=== PATIENT | female | born 1960 | race Caucasian/White ===

== ENCOUNTER 2019-06-04 21:20 | Emergency (ER) | payer MEDICAID, SELFPAY | END 2019-06-05 02:00 | disposition admitted as inpatient to this hospital (09) | LOC: ER 06-16 10:02 | PROVIDERS: Emergency Provider Emergency Medicine; Family Provider Family Medicine; PCP Family Medicine | DX: E13.01 Other specified diabetes mellitus with hyperosmolarity with coma (principal); I51.7 Cardiomegaly; I25.10 Atherosclerotic heart disease of native coronary artery without angina pectoris; E78.5 Hyperlipidemia, unspecified; K21.9 Gastro-esophageal reflux disease without esophagitis; I10 Essential (primary) hypertension; I25.5 Ischemic cardiomyopathy; I50.41 Acute combined systolic (congestive) and diastolic (congestive) heart failure; Z87.891 Personal history of nicotine dependence | CPT/HCPCS: 71045; 71275; 80053; 82009; 83690; 83735; 83880; 84484; 85025; 85378; 93005; 96365; 96366; 96367; 96372; 96374; 96375; 96376; 99284; 99291; J2405; J3490; Q9967 ==

== ENCOUNTER 2019-06-04 21:20 | Inpatient (IN) | payer MEDICAID, SELFPAY ==
[2019-06-04] VITALS (20 sets, daily range): BP systolic 176–217; BP diastolic 112–136; PULSE 99; RESP 18; TEMP 36.8; O2SAT 87–96; BMI 47.2
--- NOTE | 2019-06-04 21:34 | XR_ITS ---
WS: [id number] PORTABLE CHEST HISTORY: cough COMPARISON: 08/08/2018 Mild interstitial thickening bilaterally, greatest in the RIGHT lower lung field. New since the prior study. No pleural effusion or pneumothorax. Cardiac size: Mildly enlarged cardiac silhouette. Mediastinum/Aorta: Mildly ectatic aorta. No osseous abnormality seen. XR/XR chest 1V portable [id number] IMPRESSION: 1. Development of mild thickened interstitium suggesting pneumonitis or acute episode of bronchitis. 2. Mild cardiomegaly.
--- NOTE | 2019-06-04 21:34 | ECG_ITS ---
Measurements Intervals [place] Rate: 92 P: 46 NM: 159 QRS: -44 QRSD: 131 T: 118 QT: 377 QTc: 467 SINUS RHYTHM POSSIBLE LEFT ATRIAL ENLARGEMENT LEFT AXIS DEVIATION INTRAVENTRICULAR CONDUCTION DELAY LEFT VENTRICULAR HYPERTROPHY AND ST-T CHANGE ANTERIOR MYOCARDIAL INFARCTION , OF INDETERMINATE AGE Compared to ECG 08/09/2018 00:08:47 Left-axis deviation now present Intraventricular conduction delay now present ST (T wave) deviation still present Myocardial infarct finding still present Electronically Signed On 06-05-2019 17:41:59 CDT by Joyce Olvera M.D. [email or web address]
--- NOTE | 2019-06-04 21:38 | W.ED.CHESTPA ---
HPI - Chest Pain General: Chief Complaint: Chest Pain Stated Complaint: SOB Time Seen by Provider: 06/04/19 21:28 History of Present Illness: HPI narrative: Ms. Barraza is a 58-year-old female who comes in complaining of shortness of breath and chest pain. She states the chest pain is been intermittent all day. It is been sharp and stabbing in nature. She denies any aggravating or alleviating causes. She denies any fever, denies any cough or fever. Patient states that the pain does not feel like when she had her RI in the past. Patient also admits to frequent urination. She denies any belly pain or back pain or fever. She states she is just urinating very frequently. Associated symptoms: Reports dyspnea; Deny abdominal pain, diaphoresis, fever(s), nausea, palpitations, syncope or vomiting Review of Systems General: Reports: other (negative unless marked) Const: Denies: fever, chills, body aches, fatigue, malaise or diaphoresis Eyes: Denies: change in vision or blurry vision ENMT: Denies: throat pain, painful swallowing, hoarseness, ear pain, ear discharge, Change in hearing or nasal discharge Card: Reports: chest pain; Denies: palpitations, irregular heart rhythm, syncope, pre-syncope, shortness of breath on exertion or shortness of breath when lying down Resp: Reports: shortness of breath; Denies: productive cough, non-productive cough, wheezing, coughing up blood or chest congestion GI: Denies: abdominal pain, nausea, vomiting, vomiting blood, coffee grounds in vomit, diarrhea, constipation, cramping, blood in stool or black tarry stool : Reports: urinary frequency and urinary urgency; Denies: flank pain, painful urination, decreased urine ouput, urinary incontinence or blood in urine Musc: Denies: neck pain, back pain, extremity pain, extremity swelling, joint pain, joint swelling, joint warmth or joint stiffness Skin/Breast: Denies: rash, skin tenderness or yellow skin Neuro: Denies: headache, numbness in extremities, weakness in extremities, changes in sensation, lack of coordination, difficulty walking, dizziness, vertigo or confusion Endo: Denies: excessive thirst, tired all the time, cold intolerance, excessive sweating, flushing or hot flashes Blaze/Lymph: Denies: easy bruising, easy bleeding, petechiae or enlarged lymph nodes All/Imm: Denies: hives, throat swelling, tongue swelling, facial swelling or acute wheezing PFSH ED PFSH: Medical History (Updated 06/05/19 @ 00:35 by Gilbert Serna MD) Cholelithiasis Coronary artery disease Diabetes Dyslipidemia Enteritis Gastroenteritis GERD (gastroesophageal reflux disease) Hypertension Ischemic cardiomyopathy Stenosis of coronary stent EF 40% grade 2 diastolic dysfunction, LVH, Systolic and diastolic CHF, acute Surgical History H/O cardiac catheterization 1 vessel disease [address] segment elevation RI 3 stents were placed, with subsequent stent thrombosis with balloon angioplasty Family History Other CAD (coronary artery disease) Hypertension Social History Smoking and tobacco status: former smoker Alcohol intake: never Substance/Drug Use: never Housing: House Physical Exam Const: COMMON NORMALS: no apparent distress, oriented x3, no limitations, healthy appearing and well nourished EXAM LIMITATIONS: no altered mental status GENERAL APPEARANCE: cooperative, well kempt and well developed ORIENTATION/CONSCIOUSNESS: Yes awake HENMT: COMMON NORMALS: normocephalic, head/scalp atraumatic, hearing grossly normal bilaterally, external ears normal, EAC's normal, external nose normal and moist oral mucous membranes HEAD & SCALP: normal to inspection, normocephalic and atraumatic FACE & SINUS: normal facial exam and face symmetric NOSE: external nose normal and nares normal EXTERNAL EAR: Yes external ears normal EXTERNAL AUDITORY CANAL: EAC's normal MOUTH: oral and palatal mucosa normal and tongue normal Eye: COMMON NORMALS: PERRL, EOMs intact bilaterally, conjunctivae normal and no scleral icterus GENERAL EYE: normal appearance of both eyes and normal light reflex CONJUNCTIVA: Yes conjunctivae normal SCLERA: sclerae normal CORNEA: Yes corneas normal PUPIL: Yes PERRL DIRECT OPHTHALMOSCOPY: Yes normal light reflex Neck/C-Spine: COMMON NORMALS: full ROM, no lymphadenopathy, supple, no meningeal signs and no JVD GENERAL: Yes normal visual inspection and Yes trachea midline CERVICAL SPINE: Yes cervical ROM normal Chest: COMMONS NORMALS: inspection of chest normal and palpation of chest normal Resp: COMMON NORMALS: normal respiratory effort, no retractions, no use of accessory muscles and clear to auscultation bilaterally EFFORT & INSPECTION: Yes able to speak in complete sentences AUSCULTATION: clear to auscultation bilaterally Cardio: COMMON NORMALS: no JVD, regular rate, regular rhythm, S1 normal heart sound, S2 normal heart sound, no gallops, no clicks, no murmurs and no rub JUGULAR VENOUS DISTENTION: no JVD RATE: regular rate RHYTHM: regular rhythm HEART SOUNDS: S1 normal and S2 normal GI: COMMON NORMALS: soft to palpation, non-tender, no hepatosplenomegaly and no masses INSPECTION: Yes normal to inspection PALPATION: Yes soft and Yes no hepatosplenomegaly : COMMON NORMALS: Yes no CVA tenderness BLADDER/KIDNEY EXAM: Yes no CVA tenderness Back/Pelvis: COMMON NORMALS: no CVA tenderness, thoracic and lumbar spine normal to inspection, no thoracic nor lumbar tenderness and thoraco-lumbar ROM normal Extremity: COMMON NORMALS: normal to inspection, full ROM, normal capillary refill, no joint enlargement, no clubbing, cyanosis or edema and no calf tenderness Neuro: COMMON NORMALS: oriented x3, CN's II-XII intact bilaterally, moves all extremities, no focal motor deficits and no sensory deficits noted MENINGEAL SIGNS: Yes no meningeal signs Psych: COMMON NORMALS: mental status grossly normal, thought process normal, cooperative, affect normal, speech normal and activity/motor behavior normal APPEARANCE: Yes well kempt SPEECH: Yes normal speech THOUGHT PROCESS: normal thought process Skin: COMMON NORMALS: no rashes or lesions noted, skin turgor normal, no jaundice, no petechiae and no mottling GENERAL SKIN EXAM: no rashes or lesions noted and turgor normal Course Vital Signs: Vital signs: Vital Signs Temperature 98.3 F 06/04/19 21:28 Pulse Rate 98 06/05/19 01:00 Respiratory Rate 15 06/05/19 01:00 Blood Pressure 192/119 06/05/19 01:00 Pulse Oximetry 95 06/05/19 00:55 MDM - Chest Pain MDM Narrative: Medical decision making narrative: The case was reviewed with Dr. Serna, he agrees to admit and wants the insulin drip continued. He will follow-up on the patient second troponin is. He will place orders. Patient's pain is currently gone with 3 sublingual nitros and morphine. Patient presents with a chest pain syndrome that does not appear classically cardiac. It is sharp in nature with no radiation. EKG was reviewed with Dr. Olvera she agrees no acute RI at this time. Patient's blood sugar is also extremely high. She is continually asking for water to drink and states she has to urinate. Think this is likely to osmotic diuresis. This should be handled with insulin drip further by Dr. Serna on the floor. Lab Data: Attestation: I reviewed the patient's lab results. Labs: Lab Results 06/04/19 06/04/19 06/04/19 Range/Units 00:00 00:12 21:42 WBC (4.0-10.0) 10^3/ uL RBC (4.1-5.3) 10^6/u L Hgb (11.5-15.3) g/dL Hct (37.0-47.0) % MCV (81-99) fL MCH (28.0-34.0) pg MCHC (30.0-36.0) g/dL RDW (12.1-15.1) % Plt Count (130-400) 10^3/c mm MPV (7.4-10.4) fL Neut % (Auto) % Lymph % (Auto) % [place] % (Auto) % Eos % (Auto) % Baso % (Auto) % Neut # (Auto) (1.8-7.7) 10^3/u L Lymph # (Auto) (0.8-4.8) 10^3/u L [place] # (Auto) (0.2-0.9) 10^3/u L Eos # (Auto) (0.0-0.8) 10^3/u L Baso # (Auto) (0.0-0.1) 10^3/u L Nucleated RBC % (a uto) % Nucleated RBCs # /100WBC D-Dimer 0.82 H (0-0.59) ug/mIFE U Specimen Type Arterial Sample Site Radial, left ABG pH 7.39 (7.35-7.45) ABG pCO2 44.7 (35-45) mmHg ABG pO2 66.1 L (80.0-100.0) mmH g ABG HCO3 27.0 H (22-26) mmol/L ABG Base Excess 1.6 (-2.0-2.0) mmol/ L Preet Test Pos Hematocrit 35.6 L (37-47) % O2 Delivery Device Room air Chemical Technician ID shai Sodium (136-145) mmol/L Potassium (3.5-5.1) mmol/L Chloride (98-107) mmol/L Carbon Dioxide (22-29) mmol/L Anion Gap (5-19) BUN (8-23) mg/dL Creatinine (0.5-0.9) mg/dL GFR Calculation (90-130) mL/min Glucose (65-115) mg/dL POC Glucose (70-110) mg/dL Calculated Osmolal ity (285-295) mOsm/k g Calcium (8.5-10.5) mg/dL Magnesium (1.7-2.3) mg/dL Total Bilirubin (0.15-1.2) mg/dL AST (0-32) U/L ALT (0-33) U/L Alkaline Phosphata se (35-105) IU/L Troponin T Baselin e (0-10) ng/mL Troponin T [address] [place] 52.42 H (0-10) ng/mL NT-Pro-B Natriuret Pep (0-125) pg/mL Total Protein (6.6-8.7) g/dL Albumin (3.5-5.2) g/dL Globulin (1.3-4.6) g/dL Lipase (13-60) U/L Serum Ketones (Negative) 06/04/19 06/04/19 06/04/19 Range/Units 21:42 21:42 21:42 WBC 7.4 (4.0-10.0) 10^3/ uL RBC 4.77 (4.1-5.3) 10^6/u L Hgb 13.4 (11.5-15.3) g/dL Hct 43.5 (37.0-47.0) % MCV 91.2 (81-99) fL MCH 28.1 (28.0-34.0) pg MCHC 30.8 (30.0-36.0) g/dL RDW 13.6 (12.1-15.1) % Plt Count 173 (130-400) 10^3/c mm MPV 12.3 H (7.4-10.4) fL Neut % (Auto) 72.4 % Lymph % (Auto) 19.9 % [place] % (Auto) 5.3 % Eos % (Auto) 1.6 % Baso % (Auto) 0.5 % Neut # (Auto) 5.4 (1.8-7.7) 10^3/u L Lymph # (Auto) 1.5 (0.8-4.8) 10^3/u L [place] # (Auto) 0.4 (0.2-0.9) 10^3/u L Eos # (Auto) 0.1 (0.0-0.8) 10^3/u L Baso # (Auto) 0.0 (0.0-0.1) 10^3/u L Nucleated RBC % (a uto) 0 % Nucleated RBCs # 0.0 /100WBC D-Dimer (0-0.59) ug/mIFE U Specimen Type Sample Site ABG pH (7.35-7.45) ABG pCO2 (35-45) mmHg ABG pO2 (80.0-100.0) mmH g ABG HCO3 (22-26) mmol/L ABG Base Excess (-2.0-2.0) mmol/ L Preet Test Hematocrit (37-47) % O2 Delivery Device Chemical Technician ID Sodium 124 L (136-145) mmol/L Potassium 4.2 (3.5-5.1) mmol/L Chloride 87 L (98-107) mmol/L Carbon Dioxide 24 (22-29) mmol/L Anion Gap 17.2 (5-19) BUN 15 (8-23) mg/dL Creatinine 1.3 H (0.5-0.9) mg/dL GFR Calculation 41.8 L (90-130) mL/min Glucose 1008 H* (65-115) mg/dL POC Glucose (70-110) mg/dL Calculated Osmolal ity 305 H (285-295) mOsm/k g Calcium 9.5 (8.5-10.5) mg/dL Magnesium 2.1 (1.7-2.3) mg/dL Total Bilirubin 0.4 (0.15-1.2) mg/dL AST 27 (0-32) U/L ALT 26 (0-33) U/L Alkaline Phosphata se 163 H (35-105) IU/L Troponin T Baselin e 38 H (0-10) ng/mL Troponin T [address] [place] (0-10) ng/mL NT-Pro-B Natriuret Pep 1390 H (0-125) pg/mL Total Protein 7.2 (6.6-8.7) g/dL Albumin 3.6 (3.5-5.2) g/dL Globulin 3.6 (1.3-4.6) g/dL Lipase 34 (13-60) U/L Serum Ketones (Negative) 06/04/19 06/05/19 Range/Units 21:42 00:23 WBC (4.0-10.0) 10^3/ uL RBC (4.1-5.3) 10^6/u L Hgb (11.5-15.3) g/dL Hct (37.0-47.0) % MCV (81-99) fL MCH (28.0-34.0) pg MCHC (30.0-36.0) g/dL RDW (12.1-15.1) % Plt Count (130-400) 10^3/c mm MPV (7.4-10.4) fL Neut % (Auto) % Lymph % (Auto) % [place] % (Auto) % Eos % (Auto) % Baso % (Auto) % Neut # (Auto) (1.8-7.7) 10^3/u L Lymph # (Auto) (0.8-4.8) 10^3/u L [place] # (Auto) (0.2-0.9) 10^3/u L Eos # (Auto) (0.0-0.8) 10^3/u L Baso # (Auto) (0.0-0.1) 10^3/u L Nucleated RBC % (a uto) % Nucleated RBCs # /100WBC D-Dimer (0-0.59) ug/mIFE U Specimen Type Sample Site ABG pH (7.35-7.45) ABG pCO2 (35-45) mmHg ABG pO2 (80.0-100.0) mmH g ABG HCO3 (22-26) mmol/L ABG Base Excess (-2.0-2.0) mmol/ L Preet Test Hematocrit (37-47) % O2 Delivery Device Chemical Technician ID Sodium (136-145) mmol/L Potassium (3.5-5.1) mmol/L Chloride (98-107) mmol/L Carbon Dioxide (22-29) mmol/L Anion Gap (5-19) BUN (8-23) mg/dL Creatinine (0.5-0.9) mg/dL GFR Calculation (90-130) mL/min Glucose (65-115) mg/dL POC Glucose > 600 (70-110) mg/dL Calculated Osmolal ity (285-295) mOsm/k g Calcium (8.5-10.5) mg/dL Magnesium (1.7-2.3) mg/dL Total Bilirubin (0.15-1.2) mg/dL AST (0-32) U/L ALT (0-33) U/L Alkaline Phosphata se (35-105) IU/L Troponin T Baselin e (0-10) ng/mL Troponin T [address] [place] (0-10) ng/mL NT-Pro-B Natriuret Pep (0-125) pg/mL Total Protein (6.6-8.7) g/dL Albumin (3.5-5.2) g/dL Globulin (1.3-4.6) g/dL Lipase (13-60) U/L Serum Ketones Negative (Negative) Imaging Data^: CXR: My impression: Cardiomegaly, questionable right lower lobe infiltrate. EKG Data^: EKG 1: Attestation: I personally reviewed and interpreted this EKG as follows: EKG interpretation date: 06/05/19 EKG interpretation time: 21:37 Interpretation: Normal sinus rhythm at 92 beats a minute, LVH, evidence of previous anterior RI with Q waves. No acute ST or T wave changes. Reviewed and agreed upon with Dr. Olvera. EKG 2: Attestation: I personally reviewed and interpreted this EKG as follows: EKG interpretation date: 06/05/19 EKG interpretation time: 00:14 Interpretation: Normal sinus rhythm at 79 beats a minute, LVH with strain, evidence of previous Q wave anterior RI. No changes from previous. Discharge Plan Discharge Patient Disposition: Admitted As Inpatient Admit Provider: Gilbert Serna Clinical Impression: Secondary diabetes mellitus with HHNC (hyperglycemia hyperosmolar non-ketotic coma) Chest pain Qualifiers: Chest pain type: unspecified Qualified Code(s): R07.9 - Chest pain, unspecified Condition: Stable Coding Level of Care Code ED Supervisor Fertilizer for Chg Fwd Exam Comprehensive
[2019-06-04 21:54] LABS: Basophils % 0.5 %; Eosinophils # 0.1 10^3/uL (0.0-0.8); Eosinophils % 1.6 %; Hematocrit 43.5 % (37.0-47.0); Hemoglobin 13.4 g/dL (11.5-15.3); Lymphocytes # 1.5 10^3/uL (0.8-4.8); Lymphocytes % 19.9 %; Mean Corpuscular HGB Conc 30.8 g/dL (30.0-36.0); Mean Corpuscular Hemoglobin 28.1 pg (28.0-34.0); Mean Corpuscular Volume 91.2 fL (81-99); Mean Platelet Volume 12.3 fL (7.4-10.4); Monocytes # 0.4 10^3/uL (0.2-0.9); Monocytes % 5.3 %; Neutrophils # 5.4 10^3/uL (1.8-7.7); Neutrophils % 72.4 %; Nucleated Red Blood Cells % 0 %; Platelet Count 173 10^3/cmm (130-400); Red Blood Count 4.77 10^6/uL (4.1-5.3); Red Cell Distribution Width 13.6 % (12.1-15.1); White Blood Count 7.4 10^3/uL (4.0-10.0)
[2019-06-04 22:13] LABS: Troponin(5th) Baseline 38 ng/mL (0-10)
[2019-06-04 22:23] LABS: Alanine Aminotransferase 26 U/L (0-33); Albumin Level 3.6 g/dL (3.5-5.2); Alkaline Phosphatase 163 IU/L (35-105); Anion Gap 17.2 (5-19); Aspartate Amino Transferase 27 U/L (0-32); Blood Urea Nitrogen 15 mg/dL (8-23); Calcium 9.5 mg/dL (8.5-10.5); Carbon Dioxide 24 mmol/L (22-29); Chloride 87 mmol/L (98-107); Globulin 3.6 g/dL (1.3-4.6); Glomerular Filtration Rate 41.8 mL/min (90-130); Lipase 34 U/L (13-60); Magnesium 2.1 mg/dL (1.7-2.3); NT Pro B Type Natriuretic Pept 1390 pg/mL (0-125); Potassium 4.2 mmol/L (3.5-5.1); Sodium 124 mmol/L (136-145); Total Bilirubin 0.4 mg/dL (0.15-1.2); Total Protein 7.2 g/dL (6.6-8.7)
[2019-06-04] MEDS: aspirin 81 mg Chew Tablet 324 MG PO (22:24)
[2019-06-04] MEDS: ondansetron 2 mg/ML SDV 2 mL 4 MG IVP ×2 (22:24→23:05)
[2019-06-04] MEDS: nitroglycerin 0.4 mg sublingual Tablet SUBLINGUAL ×2 (22:24→22:38)
[2019-06-04 22:31] LABS: Osmolality Calculated 305 mOsm/kg (285-295)
[2019-06-04 22:35] LABS: Glucose 1008 mg/dL (65-115)
[2019-06-04] MEDS: labetalol 5 mg/mL SDV 20mL 10 MG IVP (23:07)
[2019-06-04] MEDS: nitroglycerin 1 gm/inch oint Pkt 1 INCH TOPICAL (23:09)
--- NOTE | 2019-06-04 23:12 | CTR_ITS ---
PROCEDURE INFORMATION: Exam: CT Angiography Chest With Contrast Exam date and time: 06/04/2019 11:28 PM Age: 58 years old Clinical indication: Chest pain; Additional info: Chest pain, pleuritc TECHNIQUE: Imaging protocol: Computed tomographic angiography of the chest with intravenous contrast. Axial, coronal and sagittal reformatted images were created and reviewed. 3D rendering: MIP and/or 3D reconstructed images were created by the technologist. Total DLP: 653.13 mGy-cm Radiation optimization: All CT scans at this facility use at least one of these dose optimization techniques: automated exposure control; mA and/or kV adjustment per patient size (includes targeted exams where dose is matched to clinical indication); or iterative reconstruction. Contrast material: JEWELL; Contrast volume: 80 ml; Contrast route: 20G; COMPARISON: CTA Chest-Pulmonary Emb [id number] 07/18/2018 11:40 PM FINDINGS: Pulmonary arteries: Contrast opacification satisfactory. No intraluminal filling defect. Aorta: Unremarkable. No aneurysm or dissection. Lungs: Mild central peribronchial thickening, suggestive of airway inflammation. Mild linear stranding and groundglass, likely due to atelectasis and/or scarring. No focal consolidation. Pleural space: Unremarkable. No pneumothorax. No pleural effusion. Heart: Mild cardiomegaly. No pericardial effusion. Gallbladder and bile ducts: Cholelithiasis and marked gallbladder distention, similar to prior. Kidneys and ureters: 2.5 cm right renal cyst. Nonobstructing bilateral renal calculi. Lymph nodes: Multiple small mediastinal and hilar lymph nodes, likely reactive. No pathologically enlarged lymph nodes. Bones/joints: No acute osseous abnormality. Osteopenia. Degenerative changes. Soft tissues: Unremarkable. CT/CT angio chest PE protcl [id number] IMPRESSION: 1. No CT evidence of pulmonary embolism. 2. Mild cardiomegaly. 3. Mild central peribronchial thickening, suggestive of airway inflammation. 4. Cholelithiasis and marked gallbladder distention, similar to prior. If clinically indicated, ultrasound or HIDA scan would provide a more sensitive evaluation for acute gallbladder pathology. 5. Additional findings, as above. Radiation Dose CTDIVOL = (mGy): DLP = 653.13 (mGy-cm)
[2019-06-04 23:19] LABS: Ketone (Acetest) Serum Negative (Negative)
--- NOTE | 2019-06-04 23:34 | ECG_ITS ---
Measurements Intervals [place] Rate: 75 P: 51 NH: 162 QRS: -29 QRSD: 123 T: 92 QT: 403 QTc: 451 SINUS RHYTHM POSSIBLE LEFT ATRIAL ENLARGEMENT [-0.1mV P WAVE IN V1/V2] LEFT VENTRICULAR HYPERTROPHY AND ST-T CHANGE [VOLTAGE CRITERIA PLUS ST/T ABNOR ABNORMALITY] POSSIBLE SEPTAL MYOCARDIAL INFARCTION [30 ms Q WAVE IN V1/V2], POSSIBLY ACUTE ACUTE IA Compared to ECG 08/09/2018 00:08:47 No significant changes Electronically Signed On 06-05-2019 17:50:14 CDT by Joyce Olvera M.D. [email or web address]
[2019-06-04] MEDS: iodixanol 320 mg/mL 100mL Btl IV (23:49)
[2019-06-05] VITALS (51 sets, daily range): BP systolic 80–198; BP diastolic 54–136; PULSE 70–100; RESP 12–27; TEMP 36.2; O2SAT 91–99
--- NOTE | 2019-06-05 00:14 | P.HP_ITS ---
Providers/Chief Complaint Primary Care Provider: Lito Keating MD Chief Complaint: SOB History of Present Illness Roxana Barraza is a 58 year old female who carries diagnosis of diabetes, established coronary disease with 3 stents in LAD single-vessel coronary disease status, in-stent restenosis with successful balloon angioplasty came in with chief complaint of chest pain. Her cardiac catheterization was done 2019 July, since then patient has not been taking her medications at all, she is stating that she forgets what she ate in her breakfast and taking medication is a very big challenge for her, she has not been taking anything for her diabetes high blood pressure or coronary disease. She lives with her friend, she has chicken on her property and enjoys taking care of them. Patient is stating that she sleeps in the bathtub because that is how she gets 6 hours sleep most of the time, she has been suffering from polyuria and not able to get up from the couch and decided to sleep in the bathtub. Patient is stating that her chest pain started few days ago, it mostly happens on exertion when she is outside taking care of her chicken. Gets better with rest, it associated shortness of breath, orthopnea and PND, sometimes when she is taking care of her chicken she falls on the ground and then drags herself back in her home. She has not noticed any fever, nausea, vomiting, cold sweats, she is struggling for her daily activities, memory impairment is making her daily life very difficult, she thinks someone is stealing money from her as well. Overall she feels very lethargic, tired and has been suffering from muscle cramps. Diagnostics in ER revealed hypertensive emergency, hyperglycemia without ketosis, abnormal troponins without ischemic changes on EKG, CTA chest ruled out PE, baseline creatinine, Currently she is on nitroglycerin drip for hypertensive emergency, chest pain- free Review of Systems Const: Reports: chills, body aches, change in appetite, fatigue, malaise and change in sleep pattern; Denies: fever Eyes: Denies: change in vision ENMT: Denies: throat pain Card: Reports: chest pain, edema, swelling of feet/ankles, shortness of breath on exertion, shortness of breath when lying down and leg pain with exertion; Denies: palpitations, syncope or pre-syncope Resp: Reports: shortness of breath; Denies: productive cough or non-productive cough GI: Denies: abdominal pain, nausea or vomiting : Denies: flank pain or difficulty urinating Musc: Reports: muscle cramps and muscle weakness Skin/Breast: Reports: rash, itching and redness (Perineal area and legs) Neuro: Denies: headache Psych: Reports: depression and sleeping more; Denies: anxiety Endo: Reports: excessive urination and excessive thirst Blaze/Lymph: Denies: easy bruising All/Imm: Denies: hives Medications/Allergies Allergies Allergy/AdvReac Type Severity Reaction Status Date / Time nalbuphine [From Nubain] Allergy Unknown Verified 06/04/19 21:35 PFSH Acute PFSH: Medical History Cholelithiasis Coronary artery disease Diabetes Dyslipidemia Enteritis Gastroenteritis GERD (gastroesophageal reflux disease) Hypertension Ischemic cardiomyopathy Stenosis of coronary stent EF 40% grade 2 diastolic dysfunction, LVH, Systolic and diastolic CHF, acute Surgical History H/O cardiac catheterization 1 vessel disease [address] segment elevation PR 3 stents were placed, with subsequent stent thrombosis with balloon angioplasty Family History Other CAD (coronary artery disease) Hypertension Social History Smoking and tobacco status: former smoker Alcohol intake: never Substance/Drug Use: never Housing: House Vitals/I&O/Wt Last Vital Signs Temp 98.3 F 06/04/19 21:28 Pulse 99 06/04/19 21:28 Resp 18 06/04/19 21:28 BP 217/116 06/04/19 21:28 Pulse Ox 96 06/04/19 21:28 Weight last 48 hrs Weight 113.398 kg Physical Exam Narrative: EXAM NARRATIVE: Morbidly obese female Currently in distress because of muscle cramps in her right leg Able to give me all the details S1, S2, bilateral lower extremity edema 1+, hard to assess her JVD, crackles at base of her lungs, saturating well on room air Abdomen soft, nontender, nondistended, with obesity positive, bloated, nontender Neurologically nonfocal exam Hyperemic skin rash around medial side of her thighs and lower legs without active sign of cellulitis Excessively dry skin EOMI, PERRLA Irritable mood Lack of insight to her medical conditions Data : 06/04/19 21:42 06/04/19 21:42 A&P Assessment and plan (1) Angina pectoris syndrome: Status: Acute (2) Poorly controlled diabetes mellitus: Status: Acute (3) Secondary diabetes mellitus with HHNC (hyperglycemia hyperosmolar non- ketotic coma): Status: Acute (4) Hypertensive emergency: Status: Acute (5) Systolic and diastolic CHF, acute: Status: Acute (6) Non-compliant patient: Status: Acute (7) Morbid obesity: Status: Acute Additional A&P Information Unstable angina Established coronary disease, history of 3 stents with in-stent restenosis Patient is noncompliant, since her previous admission to the hospital she has not been taking dual antiplatelet therapy, or recommended medications for her heart failure Considering significant delta troponin I would load her with aspirin and Plavix give her full dose therapeutic dose of Lovenox x1, currently she is chest pain- free, Lexiscan stress test in the morning EKG is not showing any ischemic or infarctive changes, left ventricular hypertrophy evidence positive along left axis deviation, kindly reevaluate if patient would need heparin drip after 12 hours as her troponin could very well be secondary to hypertensive emergency Avoid using beta-jian at this point Echo in the morning High risk for in-stent occlusion Hypertensive emergency with abnormal troponin level Currently on nitroglycerin drip Target mean arterial pressure reduction 25% in next 8 to 10 hours, on arrival diastolic blood pressure was 120 and systolic 192 I would continue lisinopril low-dose along amlodipine, avoid hydrochlorothiazide at this point because of polyuria due to hyperglycemia Poorly controlled type 2 diabetes due to noncompliance She has been suffering from polyuria, polydipsia, lethargy Did not meet DKA criteria Currently on insulin drip N.p.o. Anticipating rapid decline in blood sugar, would add D5 after blood sugar is below 250 mg/dL We will check A1c panel, her A1c level was 11 in 2019 and she has not been taking anything for her diabetes Combined systolic diastolic congestive heart failure active exacerbation with clinical signs Ischemic cardiomyopathy EF 40% Grade 2 diastolic We will follow-up with echo Gentle diuresis as she has been not taking any diuretics at home Chronic kidney disease: Baseline creatinine 1.3 no active exacerbation, N.p.o. 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
[2019-06-05 00:23] LABS: ABG PCO2 44.7 mmHg (35-45); ABG PH Result 7.39 (7.35-7.45); Arterial Blood Gas Hematocrit 35.6 % (37-47); Base Excess ABG 1.6 mmol/L (-2.0-2.0); Blood Gas Allen Test Pos; Blood Gas Sample Site Radial, left; Blood Gas Sample Type Arterial; Oxygen Device ROOM AIR; PO2 ABG 66.1 mmHg (80.0-100.0)
[2019-06-05] MEDS: insulin regular-human 250 UNIT in sodium chloride 0.9% 250 ML IV (00:24)
--- NOTE | 2019-06-05 00:24 | PC.NURSE ---
INformed doctor and nurse who was at bedside that patient's bllod glucose is too high to read on glucometer
[2019-06-05 00:27] LABS: Glucose Point of Care > 600 mg/dL (70-110)
[2019-06-05 00:28] LABS: D Dimer 0.82 ug/mIFEU (0-0.59)
[2019-06-05 00:34] LABS: Troponin 5 2HR 52.42 ng/mL (0-10)
[2019-06-05] MEDS: nitroglycerin drip 50 MG/250 ML PREMIX IV (00:43)
--- NOTE | 2019-06-05 00:52 | PC.NURSE ---
Patient's nurse and I assisted patient in changing her bedding and briefs.
[2019-06-05 01:16] LABS: Troponin 5 2HR Delta 14.42 ABS# (0-10)
--- NOTE | 2019-06-05 01:36 | USCV_ITS ---
Roxana Barraza Age: 58 Gender: F : 1960 Exam Date: 06/05/2019 11:39 Ordering Phys: Gilbert Serna MD Technologist: Santo Conde [place]am [place] [facility] [place]ication: HX OR BP: / HR: 71 Rhythm: Sinus Technical Quality: Poor MEASUREMENTS (Male / Female) Normal Values 2D ECHO LV Diastolic Diameter PLAX 4.0 cm 4.2 - 5.9 / 3.9 - 5.3 cm LV Systolic Diameter PLAX 2.0 cm IVS Diastolic Thickness 1.2 cm 0.6 - 1.0 / 0.6 - 0.9 cm IVS Systolic Thickness 1.6 cm LVPW Diastolic Thickness 1.2 cm 0.6 - 1.0 / 0.6 - 0.9 cm LVPW Systolic Thickness 1.4 cm LVOT Diameter 2.1 cm LV Ejection Fraction 2D Teich 81.0 % LV Ejection Fraction MOD 2C 21.9 % LV Ejection Fraction 2C AL 24.7 % LA Diameter 3.6 cm LA Width 4.9 cm LA Height 5.2 cm RA Width 3.9 cm RA Height 4.9 cm Aorta at Sinotubular Diameter 2.6 cm M-MODE LV Diastolic Diameter MM 4.2 cm 4.2 - 5.9 / 3.9 - 5.3 cm LV Systolic Diameter MM 3.2 cm LV Ejection Fraction MM Teich 49.4 % IVS Diastolic Thickness MM 1.1 cm 0.6 - 1.0 / 0.6 - 0.9 cm IVS Systolic Thickness MM 1.6 cm LVPW Diastolic Thickness MM 1.5 cm 0.6 - 1.0 / 0.6 - 0.9 cm LVPW Systolic Thickness MM 1.8 cm RV Diastolic Diameter MM 1.2 cm Aortic Annulus Diameter 3.1 cm LA Ao Ratio MM 1.2 MV E Point Septal Separation 0.9 cm DOPPLER AV Peak Velocity 162.0 cm/s LVOT Peak Velocity 92.0 cm/s AV Area Cont Eq vti 2.6 cm squared AV Area Cont Eq pk 2.0 cm squared MV Area PHT 5.0 cm squared Mitral E to A Ratio 1.2 MV E' Velocity 5.0 cm/s Mitral E to MV E' Ratio 21.4 Mitral E to LV E' Lateral Ratio 21.8 Mitral E to LV E' Septal Ratio 21.4 TR Peak Velocity 168.0 cm/s TR Peak Gradient 11.3 mmHg TV Peak E Velocity 66.0 cm/s Right Atrial Pressure 3.0 mmHg Pulmonary Artery Systolic Pressu 14.3 mmHg FINDINGS Left Ventricle Mildly increased left ventricular cavity size. Moderately decreased left ventricular systolic function. There appeared to be anterior mid to distal septal and apical akinesis.Grade II/IV diastolic dysfunction, moderately elevated filling pressures. Right Ventricle The right ventricle is normal in size and function. Right Atrium The right atrium is normal in size. Left Atrium The left atrium is normal in size. Mitral Valve Moderately thickened mitral valve. No mitral valve stenosis. No mitral valve regurgitation. Aortic Valve Mild aortic valve calcification. No aortic valve stenosis. No aortic valve regurgitation. Tricuspid Valve Structurally normal tricuspid valve without significant stenosis or regurgitation. Pulmonary artery systolic pressure is normal. Pulmonic Valve Structurally normal pulmonic valve without significant stenosis. There is no pulmonic regurgitation. Pericardium Normal pericardium without effusion. Aorta Normal ascending aorta dimension. CONCLUSIONS 1-Mildly increased left ventricular cavity size. Moderately decreased left ventricular systolic function. There appeared to be anterior mid to distal septal and apical akinesis.Grade II/IV diastolic dysfunction, moderately elevated filling pressures. 2-There is no pericardial effusion. 3-Pulmonary artery systolic pressure is within normal limits. 4-No significant valve abnormalities. 5-There is no pericardial effusion. 6-No significant change since the prior echocardiogram study of 07/30/2018. Gilbert Torres MD (Electronically Signed) Final Date: 05 June 2019 14:18 S
--- NOTE | 2019-06-05 01:36 | NMCV_ITS ---
NM xena perf SPECT r/s* [id number] Roxana Barraza Age: 58 Gender: F : 1960 Exam Date: 06/05/2019 07:27 Ordering Phys: Gilbert Serna MD Technologist: SUMAYA Ennis Exam Location: [facility] Indications: SOB, CAD STRESS TEST Please see separate stress test report in [facility] for full findings IMAGE PROTOCOL Rest/Stress 1 Lexiscan Day Radiopharmaceutical Dose (mCi) Administration Site Administered by Rest: Tc-99m 10.9 IV SUMAYA Ennis Sestamibi Stress:Tc-99m 33.0 IV SUMAYA Ennis Sestamibi Rest: 05-Jun-2019 60 Discovery 630 Stress: 05-Jun-2019 45 Discovery 630 0.4mg Lexiscan. Supine position only as patient was unable to lay prone. SPECT RESULTS Technical Quality: Good Raw Data Analysis: Breast attenuation Image Corrections: No attenuation or motion correction applied Summed Stress Score: 26 Summed Rest Score: 26 Summed Difference Score: 2 PERFUSION FINDINGS Large area of fixed perfusion defect noted in mid to distal anterior and inferolateral apical wall suggestive of old myocardial infarction versus scarring in LAD territory. Medium-size area of mild to moderate reversibility noted in basal to distal inferolateral region suggestive of possible ischemia in distal circumflex or RCA. Please note that patient was not able to perform the prone images therefore cannot rule out artifact. FUNCTIONAL RESULTS (calculated via Gated SPECT) Stress Image LV EF (%): 19 Stress EDV (mL):219 TID: 1.04 Stress ESV (mL):178 Rest Image LV EF (%): 19 FUNCTIONAL FINDINGS: It appeared to be mid to distal anterior anteroseptal apical and inferoseptal akinesis. There appeared to be mid to distal inferior akinesis. IMPRESSIONS Large area of fixed perfusion defect noted in mid to distal anterior and inferolateral apical wall suggestive of old myocardial infarction versus scarring in LAD territory. Medium-size area of mild to moderate reversibility noted in basal to distal inferolateral region suggestive of possible ischemia in distal circumflex or RCA. Please note that patient was not able to perform the prone images therefore cannot rule out artifact. EKG segment will be documented separately. Gilbert Torres MD (Electronically Signed) Final Date: 05 June 2019 12:16 S
[2019-06-05 01:40] LABS: Glucose Point of Care 539 mg/dL (70-110)
[2019-06-05] MEDS: amlodipine 10 mg Tablet PO ×2 (02:23→10:36)
[2019-06-05] MEDS: enoxaparin 100 mg/mL Syringe 110 MG SUBCUT (02:23)
[2019-06-05] MEDS: hyDRALAzine 20 mg/mL INJ 1 mL 5 MG IVP (02:23)
[2019-06-05] MEDS: clopidogrel 300 mg Tablet PO (02:23)
[2019-06-05] MEDS: heparin 5,000 unit/mL INJ 1 mL 5000 UNIT SUBCUT ×2 (02:24→10:37)
[2019-06-05] MEDS: sodium chlor 0.45% +KCl 20 mEq 20 MEQ/1,000 ML BAG 150 MEQ IV (02:34)
[2019-06-05 02:42] LABS: Basophils % 0.3 %; Eosinophils # 0.1 10^3/uL (0.0-0.8); Eosinophils % 1.5 %; Hematocrit 37.7 % (37.0-47.0); Hemoglobin 12.3 g/dL (11.5-15.3); Lymphocytes # 2.2 10^3/uL (0.8-4.8); Lymphocytes % 23.2 %; Mean Corpuscular HGB Conc 32.6 g/dL (30.0-36.0); Mean Corpuscular Hemoglobin 28.3 pg (28.0-34.0); Mean Corpuscular Volume 86.9 fL (81-99); Mean Platelet Volume 12.3 fL (7.4-10.4); Monocytes # 0.7 10^3/uL (0.2-0.9); Monocytes % 6.9 %; Neutrophils # 6.5 10^3/uL (1.8-7.7); Neutrophils % 67.8 %; Nucleated Red Blood Cells % 0 %; Platelet Count 168 10^3/cmm (130-400); Red Blood Count 4.34 10^6/uL (4.1-5.3); Red Cell Distribution Width 13.4 % (12.1-15.1); White Blood Count 9.6 10^3/uL (4.0-10.0)
[2019-06-05 02:48] LABS: Anion Gap 17.8 (5-19); Blood Urea Nitrogen 13 mg/dL (8-23); Calcium 9.3 mg/dL (8.5-10.5); Carbon Dioxide 25 mmol/L (22-29); Chloride 96 mmol/L (98-107); Glomerular Filtration Rate 45.8 mL/min (90-130); Osmolality Calculated 302 mOsm/kg (285-295); Potassium 3.8 mmol/L (3.5-5.1); Sodium 135 mmol/L (136-145)
[2019-06-05 03:00] LABS: Glucose 560 mg/dL (65-115)
[2019-06-05 03:27] LABS: Troponin 5 6HR 75.53 ng/mL (0-10)
[2019-06-05 03:32] LABS: Troponin 5 6HR Delta 37.53 ng/L (0-12)
--- NOTE | 2019-06-05 03:34 | ECG_ITS ---
Measurements Intervals [place] Rate: 79 P: 46 ME: 161 QRS: -44 QRSD: 138 T: 114 QT: 402 QTc: 461 SINUS RHYTHM LEFT AXIS DEVIATION [QRS AXIS < -30] INTRAVENTRICULAR CONDUCTION DELAY LEFT VENTRICULAR HYPERTROPHY AND ST-T CHANGE [VOLTAGE CRITERIA PLUS ST/T ABNORMALITY] POSSIBLE SEPTAL MYOCARDIAL INFARCTION , POSSIBLY ACUTE Compared to ECG 08/09/2018 00:08:47 Left-axis deviation now present Intraventricular conduction delay now present ST (T wave) deviation still present Myocardial infarct finding still present Electronically Signed On 06-05-2019 17:50:52 CDT by Joyce Olvera M.D. [email or web address]
[2019-06-05 03:50] LABS: Estmated Average Glucose 395; Hemoglobin A1C 15.4 % (4.0-6.0)
[2019-06-05] MEDS: D5-NS 0.45% + KCL 20 mEq 20 MEQ/1,000 ML BAG 150 MEQ IV (06:02)
--- NOTE | 2019-06-05 06:07 | PC.NURSE ---
Patient has complained off and on of leg cramps throughout night. THis RN attempted to educated patient we are slowly correcting her sugar and potassium, as well as treating her to prevent DVT. Patient refused to listen to this nurse stating YOu are refusing to do anything to help me. Attempted to provide education again when patient stated just leave me alone .
--- NOTE | 2019-06-05 06:22 | PC.NURSE ---
Patient stated she will do stress test, Santo notified in [facility]
[2019-06-05] MEDS: regadenoson 0.4 Mg/5 ml Syringe IVP (09:26)
[2019-06-05] MEDS: aspirin 81 mg EC Tablet PO (10:36)
[2019-06-05] MEDS: atorvastatin 40 mg Tablet PO (10:36)
[2019-06-05] MEDS: pantoprazole DR 40 mg Tablet 20 MG PO (10:36)
[2019-06-05] MEDS: clopidogrel 75 mg Tablet PO (10:37)
[2019-06-05] MEDS: lisinopril 5 mg Tablet PO (10:37)
[2019-06-05] MEDS: bisacodyl 10 mg Supp PR (12:17)
--- NOTE | 2019-06-05 13:24 | PC.NURSE ---
Called [facility] Per pharmacy and friend Barbara, patient has not been taking her home meds since last September 2018. [place] [facility] [place] but she is still not taking them or filled them. Pt re-educated and reinforced regarding importance of adhering to her prescribed meds. Dr. Mckinnon.
--- NOTE | 2019-06-05 16:40 | P.PN_ITS ---
Subjective Subjective: Interval history: She states that she is better at rest. She gets chest discomfort with even minimal exertion. Says sometimes she gets so worn out that she collapses. Says has been sleeping in the bathtub with warm water due to needing to frequently urinate and fatigue. Says has not been taking her medications as previously could not afford them. Now has medicaid. Discussed with her regarding concern of non-STEMI, as well as concerned that if she is not taking medications is at risk of severe life-threatening additional PA. Discussed with her very poorly controlled diabetes with A1c of 15, and that this again increase her loose risk of life-threatening PA, as well as other complications including nephropathy, retinopathy, poor wound healing, especially if she is sleeping on hard surfaces like bathtub, in addition to wound infections related to moisture, and other wounds, as well as other diabetes complications, as well as poorly controlled hypertension with risk of PA, CVA, etc. Discussed with her discharge to group home facility to help establish better control of her conditions, as well as restorative therapy, however, she declines at this time, but when asked to do so does say she will think more on it. She understands that her conditions are life-threatening, and if she continues to wear she has been without controlling them she is running a very high risk of complication and . She states that we were meant to be independently and at home , and states that she has friends who will help her at home. She understands that she is running a high risk of mortality, but is not willing to have higher level of care. She is willing to continue treatment in the hospital including for her PA, as well as discuss options for having her medications filled. When asked about depression she denies and denies any suicidal ideation. Vitals/I&O/Wt Last Vital Signs Temp 98.3 F 06/04/19 21:28 Pulse 92 06/05/19 12:00 Resp 16 06/05/19 12:00 BP 154/78 06/05/19 12:00 Pulse Ox 97 06/05/19 12:00 06/05/19 06/05/19 06/05/19 06:59 14:59 22:59 Intake Total 582.833 / 582.833 200 / 200 Balance 582.833 / 582.833 200 / 200 Weight last 48 hrs Weight 113.398 kg Physical Exam Const: COMMON NORMALS: no apparent distress and oriented x3 HENMT: COMMON NORMALS: oropharynx normal Neck/C-Spine: COMMON NORMALS: no JVD Resp: COMMON NORMALS: normal respiratory effort and clear to auscultation bilaterally AUSCULTATION: clear to auscultation bilaterally Cardio: COMMON NORMALS: no JVD, regular rhythm, S1 normal heart sound, S2 normal heart sound and no murmurs RHYTHM: regular rhythm HEART SOUNDS: S1 normal and S2 normal GI: COMMON NORMALS: normal to inspection, nondistended, normoactive bowel sounds, soft to palpation and non-tender PALPATION: Yes soft Extremity: COMMON NORMALS: no joint enlargement and no pedal edema Neuro: COMMON NORMALS: oriented x3 and moves all extremities Skin: COMMON NORMALS: no rashes or lesions noted GENERAL SKIN EXAM: no rashes or lesions noted Data : 06/05/19 02:30 06/05/19 02:30 A&P Assessment and plan (1) Angina pectoris syndrome: Non-STEMI, with history of CAD, nonadherence with medical therapy. Abnormal stress test with fixed perfusion defect, as well as mild to moderate reversible perfusion defect. At this time continue medical therapy with antiplatelets, anticoagulation, statin. Beta-jian was held. Lisinopril. Appreciate additional cardiology recommendations once they are able to safely see her. Discussed with her and she is agreeable with plan. Per friend stopped taking her medications 3 weeks after stenting. Status: Acute (2) Poorly controlled diabetes mellitus: A1c of 15. Discussed with her that metformin and glipizide or not working, if she is taking them, with A1c of 15 she is at this stage beyond what medical therapy is capable of improving. Discussed with her she will require insulin, and she states understanding and agreement. Discussed this also with her friend who states herself has diabetes. Per friend states she did not like taking the medicines. Status: Acute (3) Secondary diabetes mellitus with HHNC (hyperglycemia hyperosmolar non- ketotic coma): Reported HHS on presentation. Currently she is awake and alert, lucid. If present this is currently resolved. She is off insulin drip. Start her on Lantus. Continue aggressive sliding scale. Consistent carbohydrate diet. Status: Acute (4) Hypertensive emergency: Blood pressures improved. Status: Acute (5) Systolic and diastolic CHF, acute: Status: Acute (6) Non-compliant patient: She has not been adherent with her medications, with polyuria, fatigue, dyspnea on exertion, sometimes getting so exhausted that she collapses. Sleeping in the bathtub filled with water. Discussed with her that in current condition she is at very high risk of mortality. Discussed with her that these practices will lead to high risk of complication including risk of drowning, r isk of severe injury from fall, risk of pressure injury, nonhealing wounds, UTI, as well as if nonadherent with medications risk of cardiovascular complication including severe PA, . She declines higher level of care. 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 Asked her to give it more thought, and she says she will. She is agreeable to try to work up with options to get her her medications. Will ask discharge planning for additional help as well. She currently has Medicaid. She is alert and oriented x3. She perfectly understands her conditions, and is able to summarize our discussion. She denies depression or suicidal ideation being the cause of her noncompliance. In the current state with very poorly controlled chronic conditions she is at very high risk of untoward event and premature mortality. She understands this. Discussed also with her friend. They live in the same house. Patient has mentioned that her friend and her friend's Slim. Her friend states that they have been trying to help her, she has diabetes and hypertension herself, and has been trying to help her to manage her conditions. She states that after taking medications for a while she then stops. Discussed also with her friend that patient needs to start managing her conditions and making healthy choices otherwise she is at extremely high risk of poor outcome. Status: Acute (7) Morbid obesity: Status: Acute (8) Abnormal CT scan, gallbladder: She does not have abdominal pain, but does have tenderness with palpation in right upper quadrant. Incidentally noted distended gallbladder on CT scan. Alk phos 163 on presentation. Requested right upper quadrant ultrasound. Monitor liver parameters. Status: Acute Additional A&P Information Combined systolic diastolic congestive heart failure active exacerbation with clinical signs. Ischemic cardiomyopathy EF 40%. Grade 2 diastolic. Possible bronchitis: Noted on CT of the chest. She reports dyspnea on exertion. At rest is not short of breath and not coughing. Afebrile. Has been having fa tigue. Overall with functional decline, suspected due to coronary disease, non- STEMI, very poorly controlled diabetes, episodic severe hypertension. At the same time with coronavirus pandemic and consideration of placement to SNF will assess her for COVID-19. Albuterol inhaler as needed. Chronic kidney disease: Baseline creatinine 1.3 Attestations Medical Necessity Statement*: Continue admission for assessment of management of non-STEMI, poorly controlled diabetes, poorly controlled hypertension with hypertensive urgency on presentation, possible bronchitis, gallbladder abnormality. 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
[2019-06-05] MEDS: enoxaparin 120 mg/0.8 mL Syringe 110 MG SUBCUT (16:46)
[2019-06-05] MEDS: insulin glargine 100 units/1 mL 20 UNIT SUBCUT (16:47)
[2019-06-05 16:49] LABS: Creatine Phosphokinase 70 U/L (26-192); Thyroid Stimulating Hormone 4.08 uIU/mL (0.27-4.20)
[2019-06-05] MEDS: albuterol 8 gm MDI 2 PUFF INHALATION (16:49)
--- NOTE | 2019-06-05 17:19 | PM.CONSULT ---
Providers/Reason For Consult Consulting Physican/Specialty*: Cardiology Reason for Consult*: Abnormal stress test Shortness of breath Decompensated heart failure Attending Physician: Sai Nazario Primary Care Provider: Lito Keating MD History of Present Illness History of Present Illness Please note that since patient's COVID result is pending and it has already been seen by our hospitalist team I have not examined the patient myself, history physical examination is as per Dr Lebron's conversation with me and data available in the chart. Roxana Barraza is a 58 year old female Known to me through her previous visit who is noncompliant with history of uncontrolled diabetes, CHF, hypertension not taking antiplatelet medicine for multiple LAD stents which she had last year for acute coronary syndrome. she presented to the hospital with worsening of shortness of breath hypertensive urgency and angina-like picture. She underwent stress test today which was suggestive of old anterior wall myocardial infarction in mid to distal segment of the left ventricle, there was mild to moderate ischemia noted in basal to distal inferolateral wall, since patient was not able to perform the prone images therefore artifact cannot be ruled out. It was also noted that patient had elevated BNP and blood sugar level in the range of 500. She is complaining of shortness of breath on mild exertion. She also has bronchitis. She admits to orthopnea. CT scan rule out pulmonary embolism x-ray chest is suspicious for pulmonary edema. Review of Systems General: Reports: other (negative unless marked) Const: Reports: chills, body aches, change in appetite, fatigue, malaise and change in sleep pattern; Denies: fever or diaphoresis Eyes: Denies: change in vision or blurry vision ENMT: Denies: throat pain, painful swallowing, hoarseness, ear pain, ear discharge, change in hearing or nasal discharge Card: Reports: chest pain, edema, swelling of feet/ankles, shortness of breath on exertion, shortness of breath when lying down and leg pain with exertion; Denies: palpitations, irregular heart rhythm, syncope or pre-syncope Resp: Reports: shortness of breath; Denies: productive cough, non-productive cough, wheezing, coughing up blood or chest congestion GI: Denies: abdominal pain, nausea, vomiting, vomiting blood, coffee grounds in vomit, diarrhea, constipation, cramping, blood in stool or black tarry stool : Reports: urinary frequency and urinary urgency; Denies: flank pain, difficulty urinating, painful urination, decreased urine ouput, urinary incontinence or blood in urine Musc: Reports: muscle cramps and muscle weakness; Denies: neck pain, back pain, extremity pain, extremity swelling, joint pain, joint swelling, joint warmth or joint stiffness Skin/Breast: Reports: rash, itching and redness (Perineal area and legs); Denies: skin tenderness or yellow skin Neuro: Denies: headache, numbness in extremities, weakness in extremities, changes in sensation, lack of coordination, difficulty walking, dizziness, vertigo or confusion Psych: Reports: depression and sleeping more; Denies: anxiety Endo: Reports: excessive urination and excessive thirst; Denies: tired all the time, cold intolerance, excessive sweating, flushing or hot flashes Blaze/Lymph: Denies: easy bruising, easy bleeding, petechiae or enlarged lymph nodes All/Imm: Denies: hives, throat swelling, tongue swelling, facial swelling or acute wheezing Meds/Allergies Home Medications and Allergies Home Medications Medication Instructions Recorded Confirmed Type Brilinta 90 mg PO BID 06/05/19 06/05/19 History amlodipine [Norvasc] 5 - 10 mg PO DAILY PRN 06/05/19 06/05/19 History carvedilol 6.25 mg PO BID 06/05/19 06/05/19 History dicyclomine 20 mg PO Q6H PRN 06/05/19 06/05/19 History furosemide [Lasix] 40 mg PO DAILY PRN 06/05/19 06/05/19 History glipizide 5 mg PO BID 06/05/19 06/05/19 History hydrocodone-acetaminophen 1 tab PO BID PRN 06/05/19 06/05/19 History lisinopril 5 mg PO DAILY 06/05/19 06/05/19 History metformin 500 mg PO BID 06/05/19 06/05/19 History ondansetron HCl [Zofran] 4 mg PO Q6H PRN 06/05/19 06/05/19 History pantoprazole [Protonix] 40 mg PO DAILY 06/05/19 06/05/19 History rosuvastatin [Crestor] 40 mg PO DAILY 06/05/19 06/05/19 History Allergies Allergy/AdvReac Type Severity Reaction Status Date / Time nalbuphine [From Nubain] Allergy Unknown Verified 06/04/19 21:35 Current Medications Current Medications Generic Name Dose Route Start Last Admin Trade Name Freq PRN Reason Stop Dose Admin Albuterol Sulfate 2 puff 06/05/19 16:00 06/05/19 16:49 Ventolin INHALATION 2 puff Q4H.RESPIRATORY PRN Administration SHORTNESS OF BREATH Amlodipine Besylate 10 mg 06/05/19 01:36 06/05/19 10:36 Norvasc PO 10 mg DAILY PRINCESS Administration Aspirin 81 mg 06/05/19 09:00 06/05/19 10:36 Aspirin Ec PO 81 mg DAILY PRINCESS Administration Atorvastatin Calcium 40 mg 06/05/19 09:00 06/05/19 10:36 Lipitor PO 40 mg DAILY PRINCESS Administration Clopidogrel Bisulfate 75 mg 06/05/19 09:00 06/05/19 10:37 Plavix PO 75 mg DAILY PRINCESS Administration Enoxaparin Sodium 110 mg 06/05/19 15:00 06/05/19 16:46 Lovenox SUBCUT 110 mg Q12H PRINCESS Administration Insulin Aspart 0 unit 06/05/19 08:00 06/05/19 16:47 Novolog SUBCUT 14 unit WM&BEDTIME PRINCESS Administration Protocol Insulin Glargine 20 unit 06/05/19 14:45 06/05/19 16:47 Lantus SUBCUT 20 unit DAILY PRINCESS Administration Lisinopril 5 mg 06/05/19 09:00 06/05/19 10:37 Prinivil PO 5 mg DAILY PRINCESS Administration Pantoprazole Sodium 20 mg 06/05/19 09:00 06/05/19 10:36 Protonix PO 20 mg DAILY PRINCESS Administration PFSH Acute PFSH: Medical History Cholelithiasis Coronary artery disease Diabetes Dyslipidemia Enteritis Gastroenteritis GERD (gastroesophageal reflux disease) Hypertension Ischemic cardiomyopathy Stenosis of coronary stent EF 40% grade 2 diastolic dysfunction, LVH, Systolic and diastolic CHF, acute Surgical History H/O cardiac catheterization 1 vessel disease [address] segment elevation CA 3 stents were placed, with subsequent stent thrombosis with balloon angioplasty Family History Other CAD (coronary artery disease) Hypertension Social History Smoking and tobacco status: former smoker Alcohol intake: never Substance/Drug Use: never Housing: House Vitals/I&O/Wt Last Vital Signs Temp 98.3 F 06/04/19 21:28 Pulse 75 06/05/19 16:53 Resp 18 06/05/19 16:50 BP 129/82 06/05/19 16:00 Pulse Ox 98 06/05/19 16:50 06/05/19 06/05/19 06/05/19 06:59 14:59 22:59 Intake Total 582.833 / 582.833 200 / 200 Output Total 500 / 500 Balance 582.833 / 582.833 200 / 200 -500 / -300 Weight last 48 hrs Weight 250 lb Physical Exam Narrative: EXAM NARRATIVE: Please note that I have not examined patient physically. My examination source is note from our hospitalist colleague. A&P Assessment and plan (1) Non-compliant patient: Patient remains noncompliant the past with DAPT, she has been discussed through hospitalist team that she requires to being compliant with it. Status: Acute (2) Systolic and diastolic CHF, acute: She also appeared to be in decompensated systolic heart failure. We recommend diuresis with IV Lasix but cautiously since patient has hyperglycemia Status: Acute (3) Hypertensive urgency: Blood pressure is under control continue current regimen Status: Acute (4) Poorly controlled diabetes mellitus: As per medicine Status: Acute (5) Angina pectoris syndrome: At this point we will Stay with medical management first including optimal control of blood sugar blood pressure. Beta jian MAURI inhibitor and isosorbide mononitrate will be continued. Left ventricular end-diastolic pressure will be reduced with diuretics if needed. Once blood sugar is under control and Covid test is available further plan will be advised. Status: Acute Consult Attestations Medical Necessity Statement: Patient requires continuation of hospitalization for above defined care. Coding Level of Care Code New Pt Acute Program Administrator for [facility] F[facility] Patient Type New History Expanded Problem Focused Exam Expanded Problem Focused Medical Decision Making Moderate Complexity Diagnoses Non-compliant patient Z91.19 Systolic and diastolic CHF, acute I50.41 Hypertensive urgency I16.0 Poorly controlled diabetes mellitus E11.65 Angina pectoris syndrome I20.9
[2019-06-05 20:25] LABS: Glucose Point of Care 394 mg/dL (70-110)
[2019-06-05 20:25] LABS: Glucose Point of Care 170 mg/dL (70-110)
[2019-06-05 20:25] LABS: Glucose Point of Care 301 mg/dL (70-110)
[2019-06-05 20:25] LABS: Glucose Point of Care 327 mg/dL (70-110)
[2019-06-05 20:25] LABS: Glucose Point of Care 359 mg/dL (70-110)
[2019-06-05 20:25] LABS: Glucose Point of Care > 600 mg/dL (70-110)
[2019-06-05 20:25] LABS: Glucose Point of Care 329 mg/dL (70-110)
[2019-06-06] VITALS (20 sets, daily range): BP systolic 120–166; BP diastolic 68–92; PULSE 69–84; RESP 18–24; TEMP 36.2–37.2; O2SAT 94–97
[2019-06-06] MEDS: enoxaparin 120 mg/0.8 mL Syringe 110 MG SUBCUT ×2 (02:34→14:14)
[2019-06-06 05:22] LABS: Basophils % 0.3 %; Eosinophils # 0.3 10^3/uL (0.0-0.8); Eosinophils % 2.5 %; Hematocrit 39.1 % (37.0-47.0); Hemoglobin 12.2 g/dL (11.5-15.3); Lymphocytes # 2.6 10^3/uL (0.8-4.8); Lymphocytes % 25.8 %; Mean Corpuscular HGB Conc 31.2 g/dL (30.0-36.0); Mean Corpuscular Hemoglobin 28.4 pg (28.0-34.0); Mean Corpuscular Volume 90.9 fL (81-99); Mean Platelet Volume 12.3 fL (7.4-10.4); Monocytes # 0.6 10^3/uL (0.2-0.9); Monocytes % 5.5 %; Neutrophils # 6.7 10^3/uL (1.8-7.7); Neutrophils % 65.6 %; Nucleated Red Blood Cells % 0 %; Platelet Count 180 10^3/cmm (130-400); Red Cell Distribution Width 14.1 % (12.1-15.1); White Blood Count 10.1 10^3/uL (4.0-10.0)
[2019-06-06 05:43] LABS: Alanine Aminotransferase 22 U/L (0-33); Albumin Level 2.9 g/dL (3.5-5.2); Alkaline Phosphatase 98 IU/L (35-105); Aspartate Amino Transferase 31 U/L (0-32); Blood Urea Nitrogen 14 mg/dL (8-23); Carbon Dioxide 25 mmol/L (22-29); Chloride 103 mmol/L (98-107); Globulin 3.4 g/dL (1.3-4.6); Glomerular Filtration Rate 45.8 mL/min (90-130); Glucose 249 mg/dL (65-115); Osmolality Calculated 289 mOsm/kg (285-295); Sodium 137 mmol/L (136-145); Total Bilirubin 0.4 mg/dL (0.15-1.2); Total Protein 6.3 g/dL (6.6-8.7)
--- NOTE | 2019-06-06 06:38 | PC.NURSE ---
SHIFT SUMMARY PT HAS REMAINED ALERT AND ORIENTATED. PT HAS NOT COMPLAINED OF ANYTHING THROUGHOUT THE NIGHT. PT SAID CHEST MINIMALLY HURT AT TIMES BUT DID NOT LAST LONG. PT ABLE TO USE BEDSIDE COMMODE WITH MINIMAL ASSISTANCE. PT HAS BEEN NPO SINCE MIDNIGHT. PT BLOOD SUGAR WAS SPOT CHECKED IN THE NIGHT. PT HAS BEEN AFEBRILE THROUGHOUT THE NIGHT.
--- NOTE | 2019-06-06 07:50 | PC.NURSE ---
BG check performed a this time 237 mg/dl noted
--- NOTE | 2019-06-06 08:16 | PC.NURSE ---
notified dr mcdermott that abd ultrasound could not be performed until covid 19 results was in instructions given to go ahead and feed patient if she would like to eat patient reports that she would rather sleep at this time and not eat
[2019-06-06] MEDS: atorvastatin 40 mg Tablet PO (09:13)
[2019-06-06] MEDS: clopidogrel 75 mg Tablet PO (09:13)
[2019-06-06] MEDS: aspirin 81 mg EC Tablet PO (09:13)
[2019-06-06] MEDS: pantoprazole DR 40 mg Tablet 20 MG PO (09:13)
[2019-06-06] MEDS: amlodipine 10 mg Tablet PO (09:13)
[2019-06-06] MEDS: lisinopril 5 mg Tablet PO (09:13)
[2019-06-06] MEDS: insulin glargine 100 units/1 mL 25 UNIT SUBCUT (09:14)
--- NOTE | 2019-06-06 10:51 | PM.PN ---
Subjective Subjective: Interval history: She is fatigued. Today reporting mild cough. Sore throat has resolved. Denies pain. Vitals/I&O/Wt Last Vital Signs Temp 97.2 F L 06/06/19 10:00 Pulse 77 06/06/19 09:52 Resp 20 H 06/06/19 09:52 BP 156/92 06/06/19 09:52 Pulse Ox 95 06/06/19 09:52 06/05/19 06/06/19 06/06/19 22:59 06:59 14:59 Intake Total 118 / 318 120 / 438 Output Total 700 / 700 200 / 900 Balance -582 / -382 -80 / -462 Weight last 48 hrs Weight 113.398 kg Physical Exam Const: COMMON NORMALS: no apparent distress and oriented x3 HENMT: COMMON NORMALS: oropharynx normal Neck/C-Spine: COMMON NORMALS: no JVD Resp: COMMON NORMALS: normal respiratory effort and clear to auscultation bilaterally AUSCULTATION: clear to auscultation bilaterally Cardio: COMMON NORMALS: no JVD, regular rhythm, S1 normal heart sound, S2 normal heart sound and no murmurs RHYTHM: regular rhythm HEART SOUNDS: S1 normal and S2 normal GI: COMMON NORMALS: normal to inspection, nondistended, normoactive bowel sounds, soft to palpation and non-tender PALPATION: Yes soft Extremity: COMMON NORMALS: no joint enlargement and no pedal edema Neuro: COMMON NORMALS: oriented x3 and moves all extremities Skin: COMMON NORMALS: no rashes or lesions noted GENERAL SKIN EXAM: no rashes or lesions noted Data : 06/06/19 05:05 06/06/19 05:05 A&P Assessment and plan (1) Angina pectoris syndrome: No chest pain. At this time continue medications. Monitor. Discussed with cardiology. Non-STEMI, with history of CAD, nonadherence with medical therapy. Abnormal stress test with fixed perfusion defect, as well as mild to moderate reversible perfusion defect. At this time continue medical therapy with antiplatelets, anticoagulation, statin. Beta-jian was held. Lisinopril. Appreciate additional cardiology recommendations once they are able to safely see her. Discussed with her and she is agreeable with plan. Per friend stopped taking her medications 3 weeks after stenting. Status: Acute (2) Poorly controlled diabetes mellitus: A1c of 15. Increase Lantus dose to 25 units. Discussed with her she will require insulin, and she states understanding and agreement. Continue to encourage adherence with medications. Status: Acute (3) Secondary diabetes mellitus with HHNC (hyperglycemia hyperosmolar non-ketotic coma): Reported [facility] on presentation. Currently she is awake and alert, lucid. Status: Acute (4) Hypertensive emergency: Blood pressures improved. Status: Acute (5) Systolic and diastolic CHF, acute: Status: Acute (6) Abnormal CT scan, gallbladder: Pending right upper quadrant ultrasound. She does not have abdominal pain, but does have tenderness with palpation in right upper quadrant. Incidentally noted distended gallbladder on CT scan. Alk phos 163 on presentation. Monitor liver parameters. Status: Acute (7) Non-compliant patient: She has not been adherent with her medications, with polyuria, fatigue, dyspnea on exertion, sometimes getting so exhausted that she collapses. Sleeping in the bathtub filled with water. Discussed with her that in current condition she is at very high risk of mortality. Discussed with her that these practices will lead to high risk of complication including risk of drowning, risk of severe injury from fall, risk of pressure injury, nonhealing wounds, UTI, as well as if nonadherent with medications risk of cardiovascular complication including severe RI, . She declines higher level of care. 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 Asked her to give it more thought, and she says she will. She is agreeable to try to work up with options to get her her medications. Will ask discharge planning for additional help as well. She currently has Medicaid. She is alert and oriented x3. She perfectly understands her conditions, and is able to summarize our discussion. She denies depression or suicidal ideation being the cause of her noncompliance. In the current state with very poorly controlled chronic conditions she is at very high risk of untoward event and premature mortality. She understands this. Discussed also with her friend. They live in the same house. Patient has mentioned that her friend and her friend's Slim. Her friend states that they have been trying to help her, she has diabetes and hypertension herself, and has been trying to help her to manage her conditions. She states that after taking medications for a while she then stops. Discussed also with her friend that patient needs to start managing her conditions and making healthy choices otherwise she is at extremely high risk of poor outcome. Status: Acute (8) Morbid obesity: Status: Acute Additional A&P Information Combined systolic diastolic congestive heart failure active exacerbation with clinical signs. Ischemic cardiomyopathy EF 40%. Grade 2 diastolic. Possible bronchitis: Noted on CT of the chest. She reports dyspnea on exertion. At rest is not short of breath. Mild cough today. Sore throat resolved. Afebrile. Has been having fatigue. Overall with functional decline, suspected due to coronary disease, non-STEMI, very poorly controlled diabetes, episodic severe hypertension. At the same time with coronavirus pandemic and consideration of placement to SNF being assessed for COVID-19. Albuterol inhaler as needed. Chronic kidney disease: Baseline creatinine 1.3 Attestations Medical Necessity Statement*: Continue admission for assessment bronchitis, testing for COVID-19, optimization of medical management for non-STEMI, poorly controlled diabetes, hypertension, investigation of gallbladder abnormality, disposition planning. 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
--- NOTE | 2019-06-06 11:32 | PC.NURSE ---
BG checked not docked due to covid rule out precautions BG 305 at this time 14 units novolog given per protocol
[2019-06-06 14:23] LABS: Coronavirus Lab Test PTC NOT DETECTED
--- NOTE | 2019-06-06 15:47 | P.PN_ITS ---
Subjective Subjective: Interval history: Except fatigue no more complain. Vitals/I&O/Wt Last Vital Signs Temp 99.0 F 06/06/19 14:00 Pulse 72 06/06/19 14:00 Resp 19 H 06/06/19 14:00 BP 121/75 06/06/19 14:00 Pulse Ox 94 06/06/19 14:00 06/06/19 06/06/19 06/06/19 06:59 14:59 22:59 Intake Total 120 / 438 120 / 120 Output Total 200 / 900 150 / 150 Balance -80 / -462 -30 / -30 Weight last 48 hrs Weight 250 lb Physical Exam Narrative: EXAM NARRATIVE: Please note that I have not examined patient physically. My examination source is note from our hospitalist colleague. Data : 06/06/19 05:05 06/06/19 05:05 A&P Assessment and plan (1) Non-compliant patient: Patient remains noncompliant the past with DAPT, she has been discussed through hospitalist team that she requires to being compliant with it.Currently she is stable. We will continue current regimen. We will maximize optimal medical management Status: Acute (2) Systolic and diastolic CHF, acute: I will diurese her Status: Acute (3) Hypertensive urgency: Well controlled continue current regimen Status: Acute (4) Poorly controlled diabetes mellitus: As per medicine Status: Acute (5) Angina pectoris syndrome: At this point we will Stay with medical management first including optimal control of blood sugar blood pressure. Beta jian MAURI inhibitor and isosorbide mononitrate will be continued. Left ventricular end-diastolic pressure will be reduced with diuretics if needed. Once blood sugar is under control and Covid test is available further plan will be advised. Status: Acute Attestations Medical Necessity Statement*: Requires continuation of hospitalization for above defined Care. 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
[2019-06-06 16:05] LABS: Glucose Point of Care 208 mg/dL (70-110)
[2019-06-06 16:06] LABS: Glucose Point of Care 271 mg/dL (70-110)
[2019-06-06 16:06] LABS: Glucose Point of Care 305 mg/dL (70-110)
[2019-06-06 16:06] LABS: Glucose Point of Care 231 mg/dL (70-110)
[2019-06-06 16:42] LABS: Glucose Point of Care 288 mg/dL (70-110)
[2019-06-06 21:16] LABS: Glucose Point of Care 482 mg/dL (70-110)
[2019-06-06 23:17] LABS: Glucose Point of Care 103 mg/dL (70-110)
[2019-06-07] VITALS (10 sets, daily range): BP systolic 122–153; BP diastolic 64–96; PULSE 70–84; RESP 16–20; TEMP 36.8–37.1; O2SAT 93–97
[2019-06-07] MEDS: enoxaparin 120 mg/0.8 mL Syringe 110 MG SUBCUT ×2 (04:03→14:25)
[2019-06-07 05:22] LABS: Alanine Aminotransferase 20 U/L (0-33); Albumin Level 3.1 g/dL (3.5-5.2); Alkaline Phosphatase 94 IU/L (35-105); Anion Gap 14.6 (5-19); Aspartate Amino Transferase 27 U/L (0-32); Blood Urea Nitrogen 13 mg/dL (8-23); Calcium 9.1 mg/dL (8.5-10.5); Carbon Dioxide 26 mmol/L (22-29); Chloride 105 mmol/L (98-107); Globulin 3.3 g/dL (1.3-4.6); Glomerular Filtration Rate 45.8 mL/min (90-130); Glucose 131 mg/dL (65-115); Osmolality Calculated 292 mOsm/kg (285-295); Potassium 3.6 mmol/L (3.5-5.1); Sodium 142 mmol/L (136-145); Total Bilirubin 0.3 mg/dL (0.15-1.2); Total Protein 6.4 g/dL (6.6-8.7)
[2019-06-07 05:38] LABS: Basophils % 0.4 %; Eosinophils # 0.2 10^3/uL (0.0-0.8); Hematocrit 43.5 % (37.0-47.0); Hemoglobin 13.9 g/dL (11.5-15.3); Lymphocytes % 24.2 %; Mean Corpuscular Hemoglobin 28.8 pg (28.0-34.0); Mean Corpuscular Volume 90.2 fL (81-99); Mean Platelet Volume 12.2 fL (7.4-10.4); Monocytes # 0.5 10^3/uL (0.2-0.9); Monocytes % 6.4 %; Neutrophils # 5.3 10^3/uL (1.8-7.7); Neutrophils % 65.8 %; Nucleated Red Blood Cells % 0 %; Platelet Count 191 10^3/cmm (130-400); Red Blood Count 4.82 10^6/uL (4.1-5.3); Red Cell Distribution Width 14.1 % (12.1-15.1); White Blood Count 8.1 10^3/uL (4.0-10.0)
[2019-06-07 05:50] LABS: Glucose Point of Care 137 mg/dL (70-110)
--- NOTE | 2019-06-07 07:00 | USR_ITS ---
PROCEDURE INFORMATION: Exam: US Abdomen Limited, Right Upper Quadrant Exam date and time: 06/07/2019 7:35 AM Age: 58 years old Clinical indication: Abnormal findings; Abnormal radiologic finding of the abdomen; Radiologic exam and body structure: CT abdomen/pelvis; Additional info: Ruq - gb distention TECHNIQUE: Imaging protocol: Real-time ultrasound of the abdomen with image documentation. Examination was focused on the right upper quadrant. COMPARISON: No relevant prior studies available. FINDINGS: Liver: The liver measures 14.3 cm in the midclavicular plane. The liver demonstrates increased echogenicity with decreased visualization of periportal fat with mild sound attenuation. Gallbladder: A 2.7-3.1 cm non mobile gallstone is impacted in the gallbladder neck. Additional mobile gallstones in the gallbladder measuring up to at least 3.9 cm. The gallbladder transverse lumen measures 7.9 cm. Borderline gallbladder wall thickening. The gallbladder wall measures 3.0 mm. No gallstones. No pericholecystic fluid identified. Sonographic Pike sign not evaluated. Common bile duct: The common bile duct measures 6.8-7.4 mm. No ductal calculi as visualized. Pancreas: The pancreas is obscured by bowel gas. Right kidney: The right kidney measures 11.0 x 5.3 x 4.9 cm. Right renal lower pole 18 mm calyceal calculus. No hydronephrosis. Exophytic right renal cyst laterally measuring 3.2 cm. A brief color Doppler examination of the right kidney was performed showing normal color shifts. Aorta: The proximal abdominal aorta measures 2.0 cm. Portal venous: A brief color and pulsed Doppler examination of the portal vein was performed showing normal hepatopedal flow. Inferior vena cava: The intrahepatic IVC measures 1.4 cm. US/US abdomen limited [id number] IMPRESSION: 1. Fatty infiltration of the liver. 2. Cholelithiasis with gallbladder luminal distension and borderline gallbladder wall thickening. Acute cholecystitis is not excluded. Clinical correlation with the patient's specific symptomatology is recommended. 3. Mild extrahepatic biliary ductal dilatation for patient age. No ductal calculus as visualized. MRCP may be helpful if indicated. 4. Right renal calyceal lithiasis. 5. Right renal simple cyst. No specific followup required/recommended. .
[2019-06-07] MEDS: insulin glargine 100 units/1 mL 25 UNIT SUBCUT (09:42)
[2019-06-07] MEDS: atorvastatin 40 mg Tablet PO (09:42)
[2019-06-07] MEDS: lisinopril 5 mg Tablet PO (09:42)
[2019-06-07] MEDS: aspirin 81 mg EC Tablet PO (09:42)
[2019-06-07] MEDS: amlodipine 10 mg Tablet PO (09:42)
[2019-06-07] MEDS: clopidogrel 75 mg Tablet PO (09:42)
[2019-06-07] MEDS: pantoprazole DR 40 mg Tablet 20 MG PO (09:42)
--- NOTE | 2019-06-07 10:00 | PC.NURSE ---
Chest pain episode/anxiety Pt started to get upset when we informed her that we are going to move her in med-surg. At first she refused to be moved so we notified mix house operator. She then develop chest pain short time. Nitro SL given which relieve her pain immediately. She is anxious. I reassured her and she calm down and agreed to be moved in med surg. Doctors has been notified of pt's chest pain/anxiety.
--- NOTE | 2019-06-07 10:13 | ECG_ITS ---
Measurements Intervals [place] Rate: 77 P: 44 SD: 157 QRS: -41 QRSD: 128 T: 119 QT: 407 QTc: 461 SINUS RHYTHM MARKED LEFT AXIS DEVIATION [QRS AXIS < -30] LEFT VENTRICULAR HYPERTROPHY AND ST-T CHANGE [VOLTAGE CRITERIA PLUS ST/T ABNORMALITY] POSSIBLE ANTERIOR MYOCARDIAL INFARCTION [30 ms Q WAVE IN V3/V4, OR R < 0.2 mV IN V4], OF INDETERMINATE AGE Compared to ECG 06/05/2019 04:30:56 Left-axis deviation now present ST (T wave) deviation still present Myocardial infarct finding still present Electronically Signed On 06-07-2019 21:11:29 CDT by Gilbert Torres M.D. [email or web address]
[2019-06-07] MEDS: nitroglycerin 0.4 mg sublingual Tablet SUBLINGUAL (10:33)
[2019-06-07] MEDS: polyethylene glycol 3350 Pkt 17 gm PO (10:33)
[2019-06-07 10:41] LABS: Glucose Point of Care 337 mg/dL (70-110)
[2019-06-07 11:15] LABS: Troponin(5th) Baseline 80 ng/mL (0-10)
--- NOTE | 2019-06-07 12:22 | ECG_ITS ---
Measurements Intervals [place] Rate: 74 P: 36 PA: 160 QRS: -41 QRSD: 132 T: 117 QT: 404 QTc: 451 SINUS RHYTHM MARKED LEFT AXIS DEVIATION [QRS AXIS < -30] INTRAVENTRICULAR CONDUCTION DELAY [130+ ms QRS DURATION] LEFT VENTRICULAR HYPERTROPHY AND ST-T CHANGE [VOLTAGE CRITERIA PLUS ST/T ABNORMALITY] POSSIBLE ANTERIOR MYOCARDIAL INFARCTION [30 ms Q WAVE IN V3/V4, OR R < 0.2 mV IN V4], OF INDETERMINATE AGE Compared to ECG 06/05/2019 04:30:56 Left-axis deviation now present Intraventricular conduction delay now present ST (T wave) deviation still present Myocardial infarct finding still present Electronically Signed On 06-07-2019 21:14:14 CDT by Gilbert Torres M.D. [email or web address]
[2019-06-07 13:38] LABS: Troponin 5 2HR 78.22 ng/mL (0-10)
--- NOTE | 2019-06-07 13:38 | PC.NURSE ---
Up to bathroom independently Up in chair right now.
[2019-06-07 13:39] LABS: Troponin 5 2HR Delta -1.78 ABS# (0-10)
--- NOTE | 2019-06-07 16:00 | P.PN_ITS ---
Subjective Subjective: Interval history: This morning she was doing okay, later in the afternoon having episode of chest pain. This resolved. Vitals/I&O/Wt Last Vital Signs Temp 98.2 F 06/07/19 15:43 Pulse 79 06/07/19 15:43 Resp 18 06/07/19 15:43 BP 147/87 06/07/19 15:43 Pulse Ox 97 06/07/19 15:43 06/07/19 06/07/19 06/07/19 06:59 14:59 22:59 Intake Total 120 / 720 560 / 560 Output Total 150 / 450 Balance -30 / 270 560 / 560 Physical Exam Const: COMMON NORMALS: no apparent distress and oriented x3 HENMT: COMMON NORMALS: oropharynx normal Neck/C-Spine: COMMON NORMALS: no JVD Resp: COMMON NORMALS: normal respiratory effort and clear to auscultation bilaterally AUSCULTATION: clear to auscultation bilaterally Cardio: COMMON NORMALS: no JVD, regular rhythm, S1 normal heart sound, S2 normal heart sound and no murmurs RHYTHM: regular rhythm HEART SOUNDS: S1 normal and S2 normal GI: COMMON NORMALS: normal to inspection, nondistended, normoactive bowel sounds, soft to palpation and non-tender PALPATION: Yes soft Extremity: COMMON NORMALS: no joint enlargement and no pedal edema Neuro: COMMON NORMALS: oriented x3 and moves all extremities Skin: COMMON NORMALS: no rashes or lesions noted GENERAL SKIN EXAM: no rashes or lesions noted Data : 06/07/19 04:49 06/07/19 04:49 A&P Assessment and plan (1) Angina pectoris syndrome: This morning episode of chest pain. Assessed with EKG, without significant change from prior. Troponin mildly elevated, without peak. Discussed with cardiology. They will consider additional work-up by stress testing versus angiography. She also has cholelithiasis, gallbladder wall thickening, however, has absolutely no tenderness on very deep palpation, afebrile, no leukocytosis or other suggestion of cholecystitis. On brief discussion of surgery for now this should be monitored with outpatient follow-up. Non-STEMI, with history of CAD, nonadherence with medical therapy. Abnormal stress test with fixed perfusion defect, as well as mild to moderate reversible perfusion defect. Discussed with her again, encouraging compliance with medications. We will try to send the employee pharmacy so she can pick, prior to return home. Pharmacy is closed today. Status: Acute (2) Poorly controlled diabetes mellitus: A1c of 15. Increase Lantus dose to 25 units. Glucose improved. We will keep current dose. She will need insulin prescription on discharge. Continue to encourage adherence with medications. Status: Acute (3) Secondary diabetes mellitus with HHNC (hyperglycemia hyperosmolar non- ketotic coma): Reported HHS on presentation. Currently she is awake and alert, lucid. Status: Acute (4) Hypertensive emergency: Blood pressures improved. Status: Acute (5) Systolic and diastolic CHF, acute: Status: Acute (6) Abnormal CT scan, gallbladder: Cholelithiasis, no prior dilation, some thickening of the wall. Mild extrahepatic bile duct dilation. She has absolutely no pain, or tenderness. She is eating well. She has no fever, no leukocytosis. There is no sign of infection. On brief discussion of surgery this will be monitored, with referral for outpatient follow-up. For now does not have complete indication for morteza gical intervention. Status: Acute (7) Non-compliant patient: She has not been adherent with her medications, with polyuria, fatigue, dyspnea on exertion, sometimes getting so exhausted that she collapses. Sleeping in the bathtub filled with water. Discussed with her that in current condition she is at very high risk of mortality. Discussed with her that these practices will lead to high risk of complication including risk of drowning, risk of severe injury from fall, risk of pressure injury, nonhealing wounds, UTI, as well as if nonadherent with medications risk of cardiovascular complication including severe [place], . She declines higher level of care. 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 Asked her to give it more thought, and she says she will. She is agreeable to try to work up with options to get her her medications. Will ask discharge planning for additional help as well. She currently has Medicaid. She is alert and oriented x3. She perfectly understands her conditions, and is able to summarize our discussion. She denies depression or suicidal ideation being the cause of her noncompliance. In the current state with very poorly controlled chronic conditions she is at very high risk of untoward event and premature mortality. She understands this. Discussed also with her friend. They live in the same house. Patient has mentioned that her friend and her friend's Slim. Her friend states that they have been trying to help her, she has diabetes and hypertension herself, and has been trying to help her to manage her conditions. She states that after taking medications for a while she then stops. Discussed also with her friend that patient needs to start managing her conditions and making healthy choices otherwise she is at extremely high risk of poor outcome. Status: Acute (8) Morbid obesity: Status: Acute (9) Abnormal gallbladder ultrasound: Status: Acute Additional A&P Information Combined systolic diastolic congestive heart failure active exacerbation with clinical signs. Ischemic cardiomyopathy EF 40%. Grade 2 diastolic. Possible bronchitis: Noted on CT of the chest. She reports dyspnea on exertion. At rest is not short of breath. Mild cough today. Sore throat resolved. Afebrile. Has been having fatigue. Overall with functional decline, suspected due to coronary disease, non-STEMI, very poorly controlled diabetes, episodic severe hypertension. At the same time with coronavirus pandemic and consideration of placement to SNF being assessed for COVID-19. Albuterol inhaler as needed. Chronic kidney disease: Baseline creatinine 1.3 Attestations Medical Necessity Statement*: Continue assessment of coronary disease, non- STEMI, chest pain, poorly controlled diabetes, hypertension. Coding Level of Care Code Acute Absence Management Consultant for [facility] Fwd Diagnoses Angina pectoris syndrome I20.9 Poorly controlled diabetes mellitus E11.65 Secondary diabetes mellitus with HHNC (hyperglycemia hyperosmolar non-ketotic coma) E13.01 Hypertensive emergency I16.1 Systolic and diastolic CHF, acute I50.[address] scan, gallbladder R93.2 Non-compliant patient Z91.19 Morbid obesity E66.01 Abnormal gallbladder ultrasound R93.2
--- NOTE | 2019-06-07 16:22 | ECG_ITS ---
Measurements Intervals [place] Rate: 77 P: 45 IL: 157 QRS: -39 QRSD: 129 T: 119 QT: 401 QTc: 455 SINUS RHYTHM MARKED LEFT AXIS DEVIATION [QRS AXIS < -30] LEFT VENTRICULAR HYPERTROPHY AND ST-T CHANGE [VOLTAGE CRITERIA PLUS ST/T ABNORMALITY] POSSIBLE SEPTAL MYOCARDIAL INFARCTION [30 ms Q WAVE IN V1/V2], POSSIBLY old Compared to ECG 06/05/2019 04:30:56 Left-axis deviation now present ST (T wave) deviation still present Myocardial infarct finding still present Electronically Signed On 06-07-2019 21:14:44 CDT by Gilbert Torres M.D. [email or web address]
[2019-06-07 16:45] LABS: Glucose Point of Care 264 mg/dL (70-110)
[2019-06-07 17:32] LABS: Troponin 5 6HR 76.18 ng/mL (0-10)
[2019-06-07 17:36] LABS: Troponin 5 6HR Delta -3.82 ng/L (0-12)
--- NOTE | 2019-06-07 18:46 | P.PN_ITS ---
Subjective Subjective: Interval history: Patient is Upset as she has to move from the floor, Patient had chest pain briefly treated with a nitroglycerin this morning when she was upset. She would like to go home Vitals/I&O/Wt Last Vital Signs Temp 98.2 F 06/07/19 15:43 Pulse 79 06/07/19 15:43 Resp 18 06/07/19 15:43 BP 147/87 06/07/19 15:43 Pulse Ox 97 06/07/19 15:43 06/07/19 06/07/19 06/07/19 06:59 14:59 22:59 Intake Total 120 / 720 560 / 560 240 / 800 Output Total 150 / 450 Balance -30 / 270 560 / 560 240 / 800 Physical Exam Narrative: EXAM NARRATIVE: Please note that I have not examined patient physically. My examination source is note from our hospitalist colleague. Data : 06/07/19 04:49 06/07/19 04:49 A&P Assessment and plan (1) Non-compliant patient: Patient remains noncompliant the past with DAPT , She has history of thrombosed LAD stents. Stress test showed old anterior myocardial infarction while mild inferolateral ischemia noted however due to absence of prone images couldn't rule out artifact. We decided to continue to treat her medically. If he continues to do fine we may will discharge her and follow her up in the clinic Status: Acute (2) Systolic and diastolic CHF, acute: Appeared to be compensated we will continue 40 mg of Lasix daily Status: Acute (3) Hypertensive urgency: Well controlled. Continue medicine Status: Acute (4) Poorly controlled diabetes mellitus: As per medicine Status: Acute (5) Angina pectoris syndrome: At this point we will Stay with medical management first including optimal control of blood sugar blood pressure. Beta jian MAURI inhibitor and isosorbide mononitrate will be continued. Left ventricular end-diastolic press ure will be reduced with diuretics if needed. Once blood sugar is under control and Covid test is available further plan will be advised. Status: Acute Attestations Medical Necessity Statement*: Patient requires continuation hospitalization for above defined Most likely discharge tomorrow Coding Level of Care Code Established Pt Acute Security Specialist for [facility] Fwd Patient Type Established History Expanded Problem Focused Exam Expanded Problem Focused Medical Decision Making Moderate Complexity Diagnoses Non-compliant patient Z91.19 Systolic and diastolic CHF, acute I50.41 Hypertensive urgency I16.0 Poorly controlled diabetes mellitus E11.65 Angina pectoris syndrome I20.9
[2019-06-07 20:44] LABS: Glucose Point of Care 401 mg/dL (70-110)
[2019-06-08 00:23] VITALS: BP 131/83; PULSE 70; RESP 18; TEMP 36.6; O2SAT 96
[2019-06-08] MEDS: enoxaparin 120 mg/0.8 mL Syringe 110 MG SUBCUT (03:09)
[2019-06-08 03:57] VITALS: BP 151/93; PULSE 72; RESP 18; TEMP 36.9; O2SAT 98
[2019-06-08 05:10] LABS: Basophils % 0.5 %; Eosinophils # 0.2 10^3/uL (0.0-0.8); Eosinophils % 2.7 %; Hematocrit 45.6 % (37.0-47.0); Hemoglobin 14.1 g/dL (11.5-15.3); Lymphocytes % 25.9 %; Mean Corpuscular HGB Conc 30.9 g/dL (30.0-36.0); Mean Corpuscular Hemoglobin 27.9 pg (28.0-34.0); Mean Corpuscular Volume 90.1 fL (81-99); Mean Platelet Volume 12.5 fL (7.4-10.4); Monocytes # 0.5 10^3/uL (0.2-0.9); Monocytes % 6.9 %; Neutrophils # 4.9 10^3/uL (1.8-7.7); Neutrophils % 63.7 %; Nucleated Red Blood Cells % 0 %; Platelet Count 198 10^3/cmm (130-400); Red Blood Count 5.06 10^6/uL (4.1-5.3); White Blood Count 7.7 10^3/uL (4.0-10.0)
[2019-06-08 05:21] LABS: Alanine Aminotransferase 24 U/L (0-33); Albumin Level 3.6 g/dL (3.5-5.2); Alkaline Phosphatase 107 IU/L (35-105); Anion Gap 16.8 (5-19); Aspartate Amino Transferase 32 U/L (0-32); Blood Urea Nitrogen 12 mg/dL (8-23); Calcium 9.8 mg/dL (8.5-10.5); Carbon Dioxide 27 mmol/L (22-29); Chloride 103 mmol/L (98-107); Globulin 3.8 g/dL (1.3-4.6); Glomerular Filtration Rate 56.6 mL/min (90-130); Glucose 109 mg/dL (65-115); Osmolality Calculated 293 mOsm/kg (285-295); Potassium 3.8 mmol/L (3.5-5.1); Sodium 143 mmol/L (136-145); Total Bilirubin 0.3 mg/dL (0.15-1.2); Total Protein 7.4 g/dL (6.6-8.7)
--- NOTE | 2019-06-08 06:10 | PC.NURSE ---
Patient requests a sliding scale sheet detailing insulin at discharge.
[2019-06-08 06:37] LABS: Glucose Point of Care 131 mg/dL (70-110)
[2019-06-08 07:23] VITALS: BP 158/90; PULSE 72; RESP 18; TEMP 37.1; O2SAT 98
[2019-06-08] MEDS: pantoprazole DR 40 mg Tablet 20 MG PO (09:25)
[2019-06-08] MEDS: clopidogrel 75 mg Tablet PO (09:25)
[2019-06-08] MEDS: amlodipine 10 mg Tablet PO (09:25)
[2019-06-08] MEDS: aspirin 81 mg EC Tablet PO (09:25)
[2019-06-08] MEDS: lisinopril 5 mg Tablet PO (09:25)
[2019-06-08] MEDS: atorvastatin 40 mg Tablet PO (09:25)
[2019-06-08] MEDS: ondansetron 2 mg/ML SDV 2 mL 4 MG IVP (09:32)
[2019-06-08 09:46] VITALS: PULSE 75; RESP 18; O2SAT 95
[2019-06-08] MEDS: insulin glargine 100 units/1 mL 25 UNIT SUBCUT (10:03)
[2019-06-08 10:44] VITALS: BP 151/89; PULSE 72; RESP 20; TEMP 36.4; O2SAT 99
[2019-06-08 11:12] LABS: Glucose Point of Care 301 mg/dL (70-110)
--- NOTE | 2019-06-08 14:15 | P.DS_ITS ---
Discharge Providers Date of Admission: 06/05/19 00:45 Date of Discharge: June 08, 2019 Attending Provider at Admission: Gilbert Serna MD Attending Provider at Discharge: Sai Nazario Primary Care Provider: Lito Keating MD Diagnoses at Discharge Discharge Diagnosis (1) Non-compliant patient: Status: Acute (2) Systolic and diastolic CHF, acute: Status: Acute (3) Hypertensive urgency: Status: Acute (4) Poorly controlled diabetes mellitus: Status: Acute (5) Angina pectoris syndrome: Status: Acute (6) Abnormal gallbladder ultrasound: Status: Acute (7) Secondary diabetes mellitus with HHNC (hyperglycemia hyperosmolar non- ketotic coma): Status: Acute (8) Acute bronchitis: Status: Acute Reason for Visit Reason for Visit: Reason For Visit: SOB Hospital Course Hospital Course: 58-year-old pleasant lady with history of diabetes, coronary disease status post stenting, with in-stent restenosis requiring repeat intervention, hypertension, HLD, GERD, ischemic cardiomyopathy with combined systolic and diastolic congestive heart failure which is chronic, unfortunately with very poor compliance with medication therapy, and recently with functional decline was admitted due to shortness of breath, easy fatigability with exertion, and admission fatigue at rest as well, with finding of hypertensive emergency on admission, troponin elevation, angina symptoms, but also with noted very poorly controlled diabetes with A1c of 15, with suspected HHS on presentation. Her blood pressure improved with IV blood pressure medication, initially she was on insulin drip, subsequently transitioned to subcutaneous insulin with improvement in mental status. Due to finding of bronchitis-like changes on imaging was tested for COVID-19, and found to be negative. Initially on treatment regimen for non-STEMI, with troponin abnormality, was assessed by cardiology, and again with concern that she does not take her medications. At home she lives with 2 of her friends were renting rooms in her house. Per discussion with them she had stopped taking medications after her last admission about several weeks afterward including her Brilinta. She rarely if ever takes diabetes medications, as she describes she does not like them. She herself describes that she sleeps in a bathtub with water, and also reports has been getting so fatigable recently that she may collapse sometimes and crawl for some distance before getting back up. Discussed in great detail the concerns that her poorly managed conditions including diabetes, coronary artery disease, hypertension, as well as her unsafe practices of sleeping, and disregard to her conditions is very concerning, with very high likelihood of a poor outcome. She herself has very good insight into her conditions, and is able to list and describe the concerns that are brought up to her. She understands that she needs to take her medications. She understands that she is at high risk of poor outcome including if she does not begin to actively manage her conditions and seek help when she is not doing well. She denies having depression contributing to this and denies suicidal ideation. Described my concerns to her friend as well who says they have been trying to help her, and she intermittently accepts help. She has been agreeable for us to send medications to complete pharmacy, and says will take them from now on. She says she had difficulties with financial situation insurance previously, although this is not entirely corroborated by her friend as the reason for why she had stopped taking her medications in the first place. Her friend who also has diabetes will continue to assist her with achieving control her chronic conditions placement to long term facility was discussed with her several times and highly encouraged as she would benefit from closer supervision of adherence with therapy and progress, however, she has adamantly declined this each time this is brought up. Per discussion with cardiology at this time she will continue on medical therapy with Plavix, beta-jian, statin, isosorbide mononitrate and MAURI inhibitor. We will set up follow-up for her in office. Please continue to optimize her chronic conditions and encourage as possible adherence to therapy. Please also follow-up on findings of cholelithiasis, gallbladder distention and wall thickening. This was briefly discussed with surgery here, and at this time does not qualify for surgical intervention. She does not have symptoms in right upper quadrant, has been afebrile, without leukocytosis, or other signs of acute infection. But in case this becomes symptomatic will need additional surgical attention. Physical Exam Const: COMMON NORMALS: no apparent distress and oriented x3 HENMT: COMMON NORMALS: oropharynx normal Neck/C-Spine: COMMON NORMALS: no JVD Resp: COMMON NORMALS: normal respiratory effort and clear to auscultation bilaterally AUSCULTATION: clear to auscultation bilaterally Cardio: COMMON NORMALS: no JVD, regular rhythm, S1 normal heart sound, S2 normal heart sound and no murmurs RHYTHM: regular rhythm HEART SOUNDS: S1 normal and S2 normal GI: COMMON NORMALS: normal to inspection, nondistended, normoactive bowel sounds, soft to palpation and non-tender PALPATION: Yes soft Extremity: COMMON NORMALS: no joint enlargement and no pedal edema Neuro: COMMON NORMALS: oriented x3 and moves all extremities Skin: COMMON NORMALS: no rashes or lesions noted GENERAL SKIN EXAM: no rashes or lesions noted Discharge Data Data Completed and Pending: Completed Studies During Hospitalization Category Date Time Status CT angio chest PE protcl [id number] Stat Cat Scan 06/04/19 23:12 Completed XR chest 1V juliano ble [id number] Stat Exams 06/04/19 21:34 Completed NM xena perf SPECT r/s* [id number] Routin e Nuc Med 06/05/19 01:36 Completed CV echo complete* [id number] Routine Ultrasound 06/05/19 01:36 Completed US abdomen limite d [id number] Routine Ultrasound 06/07/19 07:00 Completed Pending at discharge Category Date Time Status Sestamibi Stress Test Request Routi ne Exams 06/06/19 06:00 Ordered Labs from last 24 hours 06/08/19 06/08/19 06/08/19 10:42 06:32 04:26 WBC RBC Hgb Hct MCV MCH MCHC RDW Plt Count MPV Neut % (Auto) Lymph % (Auto) [place] % (Auto) Eos % (Auto) Baso % (Auto) Neut # (Auto) Lymph # (Auto) [place] # (Auto) Eos # (Auto) Baso # (Auto) Nucleated RBC % (a uto) Nucleated RBCs # Sodium 143 Potassium 3.8 Chloride 103 Carbon Dioxide 27 Anion Gap 16.8 BUN 12 Creatinine 1.0 H GFR Calculation 56.6 L Glucose 109 POC Glucose 301 131 Calculated Osmolal ity 293 Calcium 9.8 Total Bilirubin 0.3 AST 32 ALT 24 Alkaline Phosphata se 107 H Troponin I 6 Hour Troponin I Hi Sens Del Total Protein 7.4 Albumin 3.6 Globulin 3.8 06/08/19 06/07/19 06/07/19 04:26 20:30 16:40 WBC 7.7 RBC 5.06 Hgb 14.1 Hct 45.6 MCV 90.1 MCH 27.9 L MCHC 30.9 RDW 14.0 Plt Count 198 MPV 12.5 H Neut % (Auto) 63.7 Lymph % (Auto) 25.9 [place] % (Auto) 6.9 Eos % (Auto) 2.7 Baso % (Auto) 0.5 Neut # (Auto) 4.9 Lymph # (Auto) 2.0 [place] # (Auto) 0.5 Eos # (Auto) 0.2 Baso # (Auto) 0.0 Nucleated RBC % (a uto) 0 Nucleated RBCs # 0.0 Sodium Potassium Chloride Carbon Dioxide Anion Gap BUN Creatinine GFR Calculation Glucose POC Glucose 401 Calculated Osmolal ity Calcium Total Bilirubin AST ALT Alkaline Phosphata se Troponin I 6 Hour 76.18 H Troponin I Hi Sens Del -3.82 L Total Protein Albumin Globulin 06/07/19 16:35 WBC RBC Hgb Hct MCV MCH MCHC RDW Plt Count MPV Neut % (Auto) Lymph % (Auto) [place] % (Auto) Eos % (Auto) Baso % (Auto) Neut # (Auto) Lymph # (Auto) [place] # (Auto) Eos # (Auto) Baso # (Auto) Nucleated RBC % (a uto) Nucleated RBCs # Sodium Potassium Chloride Carbon Dioxide Anion Gap BUN Creatinine GFR Calculation Glucose POC Glucose 264 Calculated Osmolal ity Calcium Total Bilirubin AST ALT Alkaline Phosphata se Troponin I 6 Hour Troponin I Hi Sens Del Total Protein Albumin Globulin Vitals: Last Vital Signs Temp 97.6 F 06/08/19 10:44 Pulse 72 06/08/19 10:44 Resp 20 H 06/08/19 10:44 BP 151/89 06/08/19 10:44 Pulse Ox 99 06/08/19 10:44 Discharge Plan Discharge Patient Disposition: Home Health Service Condition: Stable Prescriptions: New insulin glargine 100 unit/mL (3 mL) insulin pen 25 unit SUBCUT DAILY Qty: 15 RF: 0 clopidogrel 75 mg Tablet 75 mg PO DAILY Qty: 30 RF: 0 polyethylene glycol 3350 [Miralax] 17 gram Powder In Packet 17 g PO DAILY Qty: 30 RF: 0 isosorbide mononitrate 30 mg tablet extended release 24 hr 30 mg PO DAILY Qty: 30 RF: 0 insulin lispro [Humalog KwikPen Insulin] 100 unit/mL insulin pen See Rx Instructions .ROUTE .COMPLEX Qty: 15 RF: 0 Continued dicyclomine 20 mg Tablet 20 mg PO Q6H PRN (Reason: Gastrointestinal Spasms Or Cramping) RF: 0 Norvasc 5 mg Tablet 5 - 10 mg PO DAILY PRN (Reason: Blood Pressure) RF: 0 hydrocodone-acetaminophen 5-325 mg Tablet 1 tab PO BID PRN (Reason: Pain, Severe) RF: 0 carvedilol 6.25 mg Tablet 6.25 mg PO BID Qty: 60 RF: 0 Protonix 40 mg Tablet,Delayed Release (Dr/Ec) 40 mg PO DAILY Qty: 30 RF: 0 lisinopril 5 mg Tablet 5 mg PO DAILY Qty: 30 RF: 0 Crestor 40 mg Tablet 40 mg PO DAILY Qty: 30 RF: 0 Zofran 4 mg Tablet 4 mg PO Q6H PRN (Reason: Nausea And Vomiting) Qty: 20 RF: 0 metformin 500 mg Tablet 500 mg PO BID Qty: 60 RF: 0 Changed Lasix 40 mg Tablet 40 mg PO DAILY Qty: 30 RF: 0 Discontinued Brilinta 90 mg PO BID RF: 0 glipizide 5 mg Tablet 5 mg PO BID RF: 0 Discharge Orders: Discharge Order (Routine); Ordered 06/08/19 Ordered By: Sai Nazario Referrals: Lito Keating MD [Primary Care Provider] - 06/10/19 9:00 am Gilbert Torres MD [Physician] - 06/15/19 1:30 pm Luis Armando García MD [Physician] - 1 month (Abnormal gallbladder ) Discharge Diet: Cardiac, Diabetic and Low Cholesterol Discharge Activity: Increase activity as tolerated Activity Restrictions/Additional Instructions: Please make sure to take your medications as discussed. Do not miss any doses as you may be risking heart attack, stroke, complications of diabetes including coma, or even . Please monitor your blood glucose 3 times daily, record values to bring to your appointment. Take insulin glargine once a day, and rapid acting insulin with 2 of the largest meals per day. This may be increased to 3 times a day by her primary care provider once he become comfortable with the regimen. Please make sure to monitor your blood pressure 3 times a day, record values. If your blood pressure is extremely high (190/100 or higher) and persists like that despite treatment, seek medical attention without delay to avoid risk of stroke, heart attack and other complications. Please avoid any NSAIDs like ibuprofen, naproxen, etc. Please maintain low-fat, low-cholesterol diet due to gallbladder stones. Please follow-up with your primary care provider to set up reassessment for this as well as due to thickening of the gallbladder wall. Discharge Attestations Time Spent in Discharge Care*: greater than 30 min Quality Metrics Clinical Quality Measures During this hospital stay, did patient experience: None Coding Level of Care Code Acute Dope Pourer for [facility] Fwd Diagnoses Non-compliant patient Z91.19 Systolic and diastolic CHF, acute I50.41 Hypertensive urgency I16.0 Poorly controlled diabetes mellitus E11.65 Angina pectoris syndrome I20.9 Abnormal gallbladder ultrasound R93.2 Secondary diabetes mellitus with HHNC (hyperglycemia hyperosmolar non-ketotic coma) E13.01 Acute bronchitis J20.9
[2019-06-08 14:49] VITALS: BP 151/89; PULSE 72; RESP 20; TEMP 36.4; O2SAT 99
--- NOTE | 2019-06-08 15:22 | PC.NURSE ---
Medication teaching Discuss to pt the importance of adherence to her ordered meds. Pt verbalizes understanding. Needed reinforcement. She agreed to have home health nurse come in and help her with medication set-up and continued teaching. Demonstrate to her how to give insulin shots. She teaches back and she verbalizes that her friend who lives with her helped her.
--- NOTE | 2019-06-08 15:29 | PC.NURSE ---
Discharge to home with home health services Instructed pt on her ff-up appointments, medication adherence, vital signs check, diet. reinforcement needed. ushered via wheelchair to [facility]
--- NOTE | 2019-06-08 18:01 | P.PN_ITS ---
Subjective Subjective: Interval history: Denies any more chest pain. Would like to go home denies shortness of breath. Vitals/I&O/Wt Last Vital Signs Temp 97.6 F 06/08/19 14:49 Pulse 72 06/08/19 14:49 Resp 20 H 06/08/19 14:49 BP 151/89 06/08/19 14:49 Pulse Ox 99 06/08/19 14:49 06/08/19 06/08/19 06/08/19 06:59 14:59 22:59 Intake Total 60 / 920 240 / 240 Balance 60 / 920 240 / 240 Physical Exam 2 Narrative: EXAM NARRATIVE: GENERAL: Patient is alert, awake and oriented x3. NECK: No jugular vein distension. HEENT: No cyanosis. No icterus. No pallor. HEART: Regular S1 and S2. No murmur, rub or gallop. LUNGS: Clear to auscultate bilaterally. ABDOMEN: Soft, nontender and nondistended. Positive bowel sounds. No guarding, rebound or tenderness. CENTRAL NERVOUS SYSTEM: Grossly nonfocal. EXTREMITIES: Lower extremities without edema bilaterally. Data : 06/08/19 04:26 06/08/19 04:26 A&P Assessment and plan (1) Non-compliant patient: Patient remains noncompliant the past with DAPT , She has history of thrombosed LAD stents. Stress test showed old anterior myocardial infarction while mild inferolateral ischemia noted however due to absence of prone images couldn't rule out artifact. We decided to continue to treat her medically. If he continues to do fine we may will discharge her and follow her up in the clinic Patient is stable, she is chest pain-free she is feeling fine from a cardiac perspective. Continue current regimen. We can discharge her home and follow with cardiology as an outpatient. Status: Acute (2) Systolic and diastolic CHF, acute: Well compensated. Continue medicine Status: Acute (3) Hypertensive urgency: Well controlled. Continue medicine Status: Acute (4) Poorly controlled diabetes mellitus: As per medicine Status: Acute (5) Angina pectoris syndrome: At this point we will Stay with medical management first including optimal control of blood sugar blood pressure. Beta jian MAURI inhibitor and isosorbide mononitrate will be continued. Left ventricular end-diastolic pressure will be reduced with diuretics if needed. Once blood sugar is under control and Covid test is available further plan will be advised. Status: Acute Attestations Medical Necessity Statement*: Patient can be discharged home from a car diovascular perspective.Follow-up with Dr. Torres in 2 weeks Coding Level of Care Code Established Pt Acute Equipment Services Associate for Chg Fwd Patient Type Established History Expanded Problem Focused Exam Expanded Problem Focused Medical Decision Making Moderate Complexity Diagnoses Non-compliant patient Z91.19 Systolic and diastolic CHF, acute I50.41 Hypertensive urgency I16.0 Poorly controlled diabetes mellitus E11.65 Angina pectoris syndrome I20.9
== END 2019-06-08 15:15 | disposition home health service (06) | DRG 637 ==
LOC: ER 06-05 00:18 → ICU 06-05 01:07 → CSU 06-06 15:42 → MEDSURG 06-07 11:48
PROVIDERS: Admitting Provider Internal Medicine; Emergency Provider Emergency Medicine; Family Provider Family Medicine; PCP Family Medicine; Visit Provider Internal Medicine
DX: E13.01 Other specified diabetes mellitus with hyperosmolarity with coma (principal); I50.43 Acute on chronic combined systolic (congestive) and diastolic (congestive) heart failure; I13.0 Hypertensive heart and chronic kidney disease with heart failure and stage 1 through stage 4 chronic kidney disease, or unspecified chronic kidney disease; I16.1 Hypertensive emergency; Z68.42 Body mass index [BMI] 45.0-49.9, adult; I25.5 Ischemic cardiomyopathy; J20.9 Acute bronchitis, unspecified; I25.709 Atherosclerosis of coronary artery bypass graft(s), unspecified, with unspecified angina pectoris; Z91.19 Patient's noncompliance with other medical treatment and regimen; Z95.5 Presence of coronary angioplasty implant and graft; E78.5 Hyperlipidemia, unspecified; K21.9 Gastro-esophageal reflux disease without esophagitis; Z79.84 Long term (current) use of oral hypoglycemic drugs; Z87.891 Personal history of nicotine dependence; E66.01 Morbid (severe) obesity due to excess calories; N18.9 Chronic kidney disease, unspecified
CPT/HCPCS: 12345; 36415; 36416; 71045; 71275; 76705; 78452; 80048; 80053; 82009; 82550; 82803; 82962; 83036; 83690; 83735; 83880; 84443; 84484; 85025; 85378; 87635; 93005; 93017; 93306; 94640; 96372; 96374; 96375; 99284; A9500; J0360; J1644; J1650; J1815; J2405; J2785; J3490; J3535; J7050; Q9967

== ENCOUNTER 2019-06-27 23:29 | Emergency (ER) | payer MEDICAID, SELFPAY ==
[2019-06-27 23:51] VITALS: BP 155/86; PULSE 90; RESP 18; TEMP 37.9; O2SAT 97; BMI 43.9
--- NOTE | 2019-06-27 23:56 | ECG_ITS ---
Measurements Intervals [place] Rate: 86 P: 50 SD: 170 QRS: -46 QRSD: 130 T: 113 QT: 368 QTc: 442 SINUS RHYTHM LEFT ANTERIOR FASCICULAR BLOCK [QRS AXIS <= -45, QR IN I, RS IN II] LEFT VENTRICULAR HYPERTROPHY AND ST-T CHANGE [VOLTAGE CRITERIA PLUS ST/T ABNORMALITY] POSSIBLE SEPTAL MYOCARDIAL INFARCTION [30 ms Q WAVE IN V1/V2], PROBABLY RECENT ACUTE SC Compared to ECG 06/07/2019 17:55:29 Left anterior fascicular block now present ST (T wave) deviation still present Myocardial infarct finding still present Electronically Signed On 06-28-2019 20:22:47 CDT by Sam Mckeon M.D. [email or web address]
--- NOTE | 2019-06-27 23:56 | XRR_ITS ---
PROCEDURE INFORMATION: Exam: XR Chest, 1 View Exam date and time: 06/28/2019 12:09 AM Age: 58 years old Clinical indication: Chest pain; Type not specified; Additional info: Cp TECHNIQUE: Imaging protocol: XR of the chest Views: 1 view. COMPARISON: CR XR chest 1V portable [id number] 06/04/2019 10:04 PM FINDINGS: Lungs: Lungs are clear bilaterally. Pleural space: No pleural effusion. No pneumothorax. Heart/Mediastinum: Stable moderate enlargement of the cardiac silhouette. Mediastinal contours are unremarkable. Vasculature: Stable vascular calcifications in the aorta. Bones/joints: Stable degenerative changes in the spine and shoulders. XR/XR chest 1V portable [id number] IMPRESSION: 1. No acute cardiopulmonary process. 2. Incidental/nonacute findings are listed in the report.
--- NOTE | 2019-06-28 01:07 | W.ED.CHESTPA ---
HPI - Chest Pain General: Chief Complaint: Chest Pain Stated Complaint: cp Time Seen by Provider: 06/27/19 23:59 History of Present Illness: MD complaint: chest pain Pertinent past history: coronary artery disease Onset (ago): hour(s) Timing of current episode: episodic Prior episodes: Yes Onset: during rest and during exertion Pain location: substernal Pain radiation: none Quality: tightness and aching Exacerbating factors: nothing Context: recent illness Associated symptoms: Reports dyspnea and palpitations; Deny abdominal pain, fever(s), nausea or vomiting Review of Systems Const: Denies: fever or chills Eyes: Denies: change in vision or blurry vision ENMT: Denies: painful swallowing or swelling of lips/tongue Card: Reports: chest pain, palpitations, irregular heart rhythm and edema Resp: Reports: shortness of breath; Denies: productive cough, non-productive cough or wheezing GI: Denies: abdominal pain, nausea or vomiting : Denies: painful urination or blood in urine Musc: Denies: neck pain, back pain, redness or joint warmth Skin/Breast: Denies: rash, itching or redness Neuro: Reports: confusion; Denies: headache, dizziness, vertigo or seizure-like activity Psych: Reports: anxiety PFSH ED PFSH: Social History Smoking and tobacco status: former smoker Alcohol intake: never Housing: House Physical Exam Const: GENERAL APPEARANCE: well developed ORIENTATION/CONSCIOUSNESS: Yes oriented to person, Yes oriented to place and Yes oriented to time HENMT: COMMON NORMALS: normocephalic HEAD & SCALP: normocephalic Eye: COMMON NORMALS: PERRL, EOMs intact bilaterally and conjunctivae normal EYELID: eyelids normal CONJUNCTIVA: Yes conjunctivae normal PUPIL: Yes PERRL Neck/C-Spine: COMMON NORMALS: full ROM GENERAL: No tracheal deviation Chest: COMMONS NORMALS: inspection of chest normal CHEST: No tenderness Resp: COMMON NORMALS: clear to auscultation bilaterally EFFORT & INSPECTION: No tachypneic, No respiratory distress, No retractions, No uses accessory muscles and No tracheal deviation AUSCULTATION: clear to auscultation bilaterally, no rhonchi, no wheezes and lung sounds not diminished Cardio: COMMON NORMALS: regular rate and regular rhythm RATE: regular rate RHYTHM: regular rhythm HEART SOUNDS: no murmurs PERIPHERAL PULSES: radial pulses present GI: INSPECTION: No abdominal distension AUSCULTATION: No hyperactive bowel sounds and No hypoactive bowel sounds PALPATION: No guarding and No rigid PERCUSSION: no dullness to percussion and no tympanic to percussion Neuro: SENSORIUM/ORIENTATION: Yes oriented to person, Yes oriented to place and Yes oriented to time Psych: COMMON NORMALS: mental status grossly normal Skin: COMMON NORMALS: no rashes or lesions noted GENERAL SKIN EXAM: no rashes or lesions noted Course Vital Signs: Vital signs: Vital Signs Temperature 100.2 F H 06/27/19 23:51 Pulse Rate 90 06/27/19 23:51 Respiratory Rate 18 06/27/19 23:51 Blood Pressure 155/86 06/27/19 23:51 Pulse Oximetry 97 06/27/19 23:51 MDM - Chest Pain MDM Narrative: Medical decision making narrative: 58-year-old female who is chronically noncompliant with treatment for diabetes and coronary artery disease. She presents with chest pain that started in the evening. She states there is some mild shortness of breath. No cough, no chills, no fever. She states that she took a hot bath, which did not relieve her pain. It is likely the source of her temperature on arrival. Her first troponin was 43. Her second troponin is 43. Her EKG, which shows some intraventricular conduction delay and ST elevation is similar to her prior EKGs from her last visit 3 weeks ago. It did not change at 2 hours either. She has a mild leukocytosis. Her hemoglobin is 13. Her other laboratory is benign. She is pain-free after 1 nitroglycerin and 4 morphine. When asked if she took any thing before she came to the emergency room, she states that she does not have any nitroglycerin at home. In light of her recent work-up, no change in her markers, and medical treatment for her prior condition in the hospital 3 weeks ago, I think medical treatment is a good option. I discussed briefly with the hospitalist, whether or not to observe, and they agreed with medical treatment at home. She will be discharged home as needed sublingual nitroglycerin. Lab Data: Labs: Lab Results 06/28/19 06/28/19 06/28/19 Range/Units 01:20 01:20 01:20 WBC 13.9 H (4.0-10.0) 10^3/ uL RBC 4.49 (4.1-5.3) 10^6/u L Hgb 13.0 (11.5-15.3) g/dL Hct 40.6 (37.0-47.0) % MCV 90.4 (81-99) fL MCH 29.0 (28.0-34.0) pg MCHC 32.0 (30.0-36.0) g/dL RDW 13.3 (12.1-15.1) % Plt Count 224 (130-400) 10^3/c mm MPV 12.1 H (7.4-10.4) fL Neut % (Auto) 80.4 % Lymph % (Auto) 13.5 % Wilkinson % (Auto) 3.5 % Eos % (Auto) 2.1 % Baso % (Auto) 0.1 % Neut # (Auto) 11.2 H (1.8-7.7) 10^3/u L Lymph # (Auto) 1.9 (0.8-4.8) 10^3/u L Wilkinson # (Auto) 0.5 (0.2-0.9) 10^3/u L Eos # (Auto) 0.3 (0.0-0.8) 10^3/u L Baso # (Auto) 0.0 (0.0-0.1) 10^3/u L Nucleated RBC % (a uto) 0 % Nucleated RBCs # 0.0 /100WBC Sodium 139 (136-145) mmol/L Potassium 4.5 (3.5-5.1) mmol/L Chloride 98 (98-107) mmol/L Carbon Dioxide 26 (22-29) mmol/L Anion Gap 19.5 H (5-19) BUN 18 (8-23) mg/dL Creatinine 1.3 H (0.5-0.9) mg/dL GFR Calculation 41.8 L (90-130) mL/min Glucose 343 H (65-115) mg/dL Calculated Osmolal ity 298 H (285-295) mOsm/k g Calcium 10.4 (8.5-10.5) mg/dL Magnesium 1.9 (1.7-2.3) mg/dL Total Bilirubin 0.3 (0.15-1.2) mg/dL AST 28 (0-32) U/L ALT 26 (0-33) U/L Alkaline Phosphata se 114 H (35-105) IU/L Troponin T Baselin e 43 H (0-10) ng/mL Troponin T 120 Min mohegan (0-10) ng/mL Delta Troponin T (0-10) ABS# Total Protein 8.7 (6.6-8.7) g/dL Albumin 4.4 (3.5-5.2) g/dL Globulin 4.3 (1.3-4.6) g/dL TSH 2.69 (0.27-4.20) uIU/ mL 06/28/19 Range/Units 03:15 WBC (4.0-10.0) 10^3/ uL RBC (4.1-5.3) 10^6/u L Hgb (11.5-15.3) g/dL Hct (37.0-47.0) % MCV (81-99) fL MCH (28.0-34.0) pg MCHC (30.0-36.0) g/dL RDW (12.1-15.1) % Plt Count (130-400) 10^3/c mm MPV (7.4-10.4) fL Neut % (Auto) % Lymph % (Auto) % Wilkinson % (Auto) % Eos % (Auto) % Baso % (Auto) % Neut # (Auto) (1.8-7.7) 10^3/u L Lymph # (Auto) (0.8-4.8) 10^3/u L Wilkinson # (Auto) (0.2-0.9) 10^3/u L Eos # (Auto) (0.0-0.8) 10^3/u L Baso # (Auto) (0.0-0.1) 10^3/u L Nucleated RBC % (a uto) % Nucleated RBCs # /100WBC Sodium (136-145) mmol/L Potassium (3.5-5.1) mmol/L Chloride (98-107) mmol/L Carbon Dioxide (22-29) mmol/L Anion Gap (5-19) BUN (8-23) mg/dL Creatinine (0.5-0.9) mg/dL GFR Calculation (90-130) mL/min Glucose (65-115) mg/dL Calculated Osmolal ity (285-295) mOsm/k g Calcium (8.5-10.5) mg/dL Magnesium (1.7-2.3) mg/dL Total Bilirubin (0.15-1.2) mg/dL AST (0-32) U/L ALT (0-33) U/L Alkaline Phosphata se (35-105) IU/L Troponin T Baselin e (0-10) ng/mL Troponin T 120 Min mohegan 42.95 H (0-10) ng/mL Delta Troponin T -0.05 L (0-10) ABS# Total Protein (6.6-8.7) g/dL Albumin (3.5-5.2) g/dL Globulin (1.3-4.6) g/dL TSH (0.27-4.20) uIU/ mL Discharge Plan Discharge Patient Disposition: Home, Self-Care Clinical Impression: Angina pectoris syndrome Condition: Stable Prescriptions: New nitroglycerin 0.4 mg tablet, sublingual 0.4 mg SUBLINGUAL Q5M PRN (Reason: chest pain) Qty: 20 RF: 0 No Action dicyclomine 20 mg tablet 20 mg PO Q6H PRN (Reason: Gastrointestinal Spasms Or Cramping) Qty: 60 RF: 5 Zofran 4 mg tablet 4 mg PO Q6H PRN (Reason: Nausea And Vomiting) Qty: 20 RF: 5 metformin 500 mg tablet 500 mg PO BID Qty: 60 RF: 5 Protonix 40 mg tablet,delayed release (DR/EC) 40 mg PO DAILY Qty: 30 RF: 3 hydrocodone-acetaminophen 5-325 mg Tablet 1 tab PO BID PRN (Reason: Pain, Severe) RF: 0 Miralax 17 gram Powder In Packet 17 g PO DAILY Qty: 30 RF: 0 clopidogrel 75 mg Tablet 75 mg PO DAILY Qty: 30 RF: 0 isosorbide mononitrate 30 mg tablet extended release 24 hr 30 mg PO DAILY Qty: 30 RF: 0 Lasix 40 mg Tablet 40 mg PO DAILY Qty: 30 RF: 0 carvedilol 6.25 mg Tablet 6.25 mg PO BID Qty: 60 RF: 0 lisinopril 5 mg Tablet 5 mg PO DAILY Qty: 30 RF: 0 Crestor 40 mg Tablet 40 mg PO DAILY Qty: 30 RF: 0 insulin glargine 100 unit/mL (3 mL) insulin pen 25 unit SUBCUT DAILY Qty: 15 RF: 0 Humalog KwikPen Insulin 100 unit/mL insulin pen See Rx Instructions .ROUTE .COMPLEX Qty: 15 RF: 0 Norvasc 5 mg Tablet 5 - 10 mg PO DAILY PRN (Reason: Blood Pressure) Qty: 30 RF: 0 Discharge Orders: Discharge Order (Routine); Ordered 06/28/19 Ordered By: Moris Frey Referrals: Lito Keating MD [Primary Care Provider] - Patient Instructions: Angina (ED) Activity Restrictions/Additional Instructions: Return for repeated or worsening episodes of chest discomfort, fever, cough, shortness of breath, other concerning symptoms. Coding Level of Care Code ED Assistant Dean for Roberto Fwd Exam Comprehensive
[2019-06-28 01:39] LABS: Basophils % 0.1 %; Eosinophils # 0.3 10^3/uL (0.0-0.8); Eosinophils % 2.1 %; Hematocrit 40.6 % (37.0-47.0); Lymphocytes # 1.9 10^3/uL (0.8-4.8); Lymphocytes % 13.5 %; Mean Corpuscular Volume 90.4 fL (81-99); Mean Platelet Volume 12.1 fL (7.4-10.4); Monocytes # 0.5 10^3/uL (0.2-0.9); Monocytes % 3.5 %; Neutrophils # 11.2 10^3/uL (1.8-7.7); Neutrophils % 80.4 %; Nucleated Red Blood Cells % 0 %; Platelet Count 224 10^3/cmm (130-400); Red Blood Count 4.49 10^6/uL (4.1-5.3); Red Cell Distribution Width 13.3 % (12.1-15.1); White Blood Count 13.9 10^3/uL (4.0-10.0)
[2019-06-28 01:56] LABS: Troponin(5th) Baseline 43 ng/mL (0-10)
[2019-06-28 02:01] LABS: Alanine Aminotransferase 26 U/L (0-33); Albumin Level 4.4 g/dL (3.5-5.2); Alkaline Phosphatase 114 IU/L (35-105); Anion Gap 19.5 (5-19); Aspartate Amino Transferase 28 U/L (0-32); Blood Urea Nitrogen 18 mg/dL (8-23); Calcium 10.4 mg/dL (8.5-10.5); Carbon Dioxide 26 mmol/L (22-29); Chloride 98 mmol/L (98-107); Globulin 4.3 g/dL (1.3-4.6); Glomerular Filtration Rate 41.8 mL/min (90-130); Glucose 343 mg/dL (65-115); Magnesium 1.9 mg/dL (1.7-2.3); Osmolality Calculated 298 mOsm/kg (285-295); Potassium 4.5 mmol/L (3.5-5.1); Sodium 139 mmol/L (136-145); Thyroid Stimulating Hormone 2.69 uIU/mL (0.27-4.20); Total Bilirubin 0.3 mg/dL (0.15-1.2); Total Protein 8.7 g/dL (6.6-8.7)
[2019-06-28] MEDS: morphine 4 mg/mL SDV 1 mL IVP (02:59)
[2019-06-28] MEDS: ondansetron 2 mg/ML SDV 2 mL 4 MG IVP (02:59)
[2019-06-28 03:34] LABS: Troponin 5 2HR 42.95 ng/mL (0-10)
[2019-06-28 03:40] LABS: Troponin 5 2HR Delta -0.05 ABS# (0-10)
[2019-06-28] MEDS: nitroglycerin 0.4 mg sublingual Tablet SUBLINGUAL (04:20)
[2019-06-28 06:17] VITALS: BP 128/68; PULSE 88; RESP 17; O2SAT 97
== END 2019-06-28 06:19 | disposition home or self-care (01) ==
PROVIDERS: Nurse Practitioner Family; Emergency Provider Emergency Medicine; Family Provider Family Medicine; PCP Family Medicine
DX: I20.9 Angina pectoris, unspecified (principal); Z79.02 Long term (current) use of antithrombotics/antiplatelets; Z79.4 Long term (current) use of insulin; Z87.891 Personal history of nicotine dependence
CPT/HCPCS: 12345; 71045; 80053; 83735; 84443; 84484; 85025; 93005; 96374; 96375; 99281; J2270; J2405

== ENCOUNTER 2019-07-08 13:26 | Observation (INO) | payer MEDICAID, SELFPAY ==
[2019-07-07 13:33] VITALS: BMI 46.5
[2019-07-08] VITALS (20 sets, daily range): BP systolic 111–168; BP diastolic 63–91; PULSE 54–82; RESP 15–20; TEMP 36.1–37.4; O2SAT 93–100
--- NOTE | 2019-07-08 06:54 | W.PM.OPSUD ---
Surgery/Procedure H&P Update DATE OF PROCEDURE: July 08, 2019 DATE H&P PERFORMED: 06/29/19 H&P UPDATE INFORMATION: I have reviewed H&P completed within last 30 days, I have examined patient prior to procedure and No changes to prior documentation PREOP DIAGNOSIS: Cholelithiasis PLANNED PROCEDURE: Operation Date: 07/08/19 08:40 Proposed Procedures p Laparoscopic [place] [address]28 K80.20(Not Applicable) - Luis Armando García MD
[2019-07-08] MEDS: sodium chloride 0.9% 1,000 ML 30 ML IV (07:09)
[2019-07-08 07:11] LABS: Glucose Point of Care 285 mg/dL (70-110)
--- NOTE | 2019-07-08 07:15 | ANES.PREANE2 ---
Pre-Anesthetic Assessment Pre-Anesthetic Assessment: Height/Weight: Height 1.52 m Weight 107.955 kg Temp Pulse Resp BP Pulse Ox 97.6 F 65 18 162/83 98 07/08/19 06:58 07/08/19 06:58 07/08/19 06:58 07/08/19 06:58 07/08/19 06:58 Preop Diagnosis: Cholelithiasis Proposed Procedure: Operation Date: 07/08/19 08:40 Proposed Procedures p Laparoscopic [place] 48134 K80.20(Not Applicable) - Luis Armando García MD Familial anesthetic complications: none last took plavix 1 week ago - most recent stent last july Was Beta Concha taken within 24 hours: Yes Last intake: Intake Last Liquid Date 07/08/19 Last Liquid Time 05:30 Last Solid Date 07/07/19 Last Solid Time 21:00 Social: Social History: No alcohol and No tobacco Exam: Pre-Anes Outpt Exam: alert, oriented x 3, clear to auscultation bilaterally and regular rate & rhythm Airway: Cervical ROM: WNL MP: 2 Additional comments: edentulous Pulmonary: Pulmonary: COPD CV/HEM: CV/HEM: CAD, HTN and KS (MIX3 - apparently had heart attack june 02- has received cardiac clearance from [facility]) : : None reported Hepatic: Hepatic: None reported GI: GI: None reported Metabolic: Metabolic: DM, Hyperlipidemia and Morbid obesity Musc/skel: Musc/skel: None reported Neuropsych: Neuropsych: None reported Anesthetic Plan: ASA status: 4 Anesthesia: General Risk of > 500 ml blood loss (7ml/kg in children): No Meds/Allergies Current Medications: Current Medications Generic Name Dose Route Start Last Admin Trade Name Freq PRN Reason Stop Dose Admin Sodium Chloride 1,000 mls @ 30 ml s/hr 07/08/19 06:45 07/08/19 07:09 Sodium Chloride 0.9% IV 30 mls/hr .Q24H PRINCESS Administration PFSH Anesthesia PFSH: Social History Smoking and tobacco status: former smoker Alcohol intake: never Adopted: Yes Caregiver/support person: Yes Lives independently: Yes Household members: family Housing: House Data Anesthesia Other Labs: Laboratory Results - last 48 hr 07/08/19 07:06 POC Glucose 285 Cardiac Studies: No Data to Display
[2019-07-08] MEDS: insulin regular-human 100 units/1 mL 5 UNIT IVP ×2 (07:30→10:56)
[2019-07-08 10:53] LABS: Glucose Point of Care 224 mg/dL (70-110)
--- NOTE | 2019-07-08 12:24 | SUR.PHASEII ---
Patient awaiting for bed on med surg,pt arousable but drowsy 02 -3l-NC,V/S stable
--- NOTE | 2019-07-08 13:17 | SUR.PHASEII ---
[id number] PATIENT STILL AWAITING ROOM TO GO TO MED SURG ROOM 258-1,REPORT GIVEN TO JENNIFER OCONNOR RN AND GONE TO SUPERUSER MEETING AT 1PM
--- NOTE | 2019-07-08 13:57 | P.OP_ITS ---
Operative Report Date of procedure: July 08, 2019 Pre-op Diagnosis: Cholelithiasis Post-op diagnosis: same Post-op Diagnosis: Gallbladder was chronically inflamed with hydrops. Procedure Done: Laparoscopic cholecystectomy Specimens removed/disposition: Gallbladder Surgeon: Luis Armando García Anesthesia: General Estimated blood loss (mL): 50 Condition: stable Disposition: PACU Procedure: The patient was taken to the operating room and was intubated under general anesthesia. After the antibiotic had been administered, the abdomen was prepped and draped in a sterile manner. Using a #15 blade, a 1 centimeter infraumbilical curvilinear incision was made and using an open Rosaura technique the peritoneal cavity was entered. A 10 millimeter port was placed and 15 millimeters of pneumoperitoneum was created. A 10 millimeter, 30 degrees scope was then introduced. Three 5 millimeter ports were placed in the epigastric, midclavicular and the anterior axillary line two fingerbreadths below the costal margin on the right side under the direct visualization. The gallbladder was chronically inflamed and distended and was decompressed using a suction digital x ray service engineer after an opening was made in the fundus of the gallbladder. Ratcheted forceps were introduced into the lateral most port and was used to retract the fundus of the gallbladder cephalad and using forceps the infundibulum of the gallbladder was retracted laterally. There was some bleeding from the posterior branch of the cystic artery which was controlled with 5 mm clips. Using L-hook cautery the peritoneum overlying the Calot's triangle was opened medially and laterally until the cystic duct and the cystic artery were skeletonized. Dissection was carried along the body of the gallbladder and after ensuring c ritical view of safety, 4 clips applied on the cystic duct and 3 clips applied on the cystic artery and cut leaving, 3 clips on the remaining portion of the duct and 2 clips on the remaining portion of the artery. The rest of the gallbladder was dissected off the liver using L-hook cautery. There was no bleeding or bile leaking noted from the gallbladder fossa and the clips appeared to be in place. An EndoCatch bag was introduced to remove the gallbladder. All the ports were removed under direct visualization and there was no bleeding noted from the port sites. The fascia of the umbilicus was closed using [id number] 0 Vicryl sutures and the subcutaneous tissue was approximated using 3-0 Vicryl sutures. The skin at all four ports were closed using 4-0 Monocryl and Dermabond. A total of 10 millimeters of 0.5% Marcaine was infiltrated around the port sites. The patient was stable throughout the procedure.
[2019-07-08 14:02] LABS: Glucose Point of Care 300 mg/dL (70-110)
[2019-07-08] MEDS: sodium chloride 0.9% 1,000 ML 50 ML IV (15:42)
[2019-07-08] MEDS: famotidine 20 mg/2 mL INJ IVP (15:42)
[2019-07-08] MEDS: amlodipine 5 mg Tablet PO (15:49)
[2019-07-08 17:38] LABS: Glucose Point of Care 402 mg/dL (70-110)
[2019-07-08] MEDS: metformin 500 mg Tablet PO (17:39)
[2019-07-08] MEDS: carvedilol 6.25 mg Tablet PO (17:39)
[2019-07-08] MEDS: atorvastatin 40 mg Tablet 80 MG PO (20:06)
[2019-07-08] MEDS: ondansetron 4 MG Tablet PO (20:07)
[2019-07-08] MEDS: HYDROcodone-acetaminophen 5-325 mg Tablet 1 TAB PO (20:07)
[2019-07-08 21:13] LABS: Glucose Point of Care 194 mg/dL (70-110)
[2019-07-09 04:00] VITALS: BP 133/82; PULSE 68; RESP 14; TEMP 36.9; O2SAT 96
[2019-07-09] MEDS: famotidine 20 mg/2 mL INJ IVP ×2 (05:31→13:53)
[2019-07-09] MEDS: HYDROcodone-acetaminophen 5-325 mg Tablet 1 TAB PO (06:39)
[2019-07-09 06:40] LABS: Glucose Point of Care 260 mg/dL (70-110)
[2019-07-09 07:25] VITALS: BP 126/74; PULSE 73; RESP 18; TEMP 36.8; O2SAT 97
[2019-07-09 07:51] VITALS: PULSE 72; O2SAT 98
[2019-07-09] MEDS: metformin 500 mg Tablet PO (08:54)
[2019-07-09] MEDS: FUROsemide 40 mg Tablet PO (08:54)
[2019-07-09] MEDS: isosorbide mononitrate ER 30 mg Tablet PO (08:54)
[2019-07-09] MEDS: lisinopril 5 mg Tablet PO (08:54)
[2019-07-09] MEDS: carvedilol 6.25 mg Tablet PO (08:54)
[2019-07-09] MEDS: pantoprazole DR 40 mg Tablet PO (08:54)
[2019-07-09] MEDS: polyethylene glycol 3350 Pkt 17 gm PO (08:55)
[2019-07-09 10:55] LABS: Glucose Point of Care 279 mg/dL (70-110)
[2019-07-09 11:04] VITALS: BP 123/79; PULSE 71; RESP 18; TEMP 36.7; O2SAT 93
--- NOTE | 2019-07-09 11:13 | PC.CHAP ---
Pastoral Care Encounter/Spiritual Assessment Type of Contact [] Declined conservation or heritage architect visit [] Patient/Family/Request visit [] Outpatient visit [] Follow-up visit [] Physician referral [] Code/Alert [x] Routine visit [] Staff referral [] Actively dying [] Patient sleeping [] Family support [] [] Out of room [] Palliative care [] [] Receiving care in room [] Pre-surgical visit [] Trauma [] Long length of stay [] ICU visit [] Other: Relational/Emotional Strength [x] Patient feels connected with others/family/visitors/staff [] Distress [] Loneliness/isolation [] Abandonment Spirituality of Patient [x] Person of Opal [] Attends Sikh of their [place] [] Believes in Prayer [] Reads Bible or Latter-Day materials [x] There are Spiritual issues to be addressed Drawing Kiln Operator Interventions [x] Prayer [x] Active listening [x] Non-anxious presence x[] Spiritual/emotional support [] Crisis/trauma care [x] Spiritual counseling [] Bereavement support [] Provided bereavement packet [] Provided Bible/devotional materials [] Provided toy/stuffed animal, coloring book to patient or family member [] Provided Communion [] Anointing/[place] [] Salvation [x] Completed spiritual assessment [] Other: Impact on Illness or Injury [] Angry [] Fearful [] Anxious [] Often cries [] Exhaustion [] Unable to work [] Unable to attend religious [] Unable to walk/stand [] Unable to read [] Unable to drive [] Unable to eat/drink [] Unable to sleep [] Unable to be with family [] Patient intubated [x] Other: Summary Patient is weak in understanding of the [place]. The Gospel was proclaimed. Time spent with patient 10 minutes
[2019-07-09] MEDS: sodium chloride 0.9% 1,000 ML 50 ML IV (14:02)
[2019-07-09 15:40] VITALS: BP 139/78; PULSE 71; RESP 18; TEMP 37.2; O2SAT 95
[2019-07-09 16:32] VITALS: BP 139/78; PULSE 71; RESP 18; TEMP 37.2; O2SAT 95
--- NOTE | 2019-07-13 09:42 | PM.DCS ---
Discharge Providers Date of Admission: 07/08/19 13:26 Date of Discharge: July 09, 2019 Attending Provider at Admission: Luis Armando Gracía MD Attending Provider at Discharge: Luis Armando García MD Primary Care Provider: Lito Keating MD Diagnoses at Discharge Discharge Diagnosis (1) Status post laparoscopic cholecystectomy: Status: Acute Reason for Visit Reason for Visit: Reason For Visit: Calculas of gallbladder without choleystitis Hospital Course Discharge Summary: This is a 58-year-old female with significant cardiac history who was admitted after she underwent uneventful laparoscopic cholecystectomy. By following morning she was tolerating a diet, her vital signs are stable and she was ambulating without difficulty. Discharge Data Data Completed and Pending: Completed Studies During Hospitalization Category Date Time Status Pathology: Surgic al [PTH] Routine Pth 07/08/19 09:41 Completed Vitals: Last Vital Signs Temp 98.9 F 07/09/19 16:32 Pulse 71 07/09/19 16:32 Resp 18 07/09/19 16:32 BP 139/78 07/09/19 16:32 Pulse Ox 95 07/09/19 16:32 Discharge Plan Discharge Patient Disposition: Home, Self-Care Condition: Stable Prescriptions: [place] 5-325 mg tablet 1 tab PO Q6H 7 Days Qty: 20 RF: 0 Zofran 4 mg tablet 4 mg PO Q6H PRN (Reason: nausea and vomiting) Qty: 20 RF: 0 Colace 100 mg capsule 100 mg PO BID Qty: 30 RF: 0 Continued dicyclomine 20 mg tablet 20 mg PO Q6H PRN (Reason: Gastrointestinal Spasms Or Cramping) Qty: 60 RF: 5 Zofran 4 mg tablet 4 mg PO Q6H PRN (Reason: Nausea And Vomiting) Qty: 20 RF: 5 metformin 500 mg tablet 500 mg PO BID Qty: 60 RF: 5 Protonix 40 mg tablet,delayed release (DR/EC) 40 mg PO DAILY Qty: 30 RF: 3 clopidogrel 75 mg tablet 75 mg PO DAILY Qty: 30 RF: 3 insulin glargine 100 unit/mL (3 mL) insulin pen 25 unit SUBCUT DAILY Qty: 15 RF: 3 insulin lispro [Humalog KwikPen Insulin] 100 unit/mL insulin pen See Rx Instructions .ROUTE .COMPLEX Qty: 15 RF: 3 isosorbide mononitrate 30 mg tablet extended release 24 hr 30 mg PO DAILY Qty: 30 RF: 3 hydrocodone-acetaminophen 5-325 mg Tablet 1 tab PO BID PRN (Reason: Pain, Severe) RF: 0 polyethylene glycol 3350 [Miralax] 17 gram Powder In Packet 17 g PO DAILY Qty: 30 RF: 0 furosemide [Lasix] 40 mg Tablet 40 mg PO DAILY Qty: 30 RF: 0 carvedilol 6.25 mg Tablet 6.25 mg PO BID Qty: 60 RF: 0 lisinopril 5 mg Tablet 5 mg PO DAILY Qty: 30 RF: 0 rosuvastatin [Crestor] 40 mg Tablet 40 mg PO DAILY Qty: 30 RF: 0 amlodipine [Norvasc] 5 mg Tablet 5 - 10 mg PO DAILY PRN (Reason: Blood Pressure) Qty: 30 RF: 0 nitroglycerin 0.4 mg tablet, sublingual 0.4 mg SUBLINGUAL Q5M PRN (Reason: chest pain) Qty: 20 RF: 0 Discharge Orders: Discharge Order (Routine); Ordered 07/09/19 Ordered By: Luis Armando García Referrals: Lito Keating MD [Primary Care Provider] - 01/04/20 9:00 am () Luis Armando García MD [Physician] - 07/21/19 1:15 pm Patient Instructions: Hydrocodone/Acetaminophen (By mouth), Laxative, Stool Softeners (By mouth), Ondansetron (By mouth), Low Fat Diet (DC), Laparoscopic Cholecystectomy (DC), Post Anesthesia Care Activity Restrictions/Additional Instructions: 1. Up and walking as tolerated. 2. Ok to shower in 48 hours after surgery. 3. Remove Dermabond dressing in 7-10 days. 4. Do not lift more than 10 pounds. 5. Do not operate heavy machinery or drive while using pain medications. 6. Advised to return to ER or contact my office if there are any signs of infection like, increasing pain, fevers, chills, redness or drainage of pus. Discharge Date/Time: 07/09/19 16:33 Discharge Attestations Time Spent in Discharge Care*: less than 30 min Quality Metrics Clinical Quality Measures During this hospital stay, did patient experience: None Coding Level of Care Code Acute Finishing Room Operator for Roberto Viramontes Diagnoses Status post laparoscopic cholecystectomy Z90.49
== END 2019-07-09 16:33 | disposition home or self-care (01) ==
LOC: MEDSURG 13:27
PROVIDERS: Admitting Provider Surgery; Family Provider Family Medicine; PCP Family Medicine; Visit Provider Surgery
PROC: 0FT44ZZ Resection of Gallbladder, Percutaneous Endoscopic Approach (ICD-10-PCS; CPT 47562; principal; 2019-07-08 08:40)
DX: K80.10 Calculus of gallbladder with chronic cholecystitis without obstruction (principal); I25.10 Atherosclerotic heart disease of native coronary artery without angina pectoris; E11.9 Type 2 diabetes mellitus without complications; Z79.84 Long term (current) use of oral hypoglycemic drugs; K21.9 Gastro-esophageal reflux disease without esophagitis; E78.5 Hyperlipidemia, unspecified; I11.0 Hypertensive heart disease with heart failure; I50.41 Acute combined systolic (congestive) and diastolic (congestive) heart failure; Z95.5 Presence of coronary angioplasty implant and graft; Z82.49 Family history of ischemic heart disease and other diseases of the circulatory system; Z87.891 Personal history of nicotine dependence
CPT/HCPCS: 47562; 12345; 36416; 82962; 88304; 96361; 96365; 96372; 96374; 96375; G0378; J0690; J1815; J2370; J2405; J2704; J2710; J3010; J3490; J7030; Q0162

== ENCOUNTER → 2019-11-04 09:44 | Outpatient (BNVA) | payer MEDICAID, SELFPAY | PROVIDERS: Family Provider Family Medicine; PCP Family Medicine; Visit Provider Family Medicine | DX: E11.65 Type 2 diabetes mellitus with hyperglycemia (principal); K64.9 Unspecified hemorrhoids; E66.01 Morbid (severe) obesity due to excess calories; Z91.19 Patient's noncompliance with other medical treatment and regimen; I20.9 Angina pectoris, unspecified; Z90.49 Acquired absence of other specified parts of digestive tract; I10 Essential (primary) hypertension; R07.9 Chest pain, unspecified; G89.4 Chronic pain syndrome; H53.131 Sudden visual loss, right eye | CPT/HCPCS: 80048; 83036 ==

== ENCOUNTER → 2020-01-14 12:17 | Outpatient (BNVA) | payer MEDICAID, SELFPAY | PROVIDERS: Family Provider Family Medicine; PCP Family Medicine; Visit Provider Family Medicine | DX: Q84.5 Enlarged and hypertrophic nails (principal); K59.01 Slow transit constipation; G89.4 Chronic pain syndrome; Z91.19 Patient's noncompliance with other medical treatment and regimen; E11.65 Type 2 diabetes mellitus with hyperglycemia; I11.0 Hypertensive heart disease with heart failure; I50.42 Chronic combined systolic (congestive) and diastolic (congestive) heart failure; F41.1 Generalized anxiety disorder; Z68.42 Body mass index [BMI] 45.0-49.9, adult; F17.211 Nicotine dependence, cigarettes, in remission; Z71.89 Other specified counseling | CPT/HCPCS: 36416; 82962 ==

== ENCOUNTER → 2020-05-11 10:43 | Outpatient (BNVA) | payer MEDICAID, SELFPAY | PROVIDERS: Family Provider Family Medicine; PCP Family Medicine; Visit Provider Family Medicine | DX: E11.65 Type 2 diabetes mellitus with hyperglycemia (principal); Z79.4 Long term (current) use of insulin; K29.00 Acute gastritis without bleeding; B37.9 Candidiasis, unspecified; F41.1 Generalized anxiety disorder; Z91.19 Patient's noncompliance with other medical treatment and regimen; Z68.41 Body mass index [BMI] 40.0-44.9, adult; F17.211 Nicotine dependence, cigarettes, in remission | CPT/HCPCS: 36416; 81000; 82962 ==

== ENCOUNTER 2020-07-04 08:48 | Emergency (ER) | payer MEDICAID, SELFPAY ==
[2020-07-04 08:48] VITALS: BP 174/77; PULSE 77; RESP 20; TEMP 36.1; O2SAT 96; BMI 49.1
--- NOTE | 2020-07-04 08:51 | ED_ITS ---
HPI - Abdominal Pain General: Chief Complaint: Nausea/Vomiting/Diarrhea Stated Complaint: DIARRHEA SINCE LAST NIGHT Time Seen by Provider: 07/04/20 08:50 Source: patient Mode of arrival: ambulatory Limitations: no limitations History of Present Illness: HPI narrative: 59-year-old female comes in today with some generalized abdominal pain and diarrhea starting last night. Patient has a history of diabetes, hypertension, anxiety disorder, CHF, coronary artery disease, obesity. Patient states that last night she started having several episodes of diarrhea that persisted throughout the night and into the morning. Patient called for EMS due to the persistent discomfort and the diarrhea episodes. Patient reports previous episode in the past that was similar and she was diagnosed at that time with a colitis. Patient denies any vomiting or blood in the stool. MD elicited complaint: abdominal pain Pertinent past history: none Onset (ago): hour(s) Pain Consistency: intermittent Location: Diffuse Severity: moderate Quality: cramping Radiation: epigastric Migration to: no migration Exacerbating factors: nothing Relieving factors: nothing Associated Symptoms: Reports diarrhea Review of Systems General: Reports: 10 or more systems reviewed and unremarkable except in HPI and below GI: Reports: diarrhea PFSH ED PFSH: Medical History Cholelithiasis Chronic combined systolic (congestive) and diastolic (congestive) heart failure moderate systolic dysfunction and grade 2 diastolic dysfunction Chronic pain syndrome Coronary artery disease Diabetes Dyslipidemia Generalized anxiety disorder GERD (gastroesophageal reflux disease) Hypertension Ischemic cardiomyopathy Stenosis of coronary stent EF 40% grade 2 diastolic dysfunction, LVH, Systolic and diastolic CHF, acute Surgical History H/O cardiac catheterization 1 vessel disease [address] segment elevation DE 3 stents were placed, with subsequent stent thrombosis with balloon angioplasty History of appendectomy History of lithotripsy Status post laparoscopic cholecystectomy (07/08/19) Family History Other CAD (coronary artery disease) Hypertension Denies family history of Anesthesia complication Bleeding disorder Social History Smoking and tobacco status: former smoker Alcohol intake: never Adopted: Yes Caregiver/support person: Yes Lives independently: Yes Household members: family Housing: House Physical Exam Const: COMMON NORMALS: no acute distress and patient oriented x3 GENERAL APPEARANCE: cooperative HENMT: COMMON NORMALS: normocephalic and Normal external nose present HEAD & SCALP: normal to inspection and normocephalic NOSE: Normal external nose present MOUTH: Abnormal oral and palatal mucosa present (dry mucosa) THROAT: posterior oropharynx normal Eye: GENERAL EYE: appearance normal, both eyes and all related structures Neck/C-Spine: COMMON NORMALS: full ROM Lymph: LYMPHATIC: no lymphadenopathy noted Chest: COMMONS NORMALS: normal inspection of the chest Resp: COMMON NORMALS: normal respiratory effort EFFORT & INSPECTION: Yes able to speak in complete sentences Cardio: COMMON NORMALS: regular rate and regular rhythm RATE: regular rate RHYTHM: regular rhythm GI: COMMON NORMALS: Soft to palpation PALPATION: Yes Soft to palpation, Yes Tenderness to palpation present (GI) and No Guarding due to palpation present (GI) Back/Pelvis: COMMON NORMALS: thoracic and lumbar spine normal to inspection Extremity: COMMON NORMALS: normal to inspection Neuro: COMMON NORMALS: patient oriented x3 and moves all extremities Psych: COMMON NORMALS: mental status grossly normal and cooperative Skin: COMMON NORMALS: no rashes or lesions noted GENERAL SKIN EXAM: no rashes or lesions noted Course Vital Signs: Vital signs: Vital Signs Temperature 97.0 F L 07/04/20 08:48 Pulse Rate 77 07/04/20 08:48 Respiratory Rate 20 H 07/04/20 08:48 Blood Pressure 174/77 07/04/20 08:48 Pulse Oximetry 96 07/04/20 08:48 MDM - Abdominal Pain MDM Narrative: Medical decision making narrative: Patient comes in with some abdominal pain and diarrhea starting last night. Patient reports very similar to previous episode of infection in her colon. Patient denies any high fever, any blood in the stool, or significant uncomfortable pain. On exam bowel sounds are hyperactive, and patient has some mild generalized abdominal tenderness. Vital signs are normal. Differential diagnosis includes not limited to diverticulitis, abscess of the diverticula, colitis, gastroenteritis. Laboratory values noted a slight increase in the leukocytes at 13.2. Creatinine was 1.1 which is near her baseline. Glucose was a little bit elevated at 354 which is probably her baseline as when compared to previous labs. CT scan was performed and noted inflammation of the colon which was similar to prior episode in 2019. Patient be placed on Cipro and Flagyl to cover for infectious colitis for the next 7 days. Patient reported understanding of care plan and agreed to plan and wished to go home. Patient was discharged home. Lab Data: Labs: Lab Results 07/04/20 07/04/20 Range/Units 09:23 09:23 WBC 13.2 H (4.0-10.0) 10^3/ uL RBC 4.65 (4.1-5.3) 10^6/u L Hgb 13.4 (11.5-15.3) g/dL Hct 41.9 (37.0-47.0) % MCV 90.1 (81-99) fL MCH 28.8 (28.0-34.0) pg MCHC 32.0 (30.0-36.0) g/dL RDW 13.2 (12.1-15.1) % Plt Count 208 (130-400) 10^3/c mm MPV 11.5 H (7.4-10.4) fL Neut % (Auto) 79.2 % Lymph % (Auto) 14.3 % [place] % (Auto) 4.7 % Eos % (Auto) 1.4 % Baso % (Auto) 0.2 % Neut # (Auto) 10.49 H (1.8-7.7) 10^3/u L Lymph # (Auto) 1.9 (0.8-4.8) 10^3/u L [place] # (Auto) 0.6 (0.2-0.9) 10^3/u L Eos # (Auto) 0.2 (0.0-0.8) 10^3/u L Baso # (Auto) 0.0 (0.0-0.1) 10^3/u L Nucleated RBC % (a uto) 0 % Nucleated RBCs # 0.0 /100WBC Sodium 140 (136-145) mmol/L Potassium 3.9 (3.5-5.1) mmol/L Chloride 103 (98-107) mmol/L Carbon Dioxide 25 (22-29) mmol/L Anion Gap 15.9 (5-19) BUN 16 (8-23) mg/dL Creatinine 1.1 H (0.5-0.9) mg/dL GFR Calculation 50.5 L (90-130) mL/min Glucose 354 H (65-115) mg/dL Calculated Osmolal ity 305 H (285-295) mOsm/k g Calcium 8.8 (8.5-10.5) mg/dL Total Bilirubin 0.4 (0.15-1.2) mg/dL AST 21 (0-32) U/L ALT 16 (0-33) U/L Alkaline Phosphata se 100 (35-105) IU/L Total Protein 6.9 (6.6-8.7) g/dL Albumin 3.7 (3.5-5.2) g/dL Globulin 3.2 (1.3-4.6) g/dL Lipase 24 (13-60) U/L Discharge Plan Discharge Patient Disposition: Home Clinical Impression: Colitis, acute Condition: Stable Prescriptions: New Cipro 500 mg tablet 500 mg PO BID Qty: 14 RF: 0 metronidazole 500 mg tablet 500 mg PO BID 7 Days Qty: 14 RF: 0 No Action omeprazole magnesium [Prilosec OTC] 20 mg tablet,delayed release (DR/EC) 20 mg PO DAILY Qty: 30 RF: 0 dicyclomine 20 mg tablet 20 mg PO Q6H PRN (Reason: Gastrointestinal Spasms Or Cramping) Qty: 60 RF: 5 furosemide [Lasix] 40 mg tablet 40 mg PO DAILY Qty: 30 RF: 2 magnesium citrate Solution 150 ml PO DAILY Qty: 600 RF: 1 lorazepam 1 mg tablet 1 mg PO DAILY PRN (Reason: anxiety) 14 Days Qty: 14 RF: 0 lisinopril 5 mg tablet 5 mg PO BID Qty: 180 RF: 3 rosuvastatin [Crestor] 40 mg tablet 40 mg PO DAILY Qty: 90 RF: 3 carvedilol 6.25 mg tablet 6.25 mg PO BID Qty: 60 RF: 6 Colace 100 mg capsule 100 mg PO BID Qty: 180 RF: 3 amlodipine [Norvasc] 5 mg tablet 5 - 10 mg PO DAILY PRN (Reason: Blood Pressure) Qty: 30 RF: 4 isosorbide mononitrate 30 mg tablet extended release 24 hr 30 mg PO DAILY Qty: 30 RF: 5 clopidogrel 75 mg tablet 75 mg PO DAILY Qty: 90 RF: 1 insulin lispro [Humalog KwikPen Insulin] 100 unit/mL insulin pen See Rx Instructions .ROUTE .COMPLEX Qty: 15 RF: 3 loratadine [Claritin] 10 mg tablet 10 mg PO DAILY PRN (Reason: allergy symptoms) Qty: 20 RF: 1 insulin glargine 100 unit/mL (3 mL) insulin pen 60 unit SUBCUT DAILY 30 Days Qty: 15 RF: 5 hydrocodone-acetaminophen 5-325 mg tablet 1 tab PO Q8H PRN (Reason: pain) 10 Days Qty: 30 RF: 0 polyethylene glycol 3350 [Miralax] 17 gram Powder In Packet 17 g PO DAILY Qty: 30 RF: 0 nitroglycerin 0.4 mg tablet, sublingual 0.4 mg SUBLINGUAL Q5M PRN (Reason: chest pain) Qty: 20 RF: 0 Discharge Orders: Discharge ED (Routine); Ordered 07/04/20 Ordered By: Serafin Cannon Referrals: Lito Keating MD [Primary Care Provider] - Discharge Diet: Usual diet Discharge Activity: Increase activity as tolerated Patient Instructions: Acute Diarrhea (ED), Opioid Safety Activity Restrictions/Additional Instructions: Take antibiotics as directed. Drink plenty of water. Light diet for the next 5 days. Avoid spicy and greasy foods. Follow-up with primary care for further recommendations. Return to the ER for new concerns. Coding Level of Care Code ED System Designer for Chg Fwd Exam Comprehensive
--- NOTE | 2020-07-04 09:06 | CT_ITS ---
WS: [id number] CT ABDOMEN PELVIS TECHNIQUE: Contrast-enhanced CT of the abdomen and pelvis with coronal and sagittal reformatted image s. CLINICAL INFORMATION: diffuse abd pain, r/o diveriticulitis, abscess COMPARISON: CT 2018 DLP: 1803.[address] scans at [facility] use at least one of these dose optimization techniques: automat ed exposure control; mA and/or kV adjustment per patient size (includes targeted exams where dose is matched to clinical indication); or iterative reconstruction. FINDINGS: Prior postoperative changes cholecystectomy and hysterectomy. Diffuse fatty infiltration of the liver . Small amount of free fluid in the pelvis. A few sigmoid diverticuli. No definite evidence of acute sigmoid diverticulitis. Moderate diffuse thickening of small bowel loops in the midabdomen and pelvis similar to 2018 and s uspicious for infectious or inflammatory enteritis. This extends to the distal ileum and ileocecal va lve with mild inflammatory changes involving the cecum. Lung bases are well aerated. Normal portal vein and splenic vein. Cholecystectomy clips. Fat-containi ng umbilical hernia. Adrenal glands are normal. Normal renal parenchymal enhancement. Left renal avinash ical atrophy. Bilateral renal cysts. Nonobstructing renal parenchymal calculi. Normal caliber abdomin al aorta. No abdominal lymphadenopathy. Heterogeneous uterine enhancement with small dorsal enhancing fibroid. CT/CT abdomen pelvis w con* [id number] IMPRESSION: 1. Findings compatible with infectious or inflammatory enteritis extending to the ileocecal valve and colitis involving the cecum. This is similar in appeara nce to CT . 2. No definite evidence of sigmoid diverticulitis. A few diverticuli. 3. Small amount of free fluid in the abdomen or pelvis. 4. Diffuse fatty infiltration the liver. 5. Prior cholecystectomy. 6. [place] fat-containing umbilical hernia.
[2020-07-04 09:32] LABS: Basophils % 0.2 %; Eosinophils # 0.2 10^3/uL (0.0-0.8); Eosinophils % 1.4 %; Hematocrit 41.9 % (37.0-47.0); Hemoglobin 13.4 g/dL (11.5-15.3); Lymphocytes # 1.9 10^3/uL (0.8-4.8); Lymphocytes % 14.3 %; Mean Corpuscular Hemoglobin 28.8 pg (28.0-34.0); Mean Corpuscular Volume 90.1 fL (81-99); Mean Platelet Volume 11.5 fL (7.4-10.4); Monocytes # 0.6 10^3/uL (0.2-0.9); Monocytes % 4.7 %; Neutrophils # 10.49 10^3/uL (1.8-7.7); Neutrophils % 79.2 %; Nucleated Red Blood Cells % 0 %; Platelet Count 208 10^3/cmm (130-400); Red Blood Count 4.65 10^6/uL (4.1-5.3); Red Cell Distribution Width 13.2 % (12.1-15.1); White Blood Count 13.2 10^3/uL (4.0-10.0)
[2020-07-04 09:52] LABS: Alanine Aminotransferase 16 U/L (0-33); Albumin Level 3.7 g/dL (3.5-5.2); Alkaline Phosphatase 100 IU/L (35-105); Anion Gap 15.9 (5-19); Aspartate Amino Transferase 21 U/L (0-32); Blood Urea Nitrogen 16 mg/dL (8-23); Calcium 8.8 mg/dL (8.5-10.5); Carbon Dioxide 25 mmol/L (22-29); Chloride 103 mmol/L (98-107); Globulin 3.2 g/dL (1.3-4.6); Glomerular Filtration Rate 50.5 mL/min (90-130); Glucose 354 mg/dL (65-115); Lipase 24 U/L (13-60); Osmolality Calculated 305 mOsm/kg (285-295); Potassium 3.9 mmol/L (3.5-5.1); Sodium 140 mmol/L (136-145); Total Bilirubin 0.4 mg/dL (0.15-1.2); Total Protein 6.9 g/dL (6.6-8.7)
[2020-07-04] MEDS: loperamide 2 mg Capsule 4 MG PO (10:14)
[2020-07-04] MEDS: ondansetron 2 mg/ML SDV 2 mL 4 MG IVP (10:15)
[2020-07-04] MEDS: sodium chloride 0.9% 500 ML 999 ML IV (10:15)
[2020-07-04] MEDS: iodixanol 320 mg/mL 100mL Btl IV (10:35)
[2020-07-04] MEDS: metroNIDAZOLE 500 MG Tablet PO (12:01)
[2020-07-04] MEDS: ciprofloxacin 500 mg Tablet PO (12:01)
[2020-07-04 12:09] VITALS: BP 174/77; PULSE 77; RESP 20; O2SAT 96
[2020-07-04 12:49] LABS: Glucose Urine UA 4+ (Normal); Protein Urine Trace (Negative); Specific Gravity, Urine 1.015 (1.005-1.030); Urine Appearance Hazy (CLEAR); Urine Color Yellow (Yellow); pH Urine 5 (5-7)
[2020-07-04 12:50] LABS: Add Urine Microscopic? YES; Bacteria Urine 1+ /hpf; Bilirubin Urine Neg (Negative); Blood Urine 2+ (Negative); Ketones Urine Negative (Negative); Leukocyte Esterase Urine Negative (Negative); Nitrate Urine Negative (Negative); RBC Urine 0-4 /hpf (0-2); Urobilinogen Urine 1 mg/dL (Negative)
[2020-07-04 12:51] LABS: Add Urine Culture? No; Squamous Epithelial Cell Urine 15-25 /hpf (0-5)
== END 2020-07-04 12:10 | disposition home or self-care (01) ==
PROVIDERS: Emergency Provider Nurse Practitioner Family; PCP Family Medicine
DX: K52.9 Noninfective gastroenteritis and colitis, unspecified (principal); Z79.02 Long term (current) use of antithrombotics/antiplatelets; Z79.4 Long term (current) use of insulin; I11.0 Hypertensive heart disease with heart failure; I50.42 Chronic combined systolic (congestive) and diastolic (congestive) heart failure; I25.10 Atherosclerotic heart disease of native coronary artery without angina pectoris; E11.9 Type 2 diabetes mellitus without complications; E78.5 Hyperlipidemia, unspecified; Z87.891 Personal history of nicotine dependence
CPT/HCPCS: 36415; 74177; 80053; 81001; 83690; 85025; 96374; 99283; 99291; J2405; J7040; Q9967

== ENCOUNTER → 2021-06-28 10:06 | Outpatient (BNVA) | payer MEDICARE, MEDICAID, SELFPAY | PROVIDERS: PCP Family Medicine; Visit Provider Family Medicine | DX: E11.9 Type 2 diabetes mellitus without complications; I10 Essential (primary) hypertension; G89.4 Chronic pain syndrome; F41.1 Generalized anxiety disorder; Z79.4 Long term (current) use of insulin | CPT/HCPCS: 82962 ==

== ENCOUNTER 2021-08-19 06:17 | Inpatient (IN) | payer MEDICARE, MEDICAID, SELFPAY ==
[2021-08-19] VITALS (55 sets, daily range): BP systolic 104–139; BP diastolic 57–95; PULSE 60–90; RESP 16–20; TEMP 36.6–36.8; O2SAT 95–99; BMI 45.3
--- NOTE | 2021-08-19 06:52 | ECG_ITS ---
[facility] Test Date: 2021-08-19 Pat Name: Roxana Barraza Department: Room: Gender: Female Management Specialist: : 1960 Requested By: Otto Sow Order Number: [id number] Kirby MD: Joyce Olvera M.D. Measurements Intervals [place] Rate: 70 P: 58 GA: 168 QRS: -62 QRSD: 138 T: 113 QT: 413 QTc: 446 Interpretive Statements SINUS RHYTHM INTRAVENTRICULAR CONDUCTION DELAY [130+ ms QRS DURATION] LEFT VENTRICULAR HYPERTROPHY AND ST-T CHANGE POSSIBLE SEPTAL MYOCARDIAL INFARCTION , OF INDETERMINATE AGE Compared to ECG 06/28/2019 00:15:46 Intraventricular conduction delay now present Left anterior fascicular block no longer present ST (T wave) deviation still present Myocardial infarct finding still present Electronically Signed On 08-20-2021 13:04:45 CDT by Joyce Olvera M.D. [email or web address]
--- NOTE | 2021-08-19 06:58 | ED_ITS ---
HPI - General Adult General: Chief complaint: General Medical Stated complaint: Flu like symptoms Time Seen by Provider: 08/19/21 06:18 Source: patient Mode of arrival: EMS Limitations: no limitations History of Present Illness: 60-year-old female who presents to the emergency room with complaint of generalized flulike symptoms myalgias and shortness of breath that began in the last 24 hours. She denies any fever or diarrhea. She has previously been vaccinated for COVID but has not had COVID that she is aware of. On arrival here she is mildly hypoxic her biggest complaint is she is demanding a pain pill or she will leave. She does not have productive cough she denies any abdominal pain or chest pain. No dysuria urgency or frequency pain in her back is her usual chronic low back pain. She is hypertensive as well she has not taken any of her medications EMS had a blood sugar at 400 in the field. Onset (ago): minute(s) Severity: moderate Pain Consistency: constant Relieving factors: none Associated symptoms: Reports dyspnea; Deny chest pain, confusion, cough, diaphoresis, decreased appetite, fevers/chills, headache(s), malaise, nausea, rash, palpitations, seizures, short of breath, syncope, vomiting or weakness Treatments prior to arrival: none Review of Systems 2 Const: Reports: fever(s), chills, body aches and fatigue; Denies: malaise or diaphoresis ENMT: Denies: throat pain, ear or mastoid pain, nasal discharge or nasal congestion Card: Denies: chest pain, palpitations or syncope Resp: Reports: dyspnea, non-productive cough and wheezing GI: Reports: constipation; Denies: abdominal pain, nausea, vomiting or GI cramping : Denies: flank pain, difficulty voiding, dysuria, urinary frequency or urinary urgency Skin/Breast: Denies: rash Neuro: Denies: headache(s) or confusion PFSH ED PFSH: Medical History Cholelithiasis Chronic combined systolic (congestive) and diastolic (congestive) heart failure moderate systolic dysfunction and grade 2 diastolic dysfunction Chronic pain syndrome Coronary artery disease Diabetes Dyslipidemia Generalized anxiety disorder GERD (gastroesophageal reflux disease) Hypertension Ischemic cardiomyopathy Stenosis of coronary stent EF 40% grade 2 diastolic dysfunction, LVH, Systolic and diastolic CHF, acute Surgical History H/O cardiac catheterization 1 vessel disease [address] segment elevation [place] 3 stents were placed, with subsequent stent thrombosis with balloon angioplasty History of appendectomy History of lithotripsy Status post laparoscopic cholecystectomy (07/08/19) Family History Other CAD (coronary artery disease) Hypertension Denies family history of Anesthesia complication Bleeding disorder Social History Smoking and tobacco status: former smoker Alcohol intake: never Adopted: Yes Caregiver/support person: Yes Lives independently: Yes Household members: family Housing: House Physical Exam Const: GENERAL APPEARANCE: cooperative and comfortable ORIENTATION/CONSCIOUSNESS: Yes awake, Yes oriented to person, Yes oriented to place and Yes oriented to time HENMT: COMMON NORMALS: normocephalic, atraumatic and hearing grossly normal bilaterally HEAD & SCALP: normocephalic and atraumatic Resp: COMMON NORMALS: normal respiratory effort, No retractions, No use of accessory muscles and clear to auscultation bilaterally AUSCULTATION: clear to auscultation bilaterally and wheezes Cardio: COMMON NORMALS: regular rate, regular rhythm and No murmurs present (Cardio) RATE: regular rate RHYTHM: regular rhythm GI: COMMON NORMALS: Soft to palpation and No hepatosplenomegaly present AUSCULTATION: Yes normoactive bowel sounds PALPATION: Yes Soft to palpation, No Tenderness to palpation present (GI), No Guarding due to palpation present (GI) and Yes No hepatosplenomegaly present Extremity: COMMON NORMALS: normal to inspection, capillary refill normal, no clubbing, cyanosis or edema, no calf tenderness and no pedal edema Neuro: SENSORIUM/ORIENTATION: Yes oriented to person, Yes oriented to place and Yes oriented to time Skin: COMMON NORMALS: no rashes or lesions noted GENERAL SKIN EXAM: no rashes or lesions noted Course Vital Signs: Vital signs: Vital Signs Temperature 98.3 F 08/19/21 06:18 Pulse Rate 83 08/19/21 12:47 Respiratory Rate 18 08/19/21 12:47 Blood Pressure 134/72 08/19/21 12:47 Pulse Oximetry 98 08/19/21 12:47 [facility] - General Adult Medical Decision Making Patient markedly elevated blood pressure on arrival we gave her regular morning medicines in addition to some IV push medications her blood pressure is improved. We will give her a small amount of fluid because her blood pressure was elevated we did increase that I forgot some of her labs back her lactate was slightly elevated initially but then actually went cultures been done we started Levaquin. Her troponin also elevated. She has an abnormal looking EKG with a left bundle branch block but is unchanged from previous EKG she is not currently having any significant chest pain right now her EKG from [address] elevation with her bundle branch block but now she has inverted T waves that were not present on the earlier EKG. Discussed with Dr. Serna and we are admitting her to the ICU. I have forwarded it most recent EKG [place] [address] Yu for review. Patient has been given aspirin we also gave her regular clopidogrel gave her Lovenox and Nitropaste as well. Forwarded all [address] Crowell. He recommends repeating a troponin now due to the lateral ST changes. Patient still is stating she has no chest pain at all. He recommends continuing with the current treatment since she is not having any chest pain is not had any complaints of chest pain while she was here today. Medical Records I reviewed the patient's medical records. Lab Data I reviewed the patient's lab results. : 08/19/21 06:30 08/19/21 06:30 Radiology Impressions Chest X-Ray 08/19/21 07:19 IMPRESSION: Low lung volumes versus mild pulmonary congestion. Chest CTA 08/19/21 08:46 IMPRESSION: No evidence of pulmonary embolus or other acute pathology in the chest. Laboratory Results WBC 13.5 10^3/uL (4.0-10.0) H 08/19/21 06:30 RBC 4.52 10^6/uL (4.1-5.3) 08/19/21 06:30 Hgb 12.9 g/dL (11.5-15.3) 08/19/21 06:30 Hct 37.0 % (37.0-47.0) 08/19/21 06:30 MCV 81.9 fl (81-99) 08/19/21 06:30 MCH 28.5 pg (28.0-34.0) 08/19/21 06:30 MCHC 34.9 g/dL (30.0-36.0) 08/19/21 06:30 RDW 12.8 % (12.1-15.1) 08/19/21 06:30 Plt Count 217 10^3/cmm (130-400) 08/19/21 06:30 MPV 12.3 fL (7.4-10.4) H 08/19/21 06:30 Neut % (Auto) 82.6 % 08/19/21 06:30 Lymph % (Auto) 11.5 % 08/19/21 06:30 Smyth % (Auto) 4.3 % 08/19/21 06:30 Eos % (Auto) 0.8 % 08/19/21 06:30 Baso % (Auto) 0.3 % 08/19/21 06:30 Neut # (Auto) 11.16 10^3/uL (1.8-7.7) H 08/19/21 06:30 Lymph # (Auto) 1.6 10^3/uL (0.8-4.8) 08/19/21 06:30 Smyth # (Auto) 0.6 10^3/uL (0.2-0.9) 08/19/21 06:30 Eos # (Auto) 0.1 10^3/uL (0.0-0.8) 08/19/21 06:30 Baso # (Auto) 0.0 10^3/uL (0.0-0.1) 08/19/21 06:30 Nucleated RBC % (auto) 0 % 08/19/21 06:30 Nucleated RBCs # 0.0 /100WBC 08/19/21 06:30 D-Dimer 0.98 ug/mIFEU (0-0.59) H 08/19/21 08:00 Specimen Type Arterial 08/19/21 08:00 Sample Site Radial, left 08/19/21 08:00 ABG pH 7.36 (7.35-7.45) 08/19/21 08:00 ABG pCO2 36.4 mmHg (35-45) 08/19/21 08:00 ABG pO2 94.1 mmHg (80.0-100.0) 08/19/21 08:00 ABG HCO3 20.7 mmol/L (22-26) L 08/19/21 08:00 ABG O2 Saturation 97.9 08/19/21 08:00 ABG Base Excess -4.1 mmol/L (-2.0-2.0) L 08/19/21 08:00 Preet Test Pos 08/19/21 08:00 A-a O2 Gradient 1.3 mmHg (5-10) L 08/19/21 08:00 Hematocrit 42.6 % (37-47) 08/19/21 08:00 Hgb O2 Saturation 96.9 % (95-100) 08/19/21 08:00 Carboxyhemoglobin 0.7 %THgb (0.4-20.1) 08/19/21 08:00 Methemoglobin 0.3 % (0.4-1.5) L 08/19/21 08:00 Total Hemoglobin 13.9 g/dL (12-16) 08/19/21 08:00 Sodium 138.0 mmol/L (131-143) 08/19/21 08:00 Potassium 3.5 mmol/L (3.5-5.0) 08/19/21 08:00 Glucose 445.0 mg/dL (70-115) H 08/19/21 08:00 Ionized Calcium 1.3 mmol/L (1.1-1.4) 08/19/21 08:00 O2 Delivery Device Nc 08/19/21 08:00 O2 Liters/Min 2.5 % 08/19/21 08:00 Spray Gun Repairer ID Gd 08/19/21 08:00 Sodium 135 mmol/L (136-145) L 08/19/21 06:30 Potassium 4.5 mmol/L (3.5-5.1) 08/19/21 06:30 Chloride 101 mmol/L (98-107) 08/19/21 06:30 Carbon Dioxide 18 mmol/L (22-29) L 08/19/21 06:30 Anion Gap 20.5 (5-19) H 08/19/21 06:30 BUN 26 mg/dL (8-23) H 08/19/21 06:30 Creatinine 1.5 mg/dL (0.5-0.9) H 08/19/21 06:30 GFR Calculation 35.2 mL/min (90-130) L 08/19/21 06:30 Glucose 449 mg/dL (65-115) H 08/19/21 06:30 POC Glucose 393 mg/dL (70-110) H 08/19/21 09:34 Calculated Osmolality 304 mOsm/kg (285-295) H 08/19/21 06:30 Lactic Acid 2.3 mmol/L (0.5-2.2) H 08/19/21 06:30 Lactic Acid (Sepsis) 4.3 mmol/L (0.5-2.2) H* 08/19/21 09:30 Calcium 9.3 mg/dL (8.5-10.5) 08/19/21 06:30 Total Bilirubin 0.3 mg/dL (0.15-1.2) 08/19/21 06:30 AST 21 U/L (0-32) 08/19/21 06:30 ALT 22 U/L (0-33) 08/19/21 06:30 Alkaline Phosphatase 116 IU/L (35-105) H 08/19/21 06:30 Troponin T Baseline 18 ng/L (0-10) H 08/19/21 06:30 Troponin T 120 Minute 28.76 ng/L (0-10) H 08/19/21 09:45 Delta Troponin T 10.76 ABS# (0-10) H* 08/19/21 09:45 Total Protein 7.6 g/dL (6.6-8.7) 08/19/21 06:30 Albumin 3.8 g/dL (3.5-5.2) 08/19/21 06:30 Globulin 3.8 g/dL (1.3-4.6) 08/19/21 06:30 Urine Color Straw (Yellow) 08/19/21 09:00 Urine Appearance Clear (CLEAR) 08/19/21 09:00 Urine pH 5 (5-7) 08/19/21 09:00 Ur Specific [place] 1.010 (1.005-1.030) 08/19/21 09:00 Urine Protein Neg (Negative) 08/19/21 09:00 Urine Glucose (UA) 4+ (Normal) H 08/19/21 09:00 Urine Ketones Negative (Negative) 08/19/21 09:00 Urine Blood 2+ (Negative) H 08/19/21 09:00 Urine Nitrate Negative (Negative) 08/19/21 09:00 Urine Bilirubin Neg (Negative) 08/19/21 09:00 Urine Urobilinogen Norm mg/dL (Negative) 08/19/21 09:00 Ur Leukocyte Esterase Negative (Negative) 08/19/21 09:00 Urine RBC 0-4 /hpf (0-2) H 08/19/21 09:00 Urine WBC None /hpf (0-5) 08/19/21 09:00 Ur Squamous Epith Cells 5-10 /hpf (0-5) H 08/19/21 09:00 Amorphous Sediment Not Reportable 08/19/21 09:00 Urine Bacteria Trace /hpf (NONE) 08/19/21 09:00 Urine Mucus Trace /hpf 08/19/21 09:00 Serum Ketones Negative (Negative) 08/19/21 10:00 Coronavirus 229E (PCR) Not detected (NOT DETECT) 08/19/21 06:30 SARS-CoV-2 (PCR) Not detected (NOT DETECT) 08/19/21 06:30 Discharge Plan Discharge Patient Disposition: Admitted As Inpatient Admit Provider: Gilbert Serna Clinical Impression: Elevated troponin, Sepsis, Acute kidney injury, Accelerated hypertension, History of coronary artery disease Condition: Stable Coding Level of Care Code ED Fur Matcher for Chg Fwd Exam Detailed
[2021-08-19 07:06] LABS: Basophils % 0.3 %; Eosinophils # 0.1 10^3/uL (0.0-0.8); Eosinophils % 0.8 %; Hemoglobin 12.9 g/dL (11.5-15.3); Lymphocytes # 1.6 10^3/uL (0.8-4.8); Lymphocytes % 11.5 %; Mean Corpuscular HGB Conc 34.9 g/dL (30.0-36.0); Mean Corpuscular Hemoglobin 28.5 pg (28.0-34.0); Mean Corpuscular Volume 81.9 fl (81-99); Mean Platelet Volume 12.3 fL (7.4-10.4); Monocytes # 0.6 10^3/uL (0.2-0.9); Monocytes % 4.3 %; Neutrophils # 11.16 10^3/uL (1.8-7.7); Neutrophils % 82.6 %; Nucleated Red Blood Cells % 0 %; Platelet Count 217 10^3/cmm (130-400); Red Blood Count 4.52 10^6/uL (4.1-5.3); Red Cell Distribution Width 12.8 % (12.1-15.1); White Blood Count 13.5 10^3/uL (4.0-10.0)
--- NOTE | 2021-08-19 07:19 | XRR_ITS ---
PROCEDURE INFORMATION: Exam: XR Chest Exam date and time: 08/19/2021 7:33 AM Age: 60 years old Clinical indication: Pain; Chest pressure; Prior surgery; Surgery date: 6+ months; Surgery type: Stents; Additional info: Dyspnea/cough TECHNIQUE: Imaging protocol: Radiologic exam of the chest. Views: 1 view. COMPARISON: CR XR chest 1V portable [id number] 06/27/2019 11:56 PM FINDINGS: Lungs: Mildly increased lung markings, which may be accentuated by low lung volumes or represent mild pulmonary congestion. No consolidation. Pleural spaces: Unremarkable. No pleural effusion. No pneumothorax. Heart/Mediastinum: Stable cardiomediastinal silhouette. Bones/joints: Degenerative changes of the spine seen. XR/XR chest 1V portable [id number] IMPRESSION: Low lung volumes versus mild pulmonary congestion.
[2021-08-19] MEDS: HYDROcodone-acetaminophen 5-325 mg Tablet 1 TAB PO (07:20)
[2021-08-19] MEDS: clopidogrel 75 mg Tablet PO (07:20)
[2021-08-19] MEDS: amlodipine 5 mg Tablet PO (07:20)
[2021-08-19] MEDS: isosorbide mononitrate ER 30 mg Tablet PO (07:20)
[2021-08-19] MEDS: lisinopril 10 mg Tablet PO ×2 (07:20→17:37)
[2021-08-19] MEDS: acetaminophen 325 mg Tablet PO (07:20)
[2021-08-19 07:31] LABS: Lactic Sepsis W/Reflex 2.3 mmol/L (0.5-2.2)
[2021-08-19 07:32] LABS: Alanine Aminotransferase 22 U/L (0-33); Albumin Level 3.8 g/dL (3.5-5.2); Alkaline Phosphatase 116 IU/L (35-105); Anion Gap 20.5 (5-19); Aspartate Amino Transferase 21 U/L (0-32); Blood Urea Nitrogen 26 mg/dL (8-23); Calcium 9.3 mg/dL (8.5-10.5); Carbon Dioxide 18 mmol/L (22-29); Chloride 101 mmol/L (98-107); Globulin 3.8 g/dL (1.3-4.6); Glomerular Filtration Rate 35.2 mL/min (90-130); Glucose 449 mg/dL (65-115); Osmolality Calculated 304 mOsm/kg (285-295); Potassium 4.5 mmol/L (3.5-5.1); Sodium 135 mmol/L (136-145); Total Bilirubin 0.3 mg/dL (0.15-1.2); Total Protein 7.6 g/dL (6.6-8.7)
[2021-08-19] MEDS: insulin regular-human 100 units/1 mL 15 UNIT IVP (07:55)
[2021-08-19] MEDS: labetalol 5 mg/mL SDV 20mL 10 MG IVP (07:58)
[2021-08-19] MEDS: enalaprilat 1.25 mg/mL Inj IVP (08:00)
[2021-08-19 08:07] LABS: Reflex Lactate Order REFLEX LACTIC ORDERD
[2021-08-19 08:17] LABS: ABG PCO2 36.4 mmHg (35-45); ABG PH Result 7.36 (7.35-7.45); Alveolar-Arterial Oxygen Gradi 1.3 mmHg (5-10); Arterial Blood Gas Hematocrit 42.6 % (37-47); Base Excess ABG -4.1 mmol/L (-2.0-2.0); Blood Gas Allen Test Pos; Blood Gas LPM 2.5 %; Blood Gas Operator Identificat GD; Blood Gas Sample Site Radial, left; Blood Gas Sample Type Arterial; Carboxyhemoglobin 0.7 %THgb (0.4-20.1); HCO3 ABG 20.7 mmol/L (22-26); HGB O2 Sat 96.9 % (95-100); Ionized Calcium Level - ABG 1.3 mmol/L (1.1-1.4); Methemoglobin 0.3 % (0.4-1.5); Oxygen Device NC; Oxygen Saturation ABG 97.9; PO2 ABG 94.1 mmHg (80.0-100.0); Potassium Level - ABG 3.5 mmol/L (3.5-5.0); Total Hemoglobin 13.9 g/dL (12-16)
[2021-08-19 08:19] LABS: D Dimer 0.98 ug/mIFEU (0-0.59)
--- NOTE | 2021-08-19 08:46 | CTR_ITS ---
PROCEDURE INFORMATION: Exam: CTA Chest With Contrast Exam date and time: 08/19/2021 9:16 AM Age: 60 years old Clinical indication: Dyspnea and fever and hyperventilation; Prior surgery; Surgery date: 6+ months; Surgery type: Stents; Additional info: Hypoxia, dyspnea, elevated d dimer TECHNIQUE: Imaging protocol: Computed tomographic angiography of the chest with contrast. 3D rendering (Not supervised by radiologist): MIP and/or 3D reconstructed images were created by the technologist. Radiation optimization: All CT scans at this facility use at least one of these dose optimization techniques: automated exposure control; mA and/or kV adjustment per patient size (includes targeted exams where dose is matched to clinical indication); or iterative reconstruction. Contrast material: VISIPAQUE 320; Contrast volume: 78 ml; Contrast route: INTRAVENOUS (IV); COMPARISON: CT angio chest PE protcl [id number] 06/04/2019 11:44 PM RADIATION DOSE METRICS: Total DLP (mGy-cm): 443.94 FINDINGS: Pulmonary arteries: Normal. No pulmonary emboli. Aorta: Unremarkable. No aortic aneurysm. No aortic dissection. Lungs: Unremarkable. No consolidation. No masses. Pleural spaces: Unremarkable. No pneumothorax. No pleural effusion. Heart: Mildly enlarged heart. Coronary atherosclerotic calcifications and stent noted. No pericardial effusion. Lymph nodes: Unremarkable. No enlarged lymph nodes. Gallbladder and bile ducts: The gallbladder has been surgically removed. Bones/joints: Degenerative changes of the spine seen. Soft tissues: Unremarkable. CT/CT angio chest PE protcl [id number] IMPRESSION: No evidence of pulmonary embolus or other acute pathology in the chest.
[2021-08-19] MEDS: sodium chloride 0.9% 500 ML 999 ML IV (08:50)
[2021-08-19] MEDS: hyDRALAzine 20 mg/mL INJ 1 mL IVP (08:50)
[2021-08-19 08:51] LABS: Adenovirus Not Detected (NOT DETECT); Chlamydia Pneumoniae Not Detected (NOT DETECT); Coronavirus 229E,HKU1,NL63,OC4 Not Detected (NOT DETECT); Human Metapneumovirus Not Detected (NOT DETECT); Human Rhinovirus/Enterovirus Not Detected (NOT DETECT); Influenza A Not Detected (NOT DETECT); Influenza A H1 Not Detected (NOT DETECT); Influenza A H1-2009 Not Detected (NOT DETECT); Influenza A H3 Not Detected (NOT DETECT); Influenza B Not Detected (NOT DETECT); Mycoplasma Pneumoniae Not Detected (NOT DETECT); Parainfluenza Virus Type 1 Not Detected (NOT DETECT); Parainfluenza Virus Type 2 Not Detected (NOT DETECT); Parainfluenza Virus Type 3 Not Detected (NOT DETECT); Parainfluenza Virus Type 4 Not Detected (NOT DETECT); Respiratory Syncytial Virus A Not Detected (NOT DETECT); Respiratory Syncytial Virus B Not Detected (NOT DETECT); SARS-COV-2 Not Detected (NOT DETECT)
--- NOTE | 2021-08-19 09:22 | ECG_ITS ---
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 Measurements Intervals [place] Rate: 79 P: 34 CT: 162 QRS: -47 QRSD: 138 T: -53 QT: 432 QTc: 498 Interpretive Statements SINUS RHYTHM INTRAVENTRICULAR CONDUCTION DELAY [130+ ms QRS DURATION] LEFT VENTRICULAR HYPERTROPHY AND ST-T CHANGE ANTERIOR MYOCARDIAL INFARCTION , PROBABLY RECENT ACUTE NC Compared to ECG 08/19/2021 06:27:46 No significant changes Electronically Signed On 08-20-2021 13:03:44 CDT by Joyce Olvera M.D. [email or web address]
[2021-08-19] MEDS: iodixanol 320 mg/mL 100mL Btl IV (09:23)
[2021-08-19 09:29] LABS: Blood Urine 2+ (Negative); Glucose Urine UA 4+ (Normal); Ketones Urine Negative (Negative); Nitrate Urine Negative (Negative); Protein Urine Neg (Negative); Urine Appearance Clear (CLEAR); Urine Color Straw (Yellow); pH Urine 5 (5-7)
[2021-08-19 09:30] LABS: Add Urine Microscopic? YES; Bilirubin Urine Neg (Negative); Leukocyte Esterase Urine Negative (Negative); Urobilinogen Urine Norm (Negative)
[2021-08-19 09:31] LABS: Add Urine Culture? No; Bacteria Urine TRACE /hpf; Mucus Urine TRACE /hpf; RBC Urine 0-4 /hpf (0-2)
[2021-08-19 09:39] LABS: Glucose Point of Care 393 mg/dL (70-110)
[2021-08-19 09:45] LABS: Troponin(5th) Baseline 18 ng/L (0-10)
[2021-08-19] MEDS: insulin regular-human 100 units/1 mL 20 UNIT IVP (10:09)
[2021-08-19 10:20] LABS: Ketone (Acetest) Serum Negative (Negative)
[2021-08-19 10:24] LABS: Lactic Acid level (Lactate) 4.3 mmol/L (0.5-2.2)
[2021-08-19 10:28] LABS: Troponin 5 2HR 28.76 ng/L (0-10)
[2021-08-19 10:54] LABS: Troponin 5 2HR Delta 10.76 ABS# (0-10)
[2021-08-19] MEDS: enoxaparin 120 mg/0.8 mL Syringe 110 MG SUBCUT (11:14)
[2021-08-19] MEDS: sodium chloride 0.9% 1,000 ML 999 ML IV (11:14)
[2021-08-19] MEDS: nitroglycerin 1 gm/inch oint Pkt 1 INCH TOPICAL (11:14)
--- NOTE | 2021-08-19 11:22 | ECG_ITS ---
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 Measurements Intervals [place] Rate: 78 P: 40 [place]: 175 QRS: -45 QRSD: 142 T: 99 QT: 382 QTc: 435 Interpretive Statements SINUS RHYTHM POSSIBLE LEFT ATRIAL ENLARGEMENT [-0.1mV P-WAVE IN V1/V2] LEFT AXIS DEVIATION [QRS AXIS < -30] INTRAVENTRICULAR CONDUCTION DELAY LEFT VENTRICULAR HYPERTROPHY AND ST-T CHANGE POSSIBLE SEPTAL MYOCARDIAL INFARCTION, OF INDETERMINATE AGE Compared to ECG 08/19/2021 06:27:46 Left-axis deviation now present Myocardial infarct finding no longer present Electronically Signed On 08-20-2021 13:11:56 CDT by Joyce Olvera M.D. [email or web address]
[2021-08-19] MEDS: aspirin 81 mg Chew Tablet 324 MG PO (12:01)
[2021-08-19 12:19] LABS: Glucose Point of Care 255 mg/dL (70-110)
[2021-08-19] MEDS: levofloxacin-dextrose 5 % 750 MG/150 ML PREMIX 100 MG IV (12:24)
--- NOTE | 2021-08-19 13:02 | PM.HP ---
Providers/Chief Complaint Admitting Physician: Gilbert Serna MD Primary Care Provider: Lito Keating MD Chief Complaint: Flu like symptoms History of Present Illness Roxana Barraza is a 60 year old female who carries history of type 2 diabetes, present to the hospital for recurrent nausea and vomiting. Patient is stating that for last few weeks she has been sleeping outside in the backyard in between her 2 gardens to take care of her chickens at night. In the daytime she will stay inside her home however at night she will sleep outside in her sleeping bag. She is currently living with a friend and going through some difficult social circumstances. She did not experience any chest pain, nausea or vomiting however she is endorsing exertional shortness of breath, she can hardly take 10-20 steps without needing to stop to catch her breath. She has been abdominal pain, dysuria. In the ER she was diagnosed with left bundle branch block which seems to be chronic, downtrending troponin, patient is chest pain-free, Dr. Yu was reviewing her EKG, because of downtrending troponin he recommended general cardiology consultation first She received therapeutic dose of Lovenox in the ER I have started her on heparin drip considering the fact she had in-stent restenosis of LAD in the past She is chest pain-free Hemodynamically stable She has been diagnosed with hyperglycemia without DKA Started on insulin drip repeat BMP at 4 PM Review of Systems Const: Reports: chills, body aches and fatigue Eyes: Denies: change in vision ENMT: Denies: throat pain Card: Denies: chest pain Resp: Reports: dyspnea and non-productive cough GI: Denies: abdominal pain : Denies: flank pain Musc: Denies: neck pain Skin/Breast: Reports: lesions Neuro: Denies: headache(s) Psych: Reports: anxiety and depression Endo: Denies: polyuria Blaze/Lymph: Denies: easy bruising All/Imm: Denies: urticaria Medications/Allergies Home Medications Medication Instructions Recorded Confirmed Last Taken Type omeprazole magnesium 20 mg 20 mg PO DAILY #30 tab 05/11/20 08/19/21 Unknown Rx tablet,delayed release (Prilosec OTC) amlodipine 5 mg tablet (Norvasc) 5 mg PO DAILY #90 tab 03/30/21 08/19/21 Unknown Rx carvedilol 6.25 mg tablet 6.25 mg PO BID #180 tab 03/30/21 08/19/21 Unknown Rx clopidogrel 75 mg tablet 75 mg PO DAILY #90 tab 03/30/21 08/19/21 Unknown Rx furosemide 40 mg tablet (Lasix) 40 mg PO DAILY PRN #90 tab 03/30/21 08/19/21 Unknown Rx isosorbide mononitrate 30 mg 30 mg PO DAILY #90 tab 03/30/21 08/19/21 Unknown Rx tablet,extended release 24 hr lisinopril 10 mg tablet 10 mg PO BID #180 tab 03/30/21 08/19/21 Unknown Rx nitroglycerin 0.4 mg sublingual 0.4 mg SUBLINGUAL Q5M PRN #25 tab 03/30/21 08/19/21 Unknown Rx tablet insulin glargine 100 unit/mL (3 See Rx Instructions .ROUTE 04/05/21 08/19/21 Unknown Rx mL) subcutaneous pen (Lantus .COMPLEX #15 ml Solostar U-100 Insulin) gabapentin 300 mg capsule 300 mg PO BID #60 cap 04/14/21 08/19/21 Unknown Rx hydrocodone 5 mg-acetaminophen 325 1 tab PO Q6H PRN 7 Days #28 tab 06/28/21 08/19/21 Unknown Rx mg tablet dicyclomine 20 mg tablet 20 mg PO Q6H PRN #60 tab 07/12/21 08/19/21 Unknown Rx Novolog Flexpen U-100 Insulin 100 See Rx Instructions .ROUTE 07/26/21 08/19/21 Unknown Rx unit/mL (3 mL) subcutaneous .COMPLEX #15 ml NS (insulin aspart U-100) docusate sodium 100 mg capsule 100 mg PO BID 08/19/21 08/19/21 Unknown History Allergies Allergy/AdvReac Type Severity Reaction Status Date / Time nalbuphine [From Nubain] Allergy Unknown Verified 08/19/21 07:44 PFSH Acute PFSH: Medical History Cholelithiasis Chronic combined systolic (congestive) and diastolic (congestive) heart failure moderate systolic dysfunction and grade 2 diastolic dysfunction Chronic pain syndrome Coronary artery disease Diabetes Dyslipidemia Generalized anxiety disorder GERD (gastroesophageal reflux disease) Hypertension Ischemic cardiomyopathy Stenosis of coronary stent EF 40% grade 2 diastolic dysfunction, LVH, Systolic and diastolic CHF, acute Surgical History H/O cardiac catheterization 1 vessel disease [address] segment elevation CT 3 stents were placed, with subsequent stent thrombosis with balloon angioplasty History of appendectomy History of lithotripsy Status post laparoscopic cholecystectomy (07/08/19) Family History Other CAD (coronary artery disease) Hypertension Denies family history of Anesthesia complication Bleeding disorder Social History Smoking and tobacco status: former smoker Alcohol intake: never Adopted: Yes Caregiver/support person: Yes Lives independently: Yes Household members: family Housing: House Vitals/I&O/Wt Last Vital Signs Temp 98.3 F 08/19/21 06:18 Pulse 83 08/19/21 12:47 Resp 18 08/19/21 12:47 BP 134/72 08/19/21 12:47 Pulse Ox 98 08/19/21 12:47 Weight last 48 hrs Weight 108.862 kg Physical Exam Narrative: Patient is chest pain-free Morbid obese Laying in her bed Pleasant and cooperative Currently doing well on room air No active shortness of breath or chest pain Abdomen is soft Morbidly obese Does not look dehydrated Scratch bobo on her legs No active signs of cellulitis Currently she is on insulin and heparin drip Data : 08/19/21 06:30 08/19/21 16:03 A&P Assessment and plan (1) Elevated troponin: Status: Acute (2) Acute kidney injury: Status: Acute (3) History of coronary artery disease: Status: Acute (4) Generalized anxiety disorder: Status: Acute (5) Chronic combined systolic (congestive) and diastolic (congestive) heart failure: Status: Acute (6) Coronary artery disease: Status: Acute Qualifiers: Coronary Disease-Associated Artery/Lesion type: [place] artery [place] vs. transplanted heart: [place] heart Associated angina: without angina Qualified Code(s): I25.10 - Atherosclerotic heart disease of [place] coronary artery without angina pectoris (7) Left bundle branch block: Status: Acute (8) Hypovolemia: Status: Acute Plan Chronic left bundle branch block Downtrending troponin Started on on heparin drip considering significant coronary disease Chest pain-free Patient is endorsing shortness of breath on exertion Check echo Check TSH D-dimer not high for her age STEMI was not called Dr. Crowell did review her EKGs, Will consult general cardiology, Dr. Olvera Metabolic acidosis due to high lactic acid Lactic acidemia secondary to hypovolemia Patient has been experiencing multiple emesis at home I do not agree with sepsis She is afebrile, lactic acidemia seems secondary to hypovolemia in my opinion I will give her another 1 L bolus She has been sleeping outside as well in hot weather Acute on chronic kidney disease secondary to dehydration, anticipate improvement with IV fluids Hyperglycemia without DKA Insulin drip as anion gap is high at I will let her eat and stop insulin once gap closes Check hemoglobin A1c Leukemoid reaction to stress and hyperglycemia Full code Cardiac consistent carb diet Currently on heparin drip Attestations Medical Necessity Statement*: Anticipating more than 2 midnights for management of DKA and exertional shortness of breath Time Spent in Patient Care: 40 Coding Level of Care Code Acute Supervisor [employer] for Chg Fwd Diagnoses Elevated troponin R77.8 Acute kidney injury N17.9 History of coronary artery disease Z86.79 Generalized anxiety disorder F41.1 Chronic combined systolic (congestive) and diastolic (congestive) heart failure I50.42 Coronary artery disease I25.10 Coronary Disease-Associated Artery/Lesion type: [place] artery [place] vs. transplanted heart: [place] heart Associated angina: without angina Left bundle branch block I44.7 Hypovolemia E86.1
--- NOTE | 2021-08-19 13:29 | USCV_ITS ---
Roxana Barraza Age: 60 Gender: F : 1960 Exam Date: 08/19/2021 13:56 Ordering Phys: Gilbert Serna MD Technologist: Santo Conde Exam Location: [facility] [place] Indication: Left bundle branch block BP: 135 / 74 HR: 71 Rhythm: Sinus Technical Quality: Technically difficult study MEASUREMENTS (Male / Female) Normal Values 2D ECHO LVOT Diameter 2.0 cm LV Ejection Fraction MOD 2C 52.1 % LV Ejection Fraction 2C AL 52.1 % LA Diameter 3.5 cm DOPPLER AV Peak Velocity 171.0 cm/s LVOT Peak Velocity 128.0 cm/s AV Area Cont Eq vti 2.5 cm squared AV Area Cont Eq pk 2.5 cm squared MV Area PHT 5.0 cm squared Mitral E to A Ratio 0.8 MV E' Velocity 32.5 cm/s Mitral E to MV E' Ratio 17.5 Mitral E to LV E' Lateral Ratio 17.5 Mitral E to LV E' Septal Ratio 18.0 TR Peak Velocity 113.0 cm/s TR Peak Gradient 5.1 mmHg TV Peak E Velocity 69.0 cm/s Right Atrial Pressure 3.0 mmHg Pulmonary Artery Systolic Pressu 8.1 mmHg FINDINGS Left Ventricle Normal left ventricular cavity size. Mildly decreased left ventricular systolic function. Left ventricular ejection fraction is estimated at 45 %. There is moderate septal hypokinesis and akinesis of apical septal, apical anterior, apical inferior, lateral and apical wan. Right Ventricle Right ventricle not well visualized. Probably normal right vebtricular systolic function. Right Atrium Normal right atrial size. Left Atrium Mildly increased left atrial size. Mitral Valve Structurally normal mitral valve. Trace mitral valve regurgitation. Aortic Valve Aortic valve not well visualized. No aortic valve stenosis. Tricuspid Valve Tricuspid valve not well visualized. Pulmonic Valve Pulmonic valve not well visualized. Pericardium No pericardial effusion. Aorta Aorta not well visualized. IVC Inferior vena cava not visualized. CONCLUSIONS 1. This is a technically difficult study. Optison was used per protocol. 2. Normal left ventricular cavity size. Mildly decreased left ventricular systolic function. Left ventricular ejection fraction is estimated at 45 %. There is moderate septal hypokinesis and akinesis of apical septal, apical anterior, apical inferior, lateral and apical wan. 3. There may not be any significant change when compared to study dated 06/05/2019. Joyce Olvera MD (Electronically Signed) Final Date: 20 August 2021 07:07 S
[2021-08-19 14:00] LABS: Glucose Point of Care 354 mg/dL (70-110)
[2021-08-19] MEDS: perflutren protein-a microsphr 0.22 mg/mL SDV 3 mL IV (14:22)
[2021-08-19 14:24] LABS: Estmated Average Glucose 280; Hemoglobin A1C 11.4 % (4.0-6.0)
[2021-08-19] MEDS: heparin 5,000 unit/mL INJ 1 mL IV (14:54)
[2021-08-19] MEDS: heparin drip 25,000 UNIT/500 ML PREMIX 30.48 UNIT IV (14:55)
[2021-08-19 14:57] LABS: Troponin 5 6HR 25.85 ng/L (0-10)
[2021-08-19] MEDS: sodium chloride 0.9% 1,000 ML 100 ML IV ×2 (14:57→17:37)
[2021-08-19 14:59] LABS: Troponin 5 6HR Delta 7.85 ng/L (0-12)
[2021-08-19 15:12] LABS: Creatine Phosphokinase 63 U/L (26-192); Lactate Dehydrogenase 478 U/L (135-214); Thyroid Stimulating Hormone 2.28 uIU/mL (0.27-4.20)
--- NOTE | 2021-08-19 15:22 | ECG_ITS ---
[facility] Test Date: 2021-08-19 Pat Name: Roxana Barraza Department: Room: ICU05 Gender: Female Director Of Strategic Communications: : 1960 Requested By: Otto Sow Order Number: [id number] Kirby MD: Joyce Olvera M.D. Measurements Intervals [place] Rate: 70 P: 43 MA: 177 QRS: -43 QRSD: 135 T: -40 QT: 473 QTc: 514 Interpretive Statements SINUS RHYTHM WITH OCCASIONAL SUPRAVENTRICULAR PREMATURE COMPLEXES LEFT AXIS DEVIATION [QRS AXIS < -30] INTRAVENTRICULAR CONDUCTION DELAY [130+ ms QRS DURATION] LEFT VENTRICULAR HYPERTROPHY AND ST-T CHANGE [VOLTAGE CRITERIA PLUS ST/T ABNORMALITY] POSSIBLE SEPTAL MYOCARDIAL INFARCTION , PROBABLY RECENT [30 ms Q WAVE IN V1/V2] ACUTE WI Compared to ECG 08/19/2021 12:06:29 Left-axis deviation now present ST (T wave) deviation still present Myocardial infarct finding still present Electronically Signed On 08-20-2021 13:07:48 CDT by Joyce Olvera M.D. [id number]
[2021-08-19] MEDS: insulin regular-human 250 UNIT in sodium chloride 0.9% 250 ML 8.08 UNIT IV (15:25)
[2021-08-19 16:06] LABS: Glucose Point of Care 308 mg/dL (70-110)
--- NOTE | 2021-08-19 16:19 | PC.NURSE ---
lab called to remind that blood cultures need to be drawn lab had reach stick limits.. explained they need to be drawn
[2021-08-19 16:33] LABS: Blood Urea Nitrogen 27 mg/dL (8-23); Calcium 8.8 mg/dL (8.5-10.5); Carbon Dioxide 19 mmol/L (22-29); Chloride 104 mmol/L (98-107); Glomerular Filtration Rate 32.7 mL/min (90-130); Glucose 298 mg/dL (65-115); Osmolality Calculated 300 mOsm/kg (285-295); Sodium 137 mmol/L (136-145)
[2021-08-19 16:40] LABS: Anion Gap 17.9 (5-19); Potassium 3.9 mmol/L (3.5-5.1)
[2021-08-19 17:15] LABS: Glucose Point of Care 303 mg/dL (70-110)
[2021-08-19] MEDS: insulin glargine 100 units/1 mL 60 UNIT SUBCUT (17:27)
[2021-08-19] MEDS: docusate sodium 100 mg Capsule PO (17:37)
[2021-08-19] MEDS: gabapentin 300 mg Capsule PO (17:38)
[2021-08-19 18:10] LABS: Glucose Point of Care 172 mg/dL (70-110)
[2021-08-19 18:35] LABS: Lactate (Lactic Acid level) 2.3 mmol/L (0.5-2.2)
[2021-08-19] MEDS: atorvastatin 40 mg Tablet 80 MG PO (20:20)
[2021-08-19 20:36] LABS: Glucose Point of Care 188 mg/dL (70-110)
[2021-08-19 23:32] LABS: Partial Thromboplastin Time 199.5 SECONDS (23.9-36.7)
[2021-08-20] VITALS (53 sets, daily range): BP systolic 92–130; BP diastolic 51–68; PULSE 63–75; RESP 0–19; TEMP 36.5; O2SAT 80–99
--- NOTE | 2021-08-20 00:02 | PC.NURSE ---
Heparin Drip PTT results critical, informed hospitalist and received orders to hold heparin gtt and redraw PTT at 0400 this morning. Hospitalist then asked nurse to call with morning PTT results.
[2021-08-20] MEDS: sodium chloride 0.9% 1,000 ML 100 ML IV (04:24)
[2021-08-20 05:59] LABS: Basophils % 0.3 %; Eosinophils # 0.2 10^3/uL (0.0-0.8); Eosinophils % 1.8 %; Hematocrit 32.2 % (37.0-47.0); Lymphocytes # 2.4 10^3/uL (0.8-4.8); Mean Corpuscular HGB Conc 34.2 g/dL (30.0-36.0); Mean Corpuscular Hemoglobin 29.1 pg (28.0-34.0); Mean Corpuscular Volume 85.2 fl (81-99); Mean Platelet Volume 12.1 fL (7.4-10.4); Monocytes # 0.5 10^3/uL (0.2-0.9); Monocytes % 4.9 %; Neutrophils # 6.39 10^3/uL (1.8-7.7); Neutrophils % 67.6 %; Nucleated Red Blood Cells % 0 %; Platelet Count 190 10^3/cmm (130-400); Red Blood Count 3.78 10^6/uL (4.1-5.3); Red Cell Distribution Width 13.3 % (12.1-15.1); White Blood Count 9.5 10^3/uL (4.0-10.0)
[2021-08-20 06:01] LABS: Glucose Point of Care 163 mg/dL (70-110)
--- NOTE | 2021-08-20 06:03 | P.CONIM_ITS ---
Providers/Reason For Consult Consulting Physician/Specialty*: Dr. Olvera, cardiology Reason for Consult*: Abnormal EKG and shortness of breath Attending Physician: Gilbert Serna MD Primary Care Provider: Lito Keating MD History of Present Illness History of Present Illness Roxana Barraza is a 60 year old female with past medical history of coronary artery disease , s/p CUCO x 3 in LAD, with h/o mid LAD stent throbosis s/p balloon angioplasty 07/2018, congestive heart failure, hypertension, poorly controlled type 2 diabetes mellitus and dyslipidemia. She presented with nausea/vomiting and exertional SOB and was admitted with hyperglycemia and was started on insulin gtt. She was also noted to have ST-T wave changes in anterior leads suggestive of Wellen's. She has not been able to walk much w/o getting short of breath lately. She also complains of some chest pain this morning. She got ASA, plavix and was started on heparin gtt. CHLOE on admission that has improved this morning. Review of Systems Const: Reports: chills, body aches and fatigue Eyes: Denies: change in vision ENMT: Denies: throat pain Card: Denies: chest pain Resp: Reports: dyspnea and non-productive cough GI: Denies: abdominal pain or hematochezia : Denies: flank pain or hematuria Musc: Denies: neck pain Skin/Breast: Reports: lesions Neuro: Denies: headache(s) Psych: Reports: anxiety and depression; Denies: panic attacks Endo: Denies: polyuria Blaze/Lymph: Denies: easy bruising, petechiae or purpura All/Imm: Denies: urticaria Medications/Allergies Home Medications Medication Instructions Recorded Confirmed Last Taken Type omeprazole magnesium 20 mg 20 mg PO DAILY #30 tab 05/11/20 08/19/21 Unknown Rx tablet,delayed release (Prilosec OTC) amlodipine 5 mg tablet (Norvasc) 5 mg PO DAILY #90 tab 03/30/21 08/19/21 Unknown Rx carvedilol 6.25 mg tablet 6.25 mg PO BID #180 tab 03/30/21 08/19/21 Unknown Rx clopidogrel 75 mg tablet 75 mg PO DAILY #90 tab 03/30/21 08/19/21 Unknown Rx furosemide 40 mg tablet (Lasix) 40 mg PO DAILY PRN #90 tab 03/30/21 08/19/21 Unknown Rx isosorbide mononitrate 30 mg 30 mg PO DAILY #90 tab 03/30/21 08/19/21 Unknown Rx tablet,extended release 24 hr lisinopril 10 mg tablet 10 mg PO BID #180 tab 03/30/21 08/19/21 Unknown Rx nitroglycerin 0.4 mg sublingual 0.4 mg SUBLINGUAL Q5M PRN #25 tab 03/30/21 08/19/21 Unknown Rx tablet insulin glargine 100 unit/mL (3 See Rx Instructions .ROUTE 04/05/21 08/19/21 Unknown Rx mL) subcutaneous pen (Lantus .COMPLEX #15 ml Solostar U-100 Insulin) gabapentin 300 mg capsule 300 mg PO BID #60 cap 04/14/21 08/19/21 Unknown Rx hydrocodone 5 mg-acetaminophen 325 1 tab PO Q6H PRN 7 Days #28 tab 06/28/21 08/19/21 Unknown Rx mg tablet dicyclomine 20 mg tablet 20 mg PO Q6H PRN #60 tab 07/12/21 08/19/21 Unknown Rx Novolog Flexpen U-100 Insulin 100 See Rx Instructions .ROUTE 07/26/21 08/19/21 Unknown Rx unit/mL (3 mL) subcutaneous .COMPLEX #15 ml NS (insulin aspart U-100) docusate sodium 100 mg capsule 100 mg PO BID 08/19/21 08/19/21 Unknown History Allergies Allergy/AdvReac Type Severity Reaction Status Date / Time nalbuphine [From Nubain] Allergy Unknown Verified 08/19/21 07:44 Current Medications Generic Name Dose Route Start Last Admin Trade Name Freq PRN Reason Stop Dose Admin Atorvastatin Calcium 80 mg 08/19/21 21:00 08/19/21 20:20 Atorvastatin 40 Mg Tablet PO 80 mg BEDTIME PRINCESS Administration Docusate Sodium 100 mg 08/19/21 18:00 08/19/21 17:37 Docusate Sodium 100 Mg Capsule PO 100 mg BID PRINCESS Administration Gabapentin 300 mg 08/19/21 18:00 08/19/21 17:38 Gabapentin 300 Mg Capsule PO 300 mg BID PRINCESS Administration Heparin Sodium (Porcine) 0 unit 08/19/21 13:29 08/19/21 14:54 Heparin 5,000 Unit/Ml Inj 1 Ml IV 5,500 unit PRN PRN Administration Heparin weight-base protocol Protocol Heparin Sodium/Sodium Chloride 25,000 unit in 500 mls @ 0 mls/hr 08/19/21 13:29 08/19/21 23:57 Heparin Drip IV 0 unit/kg/hr .Q0M PRINCESS 0 mls/hr Titration Protocol Per Protocol Sodium Chloride 1,000 mls @ 100 mls/hr 08/19/21 14:30 08/20/21 04:24 Sodium Chloride 0.9% IV 100 mls/hr .Q10H PRINCESS Administration Insulin Human Regular 250 unit 252.5 mls @ 0 mls/hr 08/19/21 14:30 08/19/21 18:08 / Sodium Chloride IV 0 unit/h .Q0M PRINCESS 0 mls/hr Titration Protocol Per Protocol Insulin Glargine 60 unit 08/19/21 17:30 08/19/21 17:27 Insulin Glargine 100 Units/1 Ml SUBCUT 60 unit BEDTIME PRINCESS Administration Insulin Human Lispro 0 unit 08/19/21 18:00 08/19/21 17:42 Insulin Lispro 100 Unit/1 Ml SUBCUT Not Given TIDWM PRINCESS Protocol Lisinopril 10 mg 08/19/21 18:00 08/19/21 17:37 Lisinopril 10 Mg Tablet PO 10 mg BID PRINCESS Administration PFSH Acute PFSH: Medical History Cholelithiasis Chronic combined systolic (congestive) and diastolic (congestive) heart failure moderate systolic dysfunction and grade 2 diastolic dysfunction Chronic pain syndrome Coronary artery disease Diabetes Dyslipidemia Generalized anxiety disorder GERD (gastroesophageal reflux disease) Hypertension Ischemic cardiomyopathy Stenosis of coronary stent EF 40% grade 2 diastolic dysfunction, LVH, Systolic and diastolic CHF, acute Surgical History H/O cardiac catheterization 1 vessel disease [address] segment elevation [place] 3 stents were placed, with subsequent stent thrombosis with balloon angioplasty History of appendectomy History of lithotripsy Status post laparoscopic cholecystectomy (07/08/19) Family History Other CAD (coronary artery disease) Hypertension Denies family history of Anesthesia complication Bleeding disorder Social History Smoking and tobacco status: former smoker Alcohol intake: never Adopted: Yes Caregiver/support person: Yes Lives independently: Yes Household members: family Housing: House Vitals/I&O/Wt Last Vital Signs Temp 97.7 F 08/20/21 04:00 Pulse 65 08/20/21 04:25 Resp 11 L 08/20/21 04:25 BP 111/55 08/20/21 04:25 Pulse Ox 99 08/20/21 04:25 08/19/21 08/19/21 08/20/21 14:59 22:59 06:59 Intake Total 1650 / 1650 772.925 / 2422.925 1275.336 / 3698.261 Balance 1650 / 1650 772.925 / 2422.925 1275.336 / 3698.261 Weight last 48 hrs Weight 240 lb Physical Exam Narrative: GENERAL: obese woman in no acute distress HEENT: Extraocular movement intact. No pallor or icterus. NECK: central trachea,No JVD, No carotid bruit. CARDIOVASCULAR SYSTEM: S1-S2 regular. No S3 or S4 present. No murmur rubs or gallops. RESPIRATORY SYSTEM: Chest clear to auscultation. No wheezes rhonchi or rubs he reagan. ABDOMEN: Soft, nontender and nondistended. Normal bowel sounds present. EXTREMITIES: No cyanosis or edema. No signs of chronic venous insufficiency. CERTIFICATION AND SELECTION SPECIALIST: Patient is alert oriented ?3. No focal neurological deficits. SKIN: Normal turgor and temperature. PSYCH: Normal insight and judgment. Data : 08/20/21 05:50 08/20/21 05:50 Micro: Microbiology 08/19/21 16:39 Blood Culture - Preliminary Blood SPECIMEN COLLECTED 08/19/21 16:39 Blood Culture - Preliminary Blood SPECIMEN COLLECTED Other data: TTE (08/19/21) CONCLUSIONS ?1. This is a technically difficult study. Optison was used per ?protocol. ?2. Normal left ventricular cavity size. Mildly decreased left ?ventricular systolic function. Left ventricular ejection ?fraction is estimated at 45 %.? There is moderate septal ?hypokinesis and? akinesis of apical septal, apical anterior, ?apical inferior, lateral and apical wan. ?3. There may not be any significant change when compared to ?study dated 06/05/2019. Stress test in 06/2019 with large area of fixed perfusion defect noted in mid to distal anterior and ?inferolateral apical wall suggestive of old myocardial infarction versus?scarring in LAD territory.? Medium-size area of mild to moderate reversibility?noted in basal to distal inferolateral region suggestive of possible ischemia in distal circumflex or RCA. A&P Assessment and plan (1) Chest pain: Chest pain with abnormal EKG -Plan for C once renal function normalizes -Risks and benefits were discussed with the patients. Alternate management opt ions were discussed with the patient as well. Possible complications including risk of heart attack stroke and , coronary perforation, arrhythmia, cardiac tamponade in urgent CABG were discussed with the patient as well. Plan is to proceed for the procedure at the earliest. Status: Acute Qualifiers: Chest pain type: unspecified Qualified Code(s): R07.9 - Chest pain, unspecified (2) Elevated troponin: Status: Acute (3) Poorly controlled diabetes mellitus: Status: Acute (4) Chronic combined systolic (congestive) and diastolic (congestive) heart failure: Status: Acute (5) Dyslipidemia: Status: Acute (6) Morbid obesity: Status: Acute (7) Acute kidney injury: Status: Acute Coding Level of Care Code Acute Dermatopathologist for [facility] Fwd Diagnoses Morbid obesity E66.01 Poorly controlled diabetes mellitus E11.65 Chest pain R07.9 Chest pain type: unspecified Elevated troponin R77.8 Acute kidney injury N17.9 Chronic combined systolic (congestive) and diastolic (congestive) heart failure I50.42 Dyslipidemia E78.5
[2021-08-20 06:15] LABS: Anion Gap 14.7 (5-19); Blood Urea Nitrogen 22 mg/dL (8-23); Calcium 8.4 mg/dL (8.5-10.5); Carbon Dioxide 20 mmol/L (22-29); Chloride 108 mmol/L (98-107); Glomerular Filtration Rate 41.5 mL/min (90-130); Glucose 169 mg/dL (65-115); Osmolality Calculated 295 mOsm/kg (285-295); Potassium 3.7 mmol/L (3.5-5.1); Sodium 139 mmol/L (136-145)
[2021-08-20 06:16] LABS: Creatinine Clr Calc Pharmacy 51.1592
--- NOTE | 2021-08-20 06:37 | PC.NURSE ---
Shift Summary Patient had an uneventful night. Heparin and insulin gtts remain off at this time, please see MAR for details. IVF are infusing per protocol. Scratches noted to whole body, no other skin issues noted at this time. Patient alert/oriented x4 and uses BSC with assistance from nurse.
[2021-08-20 06:38] LABS: Partial Thromboplastin Time 37.5 SECONDS (23.9-36.7)
--- NOTE | 2021-08-20 06:54 | PC.NURSE ---
Restart Heparin Drip Notified Dr. Joiner of new PTT result, she gave orders to restart heparin gtt.
[2021-08-20 08:48] LABS: Glucose Point of Care 195 mg/dL (70-110)
[2021-08-20] MEDS: insulin lispro 100 unit/1 mL SUBCUT ×3 (09:10→17:50)
[2021-08-20] MEDS: metoprolol succinate ER (24 HR) 25 mg Tablet 12.5 MG PO (09:10)
[2021-08-20] MEDS: aspirin 81 mg EC Tablet PO (09:11)
[2021-08-20] MEDS: amlodipine 5 mg Tablet PO (09:11)
[2021-08-20] MEDS: lisinopril 10 mg Tablet PO (09:11)
[2021-08-20] MEDS: docusate sodium 100 mg Capsule PO ×2 (09:12→17:50)
[2021-08-20] MEDS: clopidogrel 75 mg Tablet PO (09:12)
[2021-08-20] MEDS: gabapentin 300 mg Capsule PO ×2 (09:12→17:50)
[2021-08-20] MEDS: isosorbide mononitrate ER 30 mg Tablet PO (09:12)
[2021-08-20 11:49] LABS: Glucose Point of Care 217 mg/dL (70-110)
--- NOTE | 2021-08-20 12:33 | PM.PN ---
Subjective Subjective: Patient is n.p.o. for midnight I will cut back on her Lantus Plan for angiogram tomorrow as per Dr. Olvera Continue heparin 48 hours No active chest pain Patient is endorsing feeling lethargic and fatigued No active shortness of breath Hyperglycemia has improved Vitals/I&O/Wt Last Vital Signs Temp 97.7 F 08/20/21 04:00 Pulse 66 08/20/21 06:00 Resp 11 L 08/20/21 04:25 BP 111/55 08/20/21 04:25 Pulse Ox 99 08/20/21 04:25 08/19/21 08/20/21 08/20/21 22:59 06:59 14:59 Intake Total 772.925 / 2422.925 1375.336 / 3798.261 1300 / 1300 Output Total 780 / 780 250 / 250 Balance 772.925 / 2422.925 595.336 / 3018.261 1050 / 1050 Weight last 48 hrs Weight 108.862 kg Physical Exam Narrative: Patient is not endorsing any active chest pain Currently euvolemic No active abdominal pain Endorsing fatigue and lethargy NIH 0 Awake and alert Answer my questions appropriately Saturating well on room air Abdomen is soft No signs of edema Data : 08/20/21 05:50 08/20/21 05:50 Micro: Microbiology 08/19/21 16:39 Blood Culture - Preliminary Blood SPECIMEN COLLECTED 08/19/21 16:39 Blood Culture - Preliminary Blood SPECIMEN COLLECTED A&P Assessment and plan (1) Hypovolemia: Status: Acute (2) Left bundle branch block: Status: Acute (3) Elevated troponin: Status: Acute (4) Acute kidney injury: Status: Acute (5) Accelerated hypertension: Status: Acute (6) History of coronary artery disease: Status: Acute (7) Generalized anxiety disorder: Status: Acute (8) Dyslipidemia: Status: Acute Plan Patient is going for angiogram tomorrow Does not meet Brugada signs for left bundle branch block STEMI No active chest pain or shortness of breath Troponin trending down, finished 48 hours of heparin Appreciate cardiology recommendations She remained hemodynamically stable No active chest pain Metabolic acidosis: Improved This was secondary to dehydration, sepsis ruled out Acute on chronic kidney disease: Creatinine seems around baseline now, it did improve with IV fluid hydration Hyperglycemia: Improved Cut back on Lantus because she will be n.p.o. after midnight Leukemoid reaction has improved She is full code Cardiac diet She will be n.p.o. after midnight Attestations Medical Necessity Statement*: N.p.o. after midnight, angiogram tomorrow Time Spent in Patient Care: 30 Coding Level of Care Code Acute Certified Medical Technician Assistant for [facility] Fwd Diagnoses Hypovolemia E86.1 Left bundle branch block I44.7 Elevated troponin R77.8 Acute kidney injury N17.9 Accelerated hypertension I10 History of coronary artery disease Z86.79 Generalized anxiety disorder F41.1 Dyslipidemia E78.5
--- NOTE | 2021-08-20 13:09 | PC.NURSE ---
no distress at this time monitor vital and blood sugar . c/o being very weak at this time..
[2021-08-20] MEDS: heparin drip 25,000 UNIT/500 ML PREMIX 20 UNIT IV (15:41)
--- NOTE | 2021-08-20 15:52 | PC.NURSE ---
ptt at 1507 ordered stat for heparin lab called and related at this time that there was a 1600 ordered so they were cancelling 1500 as past time explained that we need it stat
--- NOTE | 2021-08-20 16:23 | PC.NURSE ---
blood drawn for lab for above ptt
[2021-08-20 17:03] LABS: Partial Thromboplastin Time 45.1 SECONDS (23.9-36.7)
[2021-08-20 17:44] LABS: Glucose Point of Care 241 mg/dL (70-110)
[2021-08-20 19:49] LABS: Glucose Point of Care 281 mg/dL (70-110)
[2021-08-20] MEDS: atorvastatin 40 mg Tablet 80 MG PO (20:13)
[2021-08-20] MEDS: insulin glargine 100 units/1 mL 40 UNIT SUBCUT (20:16)
[2021-08-21] VITALS (53 sets, daily range): BP systolic 127–174; BP diastolic 72–98; PULSE 59–84; RESP 13–26; O2SAT 91–99
[2021-08-21 00:10] LABS: Glucose Point of Care 201 mg/dL (70-110)
[2021-08-21 00:40] LABS: Partial Thromboplastin Time 75.1 SECONDS (23.9-36.7)
[2021-08-21] MEDS: diphenhydrAMINE 50 mg Capsule PO (05:02)
[2021-08-21 05:25] LABS: Glucose Point of Care 181 mg/dL (70-110)
[2021-08-21 05:30] LABS: Basophils % 0.6 %; Eosinophils # 0.2 10^3/uL (0.0-0.8); Eosinophils % 3.4 %; Hemoglobin 10.9 g/dL (11.5-15.3); Lymphocytes # 1.9 10^3/uL (0.8-4.8); Lymphocytes % 26.1 %; Mean Corpuscular Hemoglobin 28.4 pg (28.0-34.0); Mean Corpuscular Volume 85.9 fl (81-99); Mean Platelet Volume 11.9 fL (7.4-10.4); Monocytes # 0.4 10^3/uL (0.2-0.9); Monocytes % 5.6 %; Neutrophils # 4.56 10^3/uL (1.8-7.7); Nucleated Red Blood Cells % 0 %; Platelet Count 176 10^3/cmm (130-400); Red Blood Count 3.84 10^6/uL (4.1-5.3); Red Cell Distribution Width 13.5 % (12.1-15.1); White Blood Count 7.1 10^3/uL (4.0-10.0)
[2021-08-21 05:47] LABS: Anion Gap 12.9 (5-19); Blood Urea Nitrogen 19 mg/dL (8-23); Calcium 8.2 mg/dL (8.5-10.5); Carbon Dioxide 21 mmol/L (22-29); Chloride 111 mmol/L (98-107); Glomerular Filtration Rate 50.3 mL/min (90-130); Glucose 181 mg/dL (65-115); Osmolality Calculated 299 mOsm/kg (285-295); Potassium 3.9 mmol/L (3.5-5.1); Sodium 141 mmol/L (136-145)
--- NOTE | 2021-08-21 06:00 | XACV_ITS ---
Exam Room: 2 Ht: 155 cm Wt: 109 kg BSA: 2.23 m2 Gender: Female : 1960 Any Known Allergies: Other Exam Priority: Routine Procedure(s): Procedure Description: Diagnostic procedure Procedure Description: PCI procedure Procedure Description: Left Heart Catheterization Procedure Description: Drug Eluting Coronary Stent Procedure Description: PTCA Procedure Description: Coronary Angiography Diagnostic Cath Status: Elective Diagnostic Findings * Coronary angiography shows right dominance. * Left Main has no disease. * Proximal Left Anterior Descending: obstructive 80% stenosis, MONET: 3 flow. Proximal segment of first diagonal with 50% stenosis. Patent mid LAD stents. Mid LAD distal to previous stents shows mild narrowing. * Small circumflex artery with high obtuse marginal artery. Mid Circumflex: obstructive 90% stenosis, MONET: 3 flow. * Right Coronary Artery has no disease. PCI Status: Elective Interventional Findings * Procedure detail: Patient is left main artery with XB 3.5 guide catheter. IV heparin was administered to maintain ACT above 250 yes. 0.014 run-through guidewire was used to cross circumflex artery stenosis. We predilated the stenosis with 2.5 x 12 mm semi-compliant balloon. This was followed by placement of 2.5 x 15 mm resolute Collette drug-eluting stent. At this time angiogram showed excellent stent expansion, no residual stenosis and MONET-3 flow. We then turned our attention to proximal LAD stenosis. Run-through guidewire was used to cross of the stenosis and was put in distal vessel. We predilated the stenosis with 2.5 x 12 mm noncompliant balloon. This was followed by placement of 3.0 x 22 mm resolute Toyah drug-eluting stent. We then postdilated the proximal part of the stent with 3.5 x 8 mm NC balloon. At this time final angiogram was performed that showed excellent stent expansion, MONET-3 flow and no residual stenosis. Guidewire and guide catheter were removed. 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 * Proximal Left Anterior Descendin% stenosis treated with a AB TREK 2.50X12 RX BALLOON, MDT R COLLETTE 3.0X22 CUCO, and MDT NC EUPHORA RX 3.68P90IO BALLOON. * Mid Circumflex: 70% stenosis treated with a AB TREK 2.50X12 RX BALLOON, and MDT R COLLETTE 2.5X15 CUCO. Conclusions 1. Severe 2. proximal LAD and 3. left circumflex artery stenosis 4. s/p successful revascularization with CUCO x2.. 5. Proximal Left Anterior Descending was treated with a Balloon, Drug Eluting Stent, and Balloon. 6. Mid Circumflex was treated with a Balloon, and Drug Eluting Stent. Recommendations * Aspirin and Plavix for at least 1 year. * High * intensity statin therapy. * Aggressive risk factor modification. * Outpatient cardiology follow-up in 4-week. Interventional RX Recommendation: PCI w/o planned CABG Diagnostic RX Recommendation: PCI w/o planned CABG Anticoagulation: Heparin Pressures Phase:Rest AO : 163 / 92 ( 122 ) @ 7:38:00 AM 163 / 43 ( 96 ) @ 7:49:00 AM 176 / 98 ( 130 ) @ 7:54:00 AM 172 / 90 ( 122 ) @ 8:14:00 AM 182 / 91 ( 126 ) @ 8:20:00 AM 198 / 92 ( 131 ) @ 8:40:00 AM 175 / 94 ( 127 ) @ 8:49:00 AM Clinical Evaluation EBL: 5mL-10mL Procedural Details Procedure Consent Obtained. Pre-Procedure Time Out. Identified patient by full name and date of as verbalized by the patient/guarantor. Does the consent match the physician's order: Yes. Accurate & Complete Informed Consent: Yes. Inpatient/Outpatient History & Physical on Chart: Yes. If H&P is completed, is and addenduem needed: Yes; If yes, is the addendum complete: N/A. Visualize and Verify Site with Patient/Guarantor: N/A. Relevant Radiology Images available: Yes. The risks, benefits, and alternatives of sedation and/or procedure were discussed by physician. The patient agrees to continue. Procedure started. [facility] Clinical Fraility Score: 4: Vulnerable. Airport Operations Duty Manager Indications: New Onset Angina. Chest Pain Symptom Assessment: Typical Angina Symptoms. Cardiovascular Instability: No. Correct patient, site and procedure confirmed by cath team. PERRLA. Strong, equal hand tire maker bilaterally. Lungs clear x 5 lobes. IV Site on Arrival: 20 gauge in the right anticubital. IV Site on Arrival: 20 gauge in the left anticubital. IV Fluids: 0.9% NaCl at KVO. 500 mL infused prior to laboratory chief. Pre Procedural Pulses: bilateral posterior tibial was Doppled. Pre Procedural Pulses: bilateral dorsalis pedis was Doppled. Pre Procedural Pulses: bilateral radial was 2+. Oxygen started at 2liters/min via nasal canula. right groin was prepped with chloroprep then draped in the usual sterile fashion. right radial was prepped with chloroprep then draped in the usual sterile fashion. Physician notified. Baseline sample Acquired. HR: 61 BPM. Physician arrived. Physician scrubbed in. Immediate Pre-Procedure Time Out. Correct Patient: Yes; Correct Procedure: Yes; Correct Site: Yes; Correct Patient Position: Yes; Correct Supplies: Yes; Dried Flammable Prep: Yes; Blood Products Available: N/A;. Lidocaine 1% infiltrated to the right radial. Arterial access obtained. Blood drawn and sent to lab for lactic acid. A 6 macedonian TIG catheter in over wire. Multiple views taken of left coronary artery. Catheter redirected to the RCA, unable to cannulate. Catheter removed over the standard wire. A 5 macedonian JR4 catheter in over wire. Multiple views taken of left coronary artery. Dr. Yu here to view cineography. Pullback taken: LV Off; AO Off; Mean: , Peak to Peak: , SEP: ; HR: 39 BPM; SpO2: 98%. Catheter redirected to the LV. Catheter removed over the standard wire. Dr. Yu scrubbed in to perform intervention. 6 macedonian XB 3 guide catheter was inserted over the wire, unable to advance. Catheter out. 6 macedonian XB 3 guide catheter was inserted over the wire, unable to advance. Catheter out. Will abort radial access and move to femoral. TR band placed. Hemostasis obtained. A TR Band was successful obtaining hemostatsis at the Right Radial artery insertion site. Lidocaine 1% infiltrated to the right groin. Arterial access obtained. 6 macedonian XB 3 guide catheter was inserted over the wire. Runthrough guidewire was advanced through the guide catheter to lesion in the mid Circ. Inflation number : 1 A AB TREK 2.50X12 RX BALLOON was prepped and advanced across the Mid CX , then inflated to 12 CIERA for 0:18 seconds. Inflation number: 2 The AB TREK 2.50X12 RX BALLOON was reinflated across the Mid CX, to 12 CIERA for 0:18 seconds. Balloon out. Inflation Number : 3 A MDT R COLLETTE 2.5X15 CUCO -Lot Number# [id number] was prepped and advanced across the Mid CX. The stent was deployed at 12 CIERA for 0:19 seconds. Exp. 2024-05-11. Stent balloon out over wire. Runthrough guidewire was advanced through the guide catheter to lesion in the prox LAD. Inflation number : 1 A AB TREK 2.50X12 RX BALLOON was prepped and advanced across the Prox LAD , then inflated to 14 CIERA for 20 seconds. Balloon out. Wire out. Guide catheter out. Fluoro went down, Service rep on the phone. ACT drawn. Results 261 seconds. Therapeutic limits - pre-heparin administration 90-150 seconds and monitoring heparin during a vascular procedure >250 seconds. System re booted and now working. 6 macedonian XB 3 guide catheter was inserted over the wire. Runthrough guidewire was advanced through the guide catheter to lesion in the prox LAD. Inflation Number : 2 A MDT R COLLETTE 3.0X22 CUCO -Lot Number# [id number] was prepped and advanced across the Prox LAD. The stent was deployed at 12 CIERA for 0:27 seconds. Exp. 2024-02-02. Stent balloon out over wire. Inflation number : 3 A MDT NC EUPHORA RX [id number] BALLOON was prepped and advanced across the Prox LAD , then inflated to 12 CIERA for 0:13 seconds. Inflation number: 4 The MDT NC EUPHORA RX [id number] BALLOON was reinflated across the Prox LAD, to 12 CIERA for 0:19 seconds. Balloon out. Results checked. Wire out. Guide catheter out. A Right femoral angiogram was performed to determine safe placement of closure device. ACT drawn. Results 231 seconds. Therapeutic limits - pre-heparin administration 90-150 seconds and monitoring heparin during a vascular procedure >250 seconds. Sheath(s) sutured into position with 2-0 silk and sterile 4x4's and Op-site applied over the site. No oozing or signs and symptoms of hematoma noted. Arterial sheath flushed and connected to tranducer and pressure bag with heparinized saline. Post Procedure: Pulses reassessed and unchanged. PERRLA. Strong, equal hand tire maker bilaterally. No VTE prophylaxis required. Medication's Wasted: Lidocaine 1% = 3 mL. Medication's Wasted: Nitro = 49.4 mg. Total IV fluids: 86.8 mL. Medication's Wasted: Hydralizine = 10 mg. Medication's Wasted: Heparin = 4000 mL. Post-op diagnosis: PCI of the Mid CX and Prox LAD. Complications: none. Estimated blood loss: 5mL-10mL. Responsiveness - Normal response to verbal stimuli; alert and oriented, PERRLA. Airway - Unaffected, no intervention required; spontaneous ventilation. Circulation: W/N/L, pulses unchanged. Nausea/Vomiting: No. Procedure completed. Patient transferred by bed to ICU. Vital chart was stopped. Access Site Site: Right Radial artery Sheath Size: 6 Fr Hemostasis Method: TR Band Hemostasis Success: Successful Site: Right Femoral artery Sheath Size: 6 Fr Hemostasis Success: Unsuccessful Procedure Medications Start: 6:25 AM Stop: 6:25 AM Medication: Versed Amount: 1 mg Route: I.V. Start: 6:25 AM Stop: 6:25 AM Medication: Fentanyl Amount: 50 mcg Route: I.V. Start: 6:37 AM Stop: 6:37 AM Medication: Versed Amount: 1 mg Route: I.V. Start: 6:37 AM Stop: 6:37 AM Medication: Fentanyl Amount: 25 mcg Route: I.V. Start: 6:37 AM Stop: 6:37 AM Medication: Nitrogylcerin Amount: 200 mcg Route: I.A. Start: 7:02 AM Stop: 7:02 AM Medication: Nitrogylcerin Amount: 200 mcg Route: I.A. Start: 6:38 AM Stop: 6:38 AM Medication: Heparin Amount: 5000 units Route: I.V. Start: 7:11 AM Stop: 7:11 AM Medication: Heparin Amount: 5000 units Route: I.V. Start: 7:40 AM Stop: 7:40 AM Medication: Heparin Amount: 2000 units Route: I.V. Start: 7:41 AM Stop: 7:41 AM Medication: Versed Amount: 1 mg Route: I.V. Start: 7:48 AM Stop: 7:48 AM Medication: Nitrogylcerin Amount: 200 mcg Route: I.A. Start: 7:48 AM Stop: 7:48 AM Medication: Hydralazine Amount: 10 mg Route: I.V. Start: 7:54 AM Stop: 7:54 AM Medication: Plavix Amount: 300 mg Start: 8:03 AM Stop: 8:03 AM Medication: Heparin Amount: 1000 units Route: I.V. I, the attending physician, have reviewed and verified all procedure medications. Yes, all medications given per verbal order History/Risk Factors Hypertension: Yes Dyslipidemia: Yes Peripheral Arterial Disease (PAD): No Myocardial Infarction (WA): Yes Obesity: Yes Renal Disease: No Tobacco Use: Former Prior Interventions PCI: Yes CABG: No Valve Surgery: Yes Date of PCI: 08/01/2018 Report Signatures Interventional Workflow Finalized by Jose De Jesus Yu MD on 08/27/2021 01:14 PM Diagnostic Workflow Finalized by Joyce Olvera MD on 08/27/2021 11:35 AM
--- NOTE | 2021-08-21 06:00 | PC.NURSE ---
Transfer to Global Transportation Manager Patient transferred to petroleum refinery laborer by bed. Patient is alert and oriented x4 at time of transfer.
[2021-08-21 06:16] LABS: Partial Thromboplastin Time 52.1 SECONDS (23.9-36.7)
--- NOTE | 2021-08-21 06:27 | W.PM.OPSUD ---
Surgery/Procedure H&P Update DATE OF PROCEDURE: August 21, 2021 DATE H&P PERFORMED: 06/28/19 H&P UPDATE INFORMATION: I have reviewed H&P completed within last 30 days, I have examined patient prior to procedure and No changes to prior documentation PREOP DIAGNOSIS: Chest pain, abnormal EKG PRIMARY INDICATION FOR PROCEDURE: Chest pain, banormal EKG PLANNED PROCEDURE: Operation Date: 08/21/21 05:45 Proposed Procedures p Cardiac Catheterization(Left) - Joyce Olvera MD PATIENT REASSESSED PRIOR TO SEDATION, WITH NO CHANGE NOTED: Yes PHYSICAL EXAM: alert, oriented x 3, clear to auscultation bilaterally and regular rate & rhythm AIRWAY EVAL/ANESTHESIA PLAN: normal airway, ASA III, Monitored Anesthesia, Local Anesthesia, Risks, benefits & alternatives of sedation and/or procedure discussed and Patient agrees to continue as planned
[2021-08-21 07:01] LABS: Lactate (Lactic Acid level) 1.2 mmol/L (0.5-2.2)
[2021-08-21] MEDS: docusate sodium 100 mg Capsule PO ×2 (08:31→17:45)
[2021-08-21] MEDS: isosorbide mononitrate ER 30 mg Tablet PO (08:31)
[2021-08-21] MEDS: gabapentin 300 mg Capsule PO (08:31)
[2021-08-21] MEDS: amlodipine 5 mg Tablet PO (08:31)
[2021-08-21] MEDS: metoprolol succinate ER (24 HR) 25 mg Tablet 12.5 MG PO (08:31)
[2021-08-21] MEDS: aspirin 81 mg EC Tablet PO (08:32)
[2021-08-21] MEDS: lisinopril 10 mg Tablet PO ×2 (08:32→17:45)
[2021-08-21] MEDS: clopidogrel 75 mg Tablet PO (08:32)
--- NOTE | 2021-08-21 08:40 | PM.PN ---
Subjective Subjective: s/p LHC this morning Medications: Reviewed: Yes Vitals/I&O/Wt Last Vital Signs Temp 97.7 F 08/20/21 04:00 Pulse 59 L 08/21/21 06:00 Resp 11 L 08/20/21 04:25 BP 111/55 08/20/21 04:25 Pulse Ox 99 08/20/21 04:25 08/20/21 08/21/21 08/21/21 22:59 06:59 14:59 Intake Total 613.667 / 1913.667 264.267 / 2177.934 Output Total 100 / 350 1000 / 1350 Balance 513.667 / 1563.667 -735.733 / 827.934 Physical Exam Narrative: GENERAL: obese woman in no acute distress HEENT: Extraocular movement intact. No pallor or icterus. NECK: central trachea,No JVD, No carotid bruit. CARDIOVASCULAR SYSTEM: S1-S2 regular. No S3 or S4 present. No murmur rubs or gallops. RESPIRATORY SYSTEM: Chest clear to auscultation. No wheezes rhonchi or rubs heard. ABDOMEN: Soft, nontender and nondistended. Normal bowel sounds present. EXTREMITIES: No cyanosis or edema. No signs of chronic venous insufficiency. 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 No focal neurological deficits. SKIN: Normal turgor and temperature. PSYCH: Normal insight and judgment. Data : 08/21/21 05:20 08/21/21 05:20 Micro: Microbiology 08/19/21 16:39 Blood Culture - Preliminary Blood NEGATIVE TO DATE 08/19/21 16:39 Blood Culture - Preliminary Blood NEGATIVE TO DATE A&P Assessment and plan (1) Chest pain: Chest pain with abnormal EKG -Wellen's sign in anterior leads -[facility] with severe px LAD stenosis s/p CUCO x 1 and px LCX stenosis s/p CUCO x 1. Status: Acute Qualifiers: Chest pain type: unspecified Qualified Code(s): R07.9 - Chest pain, unspecified (2) Elevated troponin: Status: Acute (3) Poorly controlled diabetes mellitus: Status: Acute (4) Chronic combined systolic (congestive) and diastolic (congestive) heart failure: Status: Acute (5) Dyslipidemia: Status: Acute (6) Morbid obesity: Status: Acute (7) Acute kidney injury: resolved Status: Acute Attestations Medical Necessity Statement*: needs hospital stay post [facility]. Coding Level of Care Code Acute Operations Support Manager for Chg Fwd Diagnoses Chest pain R07.9 Chest pain type: unspecified Elevated troponin R77.8 Poorly controlled diabetes mellitus E11.65 Chronic combined systolic (congestive) and diastolic (congestive) heart failure I50.42 Dyslipidemia E78.5 Morbid obesity E66.01 Acute kidney injury N17.9
--- NOTE | 2021-08-21 10:37 | PC.CHAP ---
Pastoral Care Encounter/Spiritual Assessment Type of Contact [] Declined anodizing line operator visit [] Patient/Family/Request visit [] Outpatient visit [] Follow-up visit [] Physician referral [] Code/Alert [x] Routine visit [] Staff referral [] Actively dying [x] Patient sleeping [] Family support [] [] Out of room [] Palliative care [] [] Receiving care in room [] Pre-surgical visit [] Trauma [] Long length of stay x] ICU visit [] Other: Relational/Emotional Strength [] Patient feels connected with others/family/visitors/staff [] Distress [] Loneliness/isolation [] Abandonment Spirituality of Patient [] Person of Opal [] Attends Rastafari of their Opal [] Believes in Prayer [] Reads Bible or Yarsanism materials [] There are Spiritual issues to be addressed Nuclear Fuels Research Engineer Interventions [x] Prayer [] Active listening [] Non-anxious presence [] Spiritual/emotional support [] Crisis/trauma care [] Spiritual counseling [] Bereavement support [] Provided bereavement packet [] Provided Bible/devotional materials [] Provided toy/stuffed animal, coloring book to patient or family member [] Provided Communion [] Anointing/[place] [] Salvation [x] Completed spiritual assessment [] Other: Impact on Illness or Injury [] Angry [] Fearful [] Anxious [] Often cries [] Exhaustion [] Unable to work [] Unable to attend judaism [] Unable to walk/stand [] Unable to read [] Unable to drive [] Unable to eat/drink [] Unable to sleep [] Unable to be with family [] Patient intubated [] Other: Summary Time spent with patient
[2021-08-21 11:07] LABS: Glucose Point of Care 176 mg/dL (70-110)
[2021-08-21 12:38] LABS: Glucose Point of Care 173 mg/dL (70-110)
[2021-08-21] MEDS: insulin lispro 100 unit/1 mL SUBCUT ×2 (12:40→17:46)
--- NOTE | 2021-08-21 12:48 | PM.PN ---
Subjective Subjective: This was LAD and left circumflex stenosis After removal of TR band we will request PT evaluation and transfer her out of ICU later today Plan to discharge her in next 24 hours Patient was examined in the ICU Vitals/I&O/Wt Last Vital Signs Temp 97.7 F 08/20/21 04:00 Pulse 59 L 08/21/21 06:00 Resp 11 L 08/20/21 04:25 BP 111/55 08/20/21 04:25 Pulse Ox 99 08/20/21 04:25 08/20/21 08/21/21 08/21/21 22:59 06:59 14:59 Intake Total 613.667 / 1913.667 264.267 / 2177.934 Output Total 100 / 350 1000 / 1350 400 / 400 Balance 513.667 / 1563.667 -735.733 / 827.934 -400 / -400 Physical Exam Narrative: Patient is euvolemic Currently laying flat No active chest pain or shortness of breath Abdomen soft Euvolemic Nonfocal neuro exam Anxious Saturating well on room air TR band right wrist Data : 08/21/21 05:20 08/21/21 05:20 Micro: Microbiology 08/19/21 16:39 Blood Culture - Preliminary Blood NEGATIVE TO DATE 08/19/21 16:39 Blood Culture - Preliminary Blood NEGATIVE TO DATE A&P Assessment and plan (1) Hypovolemia: Status: Acute (2) Left bundle branch block: Status: Acute (3) Elevated troponin: Status: Acute (4) Acute kidney injury: Status: Acute (5) Generalized anxiety disorder: Status: Acute Plan Status post stent in LAD and left circumflex CHLOE improved Signs of dehydration improving Patient had a hypokalemia related changes No signs of sepsis Hyperglycemia improved Plan to discharge her tomorrow PT evaluation Appreciate cardiology recommendations White count improved Afebrile Full code Cardiac diet Discontinue heparin drip Continue aspirin, Plavix, atorvastatin and MAURI Continue long-acting insulin night If heart rate is below 60 we can hold AV kenney blocking agent Attestations Medical Necessity Statement*: Transfer out of ICU, can discharge tomorrow Time Spent in Patient Care: 30 Coding Level of Care Code Acute Wedger Machine for Chg Fwd Diagnoses Hypovolemia E86.1 Left bundle branch block I44.7 Elevated troponin R77.8 Acute kidney injury N17.9 Generalized anxiety disorder F41.1
[2021-08-21 13:14] LABS: Partial Thromboplastin Time 49.1 SECONDS (23.9-36.7)
[2021-08-21 17:42] LABS: Glucose Point of Care 317 mg/dL (70-110)
[2021-08-21 20:58] LABS: Glucose Point of Care 196 mg/dL (70-110)
[2021-08-21] MEDS: atorvastatin 40 mg Tablet 80 MG PO (21:38)
[2021-08-21] MEDS: insulin glargine 100 units/1 mL 40 UNIT SUBCUT (21:39)
[2021-08-22 03:47] LABS: Basophils % 0.2 %; Eosinophils # 0.2 10^3/uL (0.0-0.8); Eosinophils % 2.5 %; Hematocrit 34.4 % (37.0-47.0); Hemoglobin 11.6 g/dL (11.5-15.3); Lymphocytes # 1.6 10^3/uL (0.8-4.8); Lymphocytes % 18.7 %; Mean Corpuscular HGB Conc 33.7 g/dL (30.0-36.0); Mean Corpuscular Hemoglobin 28.6 pg (28.0-34.0); Mean Corpuscular Volume 84.7 fl (81-99); Mean Platelet Volume 12.9 fL (7.4-10.4); Monocytes # 0.6 10^3/uL (0.2-0.9); Monocytes % 7.1 %; Neutrophils # 6.15 10^3/uL (1.8-7.7); Neutrophils % 71.2 %; Nucleated Red Blood Cells % 0 %; Platelet Count 128 10^3/cmm (130-400); Red Blood Count 4.06 10^6/uL (4.1-5.3); Red Cell Distribution Width 13.4 % (12.1-15.1); White Blood Count 8.7 10^3/uL (4.0-10.0)
[2021-08-22 04:01] LABS: Blood Urea Nitrogen 14 mg/dL (8-23); Calcium 8.6 mg/dL (8.5-10.5); Carbon Dioxide 21 mmol/L (22-29); Chloride 108 mmol/L (98-107); Glomerular Filtration Rate 50.3 mL/min (90-130); Glucose 164 mg/dL (65-115); Osmolality Calculated 292 mOsm/kg (285-295); Sodium 139 mmol/L (136-145)
[2021-08-22 04:03] LABS: Slide Review Slide Review Perform
[2021-08-22 06:00] VITALS: PULSE 65
--- NOTE | 2021-08-22 06:23 | PM.DCS ---
Discharge Providers Date of Admission: 08/19/21 11:54 Date of Discharge: August 22, 2021 Attending Provider at Admission: Gilbert Serna MD Attending Provider at Discharge: Gilbert Serna MD Primary Care Provider: Lito Keating MD Diagnoses at Discharge Discharge Diagnosis (1) Hypovolemia: Status: Acute (2) Left bundle branch block: Status: Acute (3) Elevated troponin: Status: Acute (4) Acute kidney injury: Status: Acute (5) Generalized anxiety disorder: Status: Acute Reason for Visit Reason for Visit: Flu like symptoms Hospital Course Hospital Course 60-year-old female who has established history of coronary disease with stent in LAD presents to the hospital with chief complaint of exertional shortness of breath and difficult to control blood sugar at home. In the ER she was noted to have left bundle branch block, there was concern for Wellens sign, patient in the ER was not diagnosed with DKA. Cardiology was consulted. Dr. Olvera recommended angiogram next day. in total two stents were placed,1x LAD and 1xcircumflex. Patient kept complaining of fatigue and lethargy, physical therapy recommended home exercise program, she remained hemodynamically stable, afebrile, she was started on aspirin, Plavix along with atorvastatin and ACEI/ARB. Physical Exam Narrative: Very pleasant and cooperative Complaining of fatigue and lethargy S1, S2 Abdomen soft Nonfocal neuro exam Saturating well on room air Discharge Data Studies Completed and Pending Completed Studies During Hospitalization Category Date Time Status CT angio chest PE protcl [id number] Stat Cat Scan 08/19/21 08:46 Completed XR chest 1V portable [id number] Stat Exams 08/19/21 07:19 Completed CV. echo wo/w contrast [id number] Routine Ultrasound 08/19/21 13:29 Completed Pending at discharge Category Date Time Status AUDIO VIDEO MECHANIC request for service Routine Exams 08/21/21 06:00 Ordered Blood Culture Stat Lab 08/19/21 16:39 Results Platelet Count Q2D Lab 08/23/21 04:00 Ordered Radiology Impressions Chest X-Ray 08/19/21 07:19 IMPRESSION: Low lung volumes versus mild pulmonary congestion. Chest CTA 08/19/21 08:46 IMPRESSION: No evidence of pulmonary embolus or other acute pathology in the chest. Laboratory Results WBC 8.7 10^3/uL (4.0-10.0) 08/22/21 02:51 RBC 4.06 10^6/uL (4.1-5.3) L 08/22/21 02:51 Hgb 11.6 g/dL (11.5-15.3) 08/22/21 02:51 Hct 34.4 % (37.0-47.0) L 08/22/21 02:51 MCV 84.7 fl (81-99) 08/22/21 02:51 MCH 28.6 pg (28.0-34.0) 08/22/21 02:51 MCHC 33.7 g/dL (30.0-36.0) 08/22/21 02:51 RDW 13.4 % (12.1-15.1) 08/22/21 02:51 Plt Count 128 10^3/cmm (130-400) L 08/22/21 02:51 MPV 12.9 fL (7.4-10.4) H 08/22/21 02:51 Neut % (Auto) 71.2 % 08/22/21 02:51 Lymph % (Auto) 18.7 % 08/22/21 02:51 Pettis % (Auto) 7.1 % 08/22/21 02:51 Eos % (Auto) 2.5 % 08/22/21 02:51 Baso % (Auto) 0.2 % 08/22/21 02:51 Neut # (Auto) 6.15 10^3/uL (1.8-7.7) 08/22/21 02:51 Lymph # (Auto) 1.6 10^3/uL (0.8-4.8) 08/22/21 02:51 Pettis # (Auto) 0.6 10^3/uL (0.2-0.9) 08/22/21 02:51 Eos # (Auto) 0.2 10^3/uL (0.0-0.8) 08/22/21 02:51 Baso # (Auto) 0.0 10^3/uL (0.0-0.1) 08/22/21 02:51 Nucleated RBC % (auto) 0 % 08/22/21 02:51 Nucleated RBCs # 0.0 /100WBC 08/22/21 02:51 APTT 49.1 SECONDS (23.9-36.7) H 08/21/21 12:46 D-Dimer 0.98 ug/mIFEU (0-0.59) H 08/19/21 08:00 Specimen Type Arterial 08/19/21 08:00 Sample Site Radial, left 08/19/21 08:00 ABG pH 7.36 (7.35-7.45) 08/19/21 08:00 ABG pCO2 36.4 mmHg (35-45) 08/19/21 08:00 ABG pO2 94.1 mmHg (80.0-100.0) 08/19/21 08:00 ABG HCO3 20.7 mmol/L (22-26) L 08/19/21 08:00 ABG O2 Saturation 97.9 08/19/21 08:00 ABG Base Excess -4.1 mmol/L (-2.0-2.0) L 08/19/21 08:00 Preet Test Pos 08/19/21 08:00 A-a O2 Gradient 1.3 mmHg (5-10) L 08/19/21 08:00 Hematocrit 42.6 % (37-47) 08/19/21 08:00 Hgb O2 Saturation 96.9 % (95-100) 08/19/21 08:00 Carboxyhemoglobin 0.7 %THgb (0.4-20.1) 08/19/21 08:00 Methemoglobin 0.3 % (0.4-1.5) L 08/19/21 08:00 Total Hemoglobin 13.9 g/dL (12-16) 08/19/21 08:00 Sodium 138.0 mmol/L (131-143) 08/19/21 08:00 Potassium 3.5 mmol/L (3.5-5.0) 08/19/21 08:00 Glucose 445.0 mg/dL (70-115) H 08/19/21 08:00 Ionized Calcium 1.3 mmol/L (1.1-1.4) 08/19/21 08:00 O2 Delivery Device Nc 08/19/21 08:00 O2 Liters/Min 2.5 % 08/19/21 08:00 Durable Medical Equipment Repairer ID Gd 08/19/21 08:00 Sodium 139 mmol/L (136-145) 08/22/21 02:51 Potassium 4.0 mmol/L (3.5-5.1) 08/22/21 02:51 Chloride 108 mmol/L (98-107) H 08/22/21 02:51 Carbon Dioxide 21 mmol/L (22-29) L 08/22/21 02:51 Anion Gap 14.0 (5-19) 08/22/21 02:51 BUN 14 mg/dL (8-23) 08/22/21 02:51 Creatinine 1.1 mg/dL (0.5-0.9) H 08/22/21 02:51 GFR Calculation 50.3 mL/min (90-130) L 08/22/21 02:51 Glucose 164 mg/dL (65-115) H 08/22/21 02:51 POC Glucose 196 mg/dL (70-110) H 08/21/21 20:55 Estimat Average Glucose 280 08/19/21 06:30 Hemoglobin A1c 11.4 % (4.0-6.0) H 08/19/21 06:30 Calculated Osmolality 292 mOsm/kg (285-295) 08/22/21 02:51 Lactic Acid 2.3 mmol/L (0.5-2.2) H 08/19/21 06:30 Lactic Acid (Sepsis) 4.3 mmol/L (0.5-2.2) H* 08/19/21 09:30 Lactate 1.2 mmol/L (0.5-2.2) 08/21/21 06:30 Calcium 8.6 mg/dL (8.5-10.5) 08/22/21 02:51 Total Bilirubin 0.3 mg/dL (0.15-1.2) 08/19/21 06:30 AST 21 U/L (0-32) 08/19/21 06:30 ALT 22 U/L (0-33) 08/19/21 06:30 Alkaline Phosphatase 116 IU/L (35-105) H 08/19/21 06:30 Lactate Dehydrogenase 478 U/L (135-214) H 08/19/21 09:45 Creatine Kinase 63 U/L (26-192) 08/19/21 09:45 Troponin T Baseline 18 ng/L (0-10) H 08/19/21 06:30 Troponin T 120 Minute 28.76 ng/L (0-10) H 08/19/21 09:45 Delta Troponin T 10.76 ABS# (0-10) H* 08/19/21 09:45 Troponin T Hi Sens 6Hr 25.85 ng/L (0-10) H 08/19/21 13:56 Troponin T Hi Sens 6Hr Delta 7.85 ng/L (0-12) 08/19/21 13:56 Total Protein 7.6 g/dL (6.6-8.7) 08/19/21 06:30 Albumin 3.8 g/dL (3.5-5.2) 08/19/21 06:30 Globulin 3.8 g/dL (1.3-4.6) 08/19/21 06:30 TSH 2.28 uIU/mL (0.27-4.20) 08/19/21 09:45 Urine Color Straw (Yellow) 08/19/21 09:00 Urine Appearance Clear (CLEAR) 08/19/21 09:00 Urine pH 5 (5-7) 08/19/21 09:00 Ur Specific [place] 1.010 (1.005-1.030) 08/19/21 09:00 Urine Protein Neg (Negative) 08/19/21 09:00 Urine Glucose (UA) 4+ (Normal) H 08/19/21 09:00 Urine Ketones Negative (Negative) 08/19/21 09:00 Urine Blood 2+ (Negative) H 08/19/21 09:00 Urine Nitrate Negative (Negative) 08/19/21 09:00 Urine Bilirubin Neg (Negative) 08/19/21 09:00 Urine Urobilinogen Norm mg/dL (Negative) 08/19/21 09:00 Ur Leukocyte Esterase Negative (Negative) 08/19/21 09:00 Urine RBC 0-4 /hpf (0-2) H 08/19/21 09:00 Urine WBC None /hpf (0-5) 08/19/21 09:00 Ur Squamous Epith Cells 5-10 /hpf (0-5) H 08/19/21 09:00 Amorphous Sediment Not Reportable 08/19/21 09:00 Urine Bacteria Trace /hpf (NONE) 08/19/21 09:00 Urine Mucus Trace /hpf 08/19/21 09:00 Serum Ketones Negative (Negative) 08/19/21 10:00 Coronavirus 229E (PCR) Not detected (NOT DETECT) 08/19/21 06:30 SARS-CoV-2 (PCR) Not detected (NOT DETECT) 08/19/21 06:30 Vitals Last Vital Signs Temp 97.7 F 08/20/21 04:00 Pulse 69 08/21/21 22:00 Resp 20 H 08/21/21 13:50 BP 151/72 08/21/21 13:50 Pulse Ox 97 08/21/21 13:50 Discharge Plan Discharge Patient Disposition: Home Condition: Stable Prescriptions: New atorvastatin 40 mg Tablet 80 mg PO BEDTIME Qty: 60 3RF aspirin 81 mg Tablet,Delayed Release (Dr/Ec) 81 mg PO DAILY Qty: 60 5RF Continued omeprazole magnesium [Prilosec OTC] 20 mg tablet,delayed release (DR/EC) 20 mg PO DAILY Qty: 30 0RF amlodipine [Norvasc] 5 mg tablet 5 mg PO DAILY Qty: 90 3RF carvedilol 6.25 mg tablet 6.25 mg PO BID Qty: 180 3RF furosemide [Lasix] 40 mg tablet 40 mg PO DAILY PRN (Reason: edema) Qty: 90 3RF isosorbide mononitrate 30 mg tablet extended release 24 hr 30 mg PO DAILY Qty: 90 3RF lisinopril 10 mg tablet 10 mg PO BID Qty: 180 3RF nitroglycerin 0.4 mg tablet, sublingual 0.4 mg SUBLINGUAL Q5M PRN (Reason: chest pain) Qty: 25 3RF Rx Instructions: do not exceed 3 doses per episode hydrocodone-acetaminophen 5-325 mg tablet 1 tab PO Q6H PRN (Reason: pain) 7 Days Qty: 28 0RF Lantus Solostar U-100 Insulin 100 unit/mL (3 mL) insulin pen See Rx Instructions .ROUTE .COMPLEX Qty: 15 4RF Dose Instruction: INJECT 60 UNIT (0.6 ML) SUBCUTANEOUSLY DAILY AT 4 IN THE EVENING FOR 30 DAYS Rx Instructions: INJECT 60 UNIT (0.6 ML) SUBCUTANEOUSLY DAILY AT 4 IN THE EVENING FOR 30 DAYS gabapentin 300 mg capsule 300 mg PO BID Qty: 60 6RF dicyclomine 20 mg tablet 20 mg PO Q6H PRN (Reason: Gastrointestinal Spasms Or Cramping) Qty: 60 5RF insulin aspart U-100 [Novolog Flexpen U-100 Insulin] 100 unit/mL (3 mL) insulin pen See Rx Instructions .ROUTE .COMPLEX Qty: 15 4RF Dose Instruction: INJECT 8 UNIT (0.08 ML) SUBCUTANEOUSLY THREE TIMES DAILY Rx Instructions: INJECT 12 UNIT (0.08 ML) SUBCUTANEOUSLY THREE TIMES DAILY docusate sodium 100 mg capsule 100 mg PO BID 0RF clopidogrel 75 mg tablet 75 mg PO DAILY Qty: 60 4RF Discharge Orders: Discharge Order (Routine); Ordered 08/22/21 Ordered By: Gilbert Serna Referrals: Lito Keating MD [Primary Care Provider] - 2 weeks Karlie Yao FNP [Nurse Practitioner] - 1 week Discharge Diet: Cardiac Discharge Activity: Increase activity as tolerated Patient Instructions: Opioid Safety Discharge Attestations Time Spent in Discharge Care*: less than 30 min Quality Metrics Clinical Quality Measures [ No reported AMI, CVA or VTE this stay] Coding Level of Care Code Acute Chg FW DC note Diagnoses Hypovolemia E86.1 Left bundle branch block I44.7 Elevated troponin R77.8 Acute kidney injury N17.9 Generalized anxiety disorder F41.1
[2021-08-22 06:53] LABS: Glucose Point of Care 159 mg/dL (70-110)
--- NOTE | 2021-08-22 07:29 | PC.NURSE ---
Shift Summary Patient had an uneventful shift-remains alert/oriented x4, on room air & no complaints of pain overnight. Right wrist surgical incision site remains open to air. Right groin surgical incision site remains covered with dressing dry/intact. No masses felt upon palpation of right groin.
[2021-08-22 07:45] LABS: Glucose Point of Care 182 mg/dL (70-110)
[2021-08-22] MEDS: amlodipine 5 mg Tablet PO (08:09)
[2021-08-22] MEDS: isosorbide mononitrate ER 30 mg Tablet PO (08:09)
[2021-08-22] MEDS: insulin lispro 100 unit/1 mL SUBCUT (08:10)
[2021-08-22] MEDS: clopidogrel 75 mg Tablet PO (08:10)
[2021-08-22] MEDS: metoprolol succinate ER (24 HR) 25 mg Tablet 12.5 MG PO (08:10)
[2021-08-22] MEDS: docusate sodium 100 mg Capsule PO (08:10)
[2021-08-22] MEDS: aspirin 81 mg EC Tablet PO (08:10)
[2021-08-22] MEDS: lisinopril 10 mg Tablet PO (08:10)
--- NOTE | 2021-08-22 09:41 | P.PN_ITS ---
Subjective Subjective: s/p LHC yesterday She is eager to go home Medications: Reviewed: Yes Vitals/I&O/Wt Last Vital Signs Temp 97.7 F 08/20/21 04:00 Pulse 65 08/22/21 06:00 Resp 20 H 08/21/21 13:50 BP 151/72 08/21/21 13:50 Pulse Ox 97 08/21/21 13:50 08/21/21 08/22/21 08/22/21 22:59 06:59 14:59 Intake Total 225 / 345 120 / 465 222 / 222 Output Total 500 / 1900 550 / 2450 200 / 200 Balance -275 / -1555 -430 / -1985 Physical Exam Narrative: GENERAL: obese woman in no acute distress HEENT: Extraocular movement intact. No pallor or icterus. NECK: central trachea,No JVD, No carotid bruit. CARDIOVASCULAR SYSTEM: S1-S2 regular. No S3 or S4 present. No murmur rubs or gallops. RESPIRATORY SYSTEM: Chest clear to auscultation. No wheezes rhonchi or rubs heard. ABDOMEN: Soft, nontender and nondistended. Normal bowel sounds present. EXTREMITIES: No cyanosis or edema. No signs of chronic venous insufficiency. Right wrist with no significant bruising or hematoma. Right groin with no significanr bruising or hematoma PROJECT MANAGER PROCESS DEVELOPMENT: Patient is alert oriented ?3. No focal neurological deficits. SKIN: Normal turgor and temperature. PSYCH: Normal insight and judgment. Const: COMMON NORMALS: alert Resp: COMMON NORMALS: clear to auscultation bilaterally AUSCULTATION: clear to auscultation bilaterally Neuro: SENSORIUM/ORIENTATION: Yes alert Data : 08/22/21 02:51 08/22/21 02:51 A&P Assessment and plan (1) Chest pain: Chest pain with abnormal EKG -Wellen's sign in anterior leads -[facility] with severe px LAD stenosis s/p CUCO x 1 and px LCX stenosis s/p CUCO x 1. Status: Acute Qualifiers: Chest pain type: unspecified Qualified Code(s): R07.9 - Chest pain, unspecified (2) NSTEMI (non-ST elevated myocardial infarction): -Wellen's sign in anterior leads. Troponin T minimally elevated 18--> 28-->28 -Non ST elevation ACS; unstable angina like presentation -continue DAPT, statin and beta-jian -Follow-up with Karlie in 1 week and follow-up with in 6 to 8 weeks. Status: Acute (3) Poorly controlled diabetes mellitus: She will benefit from adding Farxiga to her regimen. Status: Acute (4) Chronic combined systolic (congestive) and diastolic (congestive) heart failure: HFmrEF (LVEF=45%) Status: Acute (5) Dyslipidemia: Status: Acute (6) Morbid obesity: Status: Acute (7) Acute kidney injury: resolved Status: Acute Plan Questionable compliance Attestations Medical Necessity Statement*: Stable to be discharged home Coding Level of Care Code Acute Boring Machine Feeder for Roberto Fwroyce Diagnoses Chest pain R07.9 Chest pain type: unspecified Poorly controlled diabetes mellitus E11.65 Chronic combined systolic (congestive) and diastolic (congestive) heart failure I50.42 Dyslipidemia E78.5 Morbid obesity E66.01 Acute kidney injury N17.9 NSTEMI (non-ST elevated myocardial infarction) I21.4
--- NOTE | 2021-08-22 10:31 | PC.SOCIAL ---
Pg 2 IMM Explained to pt IMM. No questions voiced. Provided pt a copy. Initialed, dated, & timed a copy & placed in chart.
[2021-08-22 11:51] VITALS: BP 141/75; PULSE 68; RESP 14; TEMP 37.1; O2SAT 97
--- NOTE | 2021-08-22 12:29 | PC.NURSE ---
Patent discharged to home. Left in personal vehicle with friend driving. Extensive education given on adherence to medications and follow up appointments. Patient had no questions.
== END 2021-08-22 12:27 | disposition home or self-care (01) | DRG 246 ==
LOC: ER 12:13 → ICU 12:25
PROVIDERS: Hospitalist; Internal Medicine; Internal Medicine Cardiovascular Disease; Admitting Provider Internal Medicine; Emergency Provider Family Medicine; PCP Family Medicine; Visit Provider Internal Medicine
PROC: 027135Z Dilation of Coronary Artery, Two Arteries with Two Drug-eluting Intraluminal Devices, Percutaneous Approach (ICD-10-PCS; 2021-08-21 05:45)
DX: I25.119 Atherosclerotic heart disease of native coronary artery with unspecified angina pectoris (principal); E11.10 Type 2 diabetes mellitus with ketoacidosis without coma; I13.0 Hypertensive heart and chronic kidney disease with heart failure and stage 1 through stage 4 chronic kidney disease, or unspecified chronic kidney disease; I50.42 Chronic combined systolic (congestive) and diastolic (congestive) heart failure; N17.9 Acute kidney failure, unspecified; Z68.42 Body mass index [BMI] 45.0-49.9, adult; I44.7 Left bundle-branch block, unspecified; Z95.5 Presence of coronary angioplasty implant and graft; N18.9 Chronic kidney disease, unspecified; E11.22 Type 2 diabetes mellitus with diabetic chronic kidney disease; G89.4 Chronic pain syndrome; E78.5 Hyperlipidemia, unspecified; F41.1 Generalized anxiety disorder; K21.9 Gastro-esophageal reflux disease without esophagitis; I25.5 Ischemic cardiomyopathy; Z87.891 Personal history of nicotine dependence; E87.6 Hypokalemia; E86.1 Hypovolemia; E66.01 Morbid (severe) obesity due to excess calories
CPT/HCPCS: 36415; 36416; 36592; 36600; 71045; 71275; 80048; 80051; 80053; 81001; 82009; 82330; 82550; 82805; 82962; 83036; 83605; 83615; 84443; 84484; 85025; 85347; 85378; 85730; 87040; 87635; 93005; 93454; 96360; 96361; 96372; 96374; 96375; 96376; 97161; 99152; 99153; 99285; A4570; C1725; C1769; C1874; C1887; C1894; C8929; C9600; C9601; J0360; J1644; J1650; J1815 ×2; J1956; J2250; J3010; J3490; J7030; J7040; J7050; Q0163; Q9956; Q9967

== ENCOUNTER → 2021-09-06 11:32 | Outpatient (BNVA) | payer MEDICARE, MEDICAID, SELFPAY | PROVIDERS: PCP Family Medicine; Visit Provider Nurse Practitioner Family | DX: I25.10 Atherosclerotic heart disease of native coronary artery without angina pectoris (principal); Z87.891 Personal history of nicotine dependence | CPT/HCPCS: 80048; 99213; 99214 ==

== ENCOUNTER → 2021-10-30 08:54 | Outpatient (BNVA) | payer MEDICARE, MEDICAID, SELFPAY | PROVIDERS: PCP Family Medicine; Visit Provider Internal Medicine Cardiovascular Disease | DX: I25.10 Atherosclerotic heart disease of native coronary artery without angina pectoris (principal); G89.4 Chronic pain syndrome; E11.65 Type 2 diabetes mellitus with hyperglycemia; Z79.4 Long term (current) use of insulin; Z91.19 Patient's noncompliance with other medical treatment and regimen; I10 Essential (primary) hypertension; E66.01 Morbid (severe) obesity due to excess calories; Z68.41 Body mass index [BMI] 40.0-44.9, adult; I44.7 Left bundle-branch block, unspecified; E78.5 Hyperlipidemia, unspecified; Z87.891 Personal history of nicotine dependence | CPT/HCPCS: 99213; 99214 ==

== ENCOUNTER → 2022-02-28 13:52 | Outpatient (BNVA) | payer MEDICARE, MEDICAID, SELFPAY | PROVIDERS: PCP Family Medicine; Visit Provider Family Medicine | DX: E11.65 Type 2 diabetes mellitus with hyperglycemia (principal); Z79.4 Long term (current) use of insulin; E78.5 Hyperlipidemia, unspecified | CPT/HCPCS: 80053; 80061; 83036; 85025 ==

== ENCOUNTER → 2022-04-18 10:26 | Outpatient (BNVA) | payer MEDICARE, MEDICAID, SELFPAY | PROVIDERS: PCP Family Medicine; Visit Provider Nurse Practitioner Family | DX: I25.10 Atherosclerotic heart disease of native coronary artery without angina pectoris (principal); Z87.891 Personal history of nicotine dependence; I11.0 Hypertensive heart disease with heart failure; I50.42 Chronic combined systolic (congestive) and diastolic (congestive) heart failure | CPT/HCPCS: 99214 ==

== ENCOUNTER → 2022-05-30 10:38 | Outpatient (BNVA) | payer MEDICARE, MEDICAID, SELFPAY | PROVIDERS: PCP Family Medicine; Visit Provider Family Medicine | DX: E11.9 Type 2 diabetes mellitus without complications (principal) | CPT/HCPCS: 80053; 83036 ==

== ENCOUNTER → 2022-10-17 12:46 | Outpatient (BNVA) | payer MEDICARE, MEDICAID, SELFPAY | PROVIDERS: PCP Family Medicine; Visit Provider Internal Medicine | DX: I11.0 Hypertensive heart disease with heart failure (principal); I50.41 Acute combined systolic (congestive) and diastolic (congestive) heart failure; I25.10 Atherosclerotic heart disease of native coronary artery without angina pectoris; R07.89 Other chest pain; Z87.891 Personal history of nicotine dependence | CPT/HCPCS: 99214 ==

== ENCOUNTER 2022-11-02 06:11 | Outpatient (CLI) | payer MEDICARE, MEDICAID, SELFPAY ==
--- NOTE | 2022-11-02 | ECG_ITS ---
[facility] Test Date: 2022-11-02 Pat Name: Roxana Barraza Department: Room: Gender: Female Slip Laster: Libia Segura : 1960 Requested By: Jose De Jesus Yu Order Number: [id number] Kirby MD: Jose De Jesus Yu M.D. Interpretive Statements NAME OF STUDY: LEXISCAN SESTAMIBI STRESS TEST INDICATION: [Chest Pain] Procedure: At the baseline, the blood pressure was 147/96 mmHg with a heart rate of 57 bpm. The electrocardiogram showed sinus bradycardia, left axis deviation and interventricular conduction delay. The Lexiscan was infused over a period of 20 seconds. A total of 0.4 mg of Lexiscan was infused. The stress phase was continued for a total of 5 minutes. Heart rate was at the end of stress phase was 74 bpm and a blood pressure of 136/72 mmHg. The EKG at the peak infusion revealed normal sinus rhythm with no significant ST-T wave changes. Sestamibi was injected 20 seconds after the Lexiscan infusion. Blood pressure at the end of recovery phase was 133/77mmHg with a heart rate of 68 bpm. Conclusion: 1. Normal EKG response to Lexiscan infusion 2. No Lexiscan induced chest pain or cardiac arrhythmia. 3. Normal blood pressure and heart rate response. 4. Sestamibi/sestamibi perfusion scan pending; see separate report. Electronically Signed On 11-13-2022 10:51:28 CDT by Jose De Jesus Yu M.D. [email or web address]
[2022-11-02 07:50] VITALS: BMI 42.9
--- NOTE | 2022-11-02 07:50 | NMCV_ITS ---
NM xena perf SPECT r/s* [id number] Roxana Barraza Age: 61 Gender: F : 1960 Exam Date: 11/02/2022 08:17 Ordering Phys: Jose De Jesus Yu M.D ([email or web address]) Technologist: SUMAYA Live Exam Location: [facility] Indications: CHEST PAIN STRESS TEST Please see separate stress test report in [facility] for full findings IMAGE PROTOCOL Radiopharmaceutical Dose (mCi) Administration Site Administered by Rest: Tc-99m IV Sestamibi Stress:Tc-99m IV Sestamibi Rest: Discovery 630 Stress: Discovery 630 SPECT RESULTS Technical Quality: Raw Data Analysis: Image Corrections: Summed Stress Score: 0 Summed Rest Score: 0 Summed Difference Score: 0 PERFUSION FINDINGS Large sized, fixed perfusion defects are noted in the apical, anterior, inferior and inferolateral wan with no reversibility. This is consistent with large areas of prior infarcts seen in LAD, RCA and Left circumflex artery territories. No evidence of ischemia. FUNCTIONAL RESULTS (calculated via Gated SPECT) Stress Image LV EF (%): 39 FUNCTIONAL FINDINGS: LV systolic function is moderately reduced with EF of 39% IMPRESSIONS 1. Abnormal myocardial perfusion imaging with large areas of prior infarcts seen in all 3 coronary artery territories. No evidence of ischemia 2. LV systolic function is moderately reduced with EF of 39%. Jose De Jesus Yu MD (Electronically Signed) Final Date: 02 November 2022 15:19 S
[2022-11-02] MEDS: regadenoson 0.4 Mg/5 ml Syringe IVP (09:09)
[2022-11-02 09:12] VITALS: BP 133/77; PULSE 69
== END 2022-11-02 06:12 | disposition home or self-care (01) ==
LOC: CDL 06:12
PROVIDERS: PCP Family Medicine; Visit Provider Internal Medicine
DX: R07.9 Chest pain, unspecified (principal)
CPT/HCPCS: 36415; 78452; 93017; 96374; A9500; J2785

== ENCOUNTER → 2022-11-14 09:17 | Outpatient (BNVA) | payer MEDICARE, MEDICAID, SELFPAY | PROVIDERS: PCP Family Medicine; Visit Provider Family Medicine | DX: E11.9 Type 2 diabetes mellitus without complications (principal); E11.65 Type 2 diabetes mellitus with hyperglycemia; Z79.4 Long term (current) use of insulin | CPT/HCPCS: 80053; 85025 ==

== ENCOUNTER 2022-11-16 13:03 | Emergency (ER) | payer MEDICARE, MEDICAID, SELFPAY ==
--- NOTE | 2022-11-16 13:20 | XR_ITS ---
WS: [id number] Exam: XR shoulder RT min 2V* [id number] Date/Time of Exam: 11/16/2022 1:37 PM Reason For Exam: injury There is an impacted comminuted fracture through the surgical neck and head of the humerus. There is avulsion of the greater tuberosity. No dislocation noted. Degenerative change and spurring at the AC joint. IMPRESSION: 1. Impacted comminuted fracture of the surgical neck and head of the humerus with some displacement o f the humeral head fracture fragments. 2. AC joint degenerative changes.
[2022-11-16 13:23] VITALS: BP 164/65; PULSE 53; RESP 18; TEMP 36.7; O2SAT 97; BMI 42.9
--- NOTE | 2022-11-16 13:32 | XR_ITS ---
WS: [id number] Exam: XR elbow RT min 3V* [id number] Date/Time of Exam: 11/16/2022 1:37 PM Reason For Exam: injury There is an impacted fracture of the radial neck without significant displacement. No other obvious f ractures are noted. Moderately advanced degenerative changes. No joint effusion. IMPRESSION: 1. Mildly impacted fracture of the radial neck without displacement. 2. Moderate degenerative changes.
--- NOTE | 2022-11-16 13:41 | W.ED.EXTPRO ---
HPI - Extremity Problem General: Chief complaint: Extremity Injury, Upper Stated complaint: right shoulder pain/fall Time Seen by Provider: 11/16/22 13:23 Source: patient Mode of arrival: ambulatory Limitations: no limitations History of Present Illness: 61-year-old female states that she had tripped over her dog leash just before arrival tripped and fell onto her right arm she has pain in her right shoulder along with right elbow states it hurts to move is able to move it though. She denies hitting her head denies any neck pain denies any wrist pain she rates her pain currently a 6 out of 10 its improved with rest. Associated symptoms: Deny chest pain, fever(s) or rash Review of Systems Const: Denies: fever(s) or chills ENMT: Denies: throat pain or dental pain Card: Denies: chest pain Resp: Denies: dyspnea GI: Denies: abdominal pain, nausea, vomiting or diarrhea Musc: Reports: extremity pain; Denies: neck pain or back pain Skin/Breast: Denies: rash Neuro: Denies: headache(s) PFS ED PFSH: Medical History Accelerated hypertension Atherosclerosis of coronary artery [facility] with severe px LAD stenosis s/p CUCO x 1 and px LCX stenosis s/p CUCO x 1- 08/21/21 Chest pain Cholelithiasis Chronic combined systolic (congestive) and diastolic (congestive) heart failure moderate systolic dysfunction and grade 2 diastolic dysfunction Chronic pain syndrome Coronary artery disease Diabetes Dyslipidemia Elevated troponin Generalized anxiety disorder GERD (gastroesophageal reflux disease) GERD without esophagitis History of coronary artery disease Hypertension Hypovolemia Ischemic cardiomyopathy Left bundle branch block Morbid obesity Poorly controlled diabetes mellitus Sepsis Stenosis of coronary stent EF 40% grade 2 diastolic dysfunction, LVH, Systolic and diastolic CHF, acute Surgical History H/O cardiac catheterization 1 vessel disease [address] segment elevation [place] 3 stents were placed, with subsequent stent thrombosis with balloon angioplasty History of appendectomy History of lithotripsy Status post laparoscopic cholecystectomy (07/08/19) Family History Other CAD (coronary artery disease) Hypertension Denies family history of Anesthesia complication Bleeding disorder Social History Smoking and tobacco status: former smoker Alcohol intake: never Substance/Drug Use: never Adopted: Yes Caregiver/support person: Yes Lives independently: Yes Household members: family Housing: House Physical Exam Const: COMMON NORMALS: no acute distress and patient oriented x3 HENMT: COMMON NORMALS: normocephalic and atraumatic HEAD & SCALP: normocephalic and atraumatic Eye: COMMON NORMALS: conjunctivae normal CONJUNCTIVA: Yes conjunctivae normal Neck/C-Spine: COMMON NORMALS: full ROM and supple CERVICAL SPINE: Yes cervical ROM normal, No pain with cervical ROM and No Cervical spine tenderness Chest: COMMONS NORMALS: normal inspection of the chest Resp: COMMON NORMALS: normal respiratory effort Back/Pelvis: COMMON NORMALS: thoracic and lumbar spine normal to inspection and no thoracic nor lumbar tenderness Extremity: NARRATIVE EXTREMITY EXAM: Tenderness to right elbow and right shoulder no obvious deformity she does have range of motion but pain with range of motion Neuro: COMMON NORMALS: patient oriented x3 Psych: COMMON NORMALS: mental status grossly normal Skin: COMMON NORMALS: no rashes or lesions noted GENERAL SKIN EXAM: no rashes or lesions noted Course Vital Signs: Vital signs: Vital Signs Temperature 98.1 F 11/16/22 13:23 Pulse Rate 53 L 11/16/22 13:23 Respiratory Rate 18 11/16/22 13:23 Blood Pressure 164/65 11/16/22 13:23 Pulse Oximetry 97 11/16/22 13:23 Oxygen Delivery Me thod Room Air 11/16/22 13:23 MDM - Extremity (Nontraumatic) Medical Decision Making Patient presents here after a fall she does have a right humerus neck fracture along with radial head fracture we will place her in a sling I spoke to Dr. Barney orthopedics she is to follow-up with him she has no signs of head injury she is stable for discharge at this time. Medical Records I reviewed the patient's medical records. Lab Data I reviewed the patient's lab results. All radiology interpretation(s) finalized by discharge Discharge Plan Discharge Patient Disposition: Home Clinical Impression: Closed right humeral fracture, Closed fracture of head of right radius Condition: Stable Prescriptions: New hydrocodone-acetaminophen 5-325 mg tablet 1 tab PO Q6H PRN (Reason: pain) Qty: 14 0RF No Action nitroglycerin 0.4 mg tablet, sublingual 0.4 mg SUBLINGUAL Q5M PRN (Reason: chest pain) Qty: 25 3RF Rx Instructions: do not exceed 3 doses per episode gabapentin 300 mg capsule 300 mg PO BID Qty: 60 6RF dicyclomine 20 mg tablet 20 mg PO Q6H PRN (Reason: Gastrointestinal Spasms Or Cramping) Qty: 60 5RF docusate sodium 100 mg capsule 100 mg PO BID Qty: 60 8RF isosorbide mononitrate 30 mg tablet extended release 24 hr 30 mg PO DAILY Qty: 90 1RF furosemide [Lasix] 40 mg tablet 40 mg PO DAILY PRN (Reason: edema) Qty: 90 1RF amlodipine [Norvasc] 5 mg tablet 5 mg PO DAILY Qty: 90 1RF lisinopril 10 mg tablet 10 mg PO BID Qty: 180 3RF carvedilol 6.25 mg tablet 6.25 mg PO BID Qty: 180 1RF omeprazole 20 mg capsule,delayed release(DR/EC) See Rx Instructions .ROUTE .COMPLEX Qty: 30 3RF Dose Instruction: TAKE ONE CAPSULE BY MOUTH DAILY Rx Instructions: TAKE ONE CAPSULE BY MOUTH DAILY (DME) Monoject TB Safety Syringe 1 mL 28 gauge x 1/2 syringe See Rx Instructions .Route Qty: 300 3RF Rx Instructions: to use for insulin TID for blood sugar 90 day supply hydrocodone-acetaminophen 5-325 mg tablet 1 tab PO BID PRN (Reason: pain) 30 Days Qty: 40 0RF insulin aspart U-100 [Novolog FlexPen U-100 Insulin] 100 unit/mL (3 mL) insulin pen 18 unit .ROUTE BID Qty: 15 4RF Rx Instructions: 18 units twice a day; before breakfast and before afternoon meal Lantus Solostar U-100 Insulin 100 unit/mL (3 mL) insulin pen See Rx Instructions .ROUTE .COMPLEX Qty: 15 4RF Dose Instruction: inject 40 units SUBCUTANEOUSLY TWICE DAILY; BEFORE BREAKFAST AND BEFORE afternoon meal Rx Instructions: inject 40 units SUBCUTANEOUSLY TWICE DAILY; BEFORE BREAKFAST AND BEFORE afternoon meal clopidogrel 75 mg tablet 75 mg PO DAILY Qty: 60 4RF Discharge Orders: Discharge ED (Routine); Ordered 11/16/22 Ordered By: Ricky Hyatt Referrals: Bandar Barney DO [Physician] - 1-3 days Lito Keating MD [Primary Care Provider] - Discharge Diet: Advance as tolerated Discharge Activity: Resume usual activity Patient Instructions: Arm Fracture in Adults (ED), Opioid Safety Coding Level of Care Code ED Bracelet Maker Novelty for Roberto Viramontes
[2022-11-16] MEDS: HYDROcodone-acetaminophen 5-325 mg Tablet 1 TAB PO (13:47)
--- NOTE | 2022-11-16 14:37 | PC.NURSE ---
pt sling pt educated on sling; pt verbalized understanding as did daughter. pt cap refill appropriate and fingers were able to move.
--- NOTE | 2022-11-19 08:09 | PC.SOCIAL ---
Ortho Referral Referral message sent to clinic at this time. Clinic to contact patient with appt date/time.
== END 2022-11-16 14:35 | disposition home or self-care (01) ==
PROVIDERS: Emergency Provider Emergency Medicine; PCP Family Medicine
DX: S42.211A Unspecified displaced fracture of surgical neck of right humerus, initial encounter for closed fracture (principal); S52.131A Displaced fracture of neck of right radius, initial encounter for closed fracture; W01.0XXA Fall on same level from slipping, tripping and stumbling without subsequent striking against object, initial encounter; I11.0 Hypertensive heart disease with heart failure; I50.40 Unspecified combined systolic (congestive) and diastolic (congestive) heart failure; I25.10 Atherosclerotic heart disease of native coronary artery without angina pectoris; E11.9 Type 2 diabetes mellitus without complications; E78.5 Hyperlipidemia, unspecified; Z87.891 Personal history of nicotine dependence; Z79.4 Long term (current) use of insulin; Z79.02 Long term (current) use of antithrombotics/antiplatelets
CPT/HCPCS: 73030; 73080; 99283

== ENCOUNTER → 2022-11-20 08:52 | Outpatient (BNVA) | payer MEDICARE, MEDICAID, SELFPAY | PROVIDERS: PCP Family Medicine; Referring Provider Emergency Medicine; Visit Provider Physician Assistant | DX: S42.231A 3-part fracture of surgical neck of right humerus, initial encounter for closed fracture (principal); S52.121A Displaced fracture of head of right radius, initial encounter for closed fracture; W01.0XXA Fall on same level from slipping, tripping and stumbling without subsequent striking against object, initial encounter; Y93.K1 Activity, walking an animal; Z79.891 Long term (current) use of opiate analgesic; E66.01 Morbid (severe) obesity due to excess calories; Z68.41 Body mass index [BMI] 40.0-44.9, adult; Z46.89 Encounter for fitting and adjustment of other specified devices; S42.301D Unspecified fracture of shaft of humerus, right arm, subsequent encounter for fracture with routine healing; S52.121D Displaced fracture of head of right radius, subsequent encounter for closed fracture with routine healing; X58.XXXD Exposure to other specified factors, subsequent encounter | CPT/HCPCS: 73030; 73080; 97760; 99203; L3670 ==

== ENCOUNTER 2022-11-20 11:42 | Outpatient (CLI) | payer MEDICARE, MEDICAID, SELFPAY | END 2022-11-20 11:43 | disposition home or self-care (01) | LOC: SPT 11:43 | PROVIDERS: PCP Family Medicine; Visit Provider Physician Assistant | DX: Z46.89 Encounter for fitting and adjustment of other specified devices (principal); S42.301D Unspecified fracture of shaft of humerus, right arm, subsequent encounter for fracture with routine healing; S52.121D Displaced fracture of head of right radius, subsequent encounter for closed fracture with routine healing; X58.XXXD Exposure to other specified factors, subsequent encounter | CPT/HCPCS: 97760; L3670 ==

== ENCOUNTER → 2022-11-27 08:14 | Outpatient (BNVA) | payer MEDICARE, MEDICAID, SELFPAY | PROVIDERS: PCP Family Medicine; Visit Provider Orthopaedic Surgery | DX: S42.291A Other displaced fracture of upper end of right humerus, initial encounter for closed fracture (principal); S42.211A Unspecified displaced fracture of surgical neck of right humerus, initial encounter for closed fracture; W18.39XA Other fall on same level, initial encounter | CPT/HCPCS: 73060; 99213 ==

== ENCOUNTER → 2022-12-27 10:58 | Outpatient (BNVA) | payer MEDICARE, MEDICAID, SELFPAY | PROVIDERS: PCP Family Medicine; Visit Provider Orthopaedic Surgery | DX: T14.8XXA Other injury of unspecified body region, initial encounter (principal); M25.519 Pain in unspecified shoulder; X58.XXXA Exposure to other specified factors, initial encounter | CPT/HCPCS: 73030; 73070; 99213 ==

== ENCOUNTER 2023-01-04 00:50 | Emergency (ER) | payer MEDICARE, MEDICAID, SELFPAY ==
[2023-01-04 00:52] VITALS: BP 184/91; PULSE 102; RESP 20; TEMP 36.8; O2SAT 96; BMI 49.3
--- NOTE | 2023-01-04 00:55 | XRR_ITS ---
PROCEDURE INFORMATION: Exam: XR Right Shoulder Exam date and time: 01/04/2023 1:09 AM Age: 62 years old Clinical indication: Pain; Shoulder; Right TECHNIQUE: Imaging protocol: Radiologic exam of the right shoulder. Views: 2 or more views. COMPARISON: CR (CHEST, ) 01/04/2023 1:07 AM FINDINGS: Bones/joints: Irregular linear lucency through the right humeral head is concerning for a nondisplaced fracture. Increased right acromiohumeral interval can be seen in the setting large effusion/hemarthrosis. Soft tissues: Normal. XR/XR shoulder RT min 2V* [id number] IMPRESSION: 1. Irregular linear lucency through the right humeral head is concerning for a nondisplaced fracture. 2. Increased right acromiohumeral interval can be seen in the setting large effusion/hemarthrosis.
--- NOTE | 2023-01-04 00:55 | XRR_ITS ---
PROCEDURE INFORMATION: Exam: XR Chest Exam date and time: 01/04/2023 1:07 AM Age: 62 years old Clinical indication: Shortness of breath; Additional info: SOB TECHNIQUE: Imaging protocol: Radiologic exam of the chest. Views: 1 view. COMPARISON: CR XR chest 1V portable [id number] 08/19/2021 7:33 AM FINDINGS: Lungs: No focal consolidation. Pleural spaces: Unremarkable. No pleural effusion. No pneumothorax. Heart/Mediastinum: Prominent vascular markings along the right mid and upper mediastinum seen to better advantage on the chest CT dated 08/19/2021 and similar. Bones/joints: Calcifications projecting along the superior and superolateral aspect of the right humeral head may be artifactual but are incompletely assessed on this examination. If there are clinical signs and symptoms right shoulder pathology, a right shoulder radiograph may help to further evaluate this finding. XR/XR chest 1V portable [id number] IMPRESSION: No focal consolidation.
--- NOTE | 2023-01-04 01:02 | W.ED.ANXIETY ---
HPI - Anxiety General: Chief Complaint: Anxiety Stated Complaint: Swelling in legs Time Seen by Provider: 01/04/23 00:52 Source: patient and EMS Mode of arrival: EMS Limitations: no limitations History of Present Illness: 62-year-old female states that she taken a bath tonight she had a recent fracture to her right shoulder and states that she was unable to lift herself out of the bathtub she had a panic attack called EMS when EMS arrived states she is hyperventilating states that when she got out of the bathtub she felt much improved she denies any chest pain or shortness of breath currently states she does have some pain in her right shoulder. She denies any cough or fever Associated symptoms: Reports palpitations; Deny chest pain, chills, fever(s), headache(s), nausea or vomiting Review of Systems Const: Denies: fever(s), chills, body aches or change in appetite ENMT: Denies: throat pain or dental pain Card: Reports: palpitations; Denies: chest pain Resp: Reports: dyspnea GI: Denies: abdominal pain, nausea, vomiting or diarrhea : Denies: dysuria Musc: Reports: extremity pain; Denies: neck pain or back pain Skin/Breast: Denies: rash Neuro: Denies: headache(s) Psych: Reports: anxiety PFSH ED PFSH: Medical History Accelerated hypertension Atherosclerosis of coronary artery [facility] with severe px LAD stenosis s/p CUCO x 1 and px LCX stenosis s/p CUCO x 1- 08/21/21 Chest pain Cholelithiasis Chronic combined systolic (congestive) and diastolic (congestive) heart failure moderate systolic dysfunction and grade 2 diastolic dysfunction Chronic pain syndrome Coronary artery disease Diabetes Dyslipidemia Elevated troponin Generalized anxiety disorder GERD (gastroesophageal reflux disease) GERD without esophagitis History of coronary artery disease Hypertension Hypovolemia Ischemic cardiomyopathy Left bundle branch block Morbid obesity Poorly controlled diabetes mellitus Sepsis Stenosis of coronary stent EF 40% grade 2 diastolic dysfunction, LVH, Systolic and diastolic CHF, acute Surgical History H/O cardiac catheterization 1 vessel disease [address] segment elevation NV 3 stents were placed, with subsequent stent thrombosis with balloon angioplasty History of appendectomy History of lithotripsy Status post laparoscopic cholecystectomy (07/08/19) Family History Other CAD (coronary artery disease) Hypertension Denies family history of Anesthesia complication Bleeding disorder Social History Smoking and tobacco/nicotine status: former use of tobacco/nicotine Alcohol intake: never Substance/Drug Use: never Adopted: Yes Caregiver/support person: Yes Lives independently: Yes Household members: family Housing: House Physical Exam Const: COMMON NORMALS: no acute distress, patient oriented x3 and healthy appearing HENMT: COMMON NORMALS: normocephalic and atraumatic HEAD & SCALP: normocephalic and atraumatic Neck/C-Spine: COMMON NORMALS: full ROM and supple Chest: COMMONS NORMALS: normal inspection of the chest and normal palpation of entire chest wall Resp: COMMON NORMALS: normal respiratory effort, No retractions, No use of accessory muscles and clear to auscultation bilaterally AUSCULTATION: clear to auscultation bilaterally Cardio: COMMON NORMALS: regular rate, regular rhythm and No murmurs present (Cardio) RATE: regular rate RHYTHM: regular rhythm GI: COMMON NORMALS: Normal to inspection, nondistended, normoactive bowel sounds present, Soft to palpation, non-tender and no masses PALPATION: Yes Soft to palpation Extremity: COMMON NORMALS: normal to inspection and full ROM NARRATIVE EXTREMITY EXAM: Tenderness over right proximal humerus no obvious deformity has full range of motion Neuro: COMMON NORMALS: patient oriented x3, moves all extremities and no focal motor deficits Psych: COMMON NORMALS: mental status grossly normal, Normal thought process present and cooperative THOUGHT PROCESS: Normal thought process present Skin: COMMON NORMALS: no rashes or lesions noted and no wounds GENERAL SKIN EXAM: no rashes or lesions noted Course Vital Signs: Vital signs: Vital Signs Temperature 98.2 F 01/04/23 00:52 Pulse Rate 96 01/04/23 03:50 Respiratory Rate 18 01/04/23 03:50 Blood Pressure 154/80 01/04/23 03:50 Pulse Oximetry 97 01/04/23 03:50 Oxygen Delivery Me thod Room Air 01/04/23 03:00 MDM - Anxiety Medical Decision Making Patient presents here with an anxiety attack as she was not able to get out of the bathtub troponins here are negative she does have EKG changes likely from her previous heart attacks she has had no chest pain here she does have a proximal humerus fracture we will place her in a sling and she is to follow-up with Dr. Barney who is seen her previously for this she is to return if worsening she understands agrees to plan Medical Records I reviewed the patient's medical records. Lab Data I reviewed the patient's lab results. 01/04/23 01:05 01/04/23 01:05 Radiology Impressions Chest X-Ray 01/04/23 00:55 IMPRESSION: No focal consolidation. Shoulder X-Ray 01/04/23 00:55 IMPRESSION: 1. Irregular linear lucency through the right humeral head is concerning for a nondisplaced fracture. 2. Increased right acromiohumeral interval can be seen in the setting large effusion/hemarthrosis. Laboratory Results WBC 9.67 10^3/uL (3.29-11.43) 01/04/23 01:05 RBC 3.96 10^6/uL (3.85-5.65) 01/04/23 01:05 Hgb 11.30 g/dL (11.27-16.99) 01/04/23 01:05 Hct 35.5 % (36-47) L 01/04/23 01:05 MCV 89.6 fl (85-98) 01/04/23 01:05 MCH 28.5 pg (27-33) 01/04/23 01:05 MCHC 31.8 g/dL (30-55) 01/04/23 01:05 RDW 13.5 % (12.1-15.1) 01/04/23 01:05 Plt Count 223 10^3/cmm (157-399) 01/04/23 01:05 MPV 11.5 fL (7.4-10.4) H 01/04/23 01:05 Neut % (Auto) 72.1 % 01/04/23 01:05 Lymph % (Auto) 18.8 % 01/04/23 01:05 [place] % (Auto) 6.0 % 01/04/23 01:05 Eos % (Auto) 2.2 % 01/04/23 01:05 Baso % (Auto) 0.3 % 01/04/23 01:05 Neut # (Auto) 6.97 10^3/uL (1.8-7.7) 01/04/23 01:05 Lymph # (Auto) 1.8 10^3/uL (0.8-4.8) 01/04/23 01:05 [place] # (Auto) 0.6 10^3/uL (0.2-0.9) 01/04/23 01:05 Eos # (Auto) 0.2 10^3/uL (0.0-0.8) 01/04/23 01:05 Baso # (Auto) 0.0 10^3/uL (0.0-0.1) 01/04/23 01:05 Nucleated RBC % (auto) 0 % 01/04/23 01:05 Nucleated RBCs # 0.0 /100WBC 01/04/23 01:05 Sodium 142 mmol/L (136-145) 01/04/23 01:05 Potassium 4.1 mmol/L (3.5-5.1) 01/04/23 01:05 Chloride 103 mmol/L (98-107) 01/04/23 01:05 Carbon Dioxide 27 mmol/L (22-29) 01/04/23 01:05 Anion Gap 16.1 (5-19) 01/04/23 01:05 BUN 19 mg/dL (8-23) 01/04/23 01:05 Creatinine 1.2 mg/dL (0.5-0.9) H 01/04/23 01:05 GFR Calculation 45.2 mL/min (90-130) L 01/04/23 01:05 Glucose 286 mg/dL (65-115) H 01/04/23 01:05 Calculated Osmolality 307 mOsm/kg (285-295) H 01/04/23 01:05 Calcium 9.8 mg/dL (8.5-10.5) 01/04/23 01:05 Total Bilirubin 0.3 mg/dL (0.15-1.2) 01/04/23 01:05 AST 18 U/L (0-32) 01/04/23 01:05 ALT 14 U/L (0-33) 01/04/23 01:05 Alkaline Phosphatase 105 U/L (35-105) 01/04/23 01:05 Troponin T Baseline 23 ng/L (0-10) H 01/04/23 01:05 Troponin T 120 Minute 27.87 ng/L (0-10) H 01/04/23 02:46 Delta Troponin T 4.87 ABS# (0-10) 01/04/23 02:46 Troponin T Hi Sens 6Hr Cancelled 01/04/23 07:05 Troponin T Hi Sens 6Hr Delta Cancelled 01/04/23 07:05 NT-Pro-B Natriuret Pep 1461 pg/mL (0-125) H 01/04/23 01:05 Total Protein 7.3 g/dL (6.6-8.7) 01/04/23 01:05 Albumin 4.2 g/dL (3.5-5.2) 01/04/23 01:05 Globulin 3.1 g/dL (1.3-4.6) 01/04/23 01:05 All radiology interpretation(s) finalized by discharge Discharge Plan Discharge Patient Disposition: Home Clinical Impression: Closed right humeral fracture, Anxiety attack Condition: Stable Prescriptions: No Action nitroglycerin 0.4 mg tablet, sublingual 0.4 mg SUBLINGUAL Q5M PRN (Reason: chest pain) Qty: 25 3RF Rx Instructions: do not exceed 3 doses per episode gabapentin 300 mg capsule 300 mg PO BID Qty: 60 6RF (DME) SHOULDER IMMOBILIZER See Rx Instructions .ROUTE .MEDSUPPLY Qty: 1 0RF Rx Instructions: As directed dicyclomine 20 mg tablet 20 mg PO Q6H PRN (Reason: Gastrointestinal Spasms Or Cramping) Qty: 60 5RF isosorbide mononitrate 30 mg tablet extended release 24 hr 30 mg PO DAILY Qty: 90 1RF furosemide [Lasix] 40 mg tablet 40 mg PO DAILY PRN (Reason: edema) Qty: 90 1RF amlodipine [Norvasc] 5 mg tablet 5 mg PO DAILY Qty: 90 1RF lisinopril 10 mg tablet 10 mg PO BID Qty: 180 3RF carvedilol 6.25 mg tablet 6.25 mg PO BID Qty: 180 1RF (DME) Monoject TB Safety Syringe 1 mL 28 gauge x 1/2 syringe See Rx Instructions .Route Qty: 300 3RF Rx Instructions: to use for insulin TID for blood sugar 90 day supply hydrocodone-acetaminophen 5-325 mg tablet 1 tab PO BID PRN (Reason: pain) 30 Days Qty: 40 0RF insulin aspart U-100 [Novolog FlexPen U-100 Insulin] 100 unit/mL (3 mL) insulin pen 18 unit .ROUTE BID Qty: 15 4RF Rx Instructions: 18 units twice a day; before breakfast and before afternoon meal Lantus Solostar U-100 Insulin 100 unit/mL (3 mL) insulin pen See Rx Instructions .ROUTE .COMPLEX Qty: 15 4RF Dose Instruction: inject 40 units SUBCUTANEOUSLY TWICE DAILY; BEFORE BREAKFAST AND BEFORE afternoon meal Rx Instructions: inject 40 units SUBCUTANEOUSLY TWICE DAILY; BEFORE BREAKFAST AND BEFORE afternoon meal omeprazole 20 mg capsule,delayed release(DR/EC) See Rx Instructions .ROUTE .COMPLEX Qty: 30 3RF Dose Instruction: TAKE ONE CAPSULE BY MOUTH DAILY Rx Instructions: TAKE ONE CAPSULE BY MOUTH DAILY docusate sodium 100 mg capsule 100 mg PO BID Qty: 60 8RF clopidogrel 75 mg tablet 75 mg PO DAILY Qty: 60 4RF hydrocodone-acetaminophen 5-325 mg tablet 1 tab PO Q6H PRN (Reason: pain) Qty: 14 0RF Discharge Orders: Discharge ED (Routine); Ordered 01/04/23 Ordered By: Ricky Hyatt Referrals: Bandar Barney DO [Physician] - 1-3 days Lito Keating MD [Primary Care Provider] - Discharge Diet: Advance as tolerated Discharge Activity: Resume usual activity Patient Instructions: Arm Fracture in Adults (ED), Anxiety (ED) Coding Level of Care Code ED Equal Opportunity Director for Roberto Viramontes
--- NOTE | 2023-01-04 01:19 | ECG_ITS ---
[facility] Test Date: 2023-01-04 Pat Name: Roxana Barraza Department: Room: Gender: Female Rn Wound: : 1960 Requested By: Ricky Hyatt Order Number: [id number] Kirby MD: Jose De Jesus Yu M.D. Measurements Intervals [place] Rate: 99 P: 50 AL: 140 QRS: -43 QRSD: 138 T: 105 QT: 375 QTc: 482 Interpretive Statements SINUS RHYTHM POSSIBLE LEFT ATRIAL ENLARGEMENT [-0.1mV P-WAVE IN V1/V2] LEFT AXIS DEVIATION [QRS AXIS < -30] INTRAVENTRICULAR CONDUCTION DELAY [130+ ms QRS DURATION] LEFT VENTRICULAR HYPERTROPHY AND ST-T CHANGE [VOLTAGE CRITERIA PLUS ST/T ABNORMALITY] POSSIBLE SEPTAL MYOCARDIAL INFARCTION , PROBABLY RECENT [30 ms Q WAVE IN V1/V2] ACUTE [place] Compared to ECG 08/19/2021 16:24:46 No significant changes Electronically Signed On 01-04-2023 12:29:50 CDT by Jose De Jesus Yu M.D. [id number]
[2023-01-04 01:31] LABS: Basophils % 0.3 %; Eosinophils # 0.2 10^3/uL (0.0-0.8); Eosinophils % 2.2 %; Hematocrit 35.5 % (36-47); Lymphocytes # 1.8 10^3/uL (0.8-4.8); Lymphocytes % 18.8 %; Mean Corpuscular HGB Conc 31.8 g/dL (30-55); Mean Corpuscular Hemoglobin 28.5 pg (27-33); Mean Corpuscular Volume 89.6 fl (85-98); Mean Platelet Volume 11.5 fL (7.4-10.4); Monocytes # 0.6 10^3/uL (0.2-0.9); Neutrophils # 6.97 10^3/uL (1.8-7.7); Neutrophils % 72.1 %; Nucleated Red Blood Cells % 0 %; Platelet Count 223 10^3/cmm (157-399); Red Blood Count 3.96 10^6/uL (3.85-5.65); Red Cell Distribution Width 13.5 % (12.1-15.1); White Blood Count 9.67 10^3/uL (3.29-11.43)
--- NOTE | 2023-01-04 01:31 | ECG_ITS ---
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 Measurements Intervals [place] Rate: 99 P: 41 [place]: 136 QRS: -42 QRSD: 134 T: 106 QT: 373 QTc: 479 Interpretive Statements SINUS RHYTHM POSSIBLE LEFT ATRIAL ENLARGEMENT [-0.1mV P-WAVE IN V1/V2] LEFT AXIS DEVIATION [QRS AXIS < -30] INTRAVENTRICULAR CONDUCTION DELAY [130+ ms QRS DURATION] LEFT VENTRICULAR HYPERTROPHY AND ST-T CHANGE [VOLTAGE CRITERIA PLUS ST/T ABNORMALITY] POSSIBLE SEPTAL MYOCARDIAL INFARCTION , PROBABLY RECENT [30 ms Q WAVE IN V1/V2] ACUTE [place] Compared to ECG 01/04/2023 01:19:41 No significant changes Electronically Signed On 01-04-2023 12:29:44 CDT by Jose De Jesus Yu M.D. [id number]
[2023-01-04 01:50] LABS: Troponin(5th) Baseline 23 ng/L (0-10)
[2023-01-04 01:58] VITALS: BP 193/78; PULSE 90; RESP 18; O2SAT 97
[2023-01-04 02:01] LABS: Alanine Aminotransferase 14 U/L (0-33); Albumin Level 4.2 g/dL (3.5-5.2); Alkaline Phosphatase 105 U/L (35-105); Aspartate Amino Transferase 18 U/L (0-32); Blood Urea Nitrogen 19 mg/dL (8-23); Calcium 9.8 mg/dL (8.5-10.5); Carbon Dioxide 27 mmol/L (22-29); Chloride 103 mmol/L (98-107); Globulin 3.1 g/dL (1.3-4.6); Glomerular Filtration Rate 45.2 mL/min (90-130); Glucose 286 mg/dL (65-115); NT Pro B Type Natriuretic Pept 1461 pg/mL (0-125); Osmolality Calculated 307 mOsm/kg (285-295); Sodium 142 mmol/L (136-145); Total Bilirubin 0.3 mg/dL (0.15-1.2); Total Protein 7.3 g/dL (6.6-8.7)
[2023-01-04 02:02] LABS: Anion Gap 16.1 (5-19); Potassium 4.1 mmol/L (3.5-5.1)
[2023-01-04] MEDS: labetalol 5 mg/mL SDV 20mL 10 MG IVP (02:14)
[2023-01-04] MEDS: FUROsemide 10 mg/mL SDV 4mL 40 MG IVP (02:16)
[2023-01-04] MEDS: hyDRALAzine 20 mg/mL INJ 1 mL 10 MG IVP (02:56)
[2023-01-04 03:00] VITALS: BP 154/85; PULSE 89; RESP 18; O2SAT 98
[2023-01-04 03:10] LABS: Troponin 5 2HR 27.87 ng/L (0-10)
[2023-01-04 03:11] LABS: Troponin 5 2HR Delta 4.87 ABS# (0-10)
--- NOTE | 2023-01-04 03:23 | DCPLANNER ---
Sent message to Ortho for follow up for Humerus Fx.
--- NOTE | 2023-01-04 03:40 | PC.NURSE ---
Sling applied to rt arm. Instructions for use discussed with patient.
--- NOTE | 2023-01-04 03:45 | PC.NURSE ---
cockroaches Charge nurse- loretta pop and elizabeth Bolivar notified that room has multiple live bugs. Two bugs in sterile cup for verification.
[2023-01-04 03:50] VITALS: BP 154/80; PULSE 96; RESP 18; O2SAT 97
== END 2023-01-04 03:54 | disposition home or self-care (01) ==
PROVIDERS: Emergency Provider Emergency Medicine; PCP Family Medicine
DX: F41.9 Anxiety disorder, unspecified (principal); S42.294A Other nondisplaced fracture of upper end of right humerus, initial encounter for closed fracture; Z79.02 Long term (current) use of antithrombotics/antiplatelets; Z79.4 Long term (current) use of insulin; Z87.891 Personal history of nicotine dependence; I25.10 Atherosclerotic heart disease of native coronary artery without angina pectoris; I11.0 Hypertensive heart disease with heart failure; I50.9 Heart failure, unspecified; E11.9 Type 2 diabetes mellitus without complications; E78.5 Hyperlipidemia, unspecified; X58.XXXA Exposure to other specified factors, initial encounter
CPT/HCPCS: 71045; 73030; 80053; 83880; 84484; 85025; 93005; 96374; 96375; 99285; J0360; J1940; J3490

== ENCOUNTER → 2023-01-08 13:13 | Outpatient (BNVA) | payer MEDICARE, MEDICAID, SELFPAY | PROVIDERS: PCP Family Medicine; Visit Provider Orthopaedic Surgery | DX: S42.201D Unspecified fracture of upper end of right humerus, subsequent encounter for fracture with routine healing (principal); X58.XXXD Exposure to other specified factors, subsequent encounter | CPT/HCPCS: 73060; 99213 ==

== ENCOUNTER → 2023-02-05 10:55 | Outpatient (BNVA) | payer MEDICARE, MEDICAID, SELFPAY | PROVIDERS: PCP Family Medicine; Visit Provider Orthopaedic Surgery | DX: S42.201D Unspecified fracture of upper end of right humerus, subsequent encounter for fracture with routine healing (principal); X58.XXXD Exposure to other specified factors, subsequent encounter | CPT/HCPCS: 73060; 99213 ==

== ENCOUNTER → 2023-02-11 13:19 | Outpatient (BNVA) | payer MEDICARE, MEDICAID, SELFPAY | PROVIDERS: PCP Family Medicine; Visit Provider Family Medicine | DX: E11.9 Type 2 diabetes mellitus without complications (principal) | CPT/HCPCS: 36415; 80053; 83036 ==

== ENCOUNTER → 2023-03-19 08:50 | Outpatient (BNVA) | payer MEDICARE, SELFPAY | PROVIDERS: PCP Family Medicine; Visit Provider Orthopaedic Surgery | DX: S42.201D Unspecified fracture of upper end of right humerus, subsequent encounter for fracture with routine healing (principal); X58.XXXD Exposure to other specified factors, subsequent encounter; R60.9 Edema, unspecified | CPT/HCPCS: 99213 ==

== ENCOUNTER 2023-08-16 15:43 | Emergency (ER) | payer MEDICARE, SELFPAY ==
--- NOTE | 2023-08-16 15:46 | XRR_ITS ---
PROCEDURE INFORMATION: Exam: XR Chest Exam date and time: 08/16/2023 6:15 PM Age: 62 years old Clinical indication: Shortness of breath; Prior surgery; Surgery date: 6+ months; Surgery type: Stents; Additional info: SOB TECHNIQUE: Imaging protocol: Radiologic exam of the chest. Views: 1 view. COMPARISON: CR (CHEST, ) 01/04/2023 1:07 AM FINDINGS: Lungs: Unremarkable. No consolidation. Pleural spaces: Unremarkable. No pleural effusion. No pneumothorax. Heart/Mediastinum: Unremarkable. No cardiomegaly. Bones/joints: Unremarkable. XR/XR chest 1V portable [id number] IMPRESSION: No acute findings.
[2023-08-16 15:59] VITALS: BP 133/84; PULSE 95; RESP 18; TEMP 36.8; O2SAT 95
[2023-08-16 16:26] LABS: Basophils % 0.2 %; Eosinophils % 0.3 %; Hematocrit 43.5 % (36-47); Lymphocytes # 1.9 10^3/uL (0.8-4.8); Lymphocytes % 11.7 %; Mean Corpuscular HGB Conc 33.6 g/dL (30-55); Mean Corpuscular Hemoglobin 28.5 pg (27-33); Mean Platelet Volume 12.9 fL (7.4-10.4); Monocytes # 0.8 10^3/uL (0.2-0.9); Monocytes % 4.9 %; Neutrophils # 13.03 10^3/uL (1.8-7.7); Neutrophils % 82.4 %; Nucleated Red Blood Cells % 0 %; Platelet Count 187 10^3/cmm (157-399); Red Blood Count 5.12 10^6/uL (3.85-5.65); Red Cell Distribution Width 13.2 % (12.1-15.1); White Blood Count 15.81 10^3/uL (3.29-11.43)
[2023-08-16 16:54] LABS: Alanine Aminotransferase 21 U/L (0-33); Albumin Level 3.8 g/dL (3.5-5.2); Alkaline Phosphatase 146 U/L (35-105); Blood Urea Nitrogen 28 mg/dL (8-23); Calcium 9.7 mg/dL (8.5-10.5); Carbon Dioxide 23 mmol/L (22-29); Chloride 82 mmol/L (98-107); Creatinine Clr Calc Pharmacy 47.4683; Globulin 3.8 g/dL (1.3-4.6); Glomerular Filtration Rate 41.2 mL/min (90-130); NT Pro B Type Natriuretic Pept 1332 pg/mL (0-125); Osmolality Calculated 291 mOsm/kg (285-295); Sodium 121 mmol/L (136-145); Total Bilirubin 0.7 mg/dL (0.15-1.2); Total Protein 7.6 g/dL (6.6-8.7)
[2023-08-16 17:16] LABS: Anion Gap 21.4 (5-19); Aspartate Amino Transferase 21 U/L (0-32); Potassium 5.4 mmol/L (3.5-5.1)
[2023-08-16 17:17] LABS: Glucose 703 mg/dL (65-115)
[2023-08-16 17:30] LABS: Ketone (Acetest) Serum Negative (Negative)
[2023-08-16 18:22] VITALS: BP 159/104; PULSE 84; O2SAT 95
[2023-08-16 18:40] VITALS: BP 137/99; PULSE 86; O2SAT 99
[2023-08-16 18:40] LABS: ABG PCO2 38.6 mmHg (35-45); ABG PH Result 7.46 (7.35-7.45); Alveolar-Arterial Oxygen Gradi 2.2 mmHg (5-10); Arterial Blood Gas Hematocrit 45.3 % (37-47); Base Excess ABG 3.6 mmol/L (-2.0-2.0); Blood Gas Allen Test Pos; Blood Gas Operator Identificat CL; Blood Gas Sample Site Radial, left; Blood Gas Sample Type Arterial; Carboxyhemoglobin 1.4 %THgb (0.4-20.1); HCO3 ABG 27.5 mmol/L (22-26); HGB O2 Sat 96.3 % (95-100); Ionized Calcium Level - ABG 1.2 mmol/L (1.1-1.4); Methemoglobin 0.1 % (0.4-1.5); Oxygen Device ROOM AIR; Oxygen Saturation ABG 97.8; PO2 ABG 83.9 mmHg (80.0-100.0); PO2 FiO2 Ratio Arterial Blood 0; Potassium Level - ABG 4.9 mmol/L (3.5-5.0); Total Hemoglobin 14.8 g/dL (12-16)
[2023-08-16] MEDS: sodium chloride 0.9% 1,000 ML 999 ML IV (18:57)
[2023-08-16] MEDS: insulin regular-human 100 units/1 mL 15 UNIT IVP (18:58)
--- NOTE | 2023-08-16 19:29 | PC.NURSE ---
Pt. put on her call light. When I went in the room to answer the call light, she states that she needs to pee. I asked if she needed a bedside commode or if she needs a bed simon. Pt. states that she usually just pees her pants. The friend that is in the room with her states yes , she does, she usually just pees in her pants on the bed . I asked if she needed a catheter and she strongly declined a catheter. I have explained to the patient that we have to do a bedside commode, a bed simon or a catheter , but she can not just urinate on her self.
[2023-08-16 20:14] LABS: Glucose Point of Care 447 mg/dL (70-110)
--- NOTE | 2023-08-16 20:28 | W.ED.WEAKNES ---
HPI - Weakness General: Chief complaint: Weakness Stated complaint: sob no energy Time Seen by Provider: 08/16/23 18:10 History of Present Illness: 62-year-old female with a history of uncontrolled diabetes. She is evidently supposed to be taking Lantus twice a day and sliding scale. She has not done so in 2 days. She comes in with generalized weakness. She says she is short of breath. She has no energy. She has not had any other specific symptoms. She does note that she is very thirsty, and every time I drink something I pee . Family member says she has had apple juice, orange juice, milk today. She does not routinely check her blood sugars. Associated symptoms: Denies chest pain, chills, confusion, fever(s), headache(s), nausea or vomiting Review of Systems Const: Denies: fever(s), chills or body aches Eyes: Denies: change in vision Card: Denies: chest pain or palpitations Resp: Reports: dyspnea; Denies: productive cough, non-productive cough or wheezing GI: Denies: abdominal pain, nausea, vomiting, diarrhea or hematochezia : Denies: difficulty voiding Skin/Breast: Denies: rash Neuro: Denies: headache(s), weakness in extremities, dizziness or confusion Endo: Reports: polyuria, polydipsia and tired all the time [facility] PFSH: Medical History GERD without esophagitis Atherosclerosis of coronary artery [facility] with severe px LAD stenosis s/p CUCO x 1 and px LCX stenosis s/p CUCO x 1- 08/21/21 Hypovolemia Left bundle branch block History of coronary artery disease Accelerated hypertension Sepsis Elevated troponin Generalized anxiety disorder Chronic combined systolic (congestive) and diastolic (congestive) heart failure moderate systolic dysfunction and grade 2 diastolic dysfunction Chronic pain syndrome Morbid obesity Ischemic cardiomyopathy Systolic and diastolic CHF, acute Poorly controlled diabetes mellitus Chest pain GERD (gastroesophageal reflux disease) Stenosis of coronary stent EF 40% grade 2 diastolic dysfunction, LVH, Cholelithiasis Hypertension Dyslipidemia Diabetes Coronary artery disease Surgical History Status post laparoscopic cholecystectomy (07/08/19) History of lithotripsy History of appendectomy H/O cardiac catheterization 1 vessel disease [address] segment elevation NM 3 stents were placed, with subsequent stent thrombosis with balloon angioplasty Family History Other CAD (coronary artery disease) Hypertension Denies family history of Anesthesia complication Bleeding disorder Social History Smoking and tobacco/nicotine status: former use of tobacco/nicotine Alcohol intake: never Substance/Drug Use: never Adopted: Yes Caregiver/support person: Yes Lives independently: Yes Household members: family Housing: House Physical Exam Const: COMMON NORMALS: no acute distress GENERAL APPEARANCE: cooperative; not ill appearing HENMT: COMMON NORMALS: normocephalic, atraumatic and Normal external nose present HEAD & SCALP: normocephalic and atraumatic FACE & SINUS: normal facial exam and face symmetric NOSE: Normal external nose present Eye: COMMON NORMALS: Equal, round and reactive pupils present and EOMs intact bilaterally PUPIL: Yes Equal, round and reactive pupils present Neck/C-Spine: GENERAL: Yes trachea midline Chest: CHEST: Yes Symmetrical chest wall rise Resp: COMMON NORMALS: normal respiratory effort, No retractions, No use of accessory muscles and clear to auscultation bilaterally AUSCULTATION: clear to auscultation bilaterally Cardio: COMMON NORMALS: regular rate and regular rhythm RATE: regular rate RHYTHM: regular rhythm GI: COMMON NORMALS: Normal to inspection, nondistended, normoactive bowel sounds present Extremity: COMMON NORMALS: no pedal edema Neuro: SARAH COMA SCALE: document GCS findings Gary coma scale eye opening: Spontaneous Sarah coma scale verbal response: Orientated Sarah coma scale motor response: Obey commands Gary coma scale total score: 15 SENSORY EXAM: Yes extremities (intact) Psych: COMMON NORMALS: speech normal SPEECH: Yes normal speech Skin: COMMON NORMALS: no rashes or lesions noted GENERAL SKIN EXAM: no rashes or lesions noted Course Vital Signs: Vital signs: Vital Signs Temperature 98.3 F 08/16/23 15:59 Pulse Rate 86 08/16/23 18:40 Respiratory Rate 18 08/16/23 15:59 Blood Pressure 137/99 08/16/23 18:40 Pulse Oximetry 99 08/16/23 18:40 Oxygen Delivery Me thod Room Air 08/16/23 18:40 MDM - Weakness Medical Decision Making 62-year-old lady with hyperglycemia. Blood sugar is 744 on arrival. 703 on serum. Serum ketones are negative. Her potassium is 5.4 with a pseudohyponatremia of 121. Chest x-ray is nonacute. ABG shows a pH of 7.46 with a pO2 of 84 on room air. Her pCO2 was 39. BNP is 1300 which is essentially her baseline. Creatinine is 1.3 which is her baseline. She is given 15 units of IV insulin, with reduction to 477 of her blood sugar. She is given 10 more following this, with her evening Lantus dose of 40 units. Awaiting a urine. Urinalysis is negative. Sugar is down to 380. From a medical standpoint, this patient needs to take her insulin. There is nothing else to treat in the hospital as far as a secondary cause of her hyperglycemia. She apparently has a history of noncompliance. Even if blood sugars are controlled in the hospital, if she is noncompliant at home, they will simply rise again and she will have the same problem. This was explained to her. Lab Data 08/16/23 16:15 08/16/23 16:15 Radiology Impressions Chest X-Ray 08/16/23 15:46 IMPRESSION: No acute findings. Laboratory Results WBC 15.81 10^3/uL (3.29-11.43) H 08/16/23 16:15 RBC 5.12 10^6/uL (3.85-5.65) 08/16/23 16:15 Hgb 14.60 g/dL (11.27-16.99) 08/16/23 16:15 Hct 43.5 % (36-47) 08/16/23 16:15 MCV 85.0 fl (85-98) 08/16/23 16:15 MCH 28.5 pg (27-33) 08/16/23 16:15 MCHC 33.6 g/dL (30-55) 08/16/23 16:15 RDW 13.2 % (12.1-15.1) 08/16/23 16:15 Plt Count 187 10^3/cmm (157-399) 08/16/23 16:15 MPV 12.9 fL (7.4-10.4) H 08/16/23 16:15 Neut % (Auto) 82.4 % 08/16/23 16:15 Lymph % (Auto) 11.7 % 08/16/23 16:15 Perry % (Auto) 4.9 % 08/16/23 16:15 Eos % (Auto) 0.3 % 08/16/23 16:15 Baso % (Auto) 0.2 % 08/16/23 16:15 Neut # (Auto) 13.03 10^3/uL (1.8-7.7) H 08/16/23 16:15 Lymph # (Auto) 1.9 10^3/uL (0.8-4.8) 08/16/23 16:15 Perry # (Auto) 0.8 10^3/uL (0.2-0.9) 08/16/23 16:15 Eos # (Auto) 0.0 10^3/uL (0.0-0.8) 08/16/23 16:15 Baso # (Auto) 0.0 10^3/uL (0.0-0.1) 08/16/23 16:15 Nucleated RBC % (auto) 0 % 08/16/23 16:15 Nucleated RBCs # 0.0 /100WBC 08/16/23 16:15 Specimen Type Arterial 08/16/23 18:32 Sample Site Radial, left 08/16/23 18:32 ABG pH 7.46 (7.35-7.45) H 08/16/23 18:32 ABG pCO2 38.6 mmHg (35-45) 08/16/23 18:32 ABG pO2 83.9 mmHg (80.0-100.0) 08/16/23 18:32 ABG PO2/FiO2 Ratio 0 08/16/23 18:32 ABG HCO3 27.5 mmol/L (22-26) H 08/16/23 18:32 ABG O2 Saturation 97.8 08/16/23 18:32 ABG Base Excess 3.6 mmol/L (-2.0-2.0) H 08/16/23 18:32 Preet Test Pos 08/16/23 18:32 A-a O2 Gradient 2.2 mmHg (5-10) L 08/16/23 18:32 Hematocrit 45.3 % (37-47) 08/16/23 18:32 Hgb O2 Saturation 96.3 % (95-100) 08/16/23 18:32 Carboxyhemoglobin 1.4 %THgb (0.4-20.1) 08/16/23 18:32 Methemoglobin 0.1 % (0.4-1.5) L 08/16/23 18:32 Total Hemoglobin 14.8 g/dL (12-16) 08/16/23 18:32 Sodium 125.0 mmol/L (131-143) L 08/16/23 18:32 Potassium 4.9 mmol/L (3.5-5.0) 08/16/23 18:32 Glucose 615.0 mg/dL (70-115) H 08/16/23 18:32 Ionized Calcium 1.2 mmol/L (1.1-1.4) 08/16/23 18:32 O2 Delivery Device Room air 08/16/23 18:32 FiO2 21.0 % 08/16/23 18:32 Store Operations Associate ID Cl 08/16/23 18:32 Sodium 121 mmol/L (136-145) L 08/16/23 16:15 Potassium 5.4 mmol/L (3.5-5.1) H 08/16/23 16:15 Chloride 82 mmol/L (98-107) L 08/16/23 16:15 Carbon Dioxide 23 mmol/L (22-29) 08/16/23 16:15 Anion Gap 21.4 (5-19) H 08/16/23 16:15 BUN 28 mg/dL (8-23) H 08/16/23 16:15 Creatinine 1.3 mg/dL (0.5-0.9) H 08/16/23 16:15 GFR Calculation 41.2 mL/min (90-130) L 08/16/23 16:15 Glucose 703 mg/dL (65-115) H* 08/16/23 16:15 POC Glucose 388 mg/dL (70-110) H 08/16/23 21:36 Calculated Osmolality 291 mOsm/kg (285-295) 08/16/23 16:15 Calcium 9.7 mg/dL (8.5-10.5) 08/16/23 16:15 Total Bilirubin 0.7 mg/dL (0.15-1.2) 08/16/23 16:15 AST 21 U/L (0-32) 08/16/23 16:15 ALT 21 U/L (0-33) 08/16/23 16:15 Alkaline Phosphatase 146 U/L (35-105) H 08/16/23 16:15 NT-Pro-B Natriuret Pep 1332 pg/mL (0-125) H 08/16/23 16:15 Total Protein 7.6 g/dL (6.6-8.7) 08/16/23 16:15 Albumin 3.8 g/dL (3.5-5.2) 08/16/23 16:15 Globulin 3.8 g/dL (1.3-4.6) 08/16/23 16:15 Urine Color Yellow (Yellow) 08/16/23 20:49 Urine Appearance Clear (CLEAR) 08/16/23 20:49 Urine pH 5 (5-7) 08/16/23 20:49 Ur Specific [place] 1.015 (1.005-1.030) 08/16/23 20:49 Urine Protein 1+ (Negative) H 08/16/23 20:49 Urine Glucose (UA) 4+ (Normal) H 08/16/23 20:49 Urine Ketones 1+ (Negative) H 08/16/23 20:49 Urine Blood 2+ (Negative) H 08/16/23 20:49 Urine Nitrate Positive (Negative) H 08/16/23 20:49 Urine Bilirubin Neg (Negative) 08/16/23 20:49 Urine Urobilinogen Neg mg/dL (Negative) 08/16/23 20:49 Ur Leukocyte Esterase Negative (Negative) 08/16/23 20:49 Urine RBC 5-10 /hpf (0-2) H 08/16/23 20:49 Urine WBC 0-4 /hpf (0-5) H 08/16/23 20:49 Ur Squamous Epith Cells 5-10 /hpf (0-5) H 08/16/23 20:49 Amorphous Sediment Not Reportable 08/16/23 20:49 Urine Bacteria 1+ /hpf (NONE) H 08/16/23 20:49 Hyaline Casts 0-4 /lpf H 08/16/23 20:49 Coarse Granular Casts 0-4 /lpf H 08/16/23 20:49 Urine Mucus Trace /hpf 08/16/23 20:49 Urine Yeast Trace /hpf 08/16/23 20:49 Serum Ketones Negative (Negative) 08/16/23 16:15 All radiology interpretation(s) finalized by discharge Discharge Plan Discharge Patient Disposition: Home Clinical Impression: Acute hyperglycemia Condition: Stable Prescriptions: No Action nitroglycerin 0.4 mg tablet, sublingual 0.4 mg SUBLINGUAL Q5M PRN (Reason: chest pain) Qty: 25 3RF Rx Instructions: do not exceed 3 doses per episode clopidogrel 75 mg tablet 75 mg PO DAILY Qty: 90 2RF (DME) SHOULDER IMMOBILIZER See Rx Instructions .ROUTE .MEDSUPPLY Qty: 1 0RF Rx Instructions: As directed dicyclomine 20 mg tablet 20 mg PO Q6H PRN (Reason: Gastrointestinal Spasms Or Cramping) Qty: 60 5RF amlodipine [Norvasc] 5 mg tablet 5 mg PO DAILY Qty: 90 1RF carvedilol 6.25 mg tablet 6.25 mg PO BID Qty: 180 1RF (DME) Monoject TB Safety Syringe 1 mL 28 gauge x 1/2 syringe See Rx Instructions .Route Qty: 300 3RF Rx Instructions: to use for insulin TID for blood sugar 90 day supply docusate sodium 100 mg capsule 100 mg PO BID Qty: 60 8RF gabapentin 300 mg capsule 300 mg PO BID Qty: 60 6RF lisinopril 10 mg tablet 10 mg PO BID Qty: 180 3RF insulin aspart U-100 [Novolog FlexPen U-100 Insulin] 100 unit/mL (3 mL) insulin pen 18 unit .ROUTE BID Qty: 15 4RF Rx Instructions: 18 units twice a day; before breakfast and before afternoon meal Lantus Solostar U-100 Insulin 100 unit/mL (3 mL) insulin pen See Rx Instructions .ROUTE .COMPLEX Qty: 15 4RF Dose Instruction: INJECT 40 UNITS SUBCUTANEOUSLY TWICE DAILY; BEFORE BREAKFAST AND BEFORE afternoon meal Rx Instructions: INJECT 40 UNITS SUBCUTANEOUSLY TWICE DAILY; BEFORE BREAKFAST AND BEFORE afternoon meal omeprazole 20 mg capsule,delayed release(DR/EC) See Rx Instructions .ROUTE .COMPLEX Qty: 30 3RF Dose Instruction: TAKE ONE CAPSULE BY MOUTH DAILY Rx Instructions: TAKE ONE CAPSULE BY MOUTH DAILY hydrocodone-acetaminophen 5-325 mg tablet 1 tab PO BID PRN (Reason: pain) 30 Days Qty: 40 0RF isosorbide mononitrate 30 mg tablet extended release 24 hr See Rx Instructions .ROUTE .COMPLEX Qty: 90 1RF Dose Instruction: TAKE ONE TABLET BY MOUTH DAILY Rx Instructions: TAKE ONE TABLET BY MOUTH DAILY furosemide 40 mg tablet See Rx Instructions .ROUTE .COMPLEX Qty: 90 1RF Dose Instruction: TAKE ONE TABLET BY MOUTH DAILY NEEDED FOR EDEMA Rx Instructions: TAKE ONE TABLET BY MOUTH DAILY NEEDED FOR EDEMA Discharge Orders: Discharge ED (Routine); Ordered 08/16/23 Ordered By: Moris Frey Referrals: Lito Keating MD [Primary Care Provider] - 4-7 days Patient Instructions: Diabetic Hyperglycemia (ED), Opioid Safety, Pain Management Activity Restrictions/Additional Instructions: Please remember to take your insulin appropriately. Your blood sugar being elevated is the cause of your weakness. Return for fever greater than 100, worsening mental status despite appropriate blood sugars, development of any new or worsening concerning symptoms. See your doctor next week. Coding Level of Care Code ED Collision Mechanic for Roberto Viramontes
[2023-08-16 21:09] LABS: Specific Gravity, Urine 1.015 (1.005-1.030); Urine Appearance Clear (CLEAR); Urine Color Yellow (Yellow); pH Urine 5 (5-7)
[2023-08-16 21:10] LABS: Add Urine Culture? Yes; Add Urine Microscopic? YES; Bacteria Urine 1+ /hpf; Bilirubin Urine Neg (Negative); Blood Urine 2+ (Negative); Coarse Granular Casts Urine 0-4 /lpf; Glucose Urine UA 4+ (Normal); Hyaline Casts Urine 0-4 /lpf; Ketones Urine 1+ (Negative); Leukocyte Esterase Urine Negative (Negative); Mucus Urine TRACE /hpf; Nitrate Urine Positive (Negative); Protein Urine 1+ (Negative); Urobilinogen Urine Neg (Negative); WBC Urine 0-4 /hpf (0-5)
[2023-08-16 21:39] LABS: Glucose Point of Care 388 mg/dL (70-110)
== END 2023-08-16 22:51 | disposition home or self-care (01) ==
PROVIDERS: Physician Assistant; Emergency Provider Emergency Medicine; PCP Family Medicine
DX: E11.65 Type 2 diabetes mellitus with hyperglycemia (principal); Z79.02 Long term (current) use of antithrombotics/antiplatelets; Z79.4 Long term (current) use of insulin; Z87.891 Personal history of nicotine dependence; I25.10 Atherosclerotic heart disease of native coronary artery without angina pectoris; I11.0 Hypertensive heart disease with heart failure; I50.42 Chronic combined systolic (congestive) and diastolic (congestive) heart failure; I25.5 Ischemic cardiomyopathy; E78.5 Hyperlipidemia, unspecified
CPT/HCPCS: 36415; 36416; 36600; 71045; 80051; 80053; 81001; 82009; 82330; 82805; 82962; 83880; 85025; 87077; 87086; 87186; 96361; 96374; 99284; J1815; J7030

== ENCOUNTER 2023-11-19 08:33 | Outpatient (CLI) | payer MEDICARE, SELFPAY ==
--- NOTE | 2023-11-19 09:00 | CT_ITS ---
WS: [id number] CT LUMBAR SPINE, noncontrast. HISTORY: worsening back/feet pain, weakness/neuropathy TECHNIQUE: Contiguous 2.0 mm axial imaging are performed. Sagittal and coronal reformats are submitte d and reviewed. All CT scans at [facility] use at least one of these dose optimization techni ques: automated exposure control; mA and/or kV adjustment per patient size (includes targeted exams w here dose is matched to clinical indication); or iterative reconstruction. IV contrast: None DLP: 939.22 mGy.cm COMPARISON: None available. Normal lumbar alignment with no loss of disc space height or vertebral body height. L1-2: Large RIGHT lateral hypertrophic osteophyte with no foraminal narrowing. L2-3: Diffuse moderate annular disc bulging. Disc encroaches upon the central canal and subarticular recesses. Bilateral extraforaminal osteophytes. Mild central, bilateral subarticular recess and RIGHT foraminal stenosis. L3-4: Diffuse annular disc bulging with ligamentum flavum and mild facet arthritis. Mild encroachment upon the ventral thecal sac and subarticular recesses. There is disc contact on the traversing L4 ne rve roots. Small bilateral foraminal osteophytes. Mild to moderate central, bilateral subarticular re cess and foraminal stenosis. L4-5: Moderate diffuse annular disc bulging encroaching upon the ventral thecal sac and subarticular recesses. Facet joint arthritis and ligamentum flavum hypertrophy. Mild central, bilateral subarticul ar recess and RIGHT foraminal stenosis. Severe LEFT foraminal stenosis. L5-S1: Diffuse annular disc bulging encroaching upon the ventral thecal sac. Extraforaminal osteophyt es. Very mild foraminal narrowing. Atherosclerosis aorta. Heavy dense calcifications in the renal pelves. There is a calcification in th e LEFT renal pelvis centrally measuring 6 x 11 mm and is at risk for causing obstruction. No obstruct ion is noted at this time although there is mild renal atrophy. There is an additional low-attenuatio n mass from the lower pole of the LEFT kidney measuring 2.8 x 2.8 cm noted to be a cyst in 2019. Very large calcifications in the RIGHT renal pelvis. CT/CT lumbar spine wo con* [id number] IMPRESSION: 1. Multilevel diffuse disc bulging with hypertrophic osteophytes and facet dis ease. 2. L4-5: Severe LEFT foraminal stenosis due to disc and osteophyte disease. Ad ditional mild central, bilateral subarticular recess and RIGHT foraminal stenos is. 3. L3-4: Mild to moderate central, bilateral subarticular recess and foraminal stenosis. There is mild disc contact on the traversing L4 nerve roots. 4. L2-3: Mild central, bilateral subarticular recess and RIGHT foraminal steno sis. 5. Very mild foraminal narrowing at L5-S1. 6. Large calcifications in each renal pelvis. LEFT renal cyst.
== END 2023-11-19 08:34 | disposition home or self-care (01) ==
LOC: RAD 08:35
PROVIDERS: PCP Family Medicine; Visit Provider Family Medicine
DX: M51.36 Other intervertebral disc degeneration, lumbar region (principal); M51.16 Intervertebral disc disorders with radiculopathy, lumbar region; M48.062 Spinal stenosis, lumbar region with neurogenic claudication; M25.78 Osteophyte, vertebrae; M99.63 Osseous and subluxation stenosis of intervertebral foramina of lumbar region; N28.1 Cyst of kidney, acquired; I70.0 Atherosclerosis of aorta; N20.0 Calculus of kidney
CPT/HCPCS: 72131; 80053; 83036; 85025

== ENCOUNTER → 2023-11-28 14:10 | Outpatient (BNVA) | payer MEDICARE, SELFPAY | PROVIDERS: PCP Family Medicine; Visit Provider Orthopaedic Surgery | DX: M54.9 Dorsalgia, unspecified (principal); M48.062 Spinal stenosis, lumbar region with neurogenic claudication | CPT/HCPCS: 72110; 99204 ==

== ENCOUNTER 2023-12-25 09:35 | Outpatient (CLI) | payer MEDICARE, SELFPAY ==
--- NOTE | 2023-12-25 10:15 | MR_ITS ---
WS: [id number] MRI LUMBAR SPINE NONCONTRAST HISTORY: back pain and leg weakness COMPARISON: 11/28/2023, CT 11/19/2023 TECHNIQUE: Sagittal and axial multisequence imaging is submitted. Cervical spondylosis and mild central stenosis due to degenerative disease. Mild increase in the lumbar lordosis. L2 anterolisthesis by 2 mm. Disc spaces and vertebral body heights are well-preserved. Conus terminates normally at L1-2 disc level. L1-L2: Mild facet joint arthritis. L2-L3: Diffuse annular disc bulging with broad-based LEFT foraminal protrusion. Moderate ligamentum f lavum and facet arthritis. Disc encroachment upon the central canal and subarticular recesses. Mild b ilateral foraminal stenosis, RIGHT greater than LEFT. L3-L4: Diffuse annular disc bulging with a LEFT foraminal disc protrusion. Marked ligamentum flavum a nd facet arthritis. Disc encroachment upon the subarticular recesses. Moderate central and bilateral subarticular recess stenosis. Moderate bilateral foraminal stenosis but greater on the LEFT. There is disc contact on the L3 and L4 nerve roots bilaterally. L4-L5: Diffuse annular disc bulging with ligamentum flavum and facet arthritis. Encroachment upon the ventral thecal sac and subarticular recesses. Severe LEFT foraminal stenosis due to disc and osteoph yte disease. Moderate central and bilateral subarticular recess encroachment. Moderate RIGHT foramina l stenosis. There is disc contact on the traversing L5 nerve roots and on the LEFT exiting L4 nerve r oot. L5-S1: Mild facet arthritis. Bilateral renal cysts. MR/MR lumbar spine wo con* [id number] IMPRESSION: 1. L4-5: Moderate central with bilateral subarticular recess and RIGHT foramin al stenosis. Severe LEFT foraminal stenosis. Disc contacts the L4 and L5 nerve roots bilaterally. 2. L3-4: LEFT foraminal disc protrusion. Additional disc bulging resulting in moderate central with bilateral subarticular recess and foraminal stenosis grea ter on the LEFT. Disc contacts the L3 and L4 nerve roots bilaterally. 3. L2-3: Mild central and subarticular recess and foraminal stenosis, RIGHT gr eater than LEFT. 4. No lumbar spine fracture or edema.
== END 2023-12-25 09:36 | disposition home or self-care (01) ==
LOC: RAD 09:36
PROVIDERS: PCP Family Medicine; Visit Provider Orthopaedic Surgery
DX: M99.63 Osseous and subluxation stenosis of intervertebral foramina of lumbar region (principal); M50.20 Other cervical disc displacement, unspecified cervical region
CPT/HCPCS: 72148

== ENCOUNTER → 2024-02-04 13:52 | Outpatient (BNVA) | payer MEDICARE, SELFPAY | PROVIDERS: PCP Family Medicine; Visit Provider Orthopaedic Surgery | DX: M48.062 Spinal stenosis, lumbar region with neurogenic claudication (principal); Z09 Encounter for follow-up examination after completed treatment for conditions other than malignant neoplasm | CPT/HCPCS: 99214 ==

== ENCOUNTER 2024-02-28 12:35 | Outpatient (RCR) | payer MEDICARE, SELFPAY | END 2024-03-03 23:59 | disposition home or self-care (01) | LOC: SPT 12:35 | PROVIDERS: PCP Family Medicine; Visit Provider Orthopaedic Surgery | DX: M54.9 Dorsalgia, unspecified (principal); G89.29 Other chronic pain | CPT/HCPCS: 97161 ==

== ENCOUNTER 2024-05-18 15:37 | Observation (INO) | payer MEDICARE, SELFPAY ==
[2024-05-18] VITALS (11 sets, daily range): BP systolic 166–186; BP diastolic 89–95; PULSE 71–90; RESP 18–28; TEMP 36.4; O2SAT 93–100; BMI 39.2
--- NOTE | 2024-05-18 15:50 | XRR_ITS ---
PROCEDURE INFORMATION: Exam: XR Chest Exam date and time: 05/18/2024 4:14 PM Age: 63 years old Clinical indication: Cough and dyspnea; Additional info: Dyspnea/cough TECHNIQUE: Imaging protocol: Radiologic exam of the chest. Views: 1 view. COMPARISON: CR XR chest 1V portable [id number] 08/16/2023 6:15 PM FINDINGS: Lungs: Unremarkable. No consolidation. Pleural spaces: Unremarkable. No pleural effusion. No pneumothorax. Heart/Mediastinum: Unremarkable. No cardiomegaly. Bones/joints: Unremarkable. XR/XR chest 1V portable [id number] IMPRESSION: No acute findings.
[2024-05-18 15:56] LABS: Glucose Point of Care > 600 mg/dL (70-110)
--- NOTE | 2024-05-18 16:01 | ECG_ITS ---
[facility] [employer] Test Date: 2024-05-18 Pat Name: Roxana Barraza Department: Room: Gender: Female Health Services Coordinator: : 1960 Requested By: Otto Sow Order Number: [id number] Reading MD: AURELIA ULLOA Measurements Intervals [place] Rate: 72 P: 29 NH: 173 QRS: -59 QRSD: 161 T: 87 QT: 404 QTc: 443 Interpretive Statements SINUS RHYTHM RIGHT BUNDLE BRANCH BLOCK [120+ ms QRS DURATION, UPRIGHT V1, 40+ ms S IN I/aVL/V4/V5/V6] LEFT ANTERIOR FASCICULAR BLOCK [QRS AXIS <= -45, QR IN I, RS IN II] POSSIBLE LEFT VENTRICULAR HYPERTROPHY [VOLTAGE CRITERIA PLUS LAE OR QRS WIDENING] POSSIBLE SEPTAL MYOCARDIAL INFARCTION , OF INDETERMINATE AGE [30 ms Q WAVE IN V1/V2] MODERATE T-WAVE ABNORMALITY, CONSIDER LATERAL ISCHEMIA [-0.1+ mV T-WAVE IN I/aVL/V5/V6] Electronically Signed On 05-18-2024 18:06:40 CDT by AURELIA ULLOA [email or web address]
[2024-05-18 16:10] LABS: Basophils % 0.2 %; Eosinophils # 0.2 10^3/uL (0.0-0.8); Eosinophils % 1.8 %; Hematocrit 44.3 % (36-47); Lymphocytes # 1.5 10^3/uL (0.8-4.8); Lymphocytes % 12.1 %; Mean Corpuscular HGB Conc 32.3 g/dL (30-55); Mean Corpuscular Hemoglobin 27.4 pg (27-33); Mean Platelet Volume 12.2 fL (7.4-10.4); Monocytes # 0.5 10^3/uL (0.2-0.9); Monocytes % 4.3 %; Neutrophils # 9.97 10^3/uL (1.8-7.7); Neutrophils % 81.4 %; Nucleated Red Blood Cells % 0 %; Platelet Count 204 10^3/cmm (157-399); Red Blood Count 5.21 10^6/uL (3.85-5.65); Red Cell Distribution Width 13.5 % (12.1-15.1); White Blood Count 12.26 10^3/uL (3.29-11.43)
--- NOTE | 2024-05-18 16:15 | ED_ITS ---
HPI - Recheck/Abnormal Lab/Rx 2 General: Chief Complaint: Recheck/Abnormal Lab/Rx Stated Complaint: sent / High A1C/ bloodsuger History of Present Illness: 63-year-old female presents emergency ro om from her primary care doctor's office with markedly elevated blood sugars was measuring beyond the capability of the Accu-Chek greater than 600. She is been prescribed insulin but because of logistical/economic/social considerations she has not been able to use it regularly. She basically has not been taking any of her medicines recently. She has had polyphasia and polydipsia polyuria Dr. Keating is concerned that she may be in DKA or very least a hyperosmolar state. She is also been complaining of increasing shortness of breath although she denies any chest pain. She has no known history of PEs. She is supposed to be on carvedilol and clopidogrel but has not been taking them. Related Data Home Medications ?Medication ?Instructions ?Recorded ?Confirmed clopidogrel 75 mg tablet 75 mg PO DAILY 05/18/2405/02 docusate sodium 100 mg capsule 100 mg PO BID 05/18/24 05/18/24 furosemide 40 mg tablet 40 mg PO DAILY PRN Edema 05/18/24 gabapentin 300 mg capsule 300 mg PO BID 05/18/2405/18 insulin aspart U-100 100 unit/mL See Rx Instructions . Route .COMPLEX 05/18/24 05/18/24 (3 mL) subcutaneous pen (Novolog FlexPen U-100 Insulin aspart) insulin glargine 100 unit/mL (3 40 unit SUBCUT BID 05/18/24 mL) subcutaneous pen (Lantus Solostar U-100 Insulin) isosorbide mononitrate 30 mg 30 mg PO DAILY 05/18/24 0 05/18/24 tablet,extended release 24 hr lisinopril 10 mg tablet 10 mg PO BID 05/18/24 omeprazole 20 mg capsule,delayed 20 mg PO DAILY 05/18/24 release Previous Rx's ?Medication ?Instructions ?Recorded nitroglycerin 0.4 mg sublingual 0.4 mg sublingual Q5M PRN chest 03/30/21 tablet pain #25 tabs syringe with needle, safety 1 mL #300 ea 08/29/22 28 gauge x 1/2 (Monoject TB Safety Syringe) SHOULDER IMMOBILIZER #1 ea 11/20/22 hydrocodone 5 mg-acetaminophen 325 1 tab PO BID PRN pa in 30 days #40 02/10/24 mg tablet tabs Allergies Allergy/AdvReac Type Severity Reaction Status Date / Time nalbuphine (From Nubain) Allergy Unknown Verified 05/18/24 15:57 Review of Systems 2 Const: Denies: fever(s) or chills Card: Denies: chest pain Resp: Reports: dyspnea GI: Denies: abdominal pain : Reports: urinary frequency; Denies: flank pain, dysuria or urinary urgency Musc: Denies: neck pain or back pain Skin/Breast: Denies: rash PFSH ED 2 PFSH: Medical History GERD without esophagitis Atherosclerosis of coronary artery [facility] with severe px LAD stenosis s/p CUCO x 1 and px LCX stenosis s/p CUCO x 1- 08/21/21 Hypovolemia Left bundle branch block History of coronary artery disease Accelerated hypertension Sepsis Elevated troponin Generalized anxiety disorder Chronic combined systolic (congestive) and diastolic (congestive) heart failure moderate systolic dysfunction and grade 2 diastolic dysfunction Chronic pain syndrome Morbid obesity Ischemic cardiomyopathy Systolic and diastolic CHF, acute Poorly controlled diabetes mellitus Chest pain GERD (gastroesophageal reflux disease) Stenosis of coronary stent EF 40% grade 2 diastolic dysfunction, LVH, Cholelithiasis Hypertension Dyslipidemia Diabetes Coronary artery disease Surgical History Status post laparoscopic cholecystectomy (07/08/19) History of lithotripsy History of appendectomy H/O cardiac catheterization 1 vessel disease [address] segment elevation [place] 3 stents were placed, with subsequent stent thrombosis with balloon angioplasty Family History Other CAD (coronary artery disease) Hypertension Denies family history of Anesthesia complication Bleeding disorder Social History Smoking and tobacco/nicotine status: never used tobacco/nicotine Alcohol intake: never Substance/Drug Use: never Adopted: Yes Caregiver/support person: Yes Lives independently: Yes Household members: family Housing: House Physical Exam 2 Const: GENERAL APPEARANCE: cooperative ORIENTATION/CONSCIOUSNESS: Yes awake, Yes oriented to person, Yes oriented to place and Yes oriented to time HENMT: COMMON NORMALS: normocephalic, atraumatic and hearing grossly normal bilaterally HEAD & SCALP: normocephalic and atraumatic Resp: COMMON NORMALS: normal respiratory effort, No retractions, No use of accessory muscles and clear to auscultation bilaterally AUSCULTATION: clear to auscultation bilaterally Cardio: COMMON NORMALS: regular rate, regular rhythm and No murmurs present (Cardio) RATE: regular rate RHYTHM: regular rhythm GI: COMMON NORMALS: Soft to palpation and No hepatosplenomegaly present A USCULTATION: Yes normoactive bowel sounds PALPATION: Yes Soft to palpation, No Tenderness to palpation present (GI), No Guarding due to palpation present (GI) and Yes No hepatosplenomegaly present Extremity: COMMON NORMALS: normal to inspection, capillary refill normal, no clubbing, cyanosis or edema, no calf tenderness and no pedal edema Neuro: SENSORIUM/ORIENTATION: Yes oriented to person, Yes oriented to place and Yes oriented to time Skin: COMMON NORMALS: no rashes or lesions noted GENERAL SKIN EXAM: no rashes or lesions noted Course 2 Vital Signs: Vital signs: Vital Signs Temperature 97.5 F L 05/18/24 15:47 Pulse Rate 75 05/18/24 17:00 Blood Pressure 186/95 05/18/24 17:00 Pulse Oximetry 98 05/18/24 17:00 Oxygen Delivery Me thod Room Air 05/18/24 17:00 MDM - Recheck/Abnormal Lab/Rx Medical Decision Making Patient severely hyperglycemic but surprisingly not in DKA anion gap is normal. Ketones negative. She is mildly tachypneic with a slightly low pCO2. Also by history she has polydipsia and polyuria. Patient given initial bolus of insulin and started on a weight-based drip. Discussed with the hospitalist will admit for control of blood sugars medication review. Orders written Lab Data 05/18/24 16:01 05/18/24 16:01 Radiology Impressions Chest X-Ray 05/18/24 15:50 IMPRESSION: No acute findings. Laboratory Results WBC 12.26 10^3/uL (3.29-11.43) H 05/18/24 16:01 RBC 5.21 10^6/uL (3.85-5.65) 05/18/24 16:01 Hgb 14.30 g/dL (11.27-16.99) 05/18/24 16:01 Hct 44.3 % (36-47) 05/18/24 16:01 MCV 85.0 fl (85-98) 05/18/24 16:01 MCH 27.4 pg (27-33) 05/18/24 16:01 MCHC 32.3 g/dL (30-55) 05/18/24 16:01 RDW 13.5 % (12.1-15.1) 05/18/24 16:01 Plt Count 204 10^3/cmm (157-399) 05/18/24 16:01 MPV 12.2 fL (7.4-10.4) H 05/18/24 16:01 Neut % (Auto) 81.4 % 05/18/24 16:01 Lymph % (Auto) 12.1 % 05/18/24 16:01 Perry % (Auto) 4.3 % 05/18/24 16:01 Eos % (Auto) 1.8 % 05/18/24 16:01 Baso % (Auto) 0.2 % 05/18/24 16:01 Neut # (Auto) 9.97 10^3/uL (1.8-7.7) H 05/18/24 16:01 Lymph # (Auto) 1.5 10^3/uL (0.8-4.8) 05/18/24 16:01 Perry # (Auto) 0.5 10^3/uL (0.2-0.9) 05/18/24 16:01 Eos # (Auto) 0.2 10^3/uL (0.0-0.8) 05/18/24 16:01 Baso # (Auto) 0.0 10^3/uL (0.0-0.1) 05/18/24 16:01 Nucleated RBC % (auto) 0 % 05/18/24 16:01 Nucleated RBCs # 0.0 /100WBC 05/18/24 16:01 Specimen Type Arterial 05/18/24 16:00 Sample Site Brachial, right 05/18/24 16:00 ABG pH 7.50 (7.35-7.45) H 05/18/24 16:00 ABG pCO2 29.8 mmHg (35-45) L 05/18/24 16:00 ABG pO2 90.3 mmHg (80.0-100.0) 05/18/24 16:00 ABG PO2/FiO2 Ratio 177 05/18/24 16:00 ABG HCO3 22.9 mmol/L (22-26) 05/18/24 16:00 ABG O2 Saturation 98.3 05/18/24 16:00 ABG Base Excess 0.6 mmol/L (-2.0-2.0) 05/18/24 16:00 Preet Test N/a 05/18/24 16:00 A-a O2 Gradient 30.4 mmHg (5-10) H 05/18/24 16:00 Hematocrit 42.7 % (37-47) 05/18/24 16:00 Hgb O2 Saturation 96.3 % (95-100) 05/18/24 16:00 Carboxyhemoglobin 0.9 %THgb (0.4-20.1) 05/18/24 16:00 Methemoglobin 1.1 % (0.4-1.5) 05/18/24 16:00 Total Hemoglobin 13.9 g/dL (12-16) 05/18/24 16:00 Sodium 128.0 mmol/L (131-143) L 05/18/24 16:00 Potassium 3.7 mmol/L (3.5-5.0) 05/18/24 16:00 Glucose 738.0 mg/dL (70-115) H 05/18/24 16:00 Ionized Calcium 1.2 mmol/L (1.1-1.4) 05/18/24 16:00 O2 Delivery Device Room air 05/18/24 16:00 FiO2 51.0 % 05/18/24 16:00 Casino Gaming Inspector ID [id number] 05/18/24 16:00 Sodium 126 mmol/L (136-145) L 05/18/24 16:01 Potassium 3.9 mmol/L (3.5-5.1) 05/18/24 16:01 Chloride 88 mmol/L (98-107) L 05/18/24 16:01 Carbon Dioxide 24 mmol/L (22-29) 05/18/24 16:01 Anion Gap 17.9 (5-19) 05/18/24 16:01 BUN 23 mg/dL (8-23) 05/18/24 16:01 Creatinine 1.3 mg/dL (0.5-0.9) H 05/18/24 16:01 GFR Calculation 41.1 mL/min (90-130) L 05/18/24 16:01 Glucose 721 mg/dL (65-115) H* 05/18/24 16:01 POC Glucose > 600 mg/dL (70-110) H* 05/18/24 15:52 Calculated Osmolality 300 mOsm/kg (285-295) H 05/18/24 16:01 Calcium 9.5 mg/dL (8.5-10.5) 05/18/24 16:01 Total Bilirubin 0.3 mg/dL (0.15-1.2) 05/18/24 16:01 AST 24 U/L (0-32) 05/18/24 16:01 ALT 19 U/L (0-33) 05/18/24 16:01 Alkaline Phosphatase 174 U/L (35-105) H 05/18/24 16:01 Total Protein 8.0 g/dL (6.6-8.7) 05/18/24 16:01 Albumin 3.8 g/dL (3.5-5.2) 05/18/24 16:01 Globulin 4.2 g/dL (1.3-4.6) 05/18/24 16:01 Urine Color Yellow (Yellow) 05/18/24 16:19 Urine Appearance Clear (CLEAR) 05/18/24 16:19 Urine pH 5.5 (5-7) 05/18/24 16:19 Ur Specific [place] 1.031 (1.005-1.030) H 05/18/24 16:19 Urine Protein Negative (Negative) 05/18/24 16:19 Urine Glucose (UA) 3+ (Normal) H 05/18/24 16:19 Urine Ketones Trace (Negative) 05/18/24 16: Urine Blood 2+ (Negative) A 05/18/24 16:19 Urine Nitrate Negative (Negative) 05/18/24 16:19 Urine Bilirubin Negative (Negative) 05/18/24 16: Urine Urobilinogen 0.2 mg/dL (Negative) 05/18/24 16:19 Ur Leukocyte Esterase Negative (Negative) 05/18/24 16:19 Urine RBC 3-5 /hpf (0-2) 05/18/24 16:19 Urine WBC 21-50 /hpf (0-5) H 05/18/24 16:19 Ur Squamous Epith Cells 0-5 /hpf (0-5) 05/18/24 16:19 Amorphous Sediment Not Reportable 05/18/24 16:19 Urine Bacteria None seen /hpf (NONE) 05/18/24 16:19 Hyaline Casts 2.05 /lpf 05/18/24 16:19 Serum Ketones Negative (Negative) 05/18/24 16:01 All radiology interpretation(s) finalized by discharge Discharge Plan Discharge Patient Disposition: Admitted As Inpatient Admit Provider: Yvonne Narvaez Clinical Impression: Acute hyperglycemia, Morbid obesity, Diabetes, Diabetic peripheral neuropathy Condition: Stable Coding Level of Care Code ED Bus Info Consultant for Roberto Viramontes
[2024-05-18 16:16] LABS: ABG PCO2 29.8 mmHg (35-45); Alveolar-Arterial Oxygen Gradi 30.4 mmHg (5-10); Arterial Blood Gas Hematocrit 42.7 % (37-47); Base Excess ABG 0.6 mmol/L (-2.0-2.0); Blood Gas Operator Identificat GD; Blood Gas Sample Site Brachial, right; Blood Gas Sample Type Arterial; Carboxyhemoglobin 0.9 %THgb (0.4-20.1); HCO3 ABG 22.9 mmol/L (22-26); HGB O2 Sat 96.3 % (95-100); Ionized Calcium Level - ABG 1.2 mmol/L (1.1-1.4); Methemoglobin 1.1 % (0.4-1.5); Oxygen Device ROOM AIR; Oxygen Saturation ABG 98.3; PO2 ABG 90.3 mmHg (80.0-100.0); PO2 FiO2 Ratio Arterial Blood 177; Potassium Level - ABG 3.7 mmol/L (3.5-5.0); Total Hemoglobin 13.9 g/dL (12-16)
[2024-05-18 16:24] LABS: Ketone (Acetest) Serum Negative (Negative)
[2024-05-18 16:27] LABS: Alanine Aminotransferase 19 U/L (0-33); Albumin Level 3.8 g/dL (3.5-5.2); Alkaline Phosphatase 174 U/L (35-105); Anion Gap 17.9 (5-19); Aspartate Amino Transferase 24 U/L (0-32); Blood Urea Nitrogen 23 mg/dL (8-23); Calcium 9.5 mg/dL (8.5-10.5); Carbon Dioxide 24 mmol/L (22-29); Chloride 88 mmol/L (98-107); Creatinine Clr Calc Pharmacy 45.2124; Globulin 4.2 g/dL (1.3-4.6); Glomerular Filtration Rate 41.1 mL/min (90-130); Osmolality Calculated 300 mOsm/kg (285-295); Potassium 3.9 mmol/L (3.5-5.1); Sodium 126 mmol/L (136-145); Total Bilirubin 0.3 mg/dL (0.15-1.2)
[2024-05-18 16:28] LABS: Glucose 721 mg/dL (65-115)
[2024-05-18 16:44] LABS: Bilirubin Urine Negative (Negative); Blood Urine 2+ (Negative); Glucose Urine UA 3+ (Normal); Ketones Urine Trace (Negative); Leukocyte Esterase Urine Negative (Negative); Nitrate Urine Negative (Negative); Protein Urine Negative (Negative); Urine Appearance Clear (CLEAR); Urine Color Yellow (Yellow); Urobilinogen Urine 0.2 mg/dL (Negative); pH Urine 5.5 (5-7)
--- NOTE | 2024-05-18 16:46 | PC.PHAR ---
Pt states she hasn't picked up any recent medications because she can't afford to get them every month, she has other things she needs.
[2024-05-18 16:47] LABS: Add Urine Microscopic? YES; Bacteria Urine None Seen /hpf; Hyaline Casts Urine 2.05 /lpf; Squamous Epithelial Cell Urine 0-5 /hpf (0-5); WBC Urine 21-50 /hpf (0-5)
--- NOTE | 2024-05-18 17:07 | USCV_ITS ---
Roxana Barraza Age: 63 Gender: F : 1960 Exam Date: 05/18/2024 19:53 Ordering Phys: Yvonne Narvaez MD Technologist: VIRGINIE Exam Location: [facility] [place] Indication: eval cardiac status hx CAD s/p stents, HTN, hx LBBB BP: 186 / 95 HR: 62 Rhythm: Sinus Technical Quality: Adequate MEASUREMENTS (Male / Female) Normal Values 2D ECHO LV Diastolic Diameter PLAX 4.4 cm 4.2 - 5.9 / 3.9 - 5.3 cm IVS Diastolic Thickness 1.4 cm 0.6 - 1.0 / 0.6 - 0.9 cm IVS Systolic Thickness 1.3 cm LVPW Diastolic Thickness 1.5 cm 0.6 - 1.0 / 0.6 - 0.9 cm LVPW Systolic Thickness 2.3 cm LVOT Diameter 1.9 cm LV Ejection Fraction 2D Teich 50.6 % LV Ejection Fraction MOD 4C 16.6 % LV Ejection Fraction MOD 2C 49.0 % LV Ejection Fraction 2C AL 46.1 % LA Diameter 4.0 cm Aorta at Sinotubular Diameter 2.7 cm IVC Diameter 1.5 cm M-MODE LA Ao Ratio MM 1.4 AV Cusp Separation MM 1.9 cm DOPPLER AV Peak Velocity 169.0 cm/s LVOT Peak Velocity 95.0 cm/s AV Area Cont Eq vti 1.7 cm squared AV Area Cont Eq pk 1.6 cm squared MV Peak Velocity 124.0 cm/s MV Area PHT 2.6 cm squared Mitral E to A Ratio 0.8 TR Peak Velocity 215.0 cm/s TR Peak Gradient 18.5 mmHg TV Peak E Velocity 56.0 cm/s PV Peak Velocity 102.0 cm/s FINDINGS Left Ventricle Dilated LV apex with the severe hypokinesis of the mid and apical septum, anteroseptum and apical segments. LV ejection fraction around 40%.Grade I/IV diastolic dysfunction (abnormal relaxation filling pattern), normal to mildly elevated filling pressures. Right Ventricle The right ventricle is normal in size and function. Right Atrium The right atrium is normal in size. Left Atrium Mildly increased left atrial size. Mitral Valve Thickened mitral valve. Moderate mitral annular calcification. Mild mitral valve regurgitation. Aortic Valve Thickened aortic valve. Tricuspid Valve Trace tricuspid valve regurgitation. Pulmonic Valve Pulmonic valve not well visualized. Pericardium Normal pericardium without effusion. Aorta Normal ascending aorta dimension. IVC Normal inferior vena cava. CONCLUSIONS Dilated LV apex with the severe hypokinesis of the mid and apical septum, anteroseptum and apical segments. LV ejection fraction around 40%. Grade I/IV diastolic dysfunction (abnormal relaxation filling pattern), normal to mildly elevated filling pressures. Mildly increased left atrial size. Thickened mitral valve. Moderate mitral annular calcification. Mild mitral valve regurgitation. Thickened aortic valve. Trace tricuspid valve regurgitation. There is no pericardial effusion. Technically somewhat difficult study Compared to the study from 08/19/2021, there is slight decline in the LV ejection fraction. Dr Sam Mckeon MD FACC (Electronically Signed) Final Date: 18 May 2024 22:26 S
[2024-05-18] MEDS: insulin regular-human 100 units/1 mL 10 UNIT IVP (17:17)
[2024-05-18 17:20] LABS: Specific Gravity, Urine 1.031 (1.005-1.030)
[2024-05-18] MEDS: heparin 5,000 unit/mL INJ 1 mL 5000 UNIT SUBCUT (17:20)
[2024-05-18 17:21] LABS: Add Urine Culture? Yes
[2024-05-18] MEDS: sodium chloride 0.9% 1,000 ML 250 ML IV (17:24)
[2024-05-18 17:48] LABS: Lactic Sepsis W/Reflex 2.1 mmol/L (0.5-2.2)
[2024-05-18 18:03] LABS: Chol HDL Ratio 5.87 mg/dL (0.0-4.40); Cholesterol 229 mg/dL (0-200); HDL Cholesterol 39 mg/dL (60-100); Thyroid Stimulating Hormone 1.21 uIU/mL (0.27-4.20); Triglycerides 470 mg/dL (0-150); VLDL Cholestrol Calculation 94 mg/dL (0-30)
--- NOTE | 2024-05-18 18:17 | PM.HP ---
Providers/Chief Complaint Admitting Physician: Yvonne Narvaez MD Primary Care Provider: Lito Keating MD Chief Complaint: sent / High A1C/ bloodsuger History of Present Illness Roxana Barraza is a 63 year old female with moderately reduced EF cardiomyopathy, lives with her friend at home, takes care of her chicken, noncompliant with her medications secondary to financial constraints, has not taken her insulin for months since presenting with abnormal blood sugar greater than 600 patient experiencing polydipsia polyuria. No active chest pain or signs of UTI she is not endorsing fever. Review of Systems Const: Reports: chills Eyes: Denies: change in vision ENMT: Denies: throat pain Card: Reports: swelling of feet/ankles Resp: Reports: dyspnea GI: Denies: abdominal pain Skin/Breast: Reports: rash Medications/Allergies Home Medications ?Medication ?Instructions ?Recorded ?Confirmed ?Last Taken ?Type nitroglycerin 0.4 mg sublingual 0.4 mg sublingual Q5M PRN chest 03/30/21 05/18/24 Unknown Rx tablet pain #25 tabs syringe with needle, safety 1 mL #300 ea 08/29/22 05/18/24 Unknown Rx 28 gauge x 1/2 (Monoject TB Safety Syringe) SHOULDER IMMOBILIZER #1 ea 11/20/22 05/18/24 Unknown Rx hydrocodone 5 mg-acetaminophen 325 1 tab PO BID PRN pain 30 days #40 02/10/24 05/18/24 Unknown Rx mg tablet tabs clopidogrel 75 mg tablet 75 mg PO DAILY 05/18/24 05/18/24 1 Month Ago History ~04/20/24 docusate sodium 100 mg capsule 100 mg PO BID 05/18/24 05/18/24 1 Month Ago History ~04/20/24 furosemide 40 mg tablet 40 mg PO DAILY PRN Edema 05/18/24 05/18/24 Unknown History gabapentin 300 mg capsule 300 mg PO BID 05/18/24 05/18/24 1 Month Ago History ~04/20/24 insulin aspart U-100 100 unit/mL See Rx Instructions .Route .COMPLEX 05/18/24 05/18/24 1 Month Ago History (3 mL) subcutaneous pen (Novolog ~04/20/24 FlexPen U-100 Insulin aspart) insulin glargine 100 unit/mL (3 40 unit SUBCUT BID 05/18/24 05/18/24 1 Month Ago History mL) subcutaneous pen (Lantus ~04/20/24 Solostar U-100 Insulin) isosorbide mononitrate 30 mg 30 mg PO DAILY 05/18/24 05/18/24 1 Month Ago History tablet,extended release 24 hr ~04/20/24 lisinopril 10 mg tablet 10 mg PO BID 05/18/24 05/18/24 1 Month Ago History ~04/20/24 omeprazole 20 mg capsule,delayed 20 mg PO DAILY 05/18/24 05/18/24 1 Month Ago History release ~04/20/24 Allergies Allergy/AdvReac Type Severity Reaction Status Date / Time nalbuphine (From Nubain) Allergy Unknown Verified 05/18/24 15:57 PFSH Acute PFSH: Medical History GERD without esophagitis Atherosclerosis of coronary artery C with severe px LAD stenosis s/p CUCO x 1 and px LCX stenosis s/p CUCO x 1- 08/21/21 Hypovolemia Left bundle branch block History of coronary artery disease Accelerated hypertension Sepsis Elevated troponin Generalized anxiety disorder Chronic combined systolic (congestive) and diastolic (congestive) heart failure moderate systolic dysfunction and grade 2 diastolic dysfunction Chronic pain syndrome Morbid obesity Ischemic cardiomyopathy Systolic and diastolic CHF, acute Poorly controlled diabetes mellitus Chest pain GERD (gastroesophageal reflux disease) Stenosis of coronary stent EF 40% grade 2 diastolic dysfunction, LVH, Cholelithiasis Hypertension Dyslipidemia Diabetes Coronary artery disease Surgical History Status post laparoscopic cholecystectomy (07/08/19) History of lithotripsy History of appendectomy H/O cardiac catheterization 1 vessel disease [address] segment elevation [place] 3 stents were placed, with subsequent stent thrombosis with balloon angioplasty Family History Other CAD (coronary artery disease) Hypertension Denies family history of Anesthesia complication Bleeding disorder Social History Smoking and tobacco/nicotine status: never used tobacco/nicotine Alcohol intake: never Substance/Drug Use: never Adopted: Yes Caregiver/support person: Yes Lives independently: Yes Household members: family Housing: House Vitals/I&O/Wt Last Vital Signs Temp 97.5 F L 05/18/24 15:47 Pulse 80 05/18/24 18:11 Resp 18 05/18/24 18:11 BP 186/95 05/18/24 17:55 Pulse Ox 99 05/18/24 18:11 O2 Del Method Room Air 05/18/24 18:11 Weight last 48 hrs Weight 94.256 kg Physical Exam Narrative: Patient showing signs of CHF exacerbation with lower extremity edema Awake and alert No active confusion S1, S2 Currently on room air Intertrigo around groin Onychomycosis Unkept appearance Hypertensive Friend at the bedside No active focal deficit No active Resp distress Urinary Catheter Management: [place]: Cath Placed During This Visit: yes Urinary Catheter Date of Insertion: 05/18/24 Urinary Catheter Time of Insertion: 18:15 Data 05/18/24 16:01 05/18/24 16:01 Micro: Microbiology 05/18/24 17:30 Blood Culture - Preliminary Blood SPECIMEN COLLECTED A&P Assessment and plan (1) Hypertension: Qualifiers: Hypertension type: essential hypertension Qualified Code(s): I10 - Essential (primary) hypertension (2) Non-compliant patient: (3) Left bundle branch block: (4) Diabetes: Qualifiers: Diabetes mellitus complication status: with hyperglycemia Diabetes mellitus skilled nursing insulin use: with skilled nursing use Diabetes mellitus type: type 2 Qualified Code(s): E11.65 - Type 2 diabetes mellitus with hyperglycemia; Z79.4 - longterm (current) use of insulin (5) Secondary diabetes mellitus with HHNC (hyperglycemia hyperosmolar non-ketotic coma): (6) Morbid obesity: (7) Acute hyperglycemia: (8) Enlarged and hypertrophic nails: Plan Hyperglycemia without DKA anion gap is not high Consistent carb diet insulin sliding scale and Lantus Patient had IV fluid resuscitation Noncompliant with her insulin secretion stating that she is not able to afford insulin anymore Acute systolic CHF exacerbation: Judicious use of IV fluids: EF is 39%. She will need diuresis as well Hypertensive urgency: Optimize antihypertensive regimen Consistent carb diet Insulin sliding scale Full code DVT prophylaxis heparin PDMP PDMP Reviewed: Not Reviewed Attestations Medical Necessity Statement*: more than 2 midnights anticipated Diagnoses Essential hypertension I10 Hypertension type: essential hypertension Non-compliant patient Z91.19 Left bundle branch block I44.7 Type 2 diabetes mellitus with hyperglycemia, with long-term current use of insulin E11.65; Z79.4 Diabetes mellitus complication status: with hyperglycemia Diabetes mellitus skilled nursing insulin use: with skilled nursing use Diabetes mellitus type: type 2 Secondary diabetes mellitus with HHNC (hyperglycemia hyperosmolar non-ketotic coma) E13.01 Morbid obesity E66.01 Acute hyperglycemia R73.9 Enlarged and hypertrophic nails Q84.5
[2024-05-18 18:18] LABS: LDL Cholesterol Direct 131 mg/dL (0-100)
[2024-05-18 18:36] LABS: Glucose Point of Care 537 mg/dL (70-110)
[2024-05-18] MEDS: cefTRIAXone 1,000 mg SDV 1000 MG IVP (18:47)
[2024-05-18 19:11] LABS: Reflex Lactate Order REFLEX LACTIC ORDERD
[2024-05-18 20:47] LABS: Glucose Point of Care 386 mg/dL (70-110)
[2024-05-18 21:00] LABS: Estmated Average Glucose 378; Hemoglobin A1C 14.8 % (4.0-6.0)
[2024-05-18] MEDS: insulin lispro 100 unit/1 mL SUBCUT (21:06)
[2024-05-18] MEDS: insulin glargine 100 units/1 mL 40 UNIT SUBCUT (21:07)
--- NOTE | 2024-05-18 21:45 | ECG_ITS ---
[employer] [employer] Test Date: 2024-05-18 Pat Name: Roxana Barraza Department: Room: ICU04 Gender: Female Hole Puncher Strap: : 1960 Requested By: Otto Sow Order Number: [id number] Kirby MD: Sam Mckeon M.D. Measurements Intervals [place] Rate: 68 P: 44 NM: 170 QRS: -60 QRSD: 173 T: 90 QT: 448 QTc: 479 Interpretive Statements SINUS RHYTHM RIGHT BUNDLE BRANCH BLOCK [120+ ms QRS DURATION, UPRIGHT V1, 40+ ms S IN I/aVL/V4/V5/V6] LEFT ANTERIOR FASCICULAR BLOCK [QRS AXIS <= -45, QR IN I, RS IN II] LEFT VENTRICULAR HYPERTROPHY AND ST-T CHANGE [VOLTAGE CRITERIA PLUS ST/T ABNORMALITY] POSSIBLE SEPTAL MYOCARDIAL INFARCTION , PROBABLY RECENT [30 ms Q WAVE IN V1/V2] ACUTE NV Compared to ECG 05/18/2024 16:01:53 ST (T wave) deviation now present.T-wave abnormality no longer present Possible ischemia no longer present .Myocardial infarct finding still present Electronically Signed On 05-19-2024 19:29:45 CDT by Sam Mckeon M.D. [email or web address]
[2024-05-19] VITALS (81 sets, daily range): BP systolic 108–167; BP diastolic 62–97; PULSE 62–84; RESP 1–22; TEMP 36.5–37.1; O2SAT 88–99
[2024-05-19 00:03] LABS: Glucose Point of Care 291 mg/dL (70-110)
--- NOTE | 2024-05-19 00:04 | PC.NURSE ---
Patient refused SCD's, stated they hurt her legs. Pt already receiving heparin for DVT prophylaxis. Spoke with Dr. Serna regarding maintenance fluids, ordered to discontinue. Updated on blood sugars following HS check, ordered to recheck an hour after insulin administration and give additional 10 units humalog.
[2024-05-19] MEDS: nystatin powder 15 gm Btl 1 APPLIC TOPICAL ×3 (00:08→16:45)
[2024-05-19] MEDS: insulin lispro 100 unit/1 mL 10 UNIT SUBCUT (00:13)
[2024-05-19 05:13] LABS: Alanine Aminotransferase 14 U/L (0-33); Albumin Level 3.1 g/dL (3.5-5.2); Alkaline Phosphatase 127 U/L (35-105); Aspartate Amino Transferase 19 U/L (0-32); Blood Urea Nitrogen 21 mg/dL (8-23); Calcium 9.2 mg/dL (8.5-10.5); Carbon Dioxide 27 mmol/L (22-29); Chloride 102 mmol/L (98-107); Creatinine Clr Calc Pharmacy 53.6723; Globulin 3.4 g/dL (1.3-4.6); Glomerular Filtration Rate 49.8 mL/min (90-130); Glucose 164 mg/dL (65-115); Osmolality Calculated 295 mOsm/kg (285-295); Sodium 139 mmol/L (136-145); Total Bilirubin 0.2 mg/dL (0.15-1.2); Total Protein 6.5 g/dL (6.6-8.7)
[2024-05-19] MEDS: heparin 5,000 unit/mL INJ 1 mL 5000 UNIT SUBCUT ×2 (05:17→16:44)
[2024-05-19 07:53] LABS: Glucose Point of Care 175 mg/dL (70-110)
[2024-05-19] MEDS: insulin lispro 100 unit/1 mL SUBCUT ×4 (08:01→21:37)
[2024-05-19] MEDS: potassium chloride ER 20 mEq Tablet 40 MEQ PO (08:02)
[2024-05-19] MEDS: insulin glargine 100 units/1 mL 40 UNIT SUBCUT ×2 (08:02→16:45)
[2024-05-19] MEDS: pantoprazole 40 mg SDV IVP (08:02)
[2024-05-19 09:53] LABS: Basophils % 0.4 %; Eosinophils # 0.4 10^3/uL (0.0-0.8); Eosinophils % 4.4 %; Lymphocytes # 2.3 10^3/uL (0.8-4.8); Lymphocytes % 22.7 %; Mean Corpuscular HGB Conc 32.4 g/dL (30-55); Mean Corpuscular Hemoglobin 27.6 pg (27-33); Mean Corpuscular Volume 85.1 fl (85-98); Mean Platelet Volume 12.1 fL (7.4-10.4); Monocytes # 0.5 10^3/uL (0.2-0.9); Monocytes % 5.2 %; Neutrophils # 6.69 10^3/uL (1.8-7.7); Neutrophils % 67.1 %; Nucleated Red Blood Cells % 0 %; Platelet Count 207 10^3/cmm (157-399); Red Blood Count 4.82 10^6/uL (3.85-5.65); Red Cell Distribution Width 13.6 % (12.1-15.1); White Blood Count 9.98 10^3/uL (3.29-11.43)
[2024-05-19 11:23] LABS: Glucose Point of Care 231 mg/dL (70-110)
--- NOTE | 2024-05-19 11:45 | PC.NURSE ---
Patient was educated on the importance of maintaining their sugar levels at a therapeutic level.Patient was also educated on diabetic diet. Patient stated that they did not care about how high their sugar gets and to just give them their cookies and koolaid and the insulin to get the blood sugar down afterwards . Doctor was notified of patient's non compliance at home.
--- NOTE | 2024-05-19 13:10 | PC.NURSE ---
Report was called to WHITNEY Overton in [facility]. Patient was transferred with all belongings to [facility]. Patient was stable upon transfer.
[2024-05-19] MEDS: gabapentin 300 mg Capsule PO (13:16)
[2024-05-19 14:03] LABS: Bacillus cereus group Not Detected (NOT DETECT); Bacillus subtillis group Not Detected (NOT DETECT); Corynebacterium Not Detected (NOT DETECT); Cutibacterium acnes (P.acnes) Not Detected (NOT DETECT); Enterococcus Not Detected (NOT DETECT); Enterococcus faecalis Not Detected (NOT DETECT); Enterococcus faecium Not Detected (NOT DETECT); Lactobacillus species Not Detected (NOT DETECT); Listeria Not Detected (NOT DETECT); Listeria monocytogenes Not Detected (NOT DETECT); Micrococcus Not Detected (NOT DETECT); Pan Candida Not Detected (NOT DETECT); Pan Gram-Negative Not Detected (NOT DETECT); Staphylococcus epidermidis Not Detected (NOT DETECT); Staphylococcus lugdunensis Not Detected (NOT DETECT); Staphylococcus species Not Detected (NOT DETECT); Streptococcus agalactiae Not Detected (NOT DETECT); Streptococcus anginosus group Not Detected (NOT DETECT); Streptococcus pneumoniae Not Detected (NOT DETECT); Streptococcus pyogenes Not Detected (NOT DETECT); Streptococcus species Not Detected (NOT DETECT)
[2024-05-19 14:06] LABS: Acinetobacter baumannii Not Detected (NOT DETECT); Bacteroides fragilis Not Detected (NOT DETECT); Citrobacter Not Detected (NOT DETECT); Cronobacter sakazakii Not Detected (NOT DETECT); Enterobacter cloacae complex Not Detected (NOT DETECT); Enterobacter non cloacae Not Detected (NOT DETECT); Fusobacterium necrophorum Not Detected (NOT DETECT); Fusobacterium nucleatum Not Detected (NOT DETECT); Haemophilus influenzae Not Detected (NOT DETECT); Klebsiella pneumoniae group Not Detected (NOT DETECT); Morganella morganii Not Detected (NOT DETECT); Neisseria meningitidis Not Detected (NOT DETECT); Pan Gram-Positive Not Detected (NOT DETECT); Proteus mirabilis Not Detected (NOT DETECT); Pseudomonas aeruginosa Not Detected (NOT DETECT); Salmonella Not Detected (NOT DETECT); Serratia Not Detected (NOT DETECT); Serratia marcescens Not Detected (NOT DETECT); Stenotrophomonas maltophilia Not Detected (NOT DETECT)
[2024-05-19 16:26] LABS: Glucose Point of Care 245 mg/dL (70-110)
[2024-05-19] MEDS: terbinafine 1% Cream 15 gm 1 APPLIC TOPICAL (16:45)
--- NOTE | 2024-05-19 16:55 | P.PN_ITS ---
Subjective 2 Subjective: seen this morning Patient states that she just needs a 30-day supply of her medication at time of discharge and she will manage to get the rest of her meds as an outpatient by herself. She says it cost her $28 to get all of her medications for 1 month. I offered if there was anything we could do for her and she stated no she said I will be fine and I know what I need to do. I discussed with her the importance of taking her insulin. She demonstrated understanding. Vitals/I&O/Wt Last Vital Signs Temp 98.2 F 05/19/24 16:32 Pulse 70 05/19/24 16:32 Resp 18 05/19/24 16:32 BP 153/79 05/19/24 16:32 Pulse Ox 96 05/19/24 16:32 O2 Del Method Room Air 05/19/24 16:32 05/19/24 05/19/24 05/19/24 06:59 14:59 22:59 Intake Total 360 / 1720 Output Total 800 / 800 Balance -440 / 920 Weight last 48 hrs Weight 94.801 kg Weight 95 kg Weight 94.256 kg Physical Exam 2 Narrative: Patient showing signs of CHF exacerbation with lower extremity edema Awake and alert No active confusion S1, S2 Currently on room air Intertrigo around groin Onychomycosis Abdomen soft nontender Lungs clear to auscultation bilaterally. No active focal deficit No active Resp distress Urinary Catheter Management: Wilburn: Cath Placed During This Visit: yes Reason for Continuing Indwelling Catheter: Accurate Measurement of Urinary Output in Critically Ill Patients Urinary Catheter Date of Insertion: 05/18/24 Urinary Catheter Time of Insertion: 18:15 Data 05/19/24 09:39 05/19/24 03:27 Micro: Microbiology 05/18/24 21:33 Blood Culture - Preliminary Blood SPECIMEN COLLECTED 05/18/24 17:30 Blood Culture - Preliminary Blood A&P Assessment and plan (1) Hypertension: Qualifiers: Hypertension type: essential hypertension Qualified Code(s): I10 - Essential (primary) hypertension (2) Non-compliant patient: (3) Left bundle branch block: (4) Diabetes: Qualifiers: Diabetes mellitus type: type 2 Diabetes mellitus care home insulin use: with regional intermodal truck driver 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 Diabetes mellitus complication status: with hyperglycemia Q ualified Code(s): E11.65 - Type 2 diabetes mellitus with hyperglycemia; Z79.4 - terminal supervisor (current) use of insulin (5) Secondary diabetes mellitus with HHNC (hyperglycemia hyperosmolar non- ketotic coma): (6) Morbid obesity: (7) Acute hyperglycemia: (8) Enlarged and hypertrophic nails: Plan Hyperglycemia without DKA anion gap is not high Consistent carb diet insulin sliding scale and Lantus Patient had IV fluid resuscitation Noncompliant with her insulin secretion stating that she is not able to afford insulin anymore Acute systolic CHF exacerbation: Judicious use of IV fluids: EF is 39%. She will need diuresis as well Hypertensive urgency: Optimize antihypertensive regimen Consistent carb diet Insulin sliding scale Full code DVT prophylaxis heparin 05/19/2024 Blood sugars have improved. Continue Lantus 40 twice daily. Continue sliding scale insulin. Patient will need diabetic teaching and insulin at time of discharge. She will need meds to beds. Potassium 3.0 this morning. We will replete. Blood culture 1 out of 4 positive for gram-positive cocci. Probably contamination Will repeat blood cultures. 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
[2024-05-19] MEDS: atorvastatin 40 mg Tablet PO (21:04)
[2024-05-20] VITALS (9 sets, daily range): BP systolic 134–165; BP diastolic 82–98; PULSE 65–79; RESP 16–18; TEMP 36.3–36.7; O2SAT 97–99
[2024-05-20] MEDS: heparin 5,000 unit/mL INJ 1 mL 5000 UNIT SUBCUT ×2 (05:48→17:31)
[2024-05-20 05:59] LABS: Alanine Aminotransferase 13 U/L (0-33); Albumin Level 3.1 g/dL (3.5-5.2); Alkaline Phosphatase 112 U/L (35-105); Anion Gap 14.5 (5-19); Aspartate Amino Transferase 20 U/L (0-32); Blood Urea Nitrogen 19 mg/dL (8-23); Calcium 9.2 mg/dL (8.5-10.5); Carbon Dioxide 26 mmol/L (22-29); Chloride 103 mmol/L (98-107); Creatinine Clr Calc Pharmacy 53.6083; Globulin 3.4 g/dL (1.3-4.6); Glomerular Filtration Rate 49.8 mL/min (90-130); Glucose 68 mg/dL (65-115); Osmolality Calculated 291 mOsm/kg (285-295); Potassium 3.5 mmol/L (3.5-5.1); Sodium 140 mmol/L (136-145); Total Bilirubin 0.2 mg/dL (0.15-1.2); Total Protein 6.5 g/dL (6.6-8.7)
[2024-05-20 06:20] LABS: Glucose Point of Care 75 mg/dL (70-110)
[2024-05-20] MEDS: terbinafine 1% Cream 15 gm 1 APPLIC TOPICAL ×2 (07:48→17:31)
[2024-05-20] MEDS: nystatin powder 15 gm Btl 1 APPLIC TOPICAL ×2 (07:48→17:31)
[2024-05-20] MEDS: pantoprazole 40 mg SDV IVP (07:49)
[2024-05-20] MEDS: insulin glargine 100 units/1 mL 40 UNIT SUBCUT ×2 (07:49→17:32)
[2024-05-20] MEDS: gabapentin 300 mg Capsule PO ×2 (07:49→17:31)
[2024-05-20 11:20] LABS: Basophils % 0.4 %; Eosinophils # 0.3 10^3/uL (0.0-0.8); Eosinophils % 3.8 %; Hematocrit 40.8 % (36-47); Lymphocytes % 24.6 %; Mean Corpuscular HGB Conc 30.9 g/dL (30-55); Mean Corpuscular Hemoglobin 27.3 pg (27-33); Mean Corpuscular Volume 88.5 fl (85-98); Mean Platelet Volume 12.5 fL (7.4-10.4); Monocytes # 0.5 10^3/uL (0.2-0.9); Monocytes % 6.1 %; Neutrophils # 5.23 10^3/uL (1.8-7.7); Neutrophils % 64.7 %; Nucleated Red Blood Cells % 0 %; Platelet Count 169 10^3/cmm (157-399); Red Blood Count 4.61 10^6/uL (3.85-5.65); Red Cell Distribution Width 13.9 % (12.1-15.1); White Blood Count 8.08 10^3/uL (3.29-11.43)
[2024-05-20 11:26] LABS: Glucose Point of Care 204 mg/dL (70-110)
[2024-05-20] MEDS: insulin lispro 100 unit/1 mL SUBCUT ×2 (11:39→17:31)
[2024-05-20] MEDS: vancomycin 2,000 MG/400 ML PIGGYBACK 200 MG IV (11:39)
--- NOTE | 2024-05-20 12:19 | PC.SOCIAL ---
IMM Update pg 2 of IMM updated and reviewed w/ patient. Copy provided and copy dated, initialed and placed in chart.
--- NOTE | 2024-05-20 12:30 | PHA.VACGOAL ---
Vancomycin Goal - Goal Vancomycin Goal:: 15-20 mg/L Vancomycin Indication:: Other - Therapy Current therapy:: Pip/Tazo Day of therpy:: Day []of [] . Actual body weight (kg): 94.801 kg - Data Labs: WBC 8.08 10^3/uL (3.29-11.43) 05/20/24 11:08 RBC 4.61 10^6/uL (3.85-5.65) 05/20/24 11:08 Hgb 12.60 g/dL (11.27-16.99) 05/20/24 11:08 Hct 40.8 % (36-47) 05/20/24 11:08 MCV 88.5 fl (85-98) 05/20/24 11:08 MCH 27.3 pg (27-33) 05/20/24 11:08 MCHC 30.9 g/dL (30-55) 05/20/24 11:08 RDW 13.9 % (12.1-15.1) 05/20/24 11:08 Sodium 140 mmol/L (136-145) 05/20/24 05:24 Potassium 3.5 mmol/L (3.5-5.1) 05/20/24 05:24 Chloride 103 mmol/L (98-107) 05/20/24 05:24 Carbon Dioxide 26 mmol/L (22-29) 05/20/24 05:24 Anion Gap 14.5 (5-19) 05/20/24 05:24 BUN 19 mg/dL (8-23) 05/20/24 05:24 Creatinine 1.1 mg/dL (0.5-0.9) H 05/20/24 05:24 GFR Calculation 49.8 mL/min (90-130) L 05/20/24 05:24 Treatment plan:: new consult Regimen:: No prior history of vancomycin found. Loading dose of 2000 mg. Started on maintenance dose of 750 mg q12h.
--- NOTE | 2024-05-20 13:00 | PC.NURSE ---
Instructor present while student discontinued Wilburn.
[2024-05-20] MEDS: piperacillin-tazobactam 3.375 GM in sodium chloride 0.9% (plus) 50 ML IV ×2 (13:51→20:17)
--- NOTE | 2024-05-20 14:46 | P.PN_ITS ---
Subjective 2 Subjective: Seen this morning. Laying in bed recliner appears comfortable. Wilburn catheter has been removed. Patient has positive blood culture and positive urine culture. Discussed with her that we will be hospitalizing her until culture sensitivities resulted. Patient agreeable. Does not offer any complaints at this time. Vitals/I&O/Wt Last Vital Signs Temp 97.7 F 05/20/24 11:34 Pulse 71 05/20/24 13:16 Resp 16 05/20/24 11:34 BP 134/82 05/20/24 11:34 Pulse Ox 97 05/20/24 11:34 O2 Del Method Room Air 05/20/24 11:34 05/19/24 05/20/24 05/20/24 22:59 06:59 14:59 Intake Total 320 / 320 300 / 620 1060 / 1060 Output Total 350 / 350 300 / 650 Balance -30 / -30 0 / -30 1060 / 1060 Weight last 48 hrs Weight 94.801 kg Weight 95 kg Weight 94.256 kg Physical Exam 2 Narrative: Laying comfortably in recliner Awake and alert No active confusion S1, S2 Currently on room air Intertrigo around groin Onychomycosis Abdomen soft nontender Lungs clear to auscultation bilaterally. No active focal deficit No active Resp distress Urinary Catheter Management: Wilburn: Cath Placed During This Visit: yes Reason for Continuing Indwelling Catheter: Assist Healing of Perineal & Sacral Wounds- Incontinent Patients Urinary Catheter Date of Insertion: 05/18/24 Urinary Catheter Time of Insertion: 18:15 Data 05/20/24 11:08 05/20/24 05:24 Micro: Microbiology 05/18/24 16:19 Urine Culture - Preliminary Urine,Clean Catch Gram Negative Rods 05/18/24 21:33 Blood Culture - Preliminary Blood NEGATIVE TO DATE 05/19/24 18:31 Blood Culture - Preliminary Blood SPECIMEN COLLECTED 05/19/24 18:30 Blood Culture - Preliminary Blood SPECIMEN COLLECTED 05/18/24 17:30 Blood Culture - Preliminary Blood A&P Assessment and plan (1) Hypertension: Qualifiers: Hypertension type: essential hypertension Qualified Code(s): I10 - Essential (primary) hypertension (2) Non-compliant patient: (3) Left bundle branch block: (4) Diabetes: Qualifiers: Diabetes mellitus type: type 2 Diabetes mellitus keno terminal operator insulin use: with keno terminal operator use Diabetes mellitus complication status: with hyperglycemia Q ualified Code(s): E11.65 - Type 2 diabetes mellitus with hyperglycemia; Z79.4 - long term acute care registered nurse (current) use of insulin (5) Secondary diabetes mellitus with HHNC (hyperglycemia hyperosmolar non- ketotic coma): (6) Morbid obesity: (7) Acute hyperglycemia: (8) Enlarged and hypertrophic nails: Plan Hyperglycemia without DKA anion gap is not high Consistent carb diet insulin sliding scale and Lantus Patient had IV fluid resuscitation Noncompliant with her insulin secretion stating that she is not able to afford insulin anymore Acute systolic CHF exacerbation: Judicious use of IV fluids: EF is 39%. She will need diuresis as well Hypertensive urgency: Optimize antihypertensive regimen Consistent carb diet Insulin sliding scale Full code DVT prophylaxis heparin 05/19/2024 Blood sugars have improved. Continue Lantus 40 twice daily. Continue sliding scale insulin. Patient will need diabetic teaching and insulin at time of discharge. She will need meds to beds. Potassium 3.0 this morning. We will replete. Blood culture 1 out of 4 positive for gram-positive cocci. Probably contamination Will repeat blood cultures. 05/20/2024 Patient's morning blood sugar was 68. She did receive 6 units of slow acting insulin overnight. She is also on Lantus 40 units twice daily. I will continue Lantus 40 a.m. daily and switch nighttime dose to 30 units. Continue sliding scale insulin. Patient will need a new glucometer at discharge and meds to beds. Urine culture positive for gram-negative rods. Continue Zosyn. Await culture sensitivity Blood culture 1 out of 4 positive for gram-positive cocci. Most likely contamination. Repeat blood cultures have been ordered. Will await results. If negative we will deem this a contaminant and patient may be able to be discharged. However if repeat culture remains positive she will need further workup to look for source. He is asymptomatic at this time afebrile, white count normal. Plan to discharge home once culture results are available. Continue to replete electrolytes as needed. PDMP PDMP Reviewed: Not Reviewed Attestations 2 Medical Necessity Statement*: more than 2 midnights anticipated Coding Level of Care Code Acute Code for Chg Fwd Diagnoses Essential hypertension I10 Hypertension type: essential hypertension Non-compliant patient Z91.19 Left bundle branch block I44.7 Type 2 diabetes mellitus with hyperglycemia, with long-term current use of insulin E11.65; Z79.4 Diabetes mellitus type: type 2 Diabetes mellitus keno terminal operator insulin use: with keno terminal operator use Diabetes mellitus complication status: with hyperglycemia Secondary diabetes mellitus with HHNC (hyperglycemia hyperosmolar non-ketotic coma) E13.01 Morbid obesity E66.01 Acute hyperglycemia R73.9 Enlarged and hypertrophic nails Q84.5
[2024-05-20] MEDS: lactulose oral liq 20 gm/30 mL UDC PO (15:38)
[2024-05-20] MEDS: HYDROcodone-acetaminophen 5-325 mg Tablet 1 TAB PO (15:38)
[2024-05-20 16:31] LABS: Glucose Point of Care 225 mg/dL (70-110)
[2024-05-20 20:15] LABS: Glucose Point of Care 130 mg/dL (70-110)
[2024-05-20] MEDS: atorvastatin 40 mg Tablet PO (20:17)
[2024-05-21] MEDS: VANCOMYCIN ADD-Vantage 750 MG in 0.9% NaCl ADD-Vantage 250 ML 250 MG IV (01:50)
[2024-05-21 03:45] VITALS: BP 142/71; PULSE 68; RESP 18; TEMP 36.6; O2SAT 97
[2024-05-21] MEDS: heparin 5,000 unit/mL INJ 1 mL 5000 UNIT SUBCUT (05:19)
[2024-05-21] MEDS: piperacillin-tazobactam 3.375 GM in sodium chloride 0.9% (plus) 50 ML IV (05:19)
[2024-05-21 05:54] VITALS: PULSE 68
[2024-05-21 05:58] LABS: Basophils % 0.4 %; Eosinophils # 0.4 10^3/uL (0.0-0.8); Eosinophils % 3.9 %; Hematocrit 41.6 % (36-47); Lymphocytes # 2.2 10^3/uL (0.8-4.8); Lymphocytes % 19.1 %; Mean Corpuscular Hemoglobin 27.9 pg (27-33); Mean Corpuscular Volume 87.4 fl (85-98); Mean Platelet Volume 11.8 fL (7.4-10.4); Monocytes # 0.7 10^3/uL (0.2-0.9); Monocytes % 5.8 %; Neutrophils % 70.4 %; Nucleated Red Blood Cells % 0 %; Platelet Count 171 10^3/cmm (157-399); Red Blood Count 4.76 10^6/uL (3.85-5.65); White Blood Count 11.36 10^3/uL (3.29-11.43)
[2024-05-21 06:17] LABS: Glucose Point of Care 103 mg/dL (70-110)
[2024-05-21 06:19] LABS: Alanine Aminotransferase 12 U/L (0-33); Albumin Level 3.2 g/dL (3.5-5.2); Alkaline Phosphatase 100 U/L (35-105); Anion Gap 12.9 (5-19); Aspartate Amino Transferase 21 U/L (0-32); Blood Urea Nitrogen 18 mg/dL (8-23); Calcium 8.7 mg/dL (8.5-10.5); Carbon Dioxide 26 mmol/L (22-29); Chloride 105 mmol/L (98-107); Creatinine Clr Calc Pharmacy 45.3608; Globulin 3.1 g/dL (1.3-4.6); Glomerular Filtration Rate 41.1 mL/min (90-130); Glucose 93 mg/dL (65-115); Osmolality Calculated 292 mOsm/kg (285-295); Potassium 3.9 mmol/L (3.5-5.1); Sodium 140 mmol/L (136-145); Total Bilirubin 0.2 mg/dL (0.15-1.2); Total Protein 6.3 g/dL (6.6-8.7)
[2024-05-21 07:54] VITALS: BP 152/93; PULSE 70; RESP 18; TEMP 36.2; O2SAT 98
[2024-05-21 08:32] VITALS: PULSE 71; RESP 16; O2SAT 99
[2024-05-21] MEDS: pantoprazole 40 mg SDV IVP (08:57)
[2024-05-21] MEDS: gabapentin 300 mg Capsule PO (08:57)
[2024-05-21] MEDS: nystatin powder 15 gm Btl 1 APPLIC TOPICAL (08:58)
[2024-05-21] MEDS: terbinafine 1% Cream 15 gm 1 APPLIC TOPICAL (08:58)
--- NOTE | 2024-05-21 09:23 | P.DS_ITS ---
Discharge Providers Date of Admission: 05/18/24 17:12 Date of Discharge: May 21, 2024 Attending Provider at Admission: Yvonne Narvaez MD Attending Provider at Discharge: Yvonne Narvaez MD Primary Care Provider: Lito Keating MD Diagnoses at Discharge Discharge Diagnosis (1) Hypertension: Status: Acute Qualifiers: Hypertension type: essential hypertension Qualified Code(s): I10 - Essential (primary) hypertension (2) Non-compliant patient: Status: Acute (3) Left bundle branch block: Status: Acute (4) Diabetes: Status: Acute Qualifiers: Diabetes mellitus complication status: with hyperglycemia Diabetes mellitus tank house 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 insulin use: with longterm use Diabetes mellitus type: type 2 Qualified Code(s): E11.65 - Type 2 diabetes mellitus with hyperglycemia; Z79.4 - photocopy operator (current) use of insulin (5) Secondary diabetes mellitus with HHNC (hyperglycemia hyperosmolar non- ketotic coma): Status: Acute (6) Morbid obesity: Status: Acute (7) Acute hyperglycemia: Status: Resolved (8) Enlarged and hypertrophic nails: Status: Acute Reason for Visit Reason for Visit: sent / [facility] Hospital Course Patient was initially admitted with upper glycemia without DKA. Anion gap was not high. She had IV fluid resuscitation and was placed on Lantus. She stated that she could not afford Lantus and therefore was not taking her medication at home. She also stated that she takes a lot of Donal-Aid and Gatorade with full sugar. I discussed with her regarding getting a continuous glucose monitor however she stated that there is no way she will put that on. She would like to continue to do fingerstick checks. She also does not have any of her home medications and would like a refill for everything. Refills were provided. 1 out of 4 bottles blood culture positive for gram-positive cocci. Labs stated might have been a contamination. Patient does work with [employer] and was not in the best hygiene when presented to the hospital initially. She had intertrigo as well. Blood culture has finally resulted as co-surgeon perfringens. Patient did not have any clinical indication of being truly bacteremic. Repeat cultures were negative. Most likely this was a contamination. However we will go ahead and send her home on metronidazole. During hospital stay she was placed on Zosyn for urine culture being positive. She was sent home on cefdinir. Close lesion perfringens were identified on blood culture 05/24. Discussed with ID briefly as well. Patient was afebrile white count normal throughout hospital stay. We offered patient meds to beds. He was sent home on Lantus 40 units in a.m. and 30 units at nighttime. She was also asked to check her blood sugar and monitor. She will be seeing Dr. Keating which is her primary care doctor soon after discharge. She was also given a follow-up with endocrinology. Patient agreeable to the plan above. Patient appeared to be euvolemic and was sent home on furosemide 40 daily as needed. She denied any chest pain or shortness of breath during hospitalization. I called telephonic case manager to inform patient new prescription of metronidazole to berry picker machine operator from pharmacy and to do a follow-up call with the patient. Physical Exam Narrative: Laying comfortably in recliner Awake and alert No active confusion S1, S2 Currently on room air Intertrigo around groin Onychomycosis Abdomen soft nontender Lungs clear to auscultation bilaterally. No active focal deficit No active Resp distress Urinary Catheter Management: Wilburn: Cath Placed During This Visit: yes, but has since been removed by the nurse Reason for Continuing Indwelling Catheter: Assist Healing of Perineal & Sacral Wounds- Incontinent Patients Urinary Catheter Date of Insertion: 05/18/24 Urinary Catheter Time of Insertion: 18:15 Date Urinary Catheter Removed: 05/20/24 Time Urinary Catheter Discontinued: 10:00 Discharge Data Studies Completed and Pending Completed Studies During Hospitalization Category Date Time Status XR chest 1V portable [id number] Stat Exams 05/18/24 15:50 Completed CV. echo complete* [id number] Stat Ultrasound 05/18/24 17:07 Completed Pending at discharge Category Date Time Status Blood Culture Stat Lab 05/18/24 21:33 Results Blood Culture Stat Lab 05/19/24 18:31 Results Sputum Culture and Gram Stain Stat Lab 05/18/24 17:07 Uncollected Radiology Impressions Chest X-Ray 05/18/24 15:50 IMPRESSION: No acute findings. Laboratory Results WBC 11.36 10^3/uL (3.29-11.43) 05/21/24 05:44 RBC 4.76 10^6/uL (3.85-5.65) 05/21/24 05:44 Hgb 13.30 g/dL (11.27-16.99) 05/21/24 05:44 Hct 41.6 % (36-47) 05/21/24 05:44 MCV 87.4 fl (85-98) 05/21/24 05:44 MCH 27.9 pg (27-33) 05/21/24 05:44 MCHC 32.0 g/dL (30-55) 05/21/24 05:44 RDW 14.0 % (12.1-15.1) 05/21/24 05:44 Plt Count 171 10^3/cmm (157-399) 05/21/24 05:44 MPV 11.8 fL (7.4-10.4) H 05/21/24 05:44 Neut % (Auto) 70.4 % 05/21/24 05:44 Lymph % (Auto) 19.1 % 05/21/24 05:44 [place] % (Auto) 5.8 % 05/21/24 05:44 Eos % (Auto) 3.9 % 05/21/24 05:44 Baso % (Auto) 0.4 % 05/21/24 05:44 Neut # (Auto) 8.00 10^3/uL (1.8-7.7) H 05/21/24 05:44 Lymph # (Auto) 2.2 10^3/uL (0.8-4.8) 05/21/24 05:44 [place] # (Auto) 0.7 10^3/uL (0.2-0.9) 05/21/24 05:44 Eos # (Auto) 0.4 10^3/uL (0.0-0.8) 05/21/24 05:44 Baso # (Auto) 0.0 10^3/uL (0.0-0.1) 05/21/24 05:44 Nucleated RBC % (auto) 0 % 05/21/24 05:44 Nucleated RBCs # 0.0 /100WBC 05/21/24 05:44 Specimen Type Arterial 05/18/24 16:00 Sample Site Brachial, right 05/18/24 16:00 ABG pH 7.50 (7.35-7.45) H 05/18/24 16:00 ABG pCO2 29.8 mmHg (35-45) L 05/18/24 16:00 ABG pO2 90.3 mmHg (80.0-100.0) 05/18/24 16:00 ABG PO2/FiO2 Ratio 177 05/18/24 16:00 ABG HCO3 22.9 mmol/L (22-26) 05/18/24 16:00 ABG O2 Saturation 98.3 05/18/24 16:00 ABG Base Excess 0.6 mmol/L (-2.0-2.0) 05/18/24 16:00 Preet Test N/a 05/18/24 16:00 A-a O2 Gradient 30.4 mmHg (5-10) H 05/18/24 16:00 Hematocrit 42.7 % (37-47) 05/18/24 16:00 Hgb O2 Saturation 96.3 % (95-100) 05/18/24 16:00 Carboxyhemoglobin 0.9 %THgb (0.4-20.1) 05/18/24 16:00 Methemoglobin 1.1 % (0.4-1.5) 05/18/24 16:00 Total Hemoglobin 13.9 g/dL (12-16) 05/18/24 16:00 Sodium 128.0 mmol/L (131-143) L 05/18/24 16:00 Potassium 3.7 mmol/L (3.5-5.0) 05/18/24 16:00 Glucose 738.0 mg/dL (70-115) H 05/18/24 16:00 Ionized Calcium 1.2 mmol/L (1.1-1.4) 05/18/24 16:00 O2 Delivery Device Room air 05/18/24 16:00 FiO2 51.0 % 05/18/24 16:00 Cellular Plastics Cutter ID Gd 05/18/24 16:00 Sodium 140 mmol/L (136-145) 05/21/24 05:44 Potassium 3.9 mmol/L (3.5-5.1) 05/21/24 05:44 Chloride 105 mmol/L (98-107) 05/21/24 05:44 Carbon Dioxide 26 mmol/L (22-29) 05/21/24 05:44 Anion Gap 12.9 (5-19) 05/21/24 05:44 BUN 18 mg/dL (8-23) 05/21/24 05:44 Creatinine 1.3 mg/dL (0.5-0.9) H 05/21/24 05:44 GFR Calculation 41.1 mL/min (90-130) L 05/21/24 05:44 Glucose 93 mg/dL (65-115) 05/21/24 05:44 POC Glucose 103 mg/dL (70-110) 05/21/24 06:08 Estimat Average Glucose 378 05/18/24 16:01 Hemoglobin A1c 14.8 % (4.0-6.0) H 05/18/24 16:01 Calculated Osmolality 292 mOsm/kg (285-295) 05/21/24 05:44 Lactic Acid 2.1 mmol/L (0.5-2.2) 05/18/24 16:01 Lactic Acid (Sepsis) 3.0 mmol/L (0.5-2.2) H 05/18/24 19:44 Calcium 8.7 mg/dL (8.5-10.5) 05/21/24 05:44 Total Bilirubin 0.2 mg/dL (0.15-1.2) 05/21/24 05:44 AST 21 U/L (0-32) 05/21/24 05:44 ALT 12 U/L (0-33) 05/21/24 05:44 Alkaline Phosphatase 100 U/L (35-105) 05/21/24 05:44 Total Protein 6.3 g/dL (6.6-8.7) L 05/21/24 05:44 Albumin 3.2 g/dL (3.5-5.2) L 05/21/24 05:44 Globulin 3.1 g/dL (1.3-4.6) 05/21/24 05:44 Triglycerides 470 mg/dL (0-150) H 05/18/24 16:01 Cholesterol 229 mg/dL (0-200) H 05/18/24 16:01 LDL Cholesterol Direct 131 mg/dL (0-100) H 05/18/24 16:01 LDL Cholesterol, Calc Not Reportable 05/18/24 16:01 Total VLDL Cholesterol 94 mg/dL (0-30) H 05/18/24 16:01 HDL Cholesterol 39 mg/dL (60-100) L 05/18/24 16:01 Cholesterol/HDL Ratio 5.87 mg/dL (0.0-4.40) H 05/18/24 16:01 TSH 1.21 uIU/mL (0.27-4.20) 05/18/24 16:01 Urine Color Yellow (Yellow) 05/18/24 16:19 Urine Appearance Clear (CLEAR) 05/18/24 16:19 Urine pH 5.5 (5-7) 05/18/24 16:19 Ur Specific [place] 1.031 (1.005-1.030) H 05/18/24 16:19 Urine Protein Negative (Negative) 05/18/24 16:19 Urine Glucose (UA) 3+ (Normal) H 05/18/24 16:19 Urine Ketones Trace (Negative) 05/18/24 16:19 Urine Blood 2+ (Negative) A 05/18/24 16:19 Urine Nitrate Negative (Negative) 05/18/24 16: Urine Bilirubin Negative (Negative) 05/18/24 16:19 Urine Urobilinogen 0.2 mg/dL (Negative) 05/18/24 16:19 Ur Leukocyte Esterase Negative (Negative) 05/18/24 16:19 Urine RBC 3-5 /hpf (0-2) 05/18/24 16:19 Urine WBC 21-50 /hpf (0-5) H 05/18/24 16:19 Ur Squamous Epith Cells 0-5 /hpf (0-5) 05/18/24 16:19 Amorphous Sediment Not Reportable 05/18/24 16:19 Urine Bacteria None seen /hpf (NONE) 05/18/24 16:19 Hyaline Casts 2.05 /lpf 05/18/24 16:19 Serum Ketones Negative (Negative) 05/18/24 16:01 Vitals Last Vital Signs Temp 97.2 F L 05/21/24 07:54 Pulse 71 05/21/24 08:32 Resp 16 05/21/24 08:32 BP 152/93 05/21/24 07:54 Pulse Ox 99 05/21/24 08:32 O2 Del Method Room Air 05/21/24 08:32 Discharge Plan Discharge Patient Disposition: Home Condition: Stable Prescriptions: New terbinafine HCl 1 % Cream 1 applic topical BID 7 Days Qty: 100 0RF atorvastatin 40 mg Tablet 40 mg PO BEDTIME Qty: 30 0RF nystatin [Nystop] 100,000 unit/gram Powder 1 applic topical BID 7 Days Qty: 100 0RF cefdinir 300 mg capsule 300 mg PO BID 5 Days Qty: 10 0RF (DME) blood-glucose meter [Blood Glucose Monitoring] Kit See Rx Instructions .Route Qty: 1 0RF Rx Instructions: As directed (DME) lancets Misc See Rx Instructions .Route Qty: 200 0RF Rx Instructions: As directed (DME) Blood Glucose Test Strip See Rx Instructions .Route Qty: 50 0RF Rx Instructions: As directed metronidazole 500 mg tablet 500 mg PO TID 7 Days Qty: 21 0RF Continued nitroglycerin 0.4 mg tablet, sublingual 0.4 mg SUBLINGUAL Q5M PRN (Reason: chest pain) Qty: 25 3RF Rx Instructions: do not exceed 3 doses per episode (DME) SHOULDER IMMOBILIZER See Rx Instructions .ROUTE .MEDSUPPLY Qty: 1 0RF Rx Instructions: As directed (DME) Monoject TB Safety Syringe 1 mL 28 gauge x 1/2 syringe See Rx Instructions .Route Qty: 300 3RF Rx Instructions: to use for insulin TID for blood sugar 90 day supply Changed furosemide 40 mg tablet 40 mg PO DAILY PRN (Reason: Edema) Qty: 30 0RF isosorbide mononitrate 30 mg tablet extended release 24 hr 30 mg PO DAILY Qty: 30 0RF clopidogrel 75 mg tablet 75 mg PO DAILY Qty: 30 0RF lisinopril 10 mg tablet 20 mg PO DAILY Qty: 60 0RF docusate sodium 100 mg capsule 100 mg PO BID Qty: 60 0RF gabapentin 300 mg capsule 300 mg PO BID Qty: 60 0RF omeprazole 20 mg capsule,delayed release(DR/EC) 20 mg PO DAILY Qty: 30 0RF insulin glargine [Lantus Solostar U-100 Insulin] 100 unit/mL (3 mL) insulin pen See Rx Instructions .ROUTE .COMPLEX Qty: 15 0RF Rx Instructions: 40 units in AM, 30 units at bedtime Discontinued hydrocodone-acetaminophen 5-325 mg tablet 1 tab PO BID PRN (Reason: pain) 30 Days Qty: 40 0RF insulin aspart U-100 [Novolog FlexPen U-100 Insulin] 100 unit/mL (3 mL) insulin pen See Rx Instructions .ROUTE .COMPLEX Rx Instructions: INJECT 18 UNITS SUBCUTANEOUSLY TWICE DAILY; BEFORE BREAKFAST AND BEFORE afternoon meal Discharge Orders: Discharge Order (Routine); Ordered 05/21/24 Ordered By: Yvonne Narvaez Referrals: Lito Keating MD [Primary Care Provider] - 4-7 days (We have notified your physician's clinic of the need for a follow-up appointment to be scheduled. If you have not heard from them within the next 2 business days, please call them directly. ) Terri Sanz MD [Physician] - 1 week Jose De Jesus Yu M.D [Physician] - 7-10 days Discharge Diet: Cardiac and Diabetic Discharge Activity: Resume usual activity Patient Instructions: Nystatin (On the skin), Terbinafine (On the skin), Atorvastatin (By mouth), Cefdinir (By mouth), Glucose Test Strips (Not Applicable), Diabetic Ketoacidosis (DC), How to Check your Blood Sugar (DC), Opioid Safety Discharge Attestations Time Spent in Discharge Care*: greater than 30 min Quality Metrics Clinical Quality Measures [ No reported AMI, CVA or VTE this stay] Coding Level of Care Code Acute Code for Chg Fwd Diagnoses Essential hypertension I10 Hypertension type: essential hypertension Non-compliant patient Z91.19 Left bundle branch block I44.7 Type 2 diabetes mellitus with hyperglycemia, with long-term current use of insulin E11.65; Z79.4 Diabetes mellitus complication status: with hyperglycemia Diabetes mellitus longterm insulin use: with longterm use Diabetes mellitus type: type 2 Secondary diabetes mellitus with HHNC (hyperglycemia hyperosmolar non-ketotic coma) E13.01 Morbid obesity E66.01 Acute hyperglycemia R73.9 Enlarged and hypertrophic nails Q84.5
[2024-05-21 11:19] LABS: Glucose Point of Care 173 mg/dL (70-110)
[2024-05-21 11:58] VITALS: BP 154/91; PULSE 67; RESP 19; TEMP 36.4; O2SAT 98
[2024-05-21] MEDS: insulin lispro 100 unit/1 mL SUBCUT (12:02)
[2024-05-21 14:16] VITALS: BP 154/91; PULSE 67; RESP 16; TEMP 36.4; O2SAT 98
== END 2024-05-21 14:16 | disposition home or self-care (01) ==
LOC: ER 16:19 → ICU 17:41 → MEDSURG 05-19 13:45 → ICU 05-21 13:36
PROVIDERS: Admitting Provider Internal Medicine; Emergency Provider Family Medicine; PCP Family Medicine; Visit Provider Internal Medicine
DX: E11.65 Type 2 diabetes mellitus with hyperglycemia (principal); I44.7 Left bundle-branch block, unspecified; Z79.4 Long term (current) use of insulin; E66.01 Morbid (severe) obesity due to excess calories; Z68.39 Body mass index [BMI] 39.0-39.9, adult; I16.0 Hypertensive urgency; I25.10 Atherosclerotic heart disease of native coronary artery without angina pectoris; I50.41 Acute combined systolic (congestive) and diastolic (congestive) heart failure; Q84.5 Enlarged and hypertrophic nails; Z91.199 Patient's noncompliance with other medical treatment and regimen due to unspecified reason; R63.1 Polydipsia; R35.89 Other polyuria; K21.9 Gastro-esophageal reflux disease without esophagitis
CPT/HCPCS: 36415; 36416; 36600; 51702; 71045; 80051; 80053; 80061; 81001; 82009; 82330; 82805; 82962; 83036; 83605; 83721; 84443; 85025; 87040; 87077; 87086; 87150; 87186; 87205; 93005; 93306; 94664; 96365; 96366; 96367; 96372; 96374; 96375; 96376; 97116; 97162; 97166; 97530; 97535; 99285; G0378; J0696; J1644; J1815; J2470; J2543; J3370; J3372; J7030; J7050; J9999

== ENCOUNTER 2024-11-09 20:43 | Emergency (ER) | payer MEDICARE, SELFPAY ==
[2024-11-09 21:20] LABS: Hematocrit 36.0 % (36-47); Hemoglobin 11.70 g/dL (11.27-16.99); Mean Corpuscular HGB Conc 32.5 g/dL (30-55); Mean Corpuscular Hemoglobin 28.9 pg (27-33); Mean Corpuscular Volume 88.9 fl (85-98); Nucleated Red Blood Cells % 0 %; Platelet Count 324 10^3/cmm (157-399); Red Blood Count 4.05 10^6/uL (3.85-5.65); White Blood Count 14.69 10^3/uL (3.29-11.43)
[2024-11-09 21:25] VITALS: BP 118/71; PULSE 89; RESP 18; TEMP 37.2; O2SAT 95; BMI 44.0
[2024-11-09 21:40] LABS: Alanine Aminotransferase < 5 U/L (0-33); Albumin Level 3.8 g/dL (3.5-5.2); Alkaline Phosphatase 91 U/L (35-105); Anion Gap 20.9 (5-19); Aspartate Amino Transferase 15 U/L (0-32); Blood Urea Nitrogen 32 mg/dL (8-23); Calcium 9.5 mg/dL (8.5-10.5); Carbon Dioxide 25 mmol/L (22-29); Chloride 100 mmol/L (98-107); Creatinine Clr Calc Pharmacy 28.5566; Globulin 4.2 g/dL (1.3-4.6); Glucose 131 mg/dL (65-115); Osmolality Calculated 303 mOsm/kg (285-295); Potassium 3.9 mmol/L (3.5-5.1); Sodium 142 mmol/L (136-145); Total Protein 8.0 g/dL (6.6-8.7)
[2024-11-09 22:40] VITALS: PULSE 83; O2SAT 98
--- NOTE | 2024-11-09 22:51 | XRR_ITS ---
PROCEDURE INFORMATION: Exam: XR Right Tibia and Fibula Exam date and time: 11/09/2024 10:54 PM Age: 63 years old Clinical indication: Injury or trauma; Fall; Blunt trauma; Lower leg; Right; Additional info: Injury, sore TECHNIQUE: Imaging protocol: Radiologic exam of the right tibia and fibula. Views: 2 views. Total images: 2 COMPARISON: No relevant prior studies available. FINDINGS: Bones/joints: Knee joint moderate degenerative manifestations predominantly involving the medial load bearing joint compartment. Dorsal calcaneal Achilles heel spur enthesophyte. Chopart joint mild osteoarthritis. No acute osseous abnormality. No acute displaced fracture, subluxation or dislocation. Generalized bony tendon origin/insertion proliferative enthesopathy, mild. Soft tissues: There is marked soft tissue swelling. XR/XR tibia fibula RT 2V [id number] IMPRESSION: No acute displaced fracture.
--- NOTE | 2024-11-09 22:51 | W.ED.EXTPRO ---
HPI - Extremity Problem General: Chief complaint: Extremity Injury, Lower Stated complaint: Infection in RT leg Time Seen by Provider: 11/09/24 22:33 History of Present Illness: Patient is a 63-year-old female, diabetic, HTN, reports to emergency room with right leg pain, and 2 open areas. Patient initially had a fall 3 days ago, went to the doctor, was placed on Bactrim DS. She was also increased on her Lasix from 40 mg a day, to 80 mg a day due to her lower extremity edema. Today, patient had a additional fall, and drug of her right leg through dirt that was on her floor. She stated that since her roommate has a broken leg, and since she has wounds, she has not been able to clean the dirt off of her floor. This area has increased in redness, and open in nature. She denies any fever, chills. Selected Entries 11/09/24 21:25 ED Triage Comment Right leg pain, pt points to two ope n areas to lower r ight leg. Pt had f all yesterday. rig ht leg is red and swollen . pt has d irt on her face an d arms and legs. P t reports living a t home where the c ats and dogs are f illing with stool. She states she fe ll today and had t o crawl through th e dirt floors to g et herself up. Associated symptoms: Deny fever(s) or rash Related Data Previous Rx's ?Medication ?Instructions ?Recorded nitroglycerin 0.4 mg sublingual 0.4 mg sublingual Q5M PRN chest 03/30/21 tablet pain #25 tabs syringe with needle, safety 1 mL #300 ea 08/29/22 28 gauge x 1/2 (Monoject TB Safety Syringe) SHOULDER IMMOBILIZER #1 ea 11/20/22 blood sugar diagnostic (Blood #50 ea 05/21/24 Glucose Test strips) blood-glucose meter (Blood Glucose #1 ea 05/21/24 Monitoring kit) docusate sodium 100 mg capsule 100 mg PO BID #60 caps 05/21/24 lancets #200 ea 05/21/24 lisinopril 10 mg tablet 20 mg (2 x 10 mg) PO DAILY #60 tabs 05/21/24 omeprazole 20 mg capsule,delayed 20 mg PO DAILY #30 caps 05/21/24 release gabapentin 300 mg capsule 300 mg PO BID #60 caps 05/26/24 atorvastatin 40 mg tablet 40 mg PO BEDTIME #90 tabs 06/19/24 clopidogrel 75 mg tablet See Rx Instructions .Route 08/17/24 .COMPLEX #90 tabs furosemide 40 mg tablet See Rx Instructions .Route 08/17/24 .COMPLEX #90 tabs isosorbide mononitrate 30 mg See Rx Instructions .Route 08/17/24 tablet,extended release 24 hr .COMPLEX #90 tabs diabetic test strips #100 ea 09/08/24 insulin glargine 100 unit/mL (3 See Rx Instructions .Route 09/30/24 mL) subcutaneous pen (Lantus .COMPLEX #15 mL Solostar U-100 Insulin) hydrocodone 7.5 mg-acetaminophen 1 tab PO BEDTIME PRN pain 30 days 10/22/24 325 mg tablet #30 tabs sulfamethoxazole 800 1 tab PO BID #30 tabs 11/05/24 mg-trimethoprim 160 mg tablet (Bactrim DS) doxycycline hyclate 100 mg capsule 100 mg PO BID 10 days #20 caps 11/09/24 Allergies Allergy/AdvReac Type Severity Reaction Status Date / Time nalbuphine (From Nubain) Allergy Unknown Verified 11/05/24 13:52 Review of Systems General: Reports: 10 or more systems reviewed and unremarkable except in HPI and below Const: Denies: fever(s) or chills Eyes: Denies: change in vision or blurry vision Card: Reports: dyspnea on exertion; Denies: palpitations Resp: Denies: dyspnea, productive cough or non-productive cough GI: Denies: abdominal pain, nausea or vomiting : Reports: urinary frequency and urinary incontinence Musc: Reports: back pain and extremity pain (feet are killing me.....); Denies: joint pain Skin/Breast: Reports: skin tenderness and sores (3: 8mm to 20 mm blisters on distal rt lower leg w minimal drainage+1 edema); Denies: rash, photosensitivity, nipple discharge or breast mass Neuro: Reports: numbness in extremities (Chronically); Denies: seizure-like activity Psych: Reports: depression (mild/stable); Denies: tactile hallucinations or suicidal ideation Endo: Reports: polyuria PFSH ED PFSH: Medical History (Updated 11/09/24 @ 23:39 by PADDY Friedman) GERD without esophagitis Atherosclerosis of coronary artery [facility] with severe px LAD stenosis s/p CUCO x 1 and px LCX stenosis s/p CUCO x 1- 08/21/21 Hypovolemia Left bundle branch block History of coronary artery disease Accelerated hypertension Sepsis Elevated troponin Generalized anxiety disorder Chronic combined systolic (congestive) and diastolic (congestive) heart failure moderate systolic dysfunction and grade 2 diastolic dysfunction Chronic pain syndrome Morbid obesity Ischemic cardiomyopathy Systolic and diastolic CHF, acute Poorly controlled diabetes mellitus Chest pain GERD (gastroesophageal reflux disease) Stenosis of coronary stent EF 40% grade 2 diastolic dysfunction, LVH, Cholelithiasis Hypertension Dyslipidemia Diabetes Coronary artery disease Surgical History Status post laparoscopic cholecystectomy (07/08/19) History of lithotripsy History of appendectomy H/O cardiac catheterization 1 vessel disease [address] segment elevation OR 3 stents were placed, with subsequent stent thrombosis with balloon angioplasty Family History Other CAD (coronary artery disease) Hypertension Denies family history of Anesthesia complication Bleeding disorder Social History Smoking and tobacco/nicotine status: never used tobacco/nicotine Alcohol intake: never Substance/Drug Use: never Adopted: Yes Caregiver/support person: Yes Lives independently: Yes Household members: family Housing: House Physical Exam Narrative: EXAM NARRATIVE: Not calm, becomes defensive with discussing any safety issues at home. Const: COMMON NORMALS: no acute distress GENERAL APPEARANCE: cooperative and disheveled NUTRITIONAL APPEARANCE: obese ORIENTATION/CONSCIOUSNESS: not confused HENMT: COMMON NORMALS: normocephalic and atraumatic HEAD & SCALP: normocephalic and atraumatic Neck/C-Spine: COMMON NORMALS: full ROM and no lymphadenopathy Lymph: LYMPHATIC: no lymphadenopathy noted Chest: COMMONS NORMALS: normal inspection of the chest and normal palpation of entire chest wall Resp: COMMON NORMALS: clear to auscultation bilaterally AUSCULTATION: clear to auscultation bilaterally Cardio: COMMON NORMALS: regular rate; negative for regular rhythm RATE: regular rate RHYTHM: abnormal rhythm GI: COMMON NORMALS: non-tender (minimal ruq) : COMMON NORMALS: Yes no CVA tenderness BLADDER/KIDNEY EXAM: Yes no CVA tenderness Back/Pelvis: COMMON NORMALS: no CVA tenderness Extremity: NARRATIVE EXTREMITY EXAM: Right lower extremity: Mid lower leg with superficial white area with surrounding redness, mid lower leg proximally medially with surrounding redness, and superficial white area with minimal serous drainage. Anteriorly mid medial two thirds distal lower extremity with white minimal serous drainage with surrounding redness. Neuro: COMMON NORMALS: negative for no sensory deficits noted (decreased sensorum to monofilament bilateral) and negative for gait normal SPEECH: speech normal GAIT: Yes Normal gait present Psych: COMMON NORMALS: normal affect ACTIVITY/MOTOR BEHAVIOR: No appropriate eye contact MOOD & AFFECT: Yes depressed mood THOUGHT PROCESS: Circumstantial thought process present INSIGHT: Limited insight present (Psych) JUDGEMENT: Limited judgement present (Psych) Skin: NARRATIVE SKIN EXAM: See above Course Vital Signs: Vital signs: Vital Signs Temperature 98.9 F 11/09/24 21:25 Pulse Rate 83 11/09/24 22:40 Respiratory Rate 18 11/09/24 21:25 Blood Pressure 118/71 11/09/24 21:25 Pulse Oximetry 98 11/09/24 22:40 Oxygen Delivery Me thod Room Air 11/09/24 22:40 MDM - Extremity (Nontraumatic) Medical Decision Making Patient is 63-year-old female that reports to ED with worsening right leg redness. I appreciate only minimal cellulitis that is localized around the superficial wounds. Patient has multiple risk factors however including diabetes, obesity, and now CHLOE. I have asked her to stop her Lasix, stop her lisinopril, stop her Bactrim, do localized wound care, and start doxycycline that will not affect her renal function. She is also supposed to follow-up with her doctor to repeat renal labs. I have also had a candid discussion regarding safe environment for the patient, which patient ensures that it is a safe, clean environment, and she takes care of her dogs, this is not feces, it is dirt, because she has not been able to sweep her floor. I have encouraged her to go to her primary care physician and obtain a home health care help. Patient has declined this, as well I have asked her to go to wound care to have a diabetic wound followed, and patient has initially declined this despite the referral. I have any events sent the medication to the pharmacy, and asked her to obtain the doxycycline and take it, and hold the Bactrim. I have given her very clear instructions, although I am very concerned about her safety and her refusal. She is competent to make her own inappropriate decisions however. Medical Records I reviewed the patient's medical records. Lab Data I reviewed the patient's lab results. 11/09/24 21:03 11/09/24 21:03 Laboratory Results WBC 14.69 10^3/uL (3.29-11.43) H 11/09/24 21:03 RBC 4.05 10^6/uL (3.85-5.65) 11/09/24 21:03 Hgb 11.70 g/dL (11.27-16.99) 11/09/24 21:03 Hct 36.0 % (36-47) 11/09/24 21:03 MCV 88.9 fl (85-98) 11/09/24 21:03 MCH 28.9 pg (27-33) 11/09/24 21:03 MCHC 32.5 g/dL (30-55) 11/09/24 21:03 RDW 14.6 % (12.1-15.1) 11/09/24 21:03 Plt Count 324 10^3/cmm (157-399) 11/09/24 21:03 MPV 11.0 fL (7.4-10.4) H 11/09/24 21:03 Neut % (Auto) 72.6 % 11/09/24 21:03 Lymph % (Auto) 17.1 % 11/09/24 21:03 Bell % (Auto) 5.7 % 11/09/24 21:03 Eos % (Auto) 3.9 % 11/09/24 21:03 Baso % (Auto) 0.3 % 11/09/24 21:03 Neut # (Auto) 10.67 10^3/uL (1.8-7.7) H 11/09/24 21:03 Lymph # (Auto) 2.5 10^3/uL (0.8-4.8) 11/09/24 21:03 Bell # (Auto) 0.8 10^3/uL (0.2-0.9) 11/09/24 21:03 Eos # (Auto) 0.6 10^3/uL (0.0-0.8) 11/09/24 21:03 Baso # (Auto) 0.0 10^3/uL (0.0-0.1) 11/09/24 21:03 Nucleated RBC % (auto) 0 % 11/09/24 21:03 Nucleated RBCs # 0.0 /100WBC 11/09/24 21:03 ESR 50 mm/hr (0-15) H 11/09/24 21:03 Sodium 142 mmol/L (136-145) 11/09/24 21:03 Potassium 3.9 mmol/L (3.5-5.1) 11/09/24 21:03 Chloride 100 mmol/L (98-107) 11/09/24 21:03 Carbon Dioxide 25 mmol/L (22-29) 11/09/24 21:03 Anion Gap 20.9 (5-19) H 11/09/24 21:03 BUN 32 mg/dL (8-23) H 11/09/24 21:03 Creatinine 2.2 mg/dL (0.5-0.9) H 11/09/24 21:03 GFR Calculation 22.4 mL/min (90-130) L 11/09/24 21:03 Glucose 131 mg/dL (65-115) H 11/09/24 21:03 Calculated Osmolality 303 mOsm/kg (285-295) H 11/09/24 21:03 Calcium 9.5 mg/dL (8.5-10.5) 11/09/24 21:03 Total Bilirubin 0.2 mg/dL (0.15-1.2) 11/09/24 21:03 AST 15 U/L (0-32) 11/09/24 21:03 ALT < 5 U/L (0-33) 11/09/24 21:03 Alkaline Phosphatase 91 U/L (35-105) 11/09/24 21:03 C-Reactive Protein 17.9 mg/L (0.0-4.9) H 11/09/24 21:03 Total Protein 8.0 g/dL (6.6-8.7) 11/09/24 21:03 Albumin 3.8 g/dL (3.5-5.2) 11/09/24 21:03 Globulin 4.2 g/dL (1.3-4.6) 11/09/24 21:03 XR interpretation done by ED provider, pending radiology final review Discharge Plan Discharge Patient Disposition: Home Clinical Impression: Open wound of right lower extremity, CHLOE (acute kidney injury), Cellulitis of right lower extremity from knee to ankle Condition: Stable Prescriptions: New doxycycline hyclate 100 mg capsule 100 mg PO BID 10 Days Qty: 20 0RF No Action nitroglycerin 0.4 mg tablet, sublingual 0.4 mg SUBLINGUAL Q5M PRN (Reason: chest pain) Qty: 25 3RF Rx Instructions: do not exceed 3 doses per episode sulfamethoxazole-trimethoprim [Bactrim DS] 800-160 mg tablet 1 tab PO BID Qty: 30 1RF (DME) SHOULDER IMMOBILIZER See Rx Instructions .ROUTE .MEDSUPPLY Qty: 1 0RF Rx Instructions: As directed gabapentin 300 mg capsule 300 mg PO BID Qty: 60 4RF (DME) Monoject TB Safety Syringe 1 mL 28 gauge x 1/2 syringe See Rx Instructions .Route Qty: 300 3RF Rx Instructions: to use for insulin TID for blood sugar 90 day supply atorvastatin 40 mg tablet 40 mg PO BEDTIME Qty: 90 3RF furosemide 40 mg tablet See Rx Instructions .ROUTE .COMPLEX Qty: 90 1RF Dose Instruction: TAKE ONE TABLET BY MOUTH DAILY NEEDED for EDEMA Rx Instructions: TAKE ONE TABLET BY MOUTH DAILY NEEDED for EDEMA isosorbide mononitrate 30 mg tablet extended release 24 hr See Rx Instructions .ROUTE .COMPLEX Qty: 90 1RF Dose Instruction: TAKE ONE TABLET BY MOUTH DAILY Rx Instructions: TAKE ONE TABLET BY MOUTH DAILY clopidogrel 75 mg tablet See Rx Instructions .ROUTE .COMPLEX Qty: 90 2RF Dose Instruction: TAKE ONE TABLET BY MOUTH DAILY Rx Instructions: TAKE ONE TABLET BY MOUTH DAILY (DME) diabetic test strips See Rx Instructions .Route .MEDSUPPLY Qty: 100 3RF Rx Instructions: As directed insulin glargine [Lantus Solostar U-100 Insulin] 100 unit/mL (3 mL) insulin pen See Rx Instructions .ROUTE .COMPLEX Qty: 15 0RF Rx Instructions: 40 units in AM, 30 units at bedtime hydrocodone-acetaminophen 7.5-325 mg tablet 1 tab PO BEDTIME PRN (Reason: pain) 30 Days Qty: 30 0RF lisinopril 10 mg tablet 20 mg PO DAILY Qty: 60 0RF docusate sodium 100 mg capsule 100 mg PO BID Qty: 60 0RF omeprazole 20 mg capsule,delayed release(DR/EC) 20 mg PO DAILY Qty: 30 0RF (DME) blood-glucose meter [Blood Glucose Monitoring] Kit See Rx Instructions .Route Qty: 1 0RF Rx Instructions: As directed (DME) lancets Misc See Rx Instructions .Route Qty: 200 0RF Rx Instructions: As directed (DME) Blood Glucose Test Strip See Rx Instructions .Route Qty: 50 0RF Rx Instructions: As directed Discharge Orders: Discharge ED (Routine); Ordered 11/09/24 Ordered By: Melly Cordon Referrals: Lito Keating MD [Primary Care Provider, Family Practice] Discharge Diet: Usual diet Discharge Activity: Resume usual activity Patient Instructions: Acute Kidney Injury (DC), Acute Wound Care (ED) Activity Restrictions/Additional Instructions: - Stop/do not take the generic Bactrim. The Bactrim is causing your kidneys to have issues - Doxycycline has been sent to your pharmacy - Case management has referral for wound care. Follow-up with wound care and coordinate with your right leg. - As discussed change her socks daily, wash your right lower extremity. This can be done topically, or in the bathtub. Dial soap or pHisoDerm is best then apply the mupirocin, Vaseline or Vaseline gauze, then wrap /cover. - Is important to keep your house clean and tidy to avoid further issues with your wound. - Do not take your Lasix. You may compress your lower extremity with Lan wrap. You will need your kidney labs repeated before you restart your Lasix. - Do not take your lisinopril. You will need follow-up on your blood work before restarting your lisinopril. - You will need your kidneys checked in the next 2-3 days. Call your doctor in the morning when they open to schedule an appointment before the end of the week. - Return to ED with worsening pain, worsening redness, worsening swelling, fever greater than 100.4 ?F Print Language: Macanese Coding Level of Care Code ED Wedding Decorator for Roberto Viramontes
[2024-11-09 23:00] VITALS: BP 143/108; PULSE 80; O2SAT 96
[2024-11-09 23:30] VITALS: BP 158/97; PULSE 78; O2SAT 97
[2024-11-09] MEDS: mupirocin oint 22 gm 1 APPLIC TOPICAL (23:32)
[2024-11-10] MEDS: HYDROcodone-acetaminophen 10-325 mg Tablet 1 TAB PO (00:07)
--- NOTE | 2024-11-10 16:04 | DCPLANNER ---
Message sent to Wound care for follow up- Patient is 63-year-old female that reports to ED with worsening right leg redness. I appreciate only minimal cellulitis that is localized around the superficial wounds. Patient has multiple risk factors however including diabetes, obesity, and now CHLOE. I have asked her to stop her Lasix, stop her lisinopril, stop her Bactrim, do localized wound care, and start doxycycline that will not affect her renal function. She is also supposed to follow-up with her doctor to repeat renal labs. I have also had a candid discussion regarding safe environment for the patient, which patient ensures that it is a safe, clean environment, and she takes care of her dogs, this is not feces, it is dirt, because she has not been able to sweep her floor. I have encouraged her to go to her primary care physician and obtain a home health care help. Patient has declined this, as well I have asked her to go to wound care to have a diabetic wound followed, and patient has initially declined this despite the referral. I have any events sent the medication to the pharmacy, and asked her to obtain the doxycycline and take it, and hold the Bactrim. I have given her very clear instructions, although I am very concerned about her safety and her refusal. She is competent to make her own inappropriate decisions however
== END 2024-11-10 00:27 | disposition home or self-care (01) ==
PROVIDERS: Emergency Medicine; Emergency Provider Physician Assistant; PCP Family Medicine
DX: S81.801A Unspecified open wound, right lower leg, initial encounter (principal); N17.9 Acute kidney failure, unspecified; L03.115 Cellulitis of right lower limb; Z79.02 Long term (current) use of antithrombotics/antiplatelets; Z79.4 Long term (current) use of insulin; I25.10 Atherosclerotic heart disease of native coronary artery without angina pectoris; E78.5 Hyperlipidemia, unspecified; E11.9 Type 2 diabetes mellitus without complications; I11.0 Hypertensive heart disease with heart failure; I50.41 Acute combined systolic (congestive) and diastolic (congestive) heart failure; W19.XXXA Unspecified fall, initial encounter
CPT/HCPCS: 36415; 73590; 80053; 85025; 85651; 86140; 99284; J9999

== ENCOUNTER → 2024-11-16 10:15 | Outpatient (BNVA) | payer MEDICARE, SELFPAY | PROVIDERS: PCP Family Medicine; Visit Provider Family Medicine | DX: I10 Essential (primary) hypertension (principal); E11.65 Type 2 diabetes mellitus with hyperglycemia; Z79.4 Long term (current) use of insulin | CPT/HCPCS: 80053; 85025 ==

== ENCOUNTER → 2024-12-24 12:56 | Outpatient (BNVA) | payer MEDICARE, SELFPAY | PROVIDERS: PCP Family Medicine; Visit Provider Thoracic Surgery (Cardiothoracic Vascular Surgery) | DX: E11.52 Type 2 diabetes mellitus with diabetic peripheral angiopathy with gangrene (principal); E11.622 Type 2 diabetes mellitus with other skin ulcer; L97.812 Non-pressure chronic ulcer of other part of right lower leg with fat layer exposed; L97.811 Non-pressure chronic ulcer of other part of right lower leg limited to breakdown of skin | CPT/HCPCS: 11042; 97597 ==

== ENCOUNTER → 2025-01-27 13:10 | Outpatient (BNVA) | payer MEDICARE, SELFPAY | PROVIDERS: PCP Family Medicine; Visit Provider Thoracic Surgery (Cardiothoracic Vascular Surgery) | DX: E11.52 Type 2 diabetes mellitus with diabetic peripheral angiopathy with gangrene (principal); E11.622 Type 2 diabetes mellitus with other skin ulcer; L97.811 Non-pressure chronic ulcer of other part of right lower leg limited to breakdown of skin | CPT/HCPCS: 97597 ==

== ENCOUNTER → 2025-02-08 14:18 | Outpatient (BNVA) | payer MEDICARE, SELFPAY | PROVIDERS: PCP Family Medicine; Visit Provider Family Medicine | DX: I10 Essential (primary) hypertension (principal); E11.65 Type 2 diabetes mellitus with hyperglycemia; Z79.4 Long term (current) use of insulin | CPT/HCPCS: 80053; 83036; 85025 ==

== ENCOUNTER → 2025-02-24 11:32 | Outpatient (BNVA) | payer MEDICARE, SELFPAY | PROVIDERS: PCP Family Medicine; Visit Provider Thoracic Surgery (Cardiothoracic Vascular Surgery) | DX: E11.52 Type 2 diabetes mellitus with diabetic peripheral angiopathy with gangrene (principal); E11.622 Type 2 diabetes mellitus with other skin ulcer; L97.811 Non-pressure chronic ulcer of other part of right lower leg limited to breakdown of skin | CPT/HCPCS: 97597; A6212 ==